=== PATIENT | male | born 1945 | race Caucasian/White ===

== ENCOUNTER → 2017-07-18 09:08 | Outpatient (CLI) | payer MEDICARE, SELFPAY ==
[2017-07-18 10:08] LABS: Absolute Lymphocyte Count 1.51 X10^3/ul (0.83-4.51); Absolute Neutrophil Count 3.7 X10^3/uL (2.0-7.7); Basophil# 0.02 X10^3/uL; Basophil% 0.3 % (0-1); Eosinophil# 0.26 X10^3/uL; Eosinophils% 4.1 % (0-5); Hematocrit 41.8 % (40-54); Hemoglobin 14.2 g/dl (13.0-16.5); Lymphocyte # 1.51 X10^3/ul (4.0); Lymphocyte % 23.9 % (19-41); Mean Corpuscular Hgb 30.9 pg (27.0-32.0); Mean Corpuscular Volume 91.1 fL (80-94); Mean Platelet Vol. 10.7 fl (6.2-12.0); Monocyte# 0.78 X10^3/uL; Monocyte% 12.4 % (0-10); Neutrophil # 3.73 X10^3/uL (2.7-7.7); Neutrophil % 59.1 % (47-70); Platelet Count 247 K/mm3 (150-450); RBC Distribution Width CV 13.7 % (11.6-14.6); RBC Distribution Width SD 45.2 fl (35.1-43.9); Red Blood Count 4.59 M/mm3 (4.6-6.2); White Blood Count 6.3 K/mm3 (4.4-11.0)
[2017-07-18 10:14] LABS: POSITIVE COUNT NO; POSITIVE DIFFERENTIAL NO; POSITIVE MORPHOLOGY NO
[2017-07-18 10:34] LABS: ALB/GLOB Ratio 1.1 RATIO (0.9-2.4); AST(SGOT) 32 U/L (15-37); Alanine Aminotransfer ALT/SGPT 37 U/L (16-61); Albumin, Serum 3.4 g/dL (3.2-5.0); Alkaline Phosphatase 95 U/L (45-117); Anion Gap 7 (5-15); BUN 13 mg/dL (7-18); BUN/Creat Ratio 14.3 RATIO (10-20); Calcium,Total 8.6 mg/dL (8.5-10.1); Chloride 105 mmol/L (98-107); Creatinine, Serum 0.91 mg/dL (0.70-1.30); EST Glomerular Filtration Rate 87 mL/min (>60); Est Glom Filt Rate - Afr Amer 105 mL/min (>60); Glucose 81 mg/dL (74-106); Potassium 3.7 mmol/L (3.5-5.1); Protein, Total 6.4 g/dL (6.4-8.2); Sodium Level 142 mmol/L (136-145); Uric Acid 4.3 mg/dL (3.5-7.2)
== END ==
PROVIDERS: Family Provider Family Medicine; PCP Family Medicine; Visit Provider Internal Medicine Rheumatology
DX: M06.4 Inflammatory polyarthropathy (principal); M16.0 Bilateral primary osteoarthritis of hip; M17.0 Bilateral primary osteoarthritis of knee; I25.10 Atherosclerotic heart disease of native coronary artery without angina pectoris; I10 Essential (primary) hypertension; E78.5 Hyperlipidemia, unspecified; Z95.1 Presence of aortocoronary bypass graft; Z96.641 Presence of right artificial hip joint
CPT/HCPCS: 36415; 80053; 84550; 85025

== ENCOUNTER → 2017-07-26 08:38 | Outpatient (CLI) | payer MEDICARE, SELFPAY ==
[2017-07-26 09:51] LABS: AST(SGOT) 25 U/L (15-37); Alanine Aminotransfer ALT/SGPT 37 U/L (16-61); Albumin, Serum 3.4 g/dL (3.2-5.0); Alkaline Phosphatase 91 U/L (45-117); Bilirubin, Direct 0.16 mg/dL (0.00-0.30); Cholesterol 136 mg/dL (200); Globulin 3.1 g/dL (2.2-4.2); High Density Lipoprotein 41 mg/dL; Protein, Total 6.5 g/dL (6.4-8.2); Triglycerides 138 mg/dL
[2017-07-26 09:52] LABS: Very Low Density Lipoprotein 28 mg/dL (5-40)
== END ==
PROVIDERS: Family Provider Family Medicine; PCP Family Medicine; Visit Provider Internal Medicine Cardiovascular Disease
DX: E78.5 Hyperlipidemia, unspecified (principal); Z79.899 Other long term (current) drug therapy
CPT/HCPCS: 36415; 80061; 80076

== ENCOUNTER → 2017-08-31 12:45 | Outpatient (CLI) | payer MEDICARE, SELFPAY ==
--- NOTE | 2017-08-31 12:47 | STE_ITS ---
Reason For Study: S/P CABG Stress Results Protocol: Nicola Protocol Maximum Predicted HR: 147 bpm Target HR: 125 bpm% Max imum Predicted HR: 86 % DurationHeart Rate Stage (mm:ss) (bpm) BPCom ment BASELINE 63 138/72 2 CC DEFINITY STAGE 1 3:00 90 146/80 STAGE 2 3:00 10 9 158/82 STAGE 3 2:00 12 6 / 1 C C DEFINITY RECOVERY 74 128/76 Stress Duration: 8:00 mm:ss Maximum Stress HR: 126 bpm Baseline Echocardiogram Findings The estimated ejection fraction is 65 %. Stress Echo Wall motion Data Resting WMIntermediate WMStress WM Resting Wall Motion Wall Motion Stress No regional wall motion No regional wall motion abnormalities noted. abnormalities noted. EKG Data The baseline ECG demonstrates normal sinus rhythm with at rate of _ beats per minute. The patient exercised according to the regular Nicola protocol for a total duration of 8:01. The maximum heart rate attained was 133 beats per minute. This was 90% of maximum predicted heart rate. The patient exercised into stage 3 of the Nicola protocol. During stress, there were no ST or T wave changes noted to suggest ischemia. No clinical angina was noted. Interpretation Summary The study was technically difficult. Contrast injection was performed. The estimated ejection fraction is 65 %. Normal, adequate, treadmill echocardiogram. Negative for ischemia by EKG and echocardiographic criteria. No anginal symptoms noted. Rare PVC noted. Appropriate blood pressure response to exercise. Average exercise capacity for age. Final LVEF of 75%. Decreased sensitivity due to poor echo windows requiring Definity contrast agent. No complications. Ordering Physician: Kumar Molina Referring Physician: Kumar Molina Performed By: Mya Cifuentes RDCS
== END ==
PROVIDERS: Family Provider Family Medicine; PCP Family Medicine; Visit Provider Internal Medicine Cardiovascular Disease
DX: I25.10 Atherosclerotic heart disease of native coronary artery without angina pectoris (principal); E78.5 Hyperlipidemia, unspecified
CPT/HCPCS: 93017; 93350; Q9957; A4216

== ENCOUNTER → 2017-10-21 07:56 | Outpatient (CLI) | payer MEDICARE, SELFPAY ==
[2017-10-21 10:43] LABS: Absolute Lymphocyte Count 1.69 X10^3/ul (0.83-4.51); Absolute Neutrophil Count 3.7 X10^3/uL (2.0-7.7); Basophil# 0.04 X10^3/uL; Basophil% 0.6 % (0-1); Eosinophil# 0.22 X10^3/uL; Eosinophils% 3.5 % (0-5); Hematocrit 41.6 % (40-54); Hemoglobin 13.7 g/dl (13.0-16.5); Lymphocyte # 1.69 X10^3/ul (4.0); Lymphocyte % 26.7 % (19-41); Mean Corp Hgb Conc 32.9 g/gl (32-36); Mean Corpuscular Hgb 30.2 pg (27.0-32.0); Mean Corpuscular Volume 91.8 fL (80-94); Mean Platelet Vol. 11.5 fl (6.2-12.0); Neutrophil # 3.69 X10^3/uL (2.7-7.7); Neutrophil % 58.2 % (47-70); Platelet Count 205 K/mm3 (150-450); RBC Distribution Width CV 13.6 % (11.6-14.6); Red Blood Count 4.53 M/mm3 (4.6-6.2); White Blood Count 6.3 K/mm3 (4.4-11.0)
[2017-10-21 10:47] LABS: POSITIVE COUNT NO; POSITIVE DIFFERENTIAL NO; POSITIVE MORPHOLOGY NO
[2017-10-21 11:00] LABS: ALB/GLOB Ratio 1.1 RATIO (0.9-2.4); AST(SGOT) 30 U/L (15-37); Alanine Aminotransfer ALT/SGPT 36 U/L (16-61); Albumin, Serum 3.4 g/dL (3.2-5.0); Alkaline Phosphatase 83 U/L (45-117); Anion Gap 8 (5-15); BUN 17 mg/dL (7-18); BUN/Creat Ratio 15.5 RATIO (10-20); Calcium,Total 8.5 mg/dL (8.5-10.1); Chloride 105 mmol/L (98-107); EST Glomerular Filtration Rate 70 mL/min (>60); Est Glom Filt Rate - Afr Amer 84 mL/min (>60); Globulin 3.2 g/dL (2.2-4.2); Glucose 86 mg/dL (74-106); Potassium 3.9 mmol/L (3.5-5.1); Protein, Total 6.6 g/dL (6.4-8.2); Sodium Level 141 mmol/L (136-145); Uric Acid 4.4 mg/dL (3.5-7.2)
== END ==
PROVIDERS: Family Provider Family Medicine; PCP Family Medicine; Visit Provider Internal Medicine Rheumatology
DX: M06.4 Inflammatory polyarthropathy (principal); M16.0 Bilateral primary osteoarthritis of hip; M17.0 Bilateral primary osteoarthritis of knee; I25.10 Atherosclerotic heart disease of native coronary artery without angina pectoris; Z95.1 Presence of aortocoronary bypass graft; I10 Essential (primary) hypertension; E78.5 Hyperlipidemia, unspecified
CPT/HCPCS: 36415; 80053; 84550; 85025

== ENCOUNTER 2018-04-06 13:36 | Emergency (ER) | payer MEDICARE, SELFPAY ==
[2018-03-27 14:09] VITALS: BMI 22.4
[2018-04-06 13:37] VITALS: BP 146/80; PULSE 83; RESP 16; TEMP 36.7; O2SAT 99; BMI 22.5
--- NOTE | 2018-04-06 14:34 | US_ITS ---
STUDY: ABDOMINAL ULTRASOUND - RIGHT UPPER QUADRANT REASON FOR VISIT: Male, 72 years old. Abdominal pain, jaundice. TECHNIQUE: Ultrasound evaluation of the right upper quadrant was performed with real-time and static barahona-scale imaging. TECHNICAL QUALITY: Adequate. COMPARISON: None. FINDINGS: Liver: The liver measures 14.0 cm. There is normal echogenicity of the liver. Mild intrahepatic biliary ductal ectasia. There is hepatic color flow. The direction of portal flow is hepatopetal. There is no demonstrated mass lesion. Gallbladder: Normal distended gallbladder. The gallbladder wall measures 2.6 mm. There is a negative sonographic Rodriguez's sign. There is no pericholecystic fluid. There are no gallstones minimal gallbladder sludge. A 8mm polyp.. Common Bile Duct (C.B.D.): The common bile duct measures 14.1 mm. Dilated. No visible choledocholithiasis. Pancreas: Pancreatic ductal ectasia up to 5.4 m. Hypoechoic irregularly marginated lesion within the pancreatic head measuring 2.5 x 2.6 x 2.3 cm requires further characterization for the possibility of pancreatic malignancy. Right Kidney: Normal size of the right kidney. The right kidney measures 10.1 cm. Normal renal cortex. The right cortex measures 1.5 cm. There is no demonstrated renal mass or cyst. There is no right hydronephrosis. US/Gallbladder IMPRESSION: 1. Pancreatic head lesion with a greatest dimension of 2.6 cm. Follow-up MRI pancreas without and with contrast is recommended for more complete characterization. 2. Minimal gallbladder sludge, small gallbladder polyp. There are no secondary sonographic features of acute cholecystitis. 3. Mild intrahepatic biliary ductal ectasia, dilated common bile duct 14 mm, without specific evidence of choledocholithiasis. Mild pancreatic ductal ectasia. The biliary and pancreatic ductal dilatation could be associated with the pancreatic head lesion. Electronically Signed: Larry Wood MD at 16:50 EST Tel , Service support ,
--- NOTE | 2018-04-06 14:38 | ED.VISSUMM ---
- ER Visit Summary Date of Service: 04/06/18 Chief Complaint: Abdominal pain History of Present Illness: The patient is a 72 M who states he has been told he looked jaundiced over the past 4 days. He reports minimal right upper quadrant pain after eating for just a few minutes and then it resolves. No nausea or vomiting. No fever. Patient called nurse practitioner for his PCP today and was sent to the emergency room. He denies prior abdominal surgery. Physical Examination: Vital signs unremarkable. Patient sitting in the philip bed. He is in no acute distress. Head neck examination is unremarkable. Heart is regular rate and rhythm. Lung sounds are clear. Abdomen is soft with no tenderness on exam. Hypoactive bowel sounds are present. Skin examination reveals very minimal jaundice appearance to his skin. There is no obvious scleral icterus. Test Results: CBC was normal white count with 92% neutrophils. Hemoglobin is 12.8. Chemistry studies significant for glucose of 155. LFTs reveal total bili of 9.10, direct bili 7.68, alk phos 967, ALT 727, AST 373. His lipase is 2578. Right upper quadrant ultrasound shows a pancreatic head lesion with the greatest diameter being 2.6 cm. There is minimal gallbladder sludge. There is mild hepatic ductal ectasia, dilated common bile duct at 14 mm. Emergency Department Course and Treatment: Patient had Hep-Lock placed here. Test results were discussed with him. I spoke with Dr. White, our surgeon senior instrumentation engineer. He requests transfer to a facility with a biliary surgeon stating that if the mass is contained they will often do surgery to remove this before placing any stents in the ducts. This was discussed with patient and family. Patient has been accepted at [facility] after discussion with both medicine and surgery. Treatment Plan: [] Disposition: Transfer Impression: 1. Pancreatic head mass 2. Elevated LFTs This note was generated with [employer] dictation software. It may contain incorrect words, spelling, and punctuation that were not noted in review of the chart prior to signing ED Disposition - Plan for ED Patient: Chief Complaint: Abd Pain Referrals: Jet Mccollum MD [Primary Care Provider] -
[2018-04-06 15:32] LABS: Absolute Lymphocyte Count 0.46 X10^3/ul (0.83-4.51); Absolute Neutrophil Count 8.6 X10^3/uL (2.0-7.7); Differential Indicated SCAN CRITERIA MET; Hematocrit 38.3 % (40-54); Hemoglobin 12.8 g/dl (13.0-16.5); Lymphocyte # 0.46 X10^3/ul (4.0); Mean Corp Hgb Conc 33.4 g/gl (32-36); Mean Corpuscular Hgb 29.8 pg (27.0-32.0); Mean Corpuscular Volume 89.3 fL (80-94); Mean Platelet Vol. 11.6 fl (6.2-12.0); Monocyte# 0.27 X10^3/uL; Monocyte% 2.9 % (0-10); Neutrophil # 8.55 X10^3/uL (2.7-7.7); Neutrophil % 92.1 % (47-70); POSITIVE COUNT NO; POSITIVE DIFFERENTIAL YES; POSITIVE MORPHOLOGY NO; Platelet Count 218 K/mm3 (150-450); RBC Distribution Width CV 14.6 % (11.6-14.6); RBC Distribution Width SD 47.2 fl (35.1-43.9); Red Blood Count 4.29 M/mm3 (4.6-6.2); White Blood Count 9.3 K/mm3 (4.4-11.0)
[2018-04-06 15:37] VITALS: BP 117/71; PULSE 70; RESP 16
--- NOTE | 2018-04-06 16:16 | ED.RN ---
KESHIA FROM LAB CALLED WITH LIPASE OF 2578. NOTE LEFT FOR DR. CITLALI REIS IN REFERENCE TO SAME.
[2018-04-06 16:17] LABS: AST(SGOT) 373 U/L (15-37); Alanine Aminotransfer ALT/SGPT 727 U/L (16-61); Albumin, Serum 3.4 g/dL (3.2-5.0); Alkaline Phosphatase 967 U/L (45-117); Anion Gap 9 (5-15); BUN 15 mg/dL (7-18); BUN/Creat Ratio 16.1 RATIO (10-20); Bilirubin, Direct 7.68 mg/dL (0.00-0.30); Chloride 108 mmol/L (98-107); Creatinine, Serum 0.93 mg/dL (0.70-1.30); EST Glomerular Filtration Rate 84 mL/min (>60); Est Glom Filt Rate - Afr Amer 102 mL/min (>60); Estimated Creatinine Clearance 65.36 ml/min; Globulin 3.2 g/dL (2.2-4.2); Glucose 155 mg/dL (74-106); Lipase 2578 U/L (73-393); Potassium 3.6 mmol/L (3.5-5.1); Protein, Total 6.6 g/dL (6.4-8.2); Sodium Level 141 mmol/L (136-145)
[2018-04-06 17:00] VITALS: BP 157/83; PULSE 80; RESP 16
--- NOTE | 2018-04-06 17:46 | NURSING ---
CALLED [facility], TALKED TO JEFERSON. BEDS ARE TIGHT
--- NOTE | 2018-04-06 18:01 | NURSING ---
DR MARK FOR DR REIS
[2018-04-06 19:00] VITALS: BP 157/101; PULSE 56; RESP 18; O2SAT 99
[2018-04-06 21:37] VITALS: BP 125/75; PULSE 64; RESP 17
== END 2018-04-06 21:58 | disposition short-term general hospital (02) ==
LOC: ED 14:59
PROVIDERS: Emergency Provider Emergency Medicine; Family Provider Family Medicine; PCP Family Medicine
DX: K86.9 Disease of pancreas, unspecified (principal); R79.89 Other specified abnormal findings of blood chemistry; K83.8 Other specified diseases of biliary tract; R10.11 Right upper quadrant pain; I25.10 Atherosclerotic heart disease of native coronary artery without angina pectoris; I10 Essential (primary) hypertension; E78.00 Pure hypercholesterolemia, unspecified; Z95.1 Presence of aortocoronary bypass graft; Z79.82 Long term (current) use of aspirin; Z79.899 Other long term (current) drug therapy; Z87.891 Personal history of nicotine dependence
CPT/HCPCS: 76705; 80048; 80076; 83690; 85025; 99284; A4216

== ENCOUNTER 2018-05-04 21:27 | Emergency (ER) | payer MEDICARE, SELFPAY ==
[2018-05-04 21:32] VITALS: BP 145/73; PULSE 84; RESP 18; TEMP 39.1; O2SAT 96; BMI 21.2
--- NOTE | 2018-05-04 21:59 | EKG12_ITS ---
Test Reason : GENERAL ILLNESS Blood Pressure : / mmHG Vent. Rate : 088 BPM Atrial Rate : 088 BPM P-R Int : 144 ms QRS Dur : 094 ms QT Int : 380 ms P-R-T Axes : 037 -40 070 degrees QTc Int : 459 ms Sinus rhythm with frequent Premature ventricular complexes Possible Left atrial enlargement Left axis deviation Incomplete right bundle branch block Left ventricular hypertrophy Nonspecific ST and T wave abnormality Abnormal ECG Confirmed by LEI MATHUR, ZULEIKA ([id number]), editor continuity and script PARKER ARSHAD ([id number]) on 05/09/2018 3:04:38 PM Referred By: TESHA Confirmed By:ZULEIKA ODOM MD
[2018-05-04 22:03] VITALS: BP 132/65; PULSE 78; RESP 18; O2SAT 95
--- NOTE | 2018-05-04 22:05 | ED.VISSUMM ---
- ER Visit Summary Date of Service: 05/04/18 Chief Complaint: Uncontrolled shaking History of Present Illness: The patient is a 72 M who presents for uncontrolled shaking. Patient began having chills and uncontrolled shaking approximately 10 minutes prior to calling EMS. Onset was sudden. Patient currently is having no complaint. He has nausea and decreased appetite, but no cough, congestion, chest pain, shortness of breath, abdominal pain, vomiting or diarrhea, urinary symptoms, body aches or back pain. Patient was recently diagnosed with pancreatic cancer, and had a Whipple procedure 2 weeks ago, requiring a revision surgery to replace a hepatic stent and complicated by 1 infection at the site of his cholecystectomy, now with two drains in place. Patient has been home for 1 week. Physical Examination: Vital signs: Febrile at 102.4, hemodynamically stable, no hypoxia on room air General: well nourished, well developed, in no distress, bundled up in blankets Skin: warm, dry, no rash, no pallor HEENT: normocephalic and atraumatic; PERRL, EOMI, moist mucous membranes Cardiovascular: regular rate and rhythm without murmurs, 2+ pitting edema in the left lower extremity, chronic, 2+ pulses all distal extremities Respiratory: No increased work of breathing, lungs are clear to auscultation bilaterally, no rales, rhonchi or wheezing Abdominal: Abdomen is soft, nontender with normoactive bowel sounds, no guarding or rebound, no masses, well-healing surgical incisions, JASWINDER drain in the right upper quadrant draining clear serous fluid. MSK: Moves all extremities, no deformities, normal strength Neuro: Awake and alert, oriented ?4. No facial droop, sensation and motor function intact and symmetric Test Results: Abnormal Lab Results 05/04/18 05/04/18 05/04/18 21:45 21:45 21:45 WBC 13.7 H RBC 3.76 L Hgb 11.2 L Hct 34.1 L MCV 90.7 MCH 29.8 MCHC 32.8 RDW 14.4 RDW Differential 47.1 H Plt Count 569 H MPV 9.5 Immature Gran % (Auto) 0.400 Neut % (Auto) 83.7 H Lymph % (Auto) 9.3 L Peach % (Auto) 2.3 Eos % (Auto) 4.1 Baso % (Auto) 0.2 Absolute Neuts (auto) 11.5 H Absolute Lymphs (auto) 1.28 Total Counted Not Reportable Platelet Estimate MOD INC Anisocytosis RARE Macrocytosis RARE PT 13.8 INR 1.1 APTT 29.3 Sodium 142 Potassium 3.8 Chloride 107 Carbon Dioxide 23.0 Anion Gap 12 BUN 13 Creatinine 0.83 Estim Creat Clear Calc 68.97 Est GFR (MDRD) Af Amer 117 Est GFR (MDRD) Non-Af 97 BUN/Creatinine Ratio 15.7 Glucose 99 Lactic Acid Calcium 8.1 L Total Bilirubin 0.80 AST 29 ALT 33 Alkaline Phosphatase 181 H Total Protein 6.2 L Albumin 2.8 L Globulin 3.4 Albumin/Globulin Ratio 0.8 L 05/04/18 21:45 WBC RBC Hgb Hct MCV MCH MCHC RDW RDW Differential Plt Count MPV Immature Gran % (Auto) Neut % (Auto) Lymph % (Auto) Peach % (Auto) Eos % (Auto) Baso % (Auto) Absolute Neuts (auto) Absolute Lymphs (auto) Total Counted Platelet Estimate Anisocytosis Macrocytosis PT INR APTT Sodium Potassium Chloride Carbon Dioxide Anion Gap BUN Creatinine Estim Creat Clear Calc Est GFR (MDRD) Af Amer Est GFR (MDRD) Non-Af BUN/Creatinine Ratio Glucose Lactic Acid 2.1 H Calcium Total Bilirubin AST ALT Alkaline Phosphatase Total Protein Albumin Globulin Albumin/Globulin Ratio Clinical Impression(s) from Imaging Studies Chest X-Ray 05/04/18 22:10 IMPRESSION: No acute pulmonary findings. Electronically Signed: Vignesh Justice MD at 22:24 EST Tel , Service support , Medications Given Sodium Chloride () 1,000 mls @ 250 mls/hr IV .Q4H KRYSTLE Last Admin: 05/04/18 22:31 Dose: 250 mls/hr Vancomycin HCl 1,500 mg/ (Sodium Chloride) 530 mls @ 250 mls/hr IV X1 ONE Stop: 05/05/18 01:07 Discontinued Medications Acetaminophen (Tylenol) 650 mg PO X1 ONE Stop: 05/04/18 22:00 Last Admin: 05/04/18 22:34 Dose: 650 mg Piperacillin Sod/Tazobactam Sod (Zosyn) 4.5 gm in 100 mls @ 200 mls/hr IV X1 ONE Stop: 05/04/18 23:10 Last Admin: 05/04/18 23:01 Dose: 200 mls/hr Vancomycin HCl / Dextrose 250 mls @ 250 mls/hr IV RX TO DOSE ONE; Protocol Stop: 05/04/18 23:40 Ondansetron HCl (Zofran) 4 mg IV X1 ONE Stop: 05/04/18 22:11 Last Admin: 05/04/18 22:31 Dose: 4 mg Emergency Department Course and Treatment: Patient presents after an episode of uncontrolled shaking and chills, which sounds consistent with rigors. Patient is febrile at presentation. Sepsis workup was performed. Flu was negative. Chest x-ray showed no signs of pneumonia. Patient had leukocytosis of 13.7. No electrolyte derangements. No transaminitis. Lactate elevated at 2.1. Patient received Tylenol for fever and Zofran for nausea. He was started empirically on Zosyn and vancomycin. He remained pain-free. Source of infection is suspected to be related to patient's surgery/abdomen. Patient will require transfer back to [facility] for continuity of care, complex current medical problems, and in case any further surgical procedures are necessary. CT scan of the abdomen and pelvis was not performed, as at this point it will not change patient's management at this hospital. Patient was discussed with the surgeon Dr. Harman and accepted for transfer to [facility]. Treatment Plan: [] Disposition: [] Impression: sepsis, recent Whipple procedure, active pancreatic cancer This note was generated with [employer] dictation software. It may contain incorrect words, spelling, and punctuation that were not noted in review of the chart prior to signing ED Disposition - Plan for ED Patient: Chief Complaint: General Illness Referrals: Jet Mccollum MD [Primary Care Provider] -
--- NOTE | 2018-05-04 22:08 | ED.DCSUM_ITS ---
- ER Visit Summary Date of Service: 05/04/18 Chief Complaint: Uncontrolled shaking History of Present Illness: The patient is a 72 M who presents for uncontrolled shaking. Patient began having chills and uncontrolled shaking approximately 10 minutes prior to calling EMS. Onset was sudden. Patient currently is having no complaint. He has nausea and decreased appetite, but no cough, congestion, chest pain, shortness of breath, abdominal pain, vomiting or diarrhea, urinary symptoms, body aches or back pain. Patient was recently diagnosed with pancreatic cancer, and had a Whipple procedure 2 weeks ago, requiring a revision surgery to replace a hepatic stent and complicated by 1 infection at the site of his cholecystectomy, now with two drains in place. Patient has been home for 1 week. Physical Examination: Vital signs: Febrile at 102.4, hemodynamically stable, no hypoxia on room air General: well nourished, well developed, in no distress, bundled up in blankets Skin: warm, dry, no rash, no pallor HEENT: normocephalic and atraumatic; PERRL, EOMI, moist mucous membranes Cardiovascular: regular rate and rhythm without murmurs, 2+ pitting edema in the left lower extremity, chronic, 2+ pulses all distal extremities Respiratory: No increased work of breathing, lungs are clear to auscultation bilaterally, no rales, rhonchi or wheezing Abdominal: Abdomen is soft, nontender with normoactive bowel sounds, no guarding or rebound, no masses, well-healing surgical incisions, JASWINDER drain in the right upper quadrant draining clear serous fluid. MSK: Moves all extremities, no deformities, normal strength Neuro: Awake and alert, oriented ?4. No facial droop, sensation and motor function intact and symmetric Test Results: Abnormal Lab Results 05/04/18 05/04/18 05/04/18 21:45 21:45 21:45 WBC 13.7 H RBC 3.76 L Hgb 11.2 L Hct 34.1 L MCV 90.7 MCH 29.8 MCHC 32.8 RDW 14.4 RDW Differential 47.1 H Plt Count 569 H MPV 9.5 Immature Gran % (Auto) 0.400 Neut % (Auto) 83.7 H Lymph % (Auto) 9.3 L [place] % (Auto) 2.3 Eos % (Auto) 4.1 Baso % (Auto) 0.2 Absolute Neuts (auto) 11.5 H Absolute Lymphs (auto) 1.28 Total Counted Not Reportable Platelet Estimate MOD INC Anisocytosis RARE Macrocytosis RARE PT 13.8 INR 1.1 APTT 29.3 Sodium 142 Potassium 3.8 Chloride 107 Carbon Dioxide 23.0 Anion Gap 12 BUN 13 Creatinine 0.83 Estim Creat Clear Calc 68.97 Est GFR (MDRD) Af Amer 117 Est GFR (MDRD) Non-Af 97 BUN/Creatinine Ratio 15.7 Glucose 99 Lactic Acid Calcium 8.1 L Total Bilirubin 0.80 AST 29 ALT 33 Alkaline Phosphatase 181 H Total Protein 6.2 L Albumin 2.8 L Globulin 3.4 Albumin/Globulin Ratio 0.8 L 05/04/18 21:45 WBC RBC Hgb Hct MCV MCH MCHC RDW RDW Differential Plt Count MPV Immature Gran % (Auto) Neut % (Auto) Lymph % (Auto) [place] % (Auto) Eos % (Auto) Baso % (Auto) Absolute Neuts (auto) Absolute Lymphs (auto) Total Counted Platelet Estimate Anisocytosis Macrocytosis PT INR APTT Sodium Potassium Chloride Carbon Dioxide Anion Gap BUN Creatinine Estim Creat Clear Calc Est GFR (MDRD) Af Amer Est GFR (MDRD) Non-Af BUN/Creatinine Ratio Glucose Lactic Acid 2.1 H Calcium Total Bilirubin AST ALT Alkaline Phosphatase Total Protein Albumin Globulin Albumin/Globulin Ratio Clinical Impression(s) from Imaging Studies Chest X-Ray 05/04/18 22:10 IMPRESSION: No acute pulmonary findings. Electronically Signed: Vignesh Justice MD at 22:24 EST Tel , Service support , Medications Given Sodium Chloride () 1,000 mls @ 250 mls/hr IV .Q4H KRYSTLE Last Admin: 05/04/18 22:31 Dose: 250 mls/hr Vancomycin HCl 1,500 mg/ (Sodium Chloride) 530 mls @ 250 mls/hr IV X1 ONE Stop: 05/05/18 01:07 Discontinued Medications Acetaminophen (Tylenol) 650 mg PO X1 ONE Stop: 05/04/18 22:00 Last Admin: 05/04/18 22:34 Dose: 650 mg Piperacillin Sod/Tazobactam Sod (Zosyn) 4.5 gm in 100 mls @ 200 mls/hr IV X1 ONE Stop: 05/04/18 23:10 Last Admin: 05/04/18 23:01 Dose: 200 mls/hr Vancomycin HCl / Dextrose 250 mls @ 250 mls/hr IV RX TO DOSE ONE; Protocol Stop: 05/04/18 23:40 Ondansetron HCl (Zofran) 4 mg IV X1 ONE Stop: 05/04/18 22:11 Last Admin: 05/04/18 22:31 Dose: 4 mg Emergency Department Course and Treatment: Patient presents after an episode of uncontrolled shaking and chills, which sounds consistent with rigors. Patient is febrile at presentation. Sepsis workup was performed. Flu was negative. Chest x-ray showed no signs of pneumonia. Patient had leukocytosis of 13.7. No electrolyte derangements. No transaminitis. Lactate elevated at 2.1. Patient received Tylenol for fever and Zofran for nausea. He was started empirically on Zosyn and vancomycin. He remained pain-free. Source of infection is suspected to be related to patient's surgery/abdomen. Patient will require transfer back to [facility] for continuity of care, complex current medical problems, and in case any further surgical procedures are necessary. CT scan of the abdomen and pelvis was not performed, as at this point it will not change patient's management at this hospital. Patient was discussed with the surgeon Dr. Harman and accepted for transfer to [facility]. Treatment Plan: [] Disposition: [] Impression: sepsis, recent Whipple procedure, active pancreatic cancer This note was generated with [email or web address] dictation software. It may contain incorrect words, spelling, and punctuation that were not noted in review of the chart prior to signing ED Disposition - Plan for ED Patient: Chief Complaint: General Illness Referrals: Jet Mccollum MD [Primary Care Provider] -
--- NOTE | 2018-05-04 22:10 | RAD_ITS ---
STUDY: X-RAY CHEST REASON FOR EXAM: Male, 72 years old. [place]ills TECHNIQUE: Single frontal view of the chest. COMPARISON: None. FINDINGS: Median sternotomy wires. The lungs are clear and expanded. There is no demonstrated pleural abnormality. Normal size heart. Normal mediastinum and roz. Normal visualized pulmonary arteries. Normal visualized aortic arch and descending thoracic aorta. Normal visualized thoracic spine. Normal visualized ribs, clavicles, and shoulders. Right upper quadrant drain. RAD/Chest 1 View (Portable) IMPRESSION: No acute pulmonary findings. Electronically Signed: Vignesh Justice MD at 22:24 EST Tel , Service support ,
[2018-05-04 22:26] LABS: International Normalized Ratio 1.1; Prothrombin Time (Protime)PT. 13.8 SECONDS (11.7-14.9)
[2018-05-04 22:27] LABS: Absolute Lymphocyte Count 1.28 X10^3/ul (0.83-4.51); Absolute Neutrophil Count 11.5 X10^3/uL (2.0-7.7); Basophil# 0.03 X10^3/uL; Basophil% 0.2 % (0-1); Eosinophil# 0.56 X10^3/uL; Eosinophils% 4.1 % (0-5); Hematocrit 34.1 % (40-54); Hemoglobin 11.2 g/dl (13.0-16.5); Lymphocyte # 1.28 X10^3/ul (4.0); Lymphocyte % 9.3 % (19-41); Mean Corp Hgb Conc 32.8 g/gl (32-36); Mean Corpuscular Hgb 29.8 pg (27.0-32.0); Mean Corpuscular Volume 90.7 fL (80-94); Mean Platelet Vol. 9.5 fl (6.2-12.0); Monocyte# 0.32 X10^3/uL; Monocyte% 2.3 % (0-10); Neutrophil # 11.47 X10^3/uL (2.7-7.7); Neutrophil % 83.7 % (47-70); Partial Thromboplast Time 29.3 Seconds (24.1-36.2); Platelet Count 569 K/mm3 (150-450); RBC Distribution Width CV 14.4 % (11.6-14.6); RBC Distribution Width SD 47.1 fl (35.1-43.9); Red Blood Count 3.76 M/mm3 (4.6-6.2); White Blood Count 13.7 K/mm3 (4.4-11.0)
[2018-05-04 22:30] LABS: Differential Indicated SCAN CRITERIA MET; POSITIVE COUNT NO; POSITIVE DIFFERENTIAL NO; POSITIVE MORPHOLOGY YES
[2018-05-04] MEDS: 0.9% Normal Saline 1,000 ML 250 ML IV (22:31)
[2018-05-04] MEDS: Ondansetron 4 MG/2 ML Vial IV (22:31)
[2018-05-04] MEDS: Acetaminophen 325 MG Tablet 650 MG PO (22:34)
[2018-05-04 22:35] LABS: ALB/GLOB Ratio 0.8 RATIO (0.9-2.4); AST(SGOT) 29 U/L (15-37); Alanine Aminotransfer ALT/SGPT 33 U/L (16-61); Albumin, Serum 2.8 g/dL (3.2-5.0); Alkaline Phosphatase 181 U/L (45-117); Anion Gap 12 (5-15); BUN 13 mg/dL (7-18); BUN/Creat Ratio 15.7 RATIO (10-20); Calcium,Total 8.1 mg/dL (8.5-10.1); Chloride 107 mmol/L (98-107); Creatinine, Serum 0.83 mg/dL (0.70-1.30); EST Glomerular Filtration Rate 97 mL/min (>60); Est Glom Filt Rate - Afr Amer 117 mL/min (>60); Estimated Creatinine Clearance 68.97 ml/min; Globulin 3.4 g/dL (2.2-4.2); Glucose 99 mg/dL (74-106); Potassium 3.8 mmol/L (3.5-5.1); Protein, Total 6.2 g/dL (6.4-8.2); Sodium Level 142 mmol/L (136-145)
[2018-05-04 22:37] LABS: Lactic Acid 2.1 mmol/L (0.4-2.0)
[2018-05-04 22:38] VITALS: BP 130/58; PULSE 83; RESP 16; TEMP 38.8; O2SAT 96
[2018-05-04 22:42] LABS: Platelet Estimate MOD INC (ADEQ)
[2018-05-04 22:43] LABS: Anisocytosis RARE; Macrocytosis RARE
[2018-05-04 23:44] VITALS: BP 104/52; PULSE 78; RESP 16; TEMP 37.4; O2SAT 96
[2018-05-05 01:06] VITALS: BP 119/61; PULSE 72; RESP 16; TEMP 37.3; O2SAT 96
--- NOTE | 2018-05-05 01:11 | NURSING ---
ACCEPTED TO [facility] BED H71 [id number]
[2018-05-05 01:24] VITALS: BP 106/59; PULSE 71; RESP 16; TEMP 37.3; O2SAT 97
--- NOTE | 2018-05-05 01:37 | ED.RN ---
ATTEMPTED TO CALL REPORT TO [facility]. RN UNABLE TO TAKE REPORT AT THIS TIME. ASKED TO CALL BACK IN 15 MINUTES.
[2018-05-05 01:45] VITALS: BP 98/59
[2018-05-05 01:55] VITALS: BP 96/54
[2018-05-05 02:10] LABS: Lactic Acid 1.4 mmol/L (0.4-2.0)
[2018-05-05 02:16] LABS: Reflex Lactate? Y
== END 2018-05-05 02:15 | disposition short-term general hospital (02) ==
PROVIDERS: Emergency Provider Emergency Medicine; Family Provider Family Medicine; PCP Family Medicine
DX: A41.9 Sepsis, unspecified organism (principal); Z90.49 Acquired absence of other specified parts of digestive tract; C25.9 Malignant neoplasm of pancreas, unspecified; R60.0 Localized edema; I49.3 Ventricular premature depolarization; Z97.8 Presence of other specified devices; Z79.82 Long term (current) use of aspirin; Z79.899 Other long term (current) drug therapy
CPT/HCPCS: 71045; 80053; 83605; 85025; 85610; 85730; 87040; 87804; 93005; 96365; 96366; 96367; 96374; 99285; J7030; J7040; A4216; J2405

== ENCOUNTER → 2018-06-05 13:18 | Outpatient (CLI) | payer MEDICARE, SELFPAY ==
[2018-06-05 14:02] LABS: Absolute Lymphocyte Count 1.44 X10^3/ul (0.83-4.51); Absolute Neutrophil Count 7.1 X10^3/uL (2.0-7.7); Basophil# 0.01 X10^3/uL; Basophil% 0.1 % (0-1); Eosinophil# 0.17 X10^3/uL; Eosinophils% 1.8 % (0-5); Hematocrit 40.5 % (40-54); Hemoglobin 13.4 g/dl (13.0-16.5); Lymphocyte # 1.44 X10^3/ul (4.0); Lymphocyte % 15.3 % (19-41); Mean Corp Hgb Conc 33.1 g/gl (32-36); Mean Corpuscular Hgb 29.9 pg (27.0-32.0); Mean Corpuscular Volume 90.4 fL (80-94); Mean Platelet Vol. 10.1 fl (6.2-12.0); Monocyte# 0.68 X10^3/uL; Monocyte% 7.2 % (0-10); Neutrophil # 7.11 X10^3/uL (2.7-7.7); Neutrophil % 75.3 % (47-70); POSITIVE COUNT NO; POSITIVE DIFFERENTIAL NO; POSITIVE MORPHOLOGY NO; Platelet Count 367 K/mm3 (150-450); RBC Distribution Width CV 13.9 % (11.6-14.6); RBC Distribution Width SD 45.2 fl (35.1-43.9); Red Blood Count 4.48 M/mm3 (4.6-6.2); White Blood Count 9.4 K/mm3 (4.4-11.0)
[2018-06-05 14:20] LABS: AST(SGOT) 20 U/L (15-37); Alanine Aminotransfer ALT/SGPT 29 U/L (16-61); Albumin, Serum 3.1 g/dL (3.2-5.0); Alkaline Phosphatase 103 U/L (45-117); Anion Gap 7 (5-15); BUN 14 mg/dL (7-18); BUN/Creat Ratio 18.3 RATIO (10-20); Calcium,Total 8.2 mg/dL (8.5-10.1); Chloride 104 mmol/L (98-107); Creatinine, Serum 0.76 mg/dL (0.70-1.30); EST Glomerular Filtration Rate 106 mL/min (>60); Est Glom Filt Rate - Afr Amer 128 mL/min (>60); Globulin 3.2 g/dL (2.2-4.2); Glucose 112 mg/dL (74-106); Potassium 3.8 mmol/L (3.5-5.1); Protein, Total 6.3 g/dL (6.4-8.2); Sodium Level 141 mmol/L (136-145); Uric Acid 4.7 mg/dL (3.5-7.2)
== END ==
PROVIDERS: Family Provider Family Medicine; PCP Family Medicine; Referring Provider Internal Medicine Rheumatology; Visit Provider Internal Medicine Rheumatology
DX: M06.4 Inflammatory polyarthropathy (principal); M16.0 Bilateral primary osteoarthritis of hip; M17.0 Bilateral primary osteoarthritis of knee; I25.10 Atherosclerotic heart disease of native coronary artery without angina pectoris; I10 Essential (primary) hypertension; E78.5 Hyperlipidemia, unspecified
CPT/HCPCS: 36415; 80053; 84550; 85025

== ENCOUNTER → 2018-06-07 11:20 | Outpatient (CLI) | payer MEDICARE, SELFPAY ==
[2018-06-07 13:22] LABS: Pathologist Comment May follow
[2018-06-07 13:39] LABS: Synovial Fld Mononuclear WBC % 63.6 %; Synovial Fld Polynuclear WBC # 0.146 10^3/ul; Synovial Fld Polynuclear WBC % 36.4 %
[2018-06-07 13:48] LABS: AUTO B FLUID DILUENT BKGD CT WBC <0.1 RBC <0.01 (W<.1,R<.01); Appearance /Synovial Fluid Sl Cl (CLEAR); Color / Synovial Fluid Yellow (Pale Yellow); Source / Synovial Fluid LEFT KNEE; Source- Body Fluid SYNOVIAL
[2018-06-07 14:59] LABS: Body Fluid QC Type(s) BF1Q,BF2Q; Lymph 40 %; Monocyte /Synovial Fluid 26 %; Neutrophil 34 % (0-25); RBC /Synovial Fluid 7 /mm3 (0)
[2018-06-09 13:02] LABS: Pathologist Review Reviewed
== END ==
PROVIDERS: Family Provider Family Medicine; PCP Family Medicine; Referring Provider Internal Medicine Rheumatology; Visit Provider Internal Medicine Rheumatology
DX: M06.4 Inflammatory polyarthropathy (principal); M16.0 Bilateral primary osteoarthritis of hip; M17.0 Bilateral primary osteoarthritis of knee; I25.10 Atherosclerotic heart disease of native coronary artery without angina pectoris; I10 Essential (primary) hypertension; E78.5 Hyperlipidemia, unspecified; C25.9 Malignant neoplasm of pancreas, unspecified
CPT/HCPCS: 87070; 87075; 87205; 89050; 89051; 89060

== ENCOUNTER 2018-06-09 07:59 | Outpatient (RCR) | payer MEDICARE, SELFPAY ==
--- NOTE | 2018-06-09 08:59 | HP.PTEVAL_ITS ---
Patient's Visit Information JIGAR ARRIOLA is a 73 year old M referred to Physical Therapy by MEL Trevizo with a diagnosis of GOUT BILATERAL LE. Date of Evaluation: 06/09/18 Physical Therapist: Yan Pino, PT, Cert MDT, OCS - Visit Plan Frequency: 2x /Week Duration: 4 Weeks Plan: PATIENT PLANS TO SEE CANCER DR TODAY FOR PORT PLACEMENT FOR CHEMO AND WILL GET RECOMMENDATIONS FOR PT. INTERVENTIONS PROGRESSIVE ENDURANCE PROGRAM ,STRENGTHENING BLE - Subjective Findings: This 73 y/o male presents to physical therapy with generalized weakness. Pateint was hospitalized found to have malignant tumor on pancrease . Patient was admitted to [facility] under s/p whipple surgery to remove tunmor.Patient was hospitilized for about 1 month due to medical complication to include developing gout knees and ankle. Patient d/c to home with Home PT .Patient plans to get port to start chemotherapy. Patient has no pain. Denies parathesia/tingling. Patient is abld to to basic ADL'S and self hygine. Home Situation: Lives in 2 story home with 11 steps ,entrance with 6 step and hand rails. Denies nausea/dizziness . Patient sleeping good. Intially ,used walker for a few days. SOCAIL: daughter stays with patient. VOCATION: retired - Objective POSTURE: mild foward posture. NEURO: intact. PALPTION: unremrkable. GAIT: normal miladys. BALANCE: good. STAIRS: ascend/desend 12 steps 1 rail. MMT: quads/hams 4-/5,hip flexion/abd 3+/5 ankle 5/5. FLEXABLITY: hams WFL - Balance Scores Functional Gait Assessment Score: 24 % Disability: 20.0000 CATSIB Score (Max score 120 seconds): 100 - Goals Goal 1:: Independant with HEP Goal Time Frame: 4-6 Weeks Goal 2:: Improve BLE strength to 4/5 knee/hip to improve function with ADL'S Goal Time Frame: 4-6 Weeks Goal 3:: Patient to improve functional endurance to good Goal Time Frame: 4-6 Weeks Goal 4:: Patient to improve LFES score by 5-10 points to improve QOL Goal Time Frame: 4-6 Weeks - Rehabilitation Potential Physical Therapy Diagnosis: Patient developed maligant tumor on pancrease whick had whipple procedure causing deficits with endurance and strength ,patient also lans to get chemo therapy .Will get port today Rehabilitation Potential: Fair - Anticipated Interventions Patient/Client Instruction: Educate patient on: Condition, Plan of Care For the Purpose of:: To improve muscle performance and motor function, To improve ability to perform ADL's, To increase tolerance to activity/condition/position, To improve ability of physical actions for home/community/work/leisure, To improve gait and locomotor functions, To improve endurance, To improve balance, To improve ability to perform tasks related to life management Therapeutic Exercise to Include: Strength training, Endurance training, Balance training Comment: LE For the Purpose of:: To improve muscle performance and motor function, To improve ability to perform ADL's, To increase tolerance to activity/condition/position, To improve performance and independence with ADL's, To improve ability of physical actions for home/community/work/leisure, To improve endurance, To improve balance, To assume or resume ADL's, To improve ability to perform tasks related to life management Thank you for the opportunity to evaluate your patient. For Medicare and Medicare HMO plans, please review the plan of care and approve it. It will need to be FAXED BACK to us at [phone] for Medicare purposes. For Medicare only, by signing this I certify the plan of care. Please let me know if there are questions or concerns regarding this plan of care. Physician Signature: D ate:
--- NOTE | 2018-12-05 12:50 | HP.PTDCNRP_ITS ---
HP - Discharge Summary (1) - Patient Information JIGAR ARRIOLA was seen in my office for initial evaluation on 06/09/18. The following Plan of Care was established for this patient: Initial Frequency: 2x /Week Initial Duration: 4 Weeks - Anticipated Interventions Patient/Client Instruction: Educate patient on: Condition, Plan of Care For the Purpose of:: To improve muscle performance and motor function, To imp rove ability to perform ADL's, To increase tolerance to activity/condition/position, To improve ability of physical actions for home/community/work/leisure, To improve gait and locomotor functions, To improve endurance, To improve balance, To improve ability to perform tasks related to life management Therapeutic Exercise to Include: Strength training, Endurance training, Balance training For the Purpose of:: To improve muscle performance and motor function, To improve ability to perform ADL's, To increase tolerance to activity/condition/position, To improve performance and independence with ADL's, To improve ability of physical actions for home/community/work/leisure, To improve endurance, To improve balance, To assume or resume ADL's, To improve ability to perform tasks related to life management This patient was last seen in our office . Pertinent comments regarding their Physical therapy will appear below: Patient was seen for PT for PT initial Eval then d/c. At this point I will be discontinuing this patient from physical therapy. I would be happy to see this patient again in the future if found appropriate by the physician. Thank you! Yan Pino, PT, Cert MDT, OCS
== END 2018-06-09 19:00 | disposition home or self-care (01) ==
LOC: PT 07:59
PROVIDERS: Family Provider Family Medicine; PCP Family Medicine; Referring Provider Registered Nurse; Visit Provider Registered Nurse
DX: M10.9 Gout, unspecified (principal)
CPT/HCPCS: 97162

== ENCOUNTER 2018-06-09 10:00 | Day surgery (SDC) | payer MEDICARE, SELFPAY ==
[2018-06-09 10:24] VITALS: BP 141/86; PULSE 76; RESP 14; TEMP 36.4; O2SAT 97; BMI 21.0
[2018-06-09] MEDS: Cefazolin 2 GM in 0.9% Normal Saline 100 ML IV (12:27)
--- NOTE | 2018-06-09 12:35 | OP.PCM_ITS ---
Report of Operation Date of Procedure: 06/09/18 Pre-Operative Diagnosis: pancreatic cancer, need for IV access Post-Operative Diagnosis: same Surgery/Procedure Performed:: placement of permanent indwelling tunnelled catheter in right subclavian vein with subcutaneous port Description of Surgical Findings:: normal right subclavian anatomy to SVC Type of Anesthesia:: Local MAC Anesthesiologist: Judy Salmeron Specimen's removed: none Estimated Blood Loss (mL): < 5 Fluids Replaced: 500 ml RL Description of Procedure: After informed consent was given, the patient was brought to the operating room. Appropriate time out protocol was followed. He was then placed in the supine position. He was then given IV conscious sedation for anesthesia. The patient?s upper chest and neck were then prepped with a surgical skin preparation and sterile surgical drapes were placed. After proper landmarks were ascertained, the skin at the upper right neck and chest area was then infiltrated with 1% xylocaine with epinephrine. A needle trocar was then attempted to be inserted into the right internal jugular, however, this could not be localized. The patient seemed to be too dehydrated to access. Therefore the needle trocar was then attempted to be inserted in the right subclavian vein and there was good aspiration of venous blood. A wire was then threaded into the needle trocar and this was visualized under fluoroscopy to ensure that the wire was in the left subclavian vein. Once this was done, then the needle trocar was removed. A small skin lynn was made with an 11 blade knife at the wire entrance site. The dilator with the introducer sheath attached was then placed over the wire into the right subclavian vein via the Seldinger technique and this was visualized under fluoroscopy. The dilator and sheath were in proper position as visualized by fluoroscopy. The wire and dilat or were then removed. The catheter was then threaded into the introducer sheath and was positioned with its tip at the junction of the superior vena cava and the right atrium as visualized under fluoroscopy. The catheter was flushed with a heparin saline mixture prior to placement. A subcutaneous pocket was then created caudad to the catheter insertion site. A transverse skin incision was made after the skin and subcutaneous tissues were infiltrated with local anesthetic. Blunt dissection was then used to create a space large enough for placement of the subcutaneous port. Hemostasis was carefully controlled with electrocautery. The port was sutured to the subcutaneous fascia using vicryl suture at three sites. The catheter was then tunneled into the subcutaneous pocket. The excess catheter was transected. The catheter was then attached to the subcutaneous port using marketing strategy manager?s guidelines. The port was then placed in the subcutaneous pocket and the sutures were ligated. The subdermal incisional sites were reapproximated with interrupted vicryl suture. The skin was reapproximated with monocryl suture in a subcuticular fashion. Cavilon and steristrips were used for reinforcement of the skin closure and a sterile opsite dressing was applied. The patient tolerated the procedure well and was brought to the Recovery Room in stable condition. Grafts/Implants Used: PowerPort Bard 8Fr lot [id number] exp 2019-12-10 - Complications none noted - Admit VTE Documentation VTE Present on Admission: Yes VTE Mechan Device Prophylaxis: SCD's
--- NOTE | 2018-06-09 13:22 | RAD_ITS ---
STUDY: X-RAY CHEST REASON FOR EXAM: Male, 73 years old. Right port placement. TECHNIQUE: Single AP portable view of the chest. COMPARISON: Comparison is made with prior study dated May 04, 2018. FINDINGS: A right-sided catarina catheter has been placed. The tip is at the junction of the superior vena cava and right atrium. EKG electrodes are seen. Scattered calcified granulomas. There is no demonstrated pleural abnormality. Sternal cerclage wires and vascular clips are present from a prior sternotomy and coronary artery bypass graft procedure (CABG). Normal mediastinum and roz. Normal visualized pulmonary arteries. There is atherosclerotic calcification of the aortic arch with tortuosity. There are diffuse degenerative changes of the visualized thoracic spine. Normal visualized ribs, clavicles, and shoulders. There is no demonstrated abnormality of the visualized soft tissue structures of the upper abdomen. RAD/CXR for Line Placement IMPRESSION: The tip of the right catarina catheter is at the junction of the superior vena cava and right atrium. Electronically Signed: Radames Tanner, at 14:40 EST , Service support ,
[2018-06-09 13:26] VITALS: BP 120/62; BP 141/86; PULSE 74; RESP 16; TEMP 36.4; O2SAT 94
[2018-06-09 13:30] VITALS: BP 123/61; BP 141/86; PULSE 64; RESP 16; O2SAT 100
[2018-06-09 13:35] VITALS: BP 118/62; BP 141/86; PULSE 64; RESP 16; O2SAT 99
[2018-06-09 13:42] VITALS: BP 118/64; BP 141/86; PULSE 67; RESP 16; TEMP 36.7; O2SAT 99
[2018-06-09 14:47] VITALS: BP 141/86
== END 2018-06-09 15:11 | disposition home or self-care (01) ==
LOC: SDC 10:03 → AC 10:04
PROVIDERS: Family Provider Family Medicine; PCP Family Medicine; Referring Provider Surgery; Visit Provider Surgery
PROC: (CPT 36571; principal; 2018-06-09 11:30)
DX: Z45.2 Encounter for adjustment and management of vascular access device (principal); C25.4 Malignant neoplasm of endocrine pancreas; Z85.828 Personal history of other malignant neoplasm of skin; N18.3 Chronic kidney disease, stage 3 (moderate); M51.36 Other intervertebral disc degeneration, lumbar region; I25.10 Atherosclerotic heart disease of native coronary artery without angina pectoris; I12.9 Hypertensive chronic kidney disease with stage 1 through stage 4 chronic kidney disease, or unspecified chronic kidney disease; Z87.891 Personal history of nicotine dependence; I25.2 Old myocardial infarction; E78.2 Mixed hyperlipidemia; M19.90 Unspecified osteoarthritis, unspecified site; M06.9 Rheumatoid arthritis, unspecified; G25.81 Restless legs syndrome; Z79.899 Other long term (current) drug therapy; Z79.82 Long term (current) use of aspirin; I87.2 Venous insufficiency (chronic) (peripheral)
CPT/HCPCS: 36571; 71045; 77001; J7120; C1788

== ENCOUNTER 2018-06-18 17:24 | Emergency (ER) | payer MEDICARE, SELFPAY ==
[2018-06-18 17:25] VITALS: BP 135/73; PULSE 68; RESP 18; TEMP 36.4; O2SAT 99; BMI 21.4
--- NOTE | 2018-06-18 18:05 | ED.DCSUM_ITS ---
History of Present Illness Chief Complaint: Weakness Detail of Chief Complaint: Poor p.o. intake, appetite Informant: Patient, Family Onset: Days - Past 2-3 days Context: Sudden Onset Timing: Continuous Quality: Lack of energy Location: Generalized Current Severity: Mild Maximum Severity: Moderate Worsened by: Activity or upright position Relieved by: Nothing Associated Symptoms: Feeling cold, nausea, decreased urine output Narrative: Patient is status post chemotherapy past TuesdayJune 13 for the first time. He was diagnosed with pancreatic cancer. He had a Whipple procedure this past April. Cancer was located in the head and daughter states she was stage Ic. He denies headache, he denies visual, ocular auditory symptoms. He does complain of dry mouth, thirst and decreased urine output. He does report orthostatic symptoms. He denies cardiac respiratory symptoms. He does complain of nausea without vomiting diarrhea. He denies diarrhea, black or maroon stool. He states his left lower extremity is swollen secondary to coronary bypass surgery graft site. Daughter states she spoke with Dr. Naren Miguel who is on-call for Dr. Fish Busby who recommended that he come to the emergency department. He denies fever, chills or night sweats. He states he is always cold. Prior similar symptoms: No Recent Illness/Hospitalization: Yes - Past Medical History (1) Pancreatic cancer Status: Acute (2) Atherosclerotic heart disease of [place] coronary artery without angina pectoris Status: Chronic Comment: 07/22/2008: CABG X4: WONG to LAD, SVG to anterior diagonal branch of LAD, SVG to Ramus Marginalis, and SVG to posterolateral br anch of the CX per Dr. Perez @ [facility] (3) History of total right hip replacement Status: Chronic (4) Hyperlipidemia Status: Chronic (5) Hypertension Status: Chronic (6) Old myocardial infarction Status: Chronic (7) S/P CABG x 4 Status: Chronic Comment: 07/22/2008: CABG X4: WONG to LAD, SVG to anterior diagonal branch of LAD, SVG to Ramus Marginalis, and SVG to posterolateral branch of the CX per Dr. Perez @ [facility]. Mediastinal exploration for hemorrhage 08/01/2008. Past Medical History - Allergies and Home Meds Allergies/Adverse Reactions: Allergies No Known Allergies Allergy (Verified 06/18/18 17:25) Primary Care Physician: Jet Mccollum MD [Primary Care Provider] - Prior records reviewed: Yes Surgical History: - - Whipple procedure Lives: With Family Smoking Status: Former smoker Alcohol: None Drugs: None Review of Systems General: Reports: Chills, Malaise, Weight loss. Denies: Fever, Sweats Eyes: Denies: Visual changes - left, Blurred Vision - bilaterally, Diplopia ENT: Denies: Bilateral ear pain, Rhinorrhea, Sore throat Cardiovascular: Denies: Chest pain, Palpitations, Heart racing Respiratory: Denies: Dyspnea, Cough, Dyspnea on exertion, Orthopnea, Paroxysmal nocturnal dyspnea Gastrointestinal: Reports: Nausea. Denies: Abdominal pain, Vomiting, Diarrhea, Melena, Hematochezia Genitourinary: Denies: Dysuria, Hematuria, Frequency Musculoskeletal: Reports: Myalgias. Denies: Neck pain, Back pain, Extremity Pain Skin: Denies: Rash Neurological: Reports: Weakness. Denies: Headache Endocrine: Denies: Polyuria, Polydipsia Hematologic: Denies: Easy bruising, Easy bleeding Physical Exam Vital Signs/Narrative: Vital Signs Temp Pulse Resp BP Pulse Ox 06/18/18 17:25 97.6 F L 68 18 135/73 H 99 Inital Vital Signs reviewed: Yes General: Well developed Head: Normocephalic, Atraumatic Eyes: Perrl, EOMI. Negative for: Pale conjunctiva, Scleral icterus ENT: No rhinorrhea, TM's clear, Dry mucous membranes Neck: Supple, Nontender, No lymphadenopathy, No JVD Cardiovascular: Regular rate, Regular rhythm, No murmurs, Normal S1, Normal S2 Respiratory: No distress, CTA bilaterally, Chest nontender. Negative for: Decreased Air Movement Abdomen: Soft, Nontender, Nondistended, Normal bowel sounds, No masses Rectal: Deferred Back: Nontender, Normal Inspection - Midline lumbar incision which is well- healed. Negative for: CVA tenderness Extremities: Nontender, Edema - Chronic left lower extremity. Negative for: Tenderness, Calf Tenderness Skin: No rash. Negative for: Cyanosis, Jaundice Neurological: Alert, Oriented x3, Cranial nerves II-XII grossly intact, Normal Strength, Normal Sensation, Normal DTR Psychological: Normal affect Diagnostic/Tx/Re-eval Laboratory Results 06/18/18 06/18/18 18:50 18:50 WBC 23.2 H RBC 4.33 L Hgb 12.5 L Hct 38.1 L MCV 88.0 MCH 28.9 MCHC 32.8 RDW 13.8 RDW Differential 43.9 Plt Count 202 MPV 9.8 Immature Gran % (Auto) 1.300 H Neut % (Auto) 87.2 H Lymph % (Auto) 6.7 L [place] % (Auto) 4.0 Eos % (Auto) 0.6 Baso % (Auto) 0.2 Absolute Neuts (auto) 20.2 H Absolute Lymphs (auto) 1.55 Sodium 135 L Potassium 3.9 Chloride 103 Carbon Dioxide 25.0 Anion Gap 7 BUN 21 H Creatinine 0.66 L Estim Creat Clear Calc 53.63 Est GFR (MDRD) Af Amer 153 Est GFR (MDRD) Non-Af 126 BUN/Creatinine Ratio 32.0 H Glucose 112 H Calcium 7.8 L Laboratory Results 06/18/18 06/18/18 06/18/18 18:50 18:50 20:56 WBC 23.2 H RBC 4.33 L Hgb 12.5 L Hct 38.1 L MCV 88.0 MCH 28.9 MCHC 32.8 RDW 13.8 RDW Differential 43.9 Plt Count 202 MPV 9.8 Immature Gran % (Auto) 1.300 H Neut % (Auto) 87.2 H Lymph % (Auto) 6.7 L [place] % (Auto) 4.0 Eos % (Auto) 0.6 Baso % (Auto) 0.2 Absolute Neuts (auto) 20.2 H Absolute Lymphs (auto) 1.55 Total Counted Not Reportable Differential Comment SCANNED Platelet Estimate ADEQUATE Poikilocytosis RARE Ovalocytes RARE Sodium 135 L Potassium 3.9 Chloride 103 Carbon Dioxide 25.0 Anion Gap 7 BUN 21 H Creatinine 0.66 L Estim Creat Clear Calc 53.63 Est GFR (MDRD) Af Amer 153 Est GFR (MDRD) Non-Af 126 BUN/Creatinine Ratio 32.0 H Glucose 112 H Calcium 7.8 L Urine Color Yellow Urine Clarity Sl. Cloudy Urine pH 6.5 Ur Specific [place] 1.015 Urine Protein Negative Urine Glucose (UA) Normal Urine Ketones Negative Urine Occult Blood Negative Urine Nitrite Negative Urine Bilirubin Negative Urine Urobilinogen 4 H Ur Leukocyte Esterase 25 H Urine RBC 0 SEEN Urine WBC 0-5 SEEN Ur Squamous Epith Cells 0-5 SEEN Urine Bacteria 0 SEEN Urine Mucus 0 SEEN - Medical Decision Making Patient presents with generalized symptoms. With poor p.o. intake decreased urine output and symptoms of dehydration IV was established and he received 1 L of normal saline. Basic metabolic panel was obtained to assess for electrolyte abnormality, and renal function. CBC was obtained to assess white count since he recently received chemotherapy and his H&H which may explain some of his symptoms. UA was obtained to assess specific gravity and evaluate for urinary tract infection. Once evaluation has been completed will contact Dr. Naren Miguel since he recommended patient come to the emergency department Patient has been reassessed several times during his 3-1/2-hour stay. He has normal color now. He is more responsive. He has eaten crackers and been able to drink. He has urinated after fluid boluses. His BUN to creatinine ratio was elevated at 32-1. Since patient is improved he will be discharged to home to follow-up with Dr. Busby his oncologist. ED Disposition - Plan for ED Patient: Disposition: Home or Assisted Living Diagnosis: Acute prerenal azotemia, Generalized weakness secondary to chemot, History of pancreatic cancer, Acute dehydration, Atherosclerotic heart disease of [place] coronary artery without angina pectoris, Hypertension, Hyperlipidemia Instructions: ED Dehydration Referrals: Jet Mccollum MD [Primary Care Provider] - Fish Busby MD [STAFF PHYSICIAN] - 1-2 Days if not improving
[2018-06-18] MEDS: 0.9% Normal Saline 1,000 ML 250 ML IV (18:55)
[2018-06-18 19:08] LABS: Absolute Lymphocyte Count 1.55 X10^3/ul (0.83-4.51); Absolute Neutrophil Count 20.2 X10^3/uL (2.0-7.7); Basophil# 0.04 X10^3/uL; Basophil% 0.2 % (0-1); Eosinophil# 0.14 X10^3/uL; Eosinophils% 0.6 % (0-5); Hematocrit 38.1 % (40-54); Hemoglobin 12.5 g/dl (13.0-16.5); Lymphocyte # 1.55 X10^3/ul (4.0); Lymphocyte % 6.7 % (19-41); Mean Corp Hgb Conc 32.8 g/gl (32-36); Mean Corpuscular Hgb 28.9 pg (27.0-32.0); Mean Platelet Vol. 9.8 fl (6.2-12.0); Monocyte# 0.94 X10^3/uL; Neutrophil # 20.23 X10^3/uL (2.7-7.7); Neutrophil % 87.2 % (47-70); Platelet Count 202 K/mm3 (150-450); RBC Distribution Width CV 13.8 % (11.6-14.6); RBC Distribution Width SD 43.9 fl (35.1-43.9); Red Blood Count 4.33 M/mm3 (4.6-6.2); White Blood Count 23.2 K/mm3 (4.4-11.0)
[2018-06-18 19:12] LABS: Differential Indicated SCAN CRITERIA MET; POSITIVE COUNT NO; POSITIVE DIFFERENTIAL YES; POSITIVE MORPHOLOGY YES
[2018-06-18 19:13] LABS: Anion Gap 7 (5-15); BUN 21 mg/dL (7-18); Calcium,Total 7.8 mg/dL (8.5-10.1); Chloride 103 mmol/L (98-107); Creatinine, Serum 0.66 mg/dL (0.70-1.30); EST Glomerular Filtration Rate 126 mL/min (>60); Est Glom Filt Rate - Afr Amer 153 mL/min (>60); Estimated Creatinine Clearance 53.63 ml/min; Glucose 112 mg/dL (74-106); Potassium 3.9 mmol/L (3.5-5.1); Sodium Level 135 mmol/L (136-145)
[2018-06-18 19:38] LABS: Differential Comment SCANNED; Ovalocyte RARE; Platelet Estimate ADEQUATE (ADEQ); Poikilocytosis RARE
[2018-06-18 20:54] VITALS: RESP 17
[2018-06-18] MEDS: 0.9% Normal Saline 1,000 ML 1000 ML IV (21:01)
[2018-06-18 21:05] LABS: Bacteria 0 SEEN /hpf (None Seen); Mucous, Urine 0 SEEN /hpf (<or=2+); Red Blood Cells-Urine 0 SEEN /hpf (0-5)
[2018-06-18 21:18] LABS: Color, Urine Yellow (Yellow); Glucose, Dipstick Normal (Normal); Ketone-Dipstick Negative (Negative); Leukocyte Esterase-Dipstick 25 /ul (Negative); Nitrite-Dipstick Negative (Negative); Occult Blood-Urine Negative /ul (Negative); Protein-Dipstick Negative (Negative); Specific Gravity, Urine 1.015 (1.002-1.030); Urine Bilirubin Dipstick Negative (Negative); Urine Clarity Sl. Cloudy (Clear); Urine Urobilinogen 4 mg/dl (Normal); Urine pH 6.5 (5.0 - 8.0)
[2018-06-18 21:23] LABS: Squamous Epithelial Cells - UA 0-5 SEEN /hpf (0-5); White Blood Cells 0-5 SEEN /hpf (0-5)
[2018-06-18 21:36] VITALS: BP 160/69; PULSE 64; RESP 18; O2SAT 99
[2018-06-18 22:11] VITALS: PULSE 75; RESP 18; O2SAT 96
== END 2018-06-18 22:12 | disposition home or self-care (01) ==
PROVIDERS: Emergency Provider Emergency Medicine; Family Provider Family Medicine; PCP Family Medicine
DX: R79.89 Other specified abnormal findings of blood chemistry (principal); R53.1 Weakness; T45.1X5A Adverse effect of antineoplastic and immunosuppressive drugs, initial encounter; Y92.9 Unspecified place or not applicable; E86.0 Dehydration; R11.0 Nausea; I25.10 Atherosclerotic heart disease of native coronary artery without angina pectoris; I10 Essential (primary) hypertension; E78.5 Hyperlipidemia, unspecified; Z79.82 Long term (current) use of aspirin; Z79.899 Other long term (current) drug therapy; I25.2 Old myocardial infarction; Z85.07 Personal history of malignant neoplasm of pancreas; Z87.891 Personal history of nicotine dependence; Z95.1 Presence of aortocoronary bypass graft; Z96.641 Presence of right artificial hip joint
CPT/HCPCS: 36591; 80048; 81001; 85025; 96360; 96361; 99282; J7030

== ENCOUNTER 2018-10-17 10:19 | Observation (INO) | payer MEDICARE, SELFPAY ==
[2018-10-17 10:45] VITALS: BMI 20.7
[2018-10-17 11:26] VITALS: BP 103/64; PULSE 62; RESP 16; TEMP 36.4; O2SAT 96
--- NOTE | 2018-10-17 13:24 | NURSING ---
Sent request for records to Dr. Busby's office. Notified via nurse in office that results would be sent via fax. Have not arrived at this time- awaiting information.
[2018-10-17] MEDS: Ondansetron 8 MG Tablet PO ×2 (14:10→21:55)
[2018-10-17] MEDS: oxyCODONE 5 MG Tablet PO ×2 (14:10→21:55)
--- NOTE | 2018-10-17 15:22 | CASEMGMT ---
Social Work: Referral received from Carson Avila RN CM for SNF placement per MD. Met with patient in room to discuss D/C planning. Patient lives with a daughter who works during the day. Patient lives in a 2 story home with a full flight of stairs to bedroom and a half bath on the first floor. Patient uses a cane to ambulate and per patient is independent with ADL's. Patient's daughter assists with IADL's. 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 Patient has 2 daughters that are supportive, Suzanne Fitzgerald and Jeanette Tong (patient lives with this daughter). Patient has a friend named Linette Renteria who is also supportive to patient. Patient has a living will and DPOA and family will bring in documents. Patient was diagnoses with pancreatic cancer in April of 2018 and had whipple surgery per patient in May. Patient treatment (chemo) was recently discontinued. Patient now with weakness and low energy. Patient rates energy level at a 1 on a scale of 1-10. Patient verbalizes need for continued therapy at a SNF at D/C. This SW gave patient a list of SNF's in network with [facility]. Patient identifies [facility] as first choice. Patient admits to feeling down due to decrease in activity and independence and appears to have a flat affect. This SW provided patient with active listening and supportive counseling related to CA diagnosis and current debility. Patient aware that SW is available to assist with coping skills and provide support. TC to Elsie Burgos. Referral made. Elsie to review and start pre cert once therapy evals are available. PLAN: Patient to be discharged to TCU when medically ready and pre cert obtained. OCTAVIA to continue to follow to assist with SNF placement and provide support. JEF Raphael
[2018-10-17] MEDS: ChlorproMAZINE 25 MG Tablet PO ×2 (16:39→19:25)
[2018-10-17] MEDS: predniSONE 10 MG Tablet PO (16:42)
[2018-10-17] MEDS: Hydroxychloroquine 200 MG Tablet PO (16:42)
[2018-10-17] MEDS: Magnesium Oxide 400 MG Tablet PO (16:45)
[2018-10-17 16:51] VITALS: BP 157/70; PULSE 61; RESP 18; TEMP 36.6; O2SAT 97
[2018-10-17 17:39] LABS: Hematocrit 26.1 % (40-54); Hemoglobin 8.7 g/dl (13.0-16.5); Mean Corp Hgb Conc 33.3 g/gl (32-36); Mean Corpuscular Hgb 29.5 pg (27.0-32.0); Mean Corpuscular Volume 88.5 fL (80-94); Mean Platelet Vol. 9.6 fl (6.2-12.0); Platelet Count 70 K/mm3 (150-450); RBC Distribution Width CV 16.7 % (11.6-14.6); RBC Distribution Width SD 53.8 fl (35.1-43.9); Red Blood Count 2.95 M/mm3 (4.6-6.2)
[2018-10-17 17:41] LABS: Scan Indicated on CBC? Y/N NO
[2018-10-17 17:54] LABS: ALB/GLOB Ratio 0.5 RATIO (0.9-2.4); AST(SGOT) 29 U/L (15-37); Alanine Aminotransfer ALT/SGPT 23 U/L (16-61); Albumin, Serum 1.7 g/dL (3.2-5.0); Alkaline Phosphatase 220 U/L (45-117); Anion Gap 9 (5-15); BUN 14 mg/dL (7-18); BUN/Creat Ratio 22.3 RATIO (10-20); Calcium,Total 7.6 mg/dL (8.5-10.1); Chloride 104 mmol/L (98-107); Creatinine, Serum 0.63 mg/dL (0.70-1.30); EST Glomerular Filtration Rate 132 mL/min (>60); Est Glom Filt Rate - Afr Amer 160 mL/min (>60); Estimated Creatinine Clearance 53.44 ml/min; Globulin 3.2 g/dL (2.2-4.2); Glucose 105 mg/dL (74-106); Potassium 3.6 mmol/L (3.5-5.1); Protein, Total 4.9 g/dL (6.4-8.2); Sodium Level 138 mmol/L (136-145)
[2018-10-17 17:58] LABS: International Normalized Ratio 1.5
--- NOTE | 2018-10-17 19:38 | PCM.HP.STD ---
Problem List (1) Generalized weakness Status: Acute (2) Community acquired pneumonia of left lower lobe of lung Status: Acute History of Present Illness Date of Admission: 10/17/18 Chief Complaint: Generalized weakness, left lower lobe pneumonia The patient is a 73 year old M with a history of pancreatic cancer which was diagnosed in March 2018, he is undergone a Whipple's procedure and ongoing chemotherapy which ended recently. Patient lives with his daughter, I was contacted by his oncologist who requested the patient be directly admitted to [facility] for generalized weakness and placement in a jail facility for short-term rehab. Patient was also diagnosed with a left lower lobe pneumonia and started on antibiotics yesterday, patient will undergo no more chemotherapy according to oncology. Time of my examination today, patient complains of some pickups, he does not complain of any shortness of breath chest pain chills or fevers. Past Medical History Past Medical History (Chronic Problems): Chronic Problems (Last Reviewed 03/27/18 @ 14:06 by Blanca Hernandez) 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 Perez @ [facility]. Mediastinal exploration for hemorrhage 08/01/2008. History of left heart catheterization (Chronic) 07/19/2008 @ [facility] [address] Santiago: 07/19/[address] Molina @ [facility] Atherosclerotic heart disease of [place] coronary artery without angina pectoris (Chronic) 07/22/2008: CABG X4: WONG to LAD, SVG to anterior diagonal branch of LAD, SVG to Ramus Marginalis, and SVG to posterolateral branch of the CX per Dr. Perez @ [facility] Old myocardial infarction (Chronic) Hyperlipidemia (Chronic) Hypertension (Chronic) Medical History: Medical History (Last Reviewed 03/27/18 @ 14:06 by Blanca Hernandez) Atherosclerotic heart disease of [place] coronary artery without angina pectoris (Chronic) I25.10 07/22/2008: CABG X4: WONG to LAD, SVG to anterior diagonal branch of LAD, SVG to Ramus Marginalis, and SVG to posterolateral branch of the CX per Dr. Perez @ [facility] Old myocardial infarction (Chronic) I25.2 Hyperlipidemia (Chronic) E78.5 Hypertension (Chronic) I10 Allergies No Known Allergies Allergy (Verified 06/18/18 17:25) Home Medications: Ambulatory Orders Medication Instructions Recorded aspirin 81 mg tablet,delayed 81 mg PO QDAY 07/30/17 release atenolol 50 mg tablet 50 mg PO QDAY 07/30/17 hydroxychloroquine 200 mg tablet 200 mg PO BID tab 07/30/17 ramipril 2.5 mg capsule 2.5 mg PO DAILY 07/30/17 allopurinol 300 mg tablet 300 mg PO QDAY 08/01/17 Ropinirole HCl [Ropinirole ER] 2.5 mg PO QHS PRN 05/04/18 Atorvastatin Calcium [Lipitor] 10 mg PO QHS 06/07/18 Acetaminophen [Acetaminophen Extra 500 mg PO Q6H PRN PRN 10/17/18 Strength] Levofloxacin 1 tablet PO DAILY 10/17/18 Lidocaine/Prilocaine 5 gm TP DAILY PRN PRN 10/17/18 [Lidocaine-Prilocaine Cream] Lipase/Protease/Amylase [Megan Evans 2 cap PO TIDCM 10/17/18 36,000 Units Capsule] Magnesium Oxide [Magnesium] 1 tab PO BID 10/17/18 Ondansetron [Ondansetron Odt] 8 mg PO 0600,1400,2200 10/17/18 Oxycodone [Oxyir] 1 tab PO 0600,1400,2200 10/17/18 Potassium Chloride [K-Dur] 10 meq PO 0800 10/17/18 Prednisone 10 mg PO BID 10/17/18 Surgical History: Surgical History (Last Reviewed 03/27/18 @ 14:06 by Blanca Hernandez) History of total right hip replacement (Chronic) Z96.641 S/P CABG x 4 (Chronic) Z95.1 07/22/2008: CABG X4: WONG to LAD, SVG to anterior diagonal branch of LAD, SVG to Ramus Marginalis, and SVG to posterolateral branch of the CX per Dr. Perez @ [facility]. Mediastinal exploration for hemorrhage 08/01/2008. History of left heart catheterization (Chronic) Z98.890 07/19/2008 @ [facility] [address] Santiago: 07/19/[address] Molina @ [facility] Surgical History: coronary bypass surgery, total hip arthroplasty, - - Whipple procedure, Mediport insertion, lumbar spinal fusion Psychiatric History: No pertinent psych hx Lives: With Family Smoking Status: Former smoker Tobacco Use: Non-smoker Alcohol: None Drugs: None - *Family History Maternal Family History: Family History (Last Reviewed 03/27/18 @ 14:06 by Blanca Hernandez) Father CAD (coronary artery disease) CVA (cerebral vascular accident) Myocardial infarction Brother CAD (coronary artery disease) Myocardial infarction, Onset Age: 66 History Items: Dementia Paternal Family History: Family History (Last Reviewed 03/27/18 @ 14:06 by Blanca Hernandez) Father CAD (coronary artery disease) CVA (cerebral vascular accident) Myocardial infarction Brother CAD (coronary artery disease) Myocardial infarction, Onset Age: 66 History Items: Heart Disease, Stroke Review of Systems Constitutional: Reports: Weakness, Fatigue. Denies: Anorexia, Chills, Fever, Night Sweats, Malaise, Weight Change Eyes: Denies: Cataracts, Conjunctivae Inflammation, Double vision, Drainage HEENT: Denies: Difficulty Swallowing, Dysphasia, Ear Pain, Eye Pain, Hearing Changes, Nasal bleeding, Nasal Congestion, Post Nasal Drip Cardiovascular: Denies: Chest Pain, Claudication, Chest Pressure, Chest Tightness, Edema, Heaviness, Light Headedness, Orthopnea, Palpitations Respiratory: Denies: Cough, Hemoptysis, Pleuritic Pain, Shortness of Breath, Shortness of breath at rest, Shortness of breath upon exertion, Sputum production Gastrointestinal: Reports: - - Patient complains of intermittent hiccups. Denies: Abdominal Pain, Constipation, Diarrhea, Hematemesis, Hematochezia, Nausea, Melena, Vomiting Genitourinary: Denies: Dysuria, Frequency, Hematuria, Hesitancy, Nocturia, Retention, Urgency Musculoskeletal: Denies: Back Pain, Foot Pain, Hand Pain, Joint Pain, Joint stiffness, Joint swelling, Joint Tenderness, Leg Pain Skin: Denies: Dryness, Jaundice, Pruritis, Rash Neurological: Denies: Blurred vision, Double vision, Change in Speech, Slurred speech, Difficulty swallowing, Focal weakness, Headaches, Incoordination, Numbness, Tingling Psychiatric: Denies: Anxiety, Depression, Homicidal Ideations, Suicidal Ideations Endocrine: Denies: Change in Body Habitus, Heat/ Cold Intolerance, Polydipsia, Polyuria Hematologic/ Lymphatic: Denies: Adenopathy, Anemia, Easy Bruising, Easy Bleeding, Petechiae, Purpura VTE Information - Inpt Only VTE Present on Admission: No VTE Mechan Device Prophylaxis: None VTE Pharm Prophylaxis ordered?: Yes Patient Problems: Active and Suspected Problems (Last Reviewed 03/27/18 @ 14:06 by Blanca Hernandez) Generalized weakness (Acute) Community acquired pneumonia of left lower lobe of lung (Acute) - Physical Exam General: Alert, Oriented x3, Cooperative, No apparent distress, - - Patient appears fatigued and cachectic HEENT: Atraumatic, PERRLA, EOMI, Normocephalic Oral: Moist Mucosa Neck: Supple, No JVD, Negative Carotid Bruits, Trachea Midline, Thyroid Normal Size and Texture Lungs: Normal air movement, Rales - Inspiratory rales are noted at the bases Cardiovascular: Regular rate, Regular Rhythm, Normal S1, Normal S2, No murmurs, No Ectopic Activity, PMI Normal Abdomen: Bowel Sounds Present, Soft, Non Tender, Non-Distended Extremities: No clubbing, No cyanosis, No edema, Capillary Refill Less than 3 Seconds Skin: No rashes, No breakdown Musculoskeletal: No Tenderness to Palpation of Joints or Extremities, Cachexia, Muscle Wasting Neurological: Cranial nerves II-XII grossly intact, Neuro grossly intact, Sensory exam intact to light touch and pain, Coordination normal Psych/Mental Status: Normal Affect, Appropriate, Alert and oriented to time, place, person, mood and affect Vital Signs Temp Pulse Resp BP Pulse Ox 97.9 F 61 18 157/70 H 97 10/17/18 16:51 10/17/18 16:51 10/17/18 16:51 10/17/18 16:51 10/17/18 16:51 Oxygen Delivery Method Room Air Weight: 58.3 kg Body Mass Index (BMI) 20.7 Intake and Output for Last 24 Hours 10/15/18 10/16/18 10/17/18 23:59 23:59 23:59 Intake Total 100 / 100 Output Total 150 / 150 Balance -50 / -50 Laboratory Tests Past 24 Hrs 10/17/18 10/17/18 10/17/18 17:30 17:30 17:30 WBC 2.0 L RBC 2.95 L Hgb 8.7 L Hct 26.1 L MCV 88.5 MCH 29.5 MCHC 33.3 RDW 16.7 H RDW Differential 53.8 H Plt Count 70 L MPV 9.6 PT 18.0 H INR 1.5 Sodium 138 Potassium 3.6 Chloride 104 Carbon Dioxide 25.0 Anion Gap 9 BUN 14 Creatinine 0.63 L Estim Creat Clear Calc 53.44 Est GFR (MDRD) Af Amer 160 Est GFR (MDRD) Non-Af 132 BUN/Creatinine Ratio 22.3 H Glucose 105 Calcium 7.6 L Total Bilirubin 0.30 AST 29 ALT 23 Alkaline Phosphatase 220 H Total Protein 4.9 L Albumin 1.7 L Globulin 3.2 Albumin/Globulin Ratio 0.5 L Assessment/Plan All Active Problems (Last Reviewed 03/27/18 @ 14:06 by Blanca Hernandez) Pancreatic cancer (Acute) Generalized weakness (Acute) Community acquired pneumonia of left lower lobe of lung (Acute) #1 debility-secondary to pancreatic cancer, patient was placed in observation status on MedSurg, to be seen by PT and OT, arrangements will be made for placement in a jail facility for short-term rehab #2 pancreatic cancer-currently in remission #3 left lower lobe community-acquired pneumonia-patient will be maintained on Levaquin #4 coronary artery disease-stable #4 degenerative disc disease lumbar spine Code Visit OBSV E&M: [id number] Initial observation care L3
--- NOTE | 2018-10-17 19:52 | PCM.HOSP.N ---
Hospitalist Note Further note: I received a phone call from Dr. Busby today, he states a recent CAT scan the patient had done of the chest showed evidence of pulmonary emboli, he recommended placing the patient on Eliquis, I obtained lab on the patient and started the patient on Eliquis 10 mg twice a day.
[2018-10-17] MEDS: Atorvastatin Calcium 10 MG Tablet PO (21:55)
[2018-10-17] MEDS: APIXABAN 5 MG TABLET 10 MG PO (21:55)
[2018-10-17 22:50] VITALS: BP 127/53; PULSE 67; RESP 16; TEMP 37.1; O2SAT 97
[2018-10-18] VITALS (7 sets, daily range): BP systolic 90–123; BP diastolic 51–75; PULSE 61–77; RESP 14–18; TEMP 35.6–37; O2SAT 94–97
[2018-10-18] MEDS: levoFLOXacin 500 MG Tablet PO (05:46)
[2018-10-18] MEDS: Ondansetron 8 MG Tablet PO ×3 (05:46→22:45)
[2018-10-18] MEDS: oxyCODONE 5 MG Tablet PO ×3 (05:46→22:45)
[2018-10-18] MEDS: APIXABAN 5 MG TABLET 10 MG PO ×2 (08:51→22:45)
[2018-10-18] MEDS: Hydroxychloroquine 200 MG Tablet PO ×2 (08:51→17:07)
[2018-10-18] MEDS: Aspirin E.C. 81 MG Tablet PO (08:51)
[2018-10-18] MEDS: Magnesium Oxide 400 MG Tablet PO ×2 (08:52→17:07)
[2018-10-18] MEDS: predniSONE 10 MG Tablet PO ×2 (08:52→17:06)
[2018-10-18] MEDS: Allopurinol 300 MG Tablet PO (08:52)
[2018-10-18] MEDS: Atenolol 50 MG Tablet PO (10:48)
[2018-10-18] MEDS: Ramipril 2.5 MG Capsule PO (10:48)
--- NOTE | 2018-10-18 15:28 | CASEMGMT ---
Social Work Note SW spoke with Elsie in TCU who states she is able to accept pt and will submit for pre-cert. Plan: TCU pending pre-cert Shelby Marin VENDOR MANAGEMENT ASSOCIATE, FASHION DIRECTOR
--- NOTE | 2018-10-18 15:34 | PCM.PROGNOTE ---
Patient Problems: Active and Suspected Problems (Last Reviewed 03/27/18 @ 14:06 by Blanca Hernandez) Generalized weakness (Acute) Community acquired pneumonia of left lower lobe of lung (Acute) Subjective: Patient was seen and examined today, his blood pressure medications were held briefly today because of hypotension. Patient does not complain of any nausea, vomiting, or hiccups today. - Physical Exam General: Alert, Oriented x3, Cooperative, No apparent distress, Well developed HEENT: Atraumatic, PERRLA, EOMI, Normocephalic Oral: Moist Mucosa Neck: Supple, No JVD, Trachea Midline, Thyroid Normal Size and Texture Lungs: Clear to auscultation, Normal air movement, No rhonchi, No wheeze, No rales Cardiovascular: Regular rate, Regular Rhythm, Normal S1, Normal S2, No murmurs, No Ectopic Activity Abdomen: Bowel Sounds Present, Soft, Non Tender, Non-Distended, No hernias noted Extremities: No clubbing, No cyanosis, No edema, Capillary Refill Less than 3 Seconds Skin: No rashes, No breakdown Musculoskeletal: Cachexia, Muscle Wasting Neurological: Cranial nerves II-XII grossly intact, Neuro grossly intact, Sensory exam intact to light touch and pain, Coordination normal Psych/Mental Status: Normal Affect, Appropriate, Alert and oriented to time, place, person, mood and affect Vital Signs Temp Pulse Resp BP Pulse Ox 97.7 F L 67 16 101/57 L 97 10/18/18 12:22 10/18/18 12:22 10/18/18 12:22 10/18/18 12:22 10/18/18 12:22 Oxygen Delivery Method Nasal Cannula Weight: 58.3 kg Body Mass Index (BMI) 20.7 Intake and Output for Last 24 Hours 10/16/18 10/17/18 10/18/18 23:59 23:59 23:59 Intake Total 100 / 320 520 / 520 Output Total 150 / 150 0 / 0 Balance -50 / 170 520 / 520 Laboratory Tests Past 24 Hrs 10/17/18 10/17/18 10/17/18 17:30 17:30 17:30 WBC 2.0 L RBC 2.95 L Hgb 8.7 L Hct 26.1 L MCV 88.5 MCH 29.5 MCHC 33.3 RDW 16.7 H RDW Differential 53.8 H Plt Count 70 L MPV 9.6 PT 18.0 H INR 1.5 Sodium 138 Potassium 3.6 Chloride 104 Carbon Dioxide 25.0 Anion Gap 9 BUN 14 Creatinine 0.63 L Estim Creat Clear Calc 53.44 Est GFR (MDRD) Af Amer 160 Est GFR (MDRD) Non-Af 132 BUN/Creatinine Ratio 22.3 H Glucose 105 Calcium 7.6 L Total Bilirubin 0.30 AST 29 ALT 23 Alkaline Phosphatase 220 H Total Protein 4.9 L Albumin 1.7 L Globulin 3.2 Albumin/Globulin Ratio 0.5 L Medical Necessity - Tobacco Use Smoking Status: Former smoker Tobacco Use: Non-smoker Assessment/Plan All Active Problems (Last Reviewed 03/27/18 @ 14:06 by Blanca Hernandez) Pancreatic cancer (Acute) Generalized weakness (Acute) Community acquired pneumonia of left lower lobe of lung (Acute) #1 debility-secondary to pancreatic cancer, continue PT and OT, we are awaiting placement in a snf facility #2 pancreatic cancer-currently in remission #3 left lower lobe community-acquired pneumonia-patient will be maintained on Levaquin #4 coronary artery disease-stable #4 degenerative disc disease lumbar spine #5 pulmonary emboli-patient is on Eliquis Code Visit OBSV E&M: 90840 Subsequent observation care L3
--- NOTE | 2018-10-18 16:07 | CASEMGMT ---
Intro role of CM to patient and MAURICIO form explained re: Observation status for treatment of debility and pneumonia. Explained hospitalization will be paid per? insurance policy for Outpatient billing?and condition will continue to be evaluated for Inpt necessity. Also let pt know that [facility] sends paper in the billing packet with their phone number if questions arise. Discussed Pharmacy section of MAURICIO form and self administered medication guideline.? Pt verbalizes understanding and does not have further questions. Form signed and placed in chart, copy to pt. TOMER MELENDREZ BSN CM
[2018-10-18] MEDS: Atorvastatin Calcium 10 MG Tablet PO (22:45)
[2018-10-18] MEDS: ChlorproMAZINE 25 MG Tablet PO (22:50)
[2018-10-19 02:11] VITALS: BP 120/68; PULSE 84; RESP 18; TEMP 36.7; O2SAT 96
[2018-10-19 05:52] LABS: Absolute Lymphocyte Count 0.49 X10^3/ul (0.83-4.51); Absolute Neutrophil Count 0.4 X10^3/uL (2.0-7.7); Basophil# 0.01 X10^3/uL; Hematocrit 24.7 % (40-54); Lymphocyte # 0.49 X10^3/ul (4.0); Lymphocyte % 47.6 % (19-41); Mean Corp Hgb Conc 32.4 g/gl (32-36); Mean Corpuscular Hgb 29.1 pg (27.0-32.0); Mean Corpuscular Volume 89.8 fL (80-94); Mean Platelet Vol. 9.9 fl (6.2-12.0); Monocyte# 0.14 X10^3/uL; Monocyte% 13.6 % (0-10); Neutrophil # 0.39 X10^3/uL (2.7-7.7); Neutrophil % 37.8 % (47-70); Platelet Count 90 K/mm3 (150-450); RBC Distribution Width CV 16.1 % (11.6-14.6); RBC Distribution Width SD 51.6 fl (35.1-43.9); Red Blood Count 2.75 M/mm3 (4.6-6.2)
[2018-10-19 06:15] LABS: Differential Indicated SCAN CRITERIA MET; POSITIVE COUNT YES; POSITIVE DIFFERENTIAL YES; POSITIVE MORPHOLOGY NO
[2018-10-19] MEDS: Ondansetron 8 MG Tablet PO ×3 (06:22→21:06)
[2018-10-19] MEDS: levoFLOXacin 500 MG Tablet PO (06:22)
[2018-10-19] MEDS: oxyCODONE 5 MG Tablet PO ×3 (06:22→21:06)
[2018-10-19 06:26] LABS: Acanthocytes RARE; Hypochromasia 2+; Ovalocyte 1+; Schistocytes RARE
[2018-10-19 06:27] LABS: Differential Comment SCANNED
[2018-10-19] MEDS: Magnesium Oxide 400 MG Tablet PO ×2 (08:19→17:31)
[2018-10-19] MEDS: Allopurinol 300 MG Tablet PO (08:20)
[2018-10-19] MEDS: predniSONE 10 MG Tablet PO ×2 (08:21→17:32)
[2018-10-19] MEDS: Hydroxychloroquine 200 MG Tablet PO ×2 (08:21→17:31)
--- NOTE | 2018-10-19 09:03 | CASEMGMT ---
SW called Elsie in TCU and left message letting her know to call this SW should she attain precert today. JEF Woodson
[2018-10-19 09:15] VITALS: BP 106/58; PULSE 67; RESP 18; TEMP 36.9; O2SAT 96
[2018-10-19] MEDS: APIXABAN 5 MG TABLET 10 MG PO ×2 (10:13→21:06)
[2018-10-19] MEDS: Atenolol 50 MG Tablet PO (10:14)
[2018-10-19] MEDS: Ramipril 2.5 MG Capsule PO (10:15)
[2018-10-19 11:55] LABS: Pathologist Review Reviewed
[2018-10-19 16:06] VITALS: BP 97/60; PULSE 65; RESP 18; TEMP 36.9; O2SAT 95
[2018-10-19 16:07] VITALS: RESP 18
--- NOTE | 2018-10-19 16:59 | PN_ITS ---
Patient Problems: Active and Suspected Problems (Last Reviewed 03/27/18 @ 14:06 by Blanca Hernandez) Generalized weakness (Acute) Community acquired pneumonia of left lower lobe of lung (Acute) Subjective: Patient was seen and examined today, his absolute neutrophil count today was 400, patient has no complaints of any shortness of breath, fevers, or chills. - Physical Exam General: Alert, Oriented x3, Cooperative, No apparent distress, Well developed HEENT: Atraumatic, PERRLA, EOMI, Normocephalic Oral: Moist Mucosa Neck: Supple, Trachea Midline Lungs: Clear to auscultation, Normal air movement, No rhonchi, No wheeze, No rales Cardiovascular: Regular rate, Regular Rhythm, Normal S1, Normal S2, No murmurs Abdomen: Bowel Sounds Present, Soft, Non Tender, Non-Distended Extremities: No clubbing, No cyanosis, No edema, Capillary Refill Less than 3 Seconds Skin: No rashes Musculoskeletal: Cachexia, Muscle Wasting Neurological: Cranial nerves II-XII grossly intact, Neuro grossly intact, Sensory exam intact to light touch and pain, Coordination normal Psych/Mental Status: Normal Affect, Appropriate, Alert and oriented to time, place, person, mood and affect Vital Signs Temp Pulse Resp BP Pulse Ox 98.5 F 65 18 97/60 95 10/19/18 16:06 10/19/18 16:06 10/19/18 16:07 10/19/18 16:06 10/19/18 16:06 Oxygen Delivery Method Room Air Weight: 58.3 kg Body Mass Index (BMI) 20.7 Intake and Output for Last 24 Hours 10/17/18 10/18/18 10/19/18 23:59 23:59 23:59 Intake Total 100 / 320 520 / 640 870 / 870 Output Total 150 / 150 0 / 0 Balance -50 / 170 520 / 640 870 / 870 Laboratory Tests Past 24 Hrs 10/19/18 05:25 WBC 1.0 L* RBC 2.75 L Hgb 8.0 L Hct 24.7 L MCV 89.8 MCH 29.1 MCHC 32.4 RDW 16.1 H RDW Differential 51.6 H Plt Count 90 L MPV 9.9 Immature Gran % (Auto) 0.000 Neut % (Auto) 37.8 L Lymph % (Auto) 47.6 H Floyd % (Auto) 13.6 H Eos % (Auto) 0.0 Baso % (Auto) 1.0 Absolute Neuts (auto) 0.4 L Absolute Lymphs (auto) 0.49 L Total Counted Not Reportable Differential Comment SCANNED Diff Path Review Reviewed Hypochromasia 2+ Ovalocytes 1+ Acanthocytes (Spur) RARE Schistocytes RARE Medical Necessity - Tobacco Use Smoking Status: Former smoker Tobacco Use: Non-smoker Assessment/Plan All Active Problems (Last Reviewed 03/27/18 @ 14:06 by Blanca Hernandez) Pancreatic cancer (Acute) Generalized weakness (Acute) Community acquired pneumonia of left lower lobe of lung (Acute) #1 debility-secondary to pancreatic cancer, continue PT and OT, we are awaiting placement in a care home facility #2 pancreatic cancer-currently in remission #3 left lower lobe community-acquired pneumonia-patient will be maintained on Levaquin #4 coronary artery disease-stable #4 degenerative disc disease lumbar spine #5 pulmonary emboli-patient is on Eliquis #6 severe protein and caloric malnutrition-nutritional services is seeing patient #7 pancytopenia secondary to recent chemotherapy-continue to monitor Code Visit Inpatient E&M: 74667 Subs Hosp L2
[2018-10-19 20:47] VITALS: BP 109/54; PULSE 61; RESP 16; TEMP 36.7; O2SAT 96
[2018-10-19] MEDS: Atorvastatin Calcium 10 MG Tablet PO (21:06)
[2018-10-20 02:16] VITALS: BP 106/66; PULSE 73; RESP 18; TEMP 36.9; O2SAT 96
[2018-10-20 05:19] LABS: Hematocrit 25.4 % (40-54); Hemoglobin 8.1 g/dl (13.0-16.5); Mean Corp Hgb Conc 31.9 g/gl (32-36); Mean Corpuscular Hgb 28.8 pg (27.0-32.0); Mean Corpuscular Volume 90.4 fL (80-94); Mean Platelet Vol. 9.4 fl (6.2-12.0); Platelet Count 101 K/mm3 (150-450); RBC Distribution Width CV 16.5 % (11.6-14.6); Red Blood Count 2.81 M/mm3 (4.6-6.2)
[2018-10-20 05:23] LABS: Differential Indicated MANUAL DIFF; POSITIVE COUNT YES; POSITIVE DIFFERENTIAL YES; POSITIVE MORPHOLOGY YES; White Blood Count 1.3 K/mm3 (4.4-11.0)
[2018-10-20 05:48] LABS: Lymphocyte 56 % (19-41); Monocyte 8 % (0-10); Neutrophil-Band 4 % (0-5); Neutrophil-Segmented 32 % (47-70); Total Cells Counted 25 (MANUAL DIFF)
[2018-10-20 05:49] LABS: Absolute Lymphocyte Count 0.72 X10^3/ul (0.83-4.51); Absolute Neutrophil Count 0.5 X10^3/uL (2.0-7.7)
[2018-10-20 05:50] LABS: Ovalocyte 2+
[2018-10-20] MEDS: levoFLOXacin 500 MG Tablet PO (06:08)
[2018-10-20] MEDS: oxyCODONE 5 MG Tablet PO ×2 (06:08→13:45)
[2018-10-20] MEDS: Ondansetron 8 MG Tablet PO ×2 (06:08→13:46)
[2018-10-20 08:16] VITALS: BP 117/64; PULSE 67; RESP 18; TEMP 36.9; O2SAT 98
[2018-10-20] MEDS: predniSONE 10 MG Tablet PO ×2 (08:20→17:17)
[2018-10-20] MEDS: Allopurinol 300 MG Tablet PO (08:20)
[2018-10-20] MEDS: Hydroxychloroquine 200 MG Tablet PO ×2 (08:23→17:17)
[2018-10-20] MEDS: Magnesium Oxide 400 MG Tablet PO ×2 (08:24→17:16)
[2018-10-20 09:40] VITALS: BP 137/59; BP 81/47; BP 90/58; PULSE 60; PULSE 66; PULSE 71
[2018-10-20] MEDS: Lactated Ringers 2,000 ML 500 ML IV ×2 (10:20→12:26)
[2018-10-20] MEDS: APIXABAN 5 MG TABLET 10 MG PO (10:21)
[2018-10-20] MEDS: Atenolol 50 MG Tablet PO (10:22)
[2018-10-20] MEDS: Ramipril 2.5 MG Capsule PO (10:22)
--- NOTE | 2018-10-20 11:13 | CASEMGMT ---
Social Work Note SW placed a call to Elsie in TCU, left message, informing her this worker is leaving for the day at noon and to call Augie Christianson if pre-cert is obtained. Green sheet on chart in the event pre-cert is obtained. Plan: TCU pending pre-cert Shelby MORALES, GEOTECHNICAL OPERATING ENGINEER
[2018-10-20 12:27] VITALS: BP 131/64; PULSE 61; RESP 18; TEMP 36.8; O2SAT 98
[2018-10-20 13:28] LABS: Pathologist Review Reviewed
[2018-10-20 14:26] VITALS: BP 137/61; PULSE 62; RESP 18; TEMP 37.1; O2SAT 98
--- NOTE | 2018-10-20 16:17 | CASEMGMT ---
Social Work: TC from [facility] in TCU. [facility] pre cert has been obtained and that patient can be transferred to TCU today. PLAN: Patient to D/C to TCU today. JEF Raphael
[2018-10-20 17:19] VITALS: BP 131/67; PULSE 63; RESP 18; TEMP 37.1; O2SAT 98
--- NOTE | 2018-10-20 17:29 | PCM.TXEXTCAR ---
- Diet 10/17/18 12:32 Diet: Regular Diet Food consistency:: Regular Liquid Consistency:: Regular/Thin Is pt able to select menu?: Yes - Wound(s) bilat le Wound Type: scratches - Therapies Physical Therapy: Eval and Treat Occupational Therapy: Eval and Treat - Problem/Diagnosis (1) Generalized weakness Status: Acute Current Visit: Yes (2) Community acquired pneumonia of left lower lobe of lung Status: Acute Current Visit: Yes (3) Pulmonary embolism Status: Acute Current Visit: Yes (4) Pancreatic cancer Status: Chronic Current Visit: No (5) Hypertension Status: Chronic Current Visit: No - Allergies/Procedures Done in Hospital Allergies/Adverse Reactions: Allergies No Known Allergies Allergy (Verified 06/18/18 17:25) Procedures: None - Type of Care/Length of Stay Estimated LOS: Convalescent Care Less Than 30 days Type of Care Needed: Skilled Rehab Potential: Good Prognosis: Good - Additional Orders/Day of Discharge H&P will serve as current which was dated: 10/17/18 Day of Discharge: 10/20/18 - Dietary and Speech Recommendations Dietitian Recommendations/Changes: Continue regular diet d/t signs/symptoms of malnutrition. Continue Ensure Enlive 120 mL 4x/day w/ medpass. Will provide fortified foods at meals. May benefit from appetite stimulant if appropriate. - Follow Up Care Primary Care Physician: Jet Mccollum MD [Primary Care Provider] -
--- NOTE | 2018-10-22 08:10 | PCM.DC.SUM ---
Discharge Date and Diagnosis - Problem List Patient Problems: Active and Suspected Problems (Last Reviewed 03/27/18 @ 14:06 by Blanca Hernandez) Debility (Acute) Pancytopenia (Acute) Date of Admission: 10/17/18 Date of Discharge: 10/20/18 - Primary Discharge Diagnosis Active and Suspected Problems (Last Reviewed 03/27/18 @ 14:06 by Blanca Hernandez) #1 debility-secondary to pancreatic cancer #2 pancreatic cancer-currently in remission #3 left lower lobe community-acquired pneumonia #4 coronary artery disease #4 degenerative disc disease lumbar spine #5 pulmonary emboli-patient is on Eliquis #6 severe protein and caloric malnutritiont #7 pancytopenia secondary to recent chemotherapy- - Secondary Discharge Diagnosis Chronic Problems (Last Reviewed 03/27/18 @ 14:06 by Blanca Hernandez) Pancreatic cancer (Chronic) Coronary artery disease (Chronic) Gout (Chronic) Restless leg syndrome (Chronic) Pancreatic insufficiency (Chronic) Hypomagnesemia (Chronic) Nausea (Chronic) Hypokalemia (Chronic) 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 Perez @ [facility]. Mediastinal exploration for hemorrhage 08/01/2008. History of left heart catheterization (Chronic) 07/19/2008 @ [facility] per Dr. Santiago: 07/19/[address] Molina @ [facility] Atherosclerotic heart disease of [place] coronary artery without angina pectoris (Chronic) 07/22/2008: CABG X4: WONG to LAD, SVG to anterior diagonal branch of LAD, SVG to Ramus Marginalis, and SVG to posterolateral branch of the CX per Dr. Perez @ [facility] Old myocardial infarction (Chronic) Hyperlipidemia (Chronic) Hypertension (Chronic) Hospital Course and Treatment Operations: None Procedures: None Summary of Care Provided: The patient is a 73 year old M who was placed directly into observation status at [facility] medical surgical floor 2 for generalized debility. Hospitalist service was contacted by the patient's oncologist, patient's oncologist stated that the patient's family was unable to provide care for the patient and he was debilitated secondary to recent treatment for pancreatic cancer. Patient was currently in remission and there were no more treatments plan for the pancreatic cancer. The patient's oncologist stated that the patient had a chest x-ray recently which indicated a left lower lobe pneumonia and the patient had been placed on oral Levaquin. Patient was admitted to [place] [id number], he was seen by PT and OT, I was contacted by the patient's oncologist the next day stating that the patient's recent CT scan of his chest showed pulmonary emboli, oncologist requested patient be placed on Eliquis and this was started. Patient's blood pressure was trending lower in the hospital, he was given fluid and it corrected with fluid administration. On 10/20/2018, patient was seen and examined: On examination he appeared cachectic and frail. Vital signs as documented. Skin warm and dry and without overt rashes. Neck without JVD. Lungs clear. Heart exam notable for regular rhythm, normal sounds and absence of murmurs, rubs or gallops. Abdomen unremarkable and without evidence of organomegaly, masses, or abdominal aortic enlargement. Extremities nonedematous. Neuro: Cranial nerves II through XII are grossly intact, no focal motor deficits were noted, sensation to light touch and pinprick intact. Psych: Patient is alert and oriented x3, he does not appear anxious or depressed On 10/20/2018, patient was seen and examined and felt to be in stable condition for transfer to an extended care facility for inpatient rehab services. Patient Problems: Active and Suspected Problems (Last Reviewed 03/27/18 @ 14:06 by Blanca Hernandez) Debility (Acute) Pancytopenia (Acute) - Physical Exam Vital Signs Temp Pulse Resp BP Pulse Ox 98.8 F 63 18 131/67 H 98 10/20/18 17:19 10/20/18 17:19 10/20/18 17:19 10/20/18 17:19 10/20/18 17:19 Oxygen Delivery Method Room Air Weight: 58.3 kg Body Mass Index (BMI) 20.7 Intake and Output for Last 24 Hours 10/20/18 10/21/18 10/22/18 23:59 23:59 23:59 Intake Total 1550 / 1550 Output Total 450 / 450 Balance 1100 / 1100 Home Medications: Medications to take at Discharge atenolol 50 mg tablet 50 mg PO QDAY 07/30/17 hydroxychloroquine 200 mg tablet 200 mg PO BID tab 07/30/17 ramipril 2.5 mg capsule 2.5 mg PO DAILY 07/30/17 allopurinol 300 mg tablet 300 mg PO QDAY 08/01/17 Ropinirole HCl [Ropinirole ER] 2.5 mg PO QHS PRN 05/04/18 Atorvastatin Calcium [Lipitor] 10 mg PO QHS 06/07/18 Acetaminophen [Acetaminophen Extra Strength] 500 mg PO Q6H PRN PRN 10/17/18 Lipase/Protease/Amylase [Creon Dr 36,000 Units Capsule] 2 cap PO TIDCM 10/17/18 Magnesium Oxide [Magnesium] 1 tab PO BID 10/17/18 Ondansetron [Ondansetron Odt] 8 mg PO 0600,1400,2200 10/17/18 Prednisone 10 mg PO BID 10/17/18 Apixaban [Eliquis] 10 mg PO BID 10/20/18 Chlorpromazine HCl 25 - 50 mg PO 4X/DAY PRN PRN #1 tab 10/20/18 Ensure Enlive 120 ml PO 4X/DAY 10/20/18 Levofloxacin 1 tab PO DAILY 10/20/18 Oxycodone [Oxyir] 5 mg PO 0600,1400,2200 10/20/18 Following Prescrptions Were Given to Patient: Chlorpromazine HCl 25 - 50 mg PO 4X/DAY PRN PRN #1 tab PRN Reason: Hiccups Primary Care Physician: Jet Mccollum MD [Primary Care Provider] - Disposition: [facility] facility Minutes spent on discharge:: 31 Patient Condition:: Stable Medical Necessity - Tobacco Use Smoking Status: Former smoker Tobacco Use: Non-smoker Meaningful Use Info Meaningful Use Diagnoses (Choose all that apply): VTE - VTE Anticoag overlap given w/in hospital stay or rx'd at dc?: No Pt receive overlap for 5 days?: No Reason overlap not ordered, prescribed, or given for 5 days: Treatment Not Indicated Code Visit OBSV E&M: 97855 Observation care discharge
== END 2018-10-20 18:07 | disposition skilled nursing facility (03) ==
PROVIDERS: Internal Medicine Hematology & Oncology; Admitting Provider Internal Medicine; Family Provider Family Medicine; PCP Family Medicine; Visit Provider Internal Medicine
DX: D61.810 Antineoplastic chemotherapy induced pancytopenia (principal); T45.1X5A Adverse effect of antineoplastic and immunosuppressive drugs, initial encounter; J18.9 Pneumonia, unspecified organism; I25.10 Atherosclerotic heart disease of native coronary artery without angina pectoris; M51.36 Other intervertebral disc degeneration, lumbar region; I26.99 Other pulmonary embolism without acute cor pulmonale; E43 Unspecified severe protein-calorie malnutrition; Z68.20 Body mass index [BMI] 20.0-20.9, adult; I25.2 Old myocardial infarction; E78.5 Hyperlipidemia, unspecified; I10 Essential (primary) hypertension; Z85.07 Personal history of malignant neoplasm of pancreas; Z79.899 Other long term (current) drug therapy; Z79.52 Long term (current) use of systemic steroids; Z79.82 Long term (current) use of aspirin; Z87.891 Personal history of nicotine dependence
CPT/HCPCS: 80053; 85025; 85027; 85610; 96360; 96361; 97110; 97162; 97166; 97530; 97802; 99218; J7120; A4216; G0378; G0379

== ENCOUNTER 2018-10-20 18:13 | Inpatient (IN) | payer MEDICARE, SELFPAY ==
[2018-10-17 10:45] VITALS: BMI 20.7
[2018-10-20 18:51] VITALS: BP 143/72; PULSE 69; RESP 16; TEMP 36.4; O2SAT 95
--- NOTE | 2018-10-20 18:51 | NURSING ---
pt arrived via WC from [facility] at 1812
[2018-10-20] MEDS: oxyCODONE 5 MG Tablet PO (22:08)
[2018-10-20] MEDS: APIXABAN 5 MG TABLET 10 MG PO (22:09)
[2018-10-20] MEDS: Atorvastatin Calcium 10 MG Tablet PO (22:11)
[2018-10-20] MEDS: Ondansetron 8 MG Tablet PO (22:11)
[2018-10-20] MEDS: Nystatin Powder 15gm Bottle 1 APPLIC TOPICAL (22:18)
--- NOTE | 2018-10-21 00:45 | PCM.HP.STD ---
Problem List (1) Debility Status: Acute (2) Coronary artery disease Status: Chronic (3) Gout Status: Chronic (4) Restless leg syndrome Status: Chronic (5) Pancreatic insufficiency Status: Chronic (6) Hypomagnesemia Status: Chronic (7) Nausea Status: Chronic (8) Hypokalemia Status: Chronic (9) Pancytopenia Status: Acute (10) Pancreatic cancer Status: Chronic (11) Generalized weakness Status: Acute (12) Community acquired pneumonia of left lower lobe of lung Status: Acute (13) Old myocardial infarction Status: Chronic (14) Hyperlipidemia Status: Chronic (15) Hypertension Status: Chronic History of Present Illness Date of Admission: 10/20/18 Chief Complaint: Here for rehabilitation, strengthening, prior to discharge home with family. The patient is a 73 year old Male with below past medical history with following. 10/17/2018 Direct admission to [facility] for generalized weakness, community acquired pneumonia of left lower lobe. Diagnosed with pancreatic cancer March 2018. Underwent Whipple procedure with ongoing chemotherapy. Direct admission to hospital requested by Dr. Busby for generalized weakness, left lower lobe community acquired pneumonia treated with Levaquin. For placement into group home facility for short term rehab. Dr. Busby recommends no more chemotherapy. Consult PT/OT. Continue Levaquin for community acquired pneumonia. 10/18/2018 Eliquis for pulmonary embolism. 10/19/2018 Pancytopenia secondary to chemotherapy, monitor. 10/20/2018 Admit to TCU with debility, here for rehabilitation, strengthening, prior to discharge home with family. Past Medical History Past Medical History (Chronic Problems): Chronic Problems (Last Reviewed 03/27/18 @ 14:06 by Blanca Hernandez) Pancreatic cancer (Chronic) Coronary artery disease (Chronic) Gout (Chronic) Restless leg syndrome (Chronic) Pancreatic insufficiency (Chronic) Hypomagnesemia (Chronic) Nausea (Chronic) Hypokalemia (Chronic) 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 Perez @ [facility]. Mediastinal exploration for hemorrhage 08/01/2008. History of left heart catheterization (Chronic) 07/19/2008 @ [facility] [address] Santiago: 07/19/[address] Molina @ [facility] Atherosclerotic heart disease of [place] coronary artery without angina pectoris (Chronic) 07/22/2008: CABG X4: WONG to LAD, SVG to anterior diagonal branch of LAD, SVG to Ramus Marginalis, and SVG to posterolateral branch of the CX per Dr. Perez @ [facility] Old myocardial infarction (Chronic) Hyperlipidemia (Chronic) Hypertension (Chronic) Medical History: Medical History (Last Reviewed 03/27/18 @ 14:06 by Blanca Hernandez) Atherosclerotic heart disease of [place] coronary artery without angina pectoris (Chronic) I25.10 07/22/2008: CABG X4: WONG to LAD, SVG to anterior diagonal branch of LAD, SVG to Ramus Marginalis, and SVG to posterolateral branch of the CX per Dr. Perez @ [facility] Old myocardial infarction (Chronic) I25.2 Hyperlipidemia (Chronic) E78.5 Hypertension (Chronic) I10 Allergies No Known Allergies Allergy (Verified 06/18/18 17:25) Home Medications: Ambulatory Orders Medication Instructions Recorded atenolol 50 mg tablet 50 mg PO QDAY 07/30/17 hydroxychloroquine 200 mg tablet 200 mg PO BID tab 07/30/17 ramipril 2.5 mg capsule 2.5 mg PO DAILY 07/30/17 allopurinol 300 mg tablet 300 mg PO QDAY 08/01/17 Ropinirole HCl [Ropinirole ER] 2.5 mg PO QHS PRN 05/04/18 Atorvastatin Calcium [Lipitor] 10 mg PO QHS 06/07/18 Acetaminophen [Acetaminophen Extra 500 mg PO Q6H PRN PRN 10/17/18 Strength] Lipase/Protease/Amylase [Megan Evans 2 cap PO TIDCM 10/17/18 36,000 Units Capsule] Magnesium Oxide [Magnesium] 1 tab PO BID 10/17/18 Ondansetron [Ondansetron Odt] 8 mg PO 0600,1400,2200 10/17/18 Prednisone 10 mg PO BID 10/17/18 Apixaban [Eliquis] 10 mg PO BID 10/20/18 Chlorpromazine HCl 25 - 50 mg PO 4X/DAY PRN PRN #1 tab 10/20/18 Ensure Enlive 120 ml PO 4X/DAY 10/20/18 Levofloxacin 1 tab PO DAILY 10/20/18 Oxycodone [Oxyir] 5 mg PO 0600,1400,2200 10/20/18 Surgical History: Surgical History (Last Reviewed 03/27/18 @ 14:06 by Blanca Hernandez) History of total right hip replacement (Chronic) Z96.641 S/P CABG x 4 (Chronic) Z95.1 07/22/2008: CABG X4: WONG to LAD, SVG to anterior diagonal branch of LAD, SVG to Ramus Marginalis, and SVG to posterolateral branch of the CX per Dr. Perez @ [facility]. Mediastinal exploration for hemorrhage 08/01/2008. History of left heart catheterization (Chronic) Z98.890 07/19/2008 @ [facility] [address] Santiago: 07/19/[address] Molina @ [facility] Surgical History: coronary bypass surgery - x 4., total hip arthroplasty - Right., - - Whipple procedure, Mediport insertion, lumbar spinal fusion Psychiatric History: No pertinent psych hx Lives: With Family Smoking Status: Former smoker Tobacco Use: Non-smoker Alcohol: None Drugs: None - *Family History Maternal Family History: Family History (Last Reviewed 03/27/18 @ 14:06 by Blanca Hernandez) Father CAD (coronary artery disease) CVA (cerebral vascular accident) Myocardial infarction Brother CAD (coronary artery disease) Myocardial infarction, Onset Age: 66 History Items: Dementia Paternal Family History: Family History (Last Reviewed 03/27/18 @ 14:06 by Blanca Hernandez) Father CAD (coronary artery disease) CVA (cerebral vascular accident) Myocardial infarction Brother CAD (coronary artery disease) Myocardial infarction, Onset Age: 66 History Items: Heart Disease, Stroke Review of Systems Constitutional: Denies: Chills, Fever, Weakness, Weight Change HEENT: Denies: Head Aches, Sinus Congestion, Sinus Drainage Cardiovascular: Denies: Chest Pain, Palpitations Respiratory: Denies: Cough, Shortness of breath at rest, Sputum production Gastrointestinal: Denies: Abdominal Pain, Nausea, Vomiting Genitourinary: Denies: Dysuria Musculoskeletal: Denies: Joint Pain, Joint Tenderness Skin: Denies: Rash, Wounds Neurological: Denies: Numbness, Tingling, Focal weakness Psychiatric: Denies: Anxiety, Depression, Homicidal Ideations, Suicidal Ideations Hematologic/ Lymphatic: Denies: Easy Bruising, Easy Bleeding VTE Information - Inpt Only VTE Present on Admission: Yes - Pulmonary embolism. VTE Mechan Device Prophylaxis: Knee High TASNEEM Hose VTE Pharm Prophylaxis ordered?: No Reason prophylaxis not ordered:: Treatment Not Indicated Patient Problems: Active and Suspected Problems (Last Reviewed 03/27/18 @ 14:06 by Blanca Hernandez) Debility (Acute) Pancytopenia (Acute) - Physical Exam General: Alert, Oriented x3, Cooperative HEENT: Atraumatic, PERRLA, EOMI, Normocephalic Neck: Supple, No JVD, Negative Carotid Bruits Lungs: Clear to auscultation, Normal air movement Cardiovascular: Regular rate, No murmurs, - - Port right upper chest. Abdomen: Bowel Sounds Present, Soft, Non Tender Extremities: No edema, Capillary Refill Less than 3 Seconds Skin: No rashes, No breakdown Musculoskeletal: No Tenderness to Palpation of Joints or Extremities Neurological: Cranial nerves II-XII grossly intact Psych/Mental Status: Normal Affect, Appropriate Vital Signs Temp Pulse Resp BP Pulse Ox 97.6 F L 69 16 143/72 H 95 10/20/18 18:51 10/20/18 18:51 10/20/18 18:51 10/20/18 18:51 10/20/18 18:51 Oxygen Delivery Method Room Air Body Mass Index (BMI) 20.7 Intake and Output for Last 24 Hours 10/19/18 10/20/18 10/21/18 23:59 23:59 23:59 Intake Total 120 / 120 Balance 120 / 120 Assessment/Plan All Active Problems (Last Reviewed 03/27/18 @ 14:06 by Blanca Hernandez) Generalized weakness (Acute) Community acquired pneumonia of left lower lobe of lung (Acute) Pulmonary embolism (Acute) Debility (Acute) Pancytopenia (Acute) 73 year old male with below past medical history significant for pancreatic cancer status post Whipple procedure, hospitalized for weakness secondary to left lower lobe community acquired pneumonia, and chemotherapy, admitted to TCU with debility, here for rehabilitation, strengthening, prior to discharge home with family. Debility - PT/OT. Pain - Tylenol 1000MG Q6H PRN mild pain, Oxycodone 5MG TID. Bowel - Miralax 17GM daily, Senna/colace 2 tablets BID, Dulcolax 10MG daily PRN. Pneumonia vaccination - Administer Prevnar 13 and/or Pneumovax 23 as necessary. DVT prophylaxis - Not necessary, already on Eliquis. Gout - Allopurinol 300MG daily. Pulmonary embolism - Eliquis 10MG BID thru 10/27/2018, then 5MG BID. Coronary Artery Disease - Atenolol 50MG daily, Ramipril 2.5MG daily. Hyperlipidemia - Atorvastatin 10MG QHS. Nausea - Zofran 8MG TID, Thorazine 25-50MG 4x/day PRN, (Beer's list drug chronic [facility] use due to pancreatic cancer). Nutrition - Ensure Enlive 120ML 4x/day. Rheumatoid Arthritis - Plaquenil 200MG BID, Prednisone 10MG BID. Left lower lobe community acquired pneumonia - Levaquin 500MG daily thru 10/24/2018. Pancreatic insufficiency - Creon 6 capsules TIDCM. Hypomagnesemia - Magnesium Oxide 400MG BID. Tinea Corporis - Nystatin powder BID. Restless leg syndrome - Mirapex 1MG QHS PRN.
[2018-10-21 03:37] VITALS: BMI 19.8
[2018-10-21 03:39] VITALS: BMI 19.9
[2018-10-21] MEDS: oxyCODONE 5 MG Tablet PO ×3 (06:25→20:58)
[2018-10-21] MEDS: Nystatin Powder 15gm Bottle 1 APPLIC TOPICAL ×2 (06:25→20:56)
[2018-10-21] MEDS: APIXABAN 5 MG TABLET 10 MG PO ×2 (06:28→17:11)
[2018-10-21] MEDS: levoFLOXacin 500 MG Tablet PO (06:29)
[2018-10-21] MEDS: Ondansetron 8 MG Tablet PO ×3 (06:29→20:58)
[2018-10-21] MEDS: Atenolol 50 MG Tablet PO (06:29)
[2018-10-21] MEDS: Ramipril 2.5 MG Capsule PO (06:29)
[2018-10-21] MEDS: Senna/Docusate Sodium 1 Tablet 2 TABLET PO ×2 (06:30→17:17)
[2018-10-21] MEDS: predniSONE 10 MG Tablet PO ×2 (07:48→17:11)
[2018-10-21] MEDS: Allopurinol 300 MG Tablet PO (07:48)
[2018-10-21] MEDS: Hydroxychloroquine 200 MG Tablet PO ×2 (07:48→17:11)
[2018-10-21] MEDS: Magnesium Oxide 400 MG Tablet PO ×2 (07:48→17:11)
[2018-10-21 09:33] LABS: Absolute Lymphocyte Count 0.81 X10^3/ul (0.83-4.51); Absolute Neutrophil Count 0.5 X10^3/uL (2.0-7.7); Basophil# 0.01 X10^3/uL; Basophil% 0.6 % (0-1); Eosinophil# 0.01 X10^3/uL; Eosinophils% 0.6 % (0-5); Hematocrit 26.6 % (40-54); Hemoglobin 8.5 g/dl (13.0-16.5); Lymphocyte # 0.81 X10^3/ul (4.0); Lymphocyte % 45.5 % (19-41); Mean Corpuscular Hgb 29.1 pg (27.0-32.0); Mean Corpuscular Volume 91.1 fL (80-94); Mean Platelet Vol. 10.2 fl (6.2-12.0); Monocyte# 0.44 X10^3/uL; Monocyte% 24.7 % (0-10); Platelet Count 132 K/mm3 (150-450); RBC Distribution Width CV 16.6 % (11.6-14.6); RBC Distribution Width SD 52.9 fl (35.1-43.9); Red Blood Count 2.92 M/mm3 (4.6-6.2); White Blood Count 1.8 K/mm3 (4.4-11.0)
[2018-10-21 09:36] LABS: Differential Indicated SCAN CRITERIA MET; POSITIVE COUNT NO; POSITIVE DIFFERENTIAL YES; POSITIVE MORPHOLOGY NO
[2018-10-21 09:38] LABS: Anion Gap 6 (5-15); BUN 16 mg/dL (7-18); BUN/Creat Ratio 24.8 RATIO (10-20); Chloride 104 mmol/L (98-107); Creatinine, Serum 0.64 mg/dL (0.70-1.30); EST Glomerular Filtration Rate 129 mL/min (>60); Est Glom Filt Rate - Afr Amer 156 mL/min (>60); Estimated Creatinine Clearance 51.38 ml/min; Glucose 110 mg/dL (74-106); Sodium Level 140 mmol/L (136-145)
[2018-10-21 10:01] LABS: Anisocytosis 1+; Hypochromasia 1+; Ovalocyte RARE; Platelet Estimate ADEQUATE (ADEQ); Schistocytes 1+
[2018-10-21] MEDS: Tuberculin,Purif.prot.deriv. 50 TU/ML Vial 5 ML ID (10:41)
[2018-10-21 15:25] VITALS: BP 98/55; PULSE 65; RESP 18; TEMP 36.6; O2SAT 92
[2018-10-21] MEDS: Atorvastatin Calcium 10 MG Tablet PO (20:58)
[2018-10-22] MEDS: oxyCODONE 5 MG Tablet PO ×3 (05:37→21:18)
[2018-10-22] MEDS: Atenolol 50 MG Tablet PO (05:38)
[2018-10-22] MEDS: APIXABAN 5 MG TABLET 10 MG PO ×2 (05:38→17:56)
[2018-10-22] MEDS: Ondansetron 8 MG Tablet PO ×3 (05:38→21:19)
[2018-10-22] MEDS: Senna/Docusate Sodium 1 Tablet 2 TABLET PO ×2 (05:39→17:56)
[2018-10-22] MEDS: levoFLOXacin 500 MG Tablet PO (05:40)
[2018-10-22] MEDS: Polyethylene Glycol 3350 17 GM PACKET PO (05:41)
[2018-10-22] MEDS: Ramipril 2.5 MG Capsule PO (05:41)
[2018-10-22] MEDS: Nystatin Powder 15gm Bottle 1 APPLIC TOPICAL ×2 (05:43→21:19)
[2018-10-22] MEDS: predniSONE 10 MG Tablet PO ×2 (07:32→17:56)
[2018-10-22] MEDS: Allopurinol 300 MG Tablet PO (07:33)
[2018-10-22] MEDS: Magnesium Oxide 400 MG Tablet PO ×2 (07:33→17:56)
[2018-10-22] MEDS: Hydroxychloroquine 200 MG Tablet PO ×2 (07:33→17:56)
[2018-10-22] MEDS: Iron Polysaccharide Complex 150 MG CAPSULE PO (08:38)
[2018-10-22 15:45] VITALS: BP 97/59; PULSE 66; RESP 20; TEMP 36.6; O2SAT 94
[2018-10-22] MEDS: Atorvastatin Calcium 10 MG Tablet PO (21:19)
[2018-10-23] MEDS: oxyCODONE 5 MG Tablet PO ×3 (06:12→21:44)
[2018-10-23] MEDS: APIXABAN 5 MG TABLET 10 MG PO ×2 (06:12→17:54)
[2018-10-23] MEDS: Ondansetron 8 MG Tablet PO ×3 (06:13→21:44)
[2018-10-23] MEDS: Ramipril 2.5 MG Capsule PO (06:13)
[2018-10-23] MEDS: Senna/Docusate Sodium 1 Tablet 2 TABLET PO ×2 (06:13→17:55)
[2018-10-23] MEDS: levoFLOXacin 500 MG Tablet PO (06:13)
[2018-10-23] MEDS: Atenolol 50 MG Tablet PO (06:13)
[2018-10-23] MEDS: Nystatin Powder 15gm Bottle 1 APPLIC TOPICAL ×2 (06:15→21:45)
[2018-10-23] MEDS: 0.9% NaCl VAD Flush IV ×2 (06:16→21:45)
[2018-10-23] MEDS: predniSONE 10 MG Tablet PO ×2 (10:48→17:55)
[2018-10-23] MEDS: Iron Polysaccharide Complex 150 MG CAPSULE PO (10:48)
[2018-10-23] MEDS: Allopurinol 300 MG Tablet PO (10:49)
[2018-10-23] MEDS: Hydroxychloroquine 200 MG Tablet PO ×2 (10:49→17:54)
[2018-10-23] MEDS: Magnesium Oxide 400 MG Tablet PO ×2 (10:49→17:55)
[2018-10-23 15:31] VITALS: BP 87/49; PULSE 64; RESP 18; TEMP 36.8; O2SAT 96
[2018-10-23] MEDS: Atorvastatin Calcium 10 MG Tablet PO (21:44)
[2018-10-24] MEDS: APIXABAN 5 MG TABLET 10 MG PO ×2 (05:51→18:12)
[2018-10-24] MEDS: Ondansetron 8 MG Tablet PO ×3 (05:52→21:47)
[2018-10-24] MEDS: Atenolol 50 MG Tablet PO (05:52)
[2018-10-24] MEDS: Nystatin Powder 15gm Bottle 1 APPLIC TOPICAL ×2 (05:52→21:47)
[2018-10-24] MEDS: Ramipril 2.5 MG Capsule PO (05:52)
[2018-10-24] MEDS: Senna/Docusate Sodium 1 Tablet 2 TABLET PO ×2 (05:52→18:12)
[2018-10-24] MEDS: levoFLOXacin 500 MG Tablet PO (05:52)
[2018-10-24] MEDS: Polyethylene Glycol 3350 17 GM PACKET PO (05:53)
[2018-10-24] MEDS: oxyCODONE 5 MG Tablet PO ×3 (05:56→21:47)
[2018-10-24] MEDS: Magnesium Oxide 400 MG Tablet PO ×2 (08:40→18:12)
[2018-10-24] MEDS: predniSONE 10 MG Tablet PO ×2 (08:40→18:12)
[2018-10-24] MEDS: Allopurinol 300 MG Tablet PO (08:40)
[2018-10-24] MEDS: Hydroxychloroquine 200 MG Tablet PO ×2 (08:40→18:12)
[2018-10-24] MEDS: Iron Polysaccharide Complex 150 MG CAPSULE PO (08:40)
[2018-10-24] MEDS: 0.9% NaCl VAD Flush IV ×2 (09:43→21:54)
--- NOTE | 2018-10-24 09:54 | NURSING ---
Dr Coy updated on dopplers of BUE's, pt has DVT RT axillary Vein & superficial one in LT cephalic Vein. new order to start Xarelto 15mg BID x21 days and then 20mg daily on day 22.
[2018-10-24 14:54] VITALS: PULSE 71
[2018-10-24 16:00] VITALS: BP 110/60; PULSE 60; RESP 18; TEMP 36.8; O2SAT 95
--- NOTE | 2018-10-24 16:48 | CHAPLAIN ---
Type of Pastoral Visit _x__ Initial Visit ___ Follow-up Visit ___ On-call Visit ___ General Patient Visit ___ Spiritual Assessment ___ Family Conference ___ Bereavement ___ Rapid Response ___ Code Blue ___ Other (describe below) Pastoral Care Referral From _x__ Patient ___ Family ___ Nurse ___ Physician ___ Fur Mixer Operator ___ Environmental Projects Advisor ___ Other (describe below) Sacrament/Intervention _x__ Active listening ___ Anointing ___ Jainism ___ Bereavement ___ Communion _x__ Tonja exploration ___ _x__ Life review _x__ Prayer ___ Reconciliation ___ Sacrament of Sick _x__ Supportive presence ___ Wedding ___ Other (describe below) Pastoral Comments long and good conversation; patient is open about his cancer, life story, appreciation for God's help, and concerns; pt is tearful at times in telling his story and remembering how good God has been to me; patient invites this core dropper to return for more conversation and support; pt is connected to a local bahai
[2018-10-24] MEDS: Atorvastatin Calcium 10 MG Tablet PO (21:47)
[2018-10-24] MEDS: Menthol/Lanolin/Calamine/Znox 113 GM Tube 1 APPLIC TOPICAL (21:47)
[2018-10-25] MEDS: Ondansetron 8 MG Tablet PO ×3 (06:10→21:45)
[2018-10-25] MEDS: Polyethylene Glycol 3350 17 GM PACKET PO (06:11)
[2018-10-25] MEDS: Senna/Docusate Sodium 1 Tablet 2 TABLET PO ×2 (06:11→17:24)
[2018-10-25] MEDS: Atenolol 50 MG Tablet PO (06:11)
[2018-10-25] MEDS: APIXABAN 5 MG TABLET 10 MG PO ×2 (06:11→17:24)
[2018-10-25] MEDS: Ramipril 2.5 MG Capsule PO (06:11)
[2018-10-25] MEDS: Menthol/Lanolin/Calamine/Znox 113 GM Tube 1 APPLIC TOPICAL ×2 (06:11→21:46)
[2018-10-25] MEDS: Nystatin Powder 15gm Bottle 1 APPLIC TOPICAL ×2 (06:11→21:45)
[2018-10-25] MEDS: oxyCODONE 5 MG Tablet PO ×3 (06:11→21:44)
[2018-10-25] MEDS: predniSONE 10 MG Tablet PO ×2 (08:12→17:23)
[2018-10-25] MEDS: Hydroxychloroquine 200 MG Tablet PO ×2 (08:12→17:23)
[2018-10-25] MEDS: Magnesium Oxide 400 MG Tablet PO ×2 (08:12→17:23)
[2018-10-25] MEDS: Iron Polysaccharide Complex 150 MG CAPSULE PO (08:12)
[2018-10-25] MEDS: Allopurinol 300 MG Tablet PO (08:12)
[2018-10-25] MEDS: 0.9% NaCl VAD Flush IV (08:16)
[2018-10-25] MEDS: Bisacodyl 5 MG Tablet 10 MG PO (12:31)
[2018-10-25 15:28] VITALS: BP 88/47; PULSE 62; RESP 18; TEMP 36.5; O2SAT 94
[2018-10-25 15:30] VITALS: BP 89/52; PULSE 62
[2018-10-25 16:20] VITALS: BP 104/75; PULSE 64
[2018-10-25] MEDS: Atorvastatin Calcium 10 MG Tablet PO (21:45)
[2018-10-26] MEDS: Senna/Docusate Sodium 1 Tablet 2 TABLET PO ×2 (05:05→16:58)
[2018-10-26] MEDS: Ramipril 2.5 MG Capsule PO (05:05)
[2018-10-26] MEDS: APIXABAN 5 MG TABLET 10 MG PO ×2 (05:05→16:58)
[2018-10-26] MEDS: Polyethylene Glycol 3350 17 GM PACKET PO (05:05)
[2018-10-26] MEDS: Atenolol 50 MG Tablet PO (05:06)
[2018-10-26] MEDS: oxyCODONE 5 MG Tablet PO ×3 (05:06→21:48)
[2018-10-26] MEDS: Ondansetron 8 MG Tablet PO ×3 (05:07→21:48)
[2018-10-26] MEDS: Menthol/Lanolin/Calamine/Znox 113 GM Tube 1 APPLIC TOPICAL ×2 (05:08→21:48)
[2018-10-26] MEDS: Nystatin Powder 15gm Bottle 1 APPLIC TOPICAL ×2 (05:08→21:49)
[2018-10-26 05:10] VITALS: BP 102/59; PULSE 59
[2018-10-26] MEDS: predniSONE 10 MG Tablet PO ×2 (07:50→16:58)
[2018-10-26] MEDS: Hydroxychloroquine 200 MG Tablet PO ×2 (07:50→16:58)
[2018-10-26] MEDS: Iron Polysaccharide Complex 150 MG CAPSULE PO (07:50)
[2018-10-26] MEDS: Allopurinol 300 MG Tablet PO (07:50)
[2018-10-26] MEDS: Magnesium Oxide 400 MG Tablet PO ×2 (07:51→16:59)
[2018-10-26 15:51] VITALS: BP 102/55; PULSE 61; RESP 20; TEMP 36.8; O2SAT 94
[2018-10-26] MEDS: Atorvastatin Calcium 10 MG Tablet PO (21:48)
[2018-10-26] MEDS: 0.9% NaCl VAD Flush IV (21:50)
--- NOTE | 2018-10-27 04:24 | NURSING ---
Pt tongue is coated in white, will update Dr Coy.
[2018-10-27] MEDS: oxyCODONE 5 MG Tablet PO ×3 (05:41→21:03)
[2018-10-27] MEDS: APIXABAN 5 MG TABLET 10 MG PO ×2 (05:42→16:27)
[2018-10-27] MEDS: Ramipril 2.5 MG Capsule PO (05:42)
[2018-10-27] MEDS: Polyethylene Glycol 3350 17 GM PACKET PO (05:42)
[2018-10-27] MEDS: Atenolol 50 MG Tablet PO (05:42)
[2018-10-27] MEDS: Ondansetron 8 MG Tablet PO ×3 (05:42→21:04)
[2018-10-27] MEDS: Senna/Docusate Sodium 1 Tablet 2 TABLET PO ×2 (05:42→16:26)
[2018-10-27] MEDS: Menthol/Lanolin/Calamine/Znox 113 GM Tube 1 APPLIC TOPICAL ×2 (05:43→21:07)
[2018-10-27] MEDS: Nystatin Powder 15gm Bottle 1 APPLIC TOPICAL ×2 (05:43→21:07)
--- NOTE | 2018-10-27 08:53 | CASEMGMT ---
Social Work BIMS and PHQ-9 completed for MDS assessment. Kelli Loen, IMPORTER EXPORTER ENGINEER BYPRODUCT
[2018-10-27] MEDS: Allopurinol 300 MG Tablet PO (09:51)
[2018-10-27] MEDS: Magnesium Oxide 400 MG Tablet PO ×2 (09:51→16:25)
[2018-10-27] MEDS: Iron Polysaccharide Complex 150 MG CAPSULE PO (09:51)
[2018-10-27] MEDS: predniSONE 10 MG Tablet PO ×2 (09:51→16:26)
[2018-10-27] MEDS: Hydroxychloroquine 200 MG Tablet PO ×2 (09:52→16:27)
--- NOTE | 2018-10-27 10:57 | CASEMGMT ---
Insurance Clinical updates faxed. Auth # [id number] FERNANDA Dugan
[2018-10-27] MEDS: NYSTATIN 500,000 UNIT/5 ML UDC 500000 UNIT PO ×3 (11:21→21:07)
--- NOTE | 2018-10-27 11:25 | CASEMGMT ---
Social Work IDT met with patient and daughter for care plan meeting. Discussed making good progress in therapy. Still working on balance with ambulation and stairs using the cane. Pt was independent prior with cane home alone. Insurance update today - continued stay is not guaranteed - pt and dtr understood. If cut, pt has walker and cane at home, and agreeable to [facility] for continued therapy. No other issues noted. Will continue to follow for outcome and discharge planning. Kelli Leon MSW MECHANICAL ARTIST
[2018-10-27 12:24] VITALS: PULSE 60
[2018-10-27 15:14] VITALS: BP 117/58; PULSE 67; RESP 18; TEMP 36.7; O2SAT 96
--- NOTE | 2018-10-27 17:43 | NURSING ---
Family & pt requesting repeat Chest xray to f/u pneumonia and CT for PE to check whether it improved. DR Coy updated, ok to have chest xray but recommends pt not have CTA d/t risk of kidney damage. No change in treatment would be done for PE. pt remains on eliquis. Pt updated and ok with DR Hurley orders.
--- NOTE | 2018-10-27 18:00 | RAD_ITS ---
STUDY: X-RAY CHEST REASON FOR EXAM: Male, 73 years old. Chest pain TECHNIQUE: Frontal view of the chest COMPARISON: 05/04/2018. FINDINGS: There is a right-sided port with its tip in the superior vena cava. There is left basilar opacity noted. The lungs are otherwise clear. There are no pleural effusions. There is no pneumothorax. The heart is normal in size. The patient is status post sternotomy. The visualized osseous structures are within normal limits. RAD/Chest PA and Lateral IMPRESSION: Left basilar opacity which may be due to atelectasis and/or infiltrate. This is new when compared with the prior exam. Electronically Signed: Girma Louis, at 18:29 EDT Tel , Service support ,
[2018-10-27] MEDS: Atorvastatin Calcium 10 MG Tablet PO (21:06)
[2018-10-28] MEDS: Atenolol 50 MG Tablet PO (05:46)
[2018-10-28] MEDS: Polyethylene Glycol 3350 17 GM PACKET PO (05:46)
[2018-10-28] MEDS: Ondansetron 8 MG Tablet PO ×3 (05:46→21:47)
[2018-10-28] MEDS: oxyCODONE 5 MG Tablet PO ×3 (05:46→21:46)
[2018-10-28] MEDS: Ramipril 2.5 MG Capsule PO (05:46)
[2018-10-28] MEDS: Senna/Docusate Sodium 1 Tablet 2 TABLET PO ×2 (05:47→17:52)
[2018-10-28] MEDS: APIXABAN 5 MG TABLET PO ×2 (05:47→17:52)
[2018-10-28] MEDS: Menthol/Lanolin/Calamine/Znox 113 GM Tube 1 APPLIC TOPICAL ×2 (05:50→21:37)
[2018-10-28] MEDS: NYSTATIN 500,000 UNIT/5 ML UDC 500000 UNIT PO ×4 (05:50→21:48)
[2018-10-28] MEDS: Nystatin Powder 15gm Bottle 1 APPLIC TOPICAL ×2 (05:50→21:49)
[2018-10-28] MEDS: Magnesium Oxide 400 MG Tablet PO ×2 (08:26→17:51)
[2018-10-28] MEDS: Allopurinol 300 MG Tablet PO (08:26)
[2018-10-28] MEDS: Iron Polysaccharide Complex 150 MG CAPSULE PO (08:26)
[2018-10-28] MEDS: predniSONE 10 MG Tablet PO ×2 (08:26→17:51)
[2018-10-28] MEDS: Hydroxychloroquine 200 MG Tablet PO ×2 (08:26→17:51)
[2018-10-28 08:55] LABS: Hematocrit 29.8 % (40-54); Hemoglobin 9.4 g/dL (13.0-16.5); Mean Corp Hgb Conc 31.5 g/dL (32-36); Mean Corpuscular Hgb 30.5 pg (27.0-32.0); Mean Corpuscular Volume 96.8 fL (80-94); Mean Platelet Vol. 9.7 fl (6.2-12.0); POSITIVE COUNT YES; POSITIVE MORPHOLOGY YES; Platelet Count 284 K/mm3 (150-450); RBC Distribution Width CV 18.1 % (11.6-14.6); RBC Distribution Width SD 61.2 fl (35.1-43.9); Red Blood Count 3.08 M/mm3 (4.6-6.2); White Blood Count 13.1 K/mm3 (4.4-11.0)
[2018-10-28 09:02] LABS: Differential Indicated MANUAL DIFF
[2018-10-28 09:06] LABS: Anion Gap 2 (5-15); BUN 17 mg/dL (7-18); BUN/Creat Ratio 23.4 RATIO (10-20); Calcium,Total 8.3 mg/dL (8.5-10.1); Chloride 103 mmol/L (98-107); Creatinine, Serum 0.73 mg/dL (0.70-1.30); EST Glomerular Filtration Rate 112 mL/min (>60); Est Glom Filt Rate - Afr Amer 136 mL/min (>60); Estimated Creatinine Clearance 48.47 ml/min; Glucose 135 mg/dL (74-106); Potassium 3.9 mmol/L (3.5-5.1); Sodium Level 137 mmol/L (136-145)
[2018-10-28 09:23] LABS: Lymphocyte 11 % (19-41); Metamyelocyte 1 % (0-1); Monocyte 11 % (0-10); Neutrophil-Band 3 % (0-5); Neutrophil-Segmented 74 % (47-70); Total Cells Counted 100 (MANUAL DIFF)
[2018-10-28 09:25] LABS: Platelet Estimate ADEQUATE (ADEQ); Red Cell Morphology NORM C+C NORMAL (NORM C&C)
[2018-10-28 09:27] LABS: Absolute Neutrophil Count 10.1 X10^3/uL (2.0-7.7); Neutrophil # 10.06 X10^3/uL (2.7-7.7)
[2018-10-28 09:28] LABS: Absolute Lymphocyte Count 1.44 X10^3/uL (0.83-4.51); Lymphocyte # 1.44 X10^3/ul (4.0)
[2018-10-28] MEDS: Tuberculin,Purif.prot.deriv. 50 TU/ML Vial 5 ML ID (14:09)
--- NOTE | 2018-10-28 15:58 | NURSING ---
Dr. Coy made aware of elevated WBC, NNO, continue to monitor.
[2018-10-28 16:00] VITALS: BP 104/60; PULSE 57; RESP 17; TEMP 37.2; O2SAT 98
[2018-10-28] MEDS: Atorvastatin Calcium 10 MG Tablet PO (21:47)
[2018-10-29 05:55] VITALS: BP 111/59; PULSE 61
[2018-10-29] MEDS: oxyCODONE 5 MG Tablet PO ×3 (05:57→21:02)
[2018-10-29] MEDS: Atenolol 50 MG Tablet PO (05:57)
[2018-10-29] MEDS: Senna/Docusate Sodium 1 Tablet 2 TABLET PO ×2 (05:57→17:54)
[2018-10-29] MEDS: APIXABAN 5 MG TABLET PO ×2 (05:57→17:54)
[2018-10-29] MEDS: Ramipril 2.5 MG Capsule PO (05:57)
[2018-10-29] MEDS: Ondansetron 8 MG Tablet PO ×3 (05:57→21:02)
[2018-10-29] MEDS: Menthol/Lanolin/Calamine/Znox 113 GM Tube 1 APPLIC TOPICAL ×2 (06:00→21:02)
[2018-10-29] MEDS: NYSTATIN 500,000 UNIT/5 ML UDC 500000 UNIT PO ×4 (06:01→21:05)
[2018-10-29] MEDS: Polyethylene Glycol 3350 17 GM PACKET PO ×2 (06:03→18:00)
[2018-10-29] MEDS: Nystatin Powder 15gm Bottle 1 APPLIC TOPICAL ×2 (06:03→21:02)
[2018-10-29] MEDS: Hydroxychloroquine 200 MG Tablet PO ×2 (08:45→17:54)
[2018-10-29] MEDS: Magnesium Oxide 400 MG Tablet PO ×2 (08:45→17:53)
[2018-10-29] MEDS: Iron Polysaccharide Complex 150 MG CAPSULE PO (08:45)
[2018-10-29] MEDS: Allopurinol 300 MG Tablet PO (08:46)
[2018-10-29] MEDS: predniSONE 10 MG Tablet PO ×2 (08:46→17:53)
[2018-10-29 16:00] VITALS: BP 99/52; PULSE 66; RESP 20; TEMP 37.4; O2SAT 94
[2018-10-29] MEDS: Atorvastatin Calcium 10 MG Tablet PO (21:02)
[2018-10-30] MEDS: Nystatin Powder 15gm Bottle 1 APPLIC TOPICAL ×2 (05:56→19:48)
[2018-10-30] MEDS: Menthol/Lanolin/Calamine/Znox 113 GM Tube 1 APPLIC TOPICAL ×2 (05:56→19:48)
[2018-10-30] MEDS: APIXABAN 5 MG TABLET PO ×2 (05:56→16:38)
[2018-10-30] MEDS: Senna/Docusate Sodium 1 Tablet 2 TABLET PO ×2 (05:56→16:37)
[2018-10-30] MEDS: oxyCODONE 5 MG Tablet PO (05:56)
[2018-10-30] MEDS: Ramipril 2.5 MG Capsule PO (05:56)
[2018-10-30] MEDS: Atenolol 50 MG Tablet PO (05:56)
[2018-10-30] MEDS: NYSTATIN 500,000 UNIT/5 ML UDC 500000 UNIT PO ×4 (05:56→19:47)
[2018-10-30] MEDS: Ondansetron 8 MG Tablet PO (05:56)
[2018-10-30] MEDS: Hydroxychloroquine 200 MG Tablet PO ×2 (08:05→16:38)
[2018-10-30] MEDS: Magnesium Oxide 400 MG Tablet PO ×2 (08:05→16:37)
[2018-10-30] MEDS: Allopurinol 300 MG Tablet PO (08:05)
[2018-10-30] MEDS: predniSONE 10 MG Tablet PO ×2 (08:05→16:37)
[2018-10-30] MEDS: Iron Polysaccharide Complex 150 MG CAPSULE PO (08:06)
--- NOTE | 2018-10-30 10:53 | CASEMGMT ---
Addendum entered by Shahrzad Martinez 10/30/18 11:10: [facility] faxed. Auth# [id number] FERNANDA Dugan Original Note: Insurance Continued stay denied with last covered day 11/01 and d/c 11/02. Auth # [id number] FERNANDA Dugan
--- NOTE | 2018-10-30 11:47 | CASEMGMT ---
Addendum entered by Kelli Leon 10/31/18 11:49: Provided pt with life alert resources, per his request. Scheduled outpatient PT appt 11/08 at 3 pm - notified pt. Pt requesting to discharge home 11/01. Plan: DC home 11/01. Original Note: Social Work Spoke with pt about insurance issuing LCD 11/01, discharge home 11/02. Pt agreeable. Referred to [facility] for outpatient PT. No DME needs. Plan: DC home 11/02 Kelli Leon, ANDREW CHAVEZW
[2018-10-30 12:04] LABS: Pathologist Review Reviewed
[2018-10-30 16:00] VITALS: BP 83/51; PULSE 66; RESP 16; O2SAT 96
[2018-10-30 17:49] VITALS: BP 114/61; PULSE 62
[2018-10-30] MEDS: Atorvastatin Calcium 10 MG Tablet PO (19:47)
--- NOTE | 2018-10-30 20:55 | DCINST_ITS ---
- Discharge Diagnoses Current Active Problems: Current Active and Chronic Problems (Last Reviewed 03/27/18 @ 14:06 by Blanca Hernandez) Debility (Acute) Coronary artery disease (Chronic) Gout (Chronic) Restless leg syndrome (Chronic) Pancreatic insufficiency (Chronic) Hypomagnesemia (Chronic) Nausea (Chronic) Hypokalemia (Chronic) Pancytopenia (Acute) You will use the following diet at home:: No restrictions, Regular Your food should be the consistency of: Regular Your liquids should be the consistency of: Regular/Thin Discharge Activity: Return to Normal Activity, May Shower, Use Walker Weight Bearing Status: Weight bearing as tolerated Call your doctor if you observe: Fever of 101 or Higher, Inability to urinate, Inability to have a bowel movement, Shortness of breath, Chest pain, Uncont rolled pain Allergies/Adverse Reactions: Allergies No Known Allergies Allergy (Verified 06/18/18 17:25) Medications to take at Discharge atenolol 50 mg tablet 50 mg PO QDAY 07/30/17 hydroxychloroquine 200 mg tablet 200 mg PO BID tab 07/30/17 ramipril 2.5 mg capsule 2.5 mg PO DAILY 07/30/17 allopurinol 300 mg tablet 300 mg PO QDAY 08/01/17 Ropinirole HCl [Ropinirole ER] 2.5 mg PO QHS PRN 05/04/18 Acetaminophen [Acetaminophen Extra Strength] 500 mg PO Q6H PRN PRN 10/17/18 Lipase/Protease/Amylase [Estephaniaon Dr 36,000 Units Capsule] 2 cap PO TIDCM 10/17/18 Magnesium Oxide [Magnesium] 1 tab PO BID 10/17/18 Ondansetron [Ondansetron Odt] 8 mg PO 0600,1400,2200 10/17/18 Prednisone 10 mg PO BID 10/17/18 Apixaban [Eliquis] 10 mg PO BID 10/20/18 Chlorpromazine HCl 25 - 50 mg PO 4X/DAY PRN PRN #1 tab 10/20/18 Ensure Enlive 120 ml PO 4X/DAY 10/20/18 Apixaban [Eliquis] 5 mg PO BID #60 tab 10/30/18 Atorvastatin Calcium [Lipitor] 10 mg PO QHS #30 tab 10/30/18 Iron Polysaccharide Complex [Ferrex 150] 150 mg PO DAILYCM #30 cap 10/30/18 Menthol/Lanolin/Calamine/Znox [Calmoseptine Ointment] 1 applic TOPICAL 0600,2200 tube 10/30/18 Nystatin Powder [Mycostatin Powder] 1 applic TOPICAL 0600,2200 bottle 10/30/18 Oxycodone [Oxyir] 5 mg PO 0600,1400,2200 7 Days #21 tab 10/30/18 Polyethylene Glycol 3350 [Miralax] 17 gm PO DAILY packet 10/30/18 The following prescriptions were given: Apixaban [Eliquis] 5 mg PO BID #60 tab Prescription Printed Iron Polysaccharide Complex [Ferrex 150] 150 mg PO DAILYCM #30 cap Prescription Printed Atorvastatin Calcium [Lipitor] 10 mg PO QHS #30 tab Prescription Printed Oxycodone [Oxyir] 5 mg PO 0600,1400,2200 7 Days #21 tab Prescription Printed Primary Care Physician: Jet Mccollum MD [Primary Care Provider] - Please follow up with your Primary Care Physician in: 1 week. Test Results: Test results from this visit will be discussed in further detail at your follow- up appointment, if applicable. Proposed Discharge Date: 11/02/18
--- NOTE | 2018-10-30 20:57 | PCM.DC.SUM ---
Discharge Date and Diagnosis - Problem List Patient Problems: Active and Suspected Problems (Last Reviewed 03/27/18 @ 14:06 by Blanca Hernandez) Debility (Acute) Pancytopenia (Acute) Date of Admission: 10/17/18 Date of Discharge: 11/02/18 - Primary Discharge Diagnosis Active and Suspected Problems (Last Reviewed 03/27/18 @ 14:06 by lBanca Hernandez) Debility (Acute) Pancytopenia (Acute) - Secondary Discharge Diagnosis Chronic Problems (Last Reviewed 03/27/18 @ 14:06 by Blanca Hernandez) Pancreatic cancer (Chronic) Coronary artery disease (Chronic) Gout (Chronic) Restless leg syndrome (Chronic) Pancreatic insufficiency (Chronic) Hypomagnesemia (Chronic) Nausea (Chronic) Hypokalemia (Chronic) 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 Perez @ [facility]. Mediastinal exploration for hemorrhage 08/01/2008. History of left heart catheterization (Chronic) 07/19/2008 @ [facility] per Dr. Santiago: 07/19/[address] Molina @ [facility] Atherosclerotic heart disease of [place] coronary artery without angina pectoris (Chronic) 07/22/2008: CABG X4: WONG to LAD, SVG to anterior diagonal branch of LAD, SVG to Ramus Marginalis, and SVG to posterolateral branch of the CX per Dr. Perez @ [facility] Old myocardial infarction (Chronic) Hyperlipidemia (Chronic) Hypertension (Chronic) Hospital Course and Treatment Imaging Results: 10/20/18 19:01 Diet: Regular Diet Clinical Impression(s) from Imaging Studies Chest X-Ray 10/27/18 18:00 IMPRESSION: Left basilar opacity which may be due to atelectasis and/or infiltrate. This is new when compared with the prior exam. Electronically Signed: Girma Louis, at 18:29 EDT Tel , Service support , Labs (Last 48 Hours) 10/28/18 08:45 Diff Path Review Reviewed Operations: None Procedures: None Summary of Care Provided: The patient is a 73 year old Male with below past medical history significant for pancreatic cancer status post Whipple procedure, hospitalized for weakness secondary to left lower lobe community acquired pneumonia, and chemotherapy, admitted to TCU with debility, here for rehabilitation, strengthening, prior to discharge home with family. On TCU, resident was treated for thrush with Nystatin swish and swallow. Discharge home alone, outpatient PT at [facility]. Patient Problems: Active and Suspected Problems (Last Reviewed 03/27/18 @ 14:06 by Blanca Hernandez) Debility (Acute) Pancytopenia (Acute) - Physical Exam Vital Signs Temp Pulse Resp BP Pulse Ox 99.4 F H 62 16 114/61 96 10/29/18 16:00 10/30/18 17:49 10/30/18 16:00 10/30/18 17:49 10/30/18 16:00 Oxygen Delivery Method Room Air Weight: 52.872 kg Body Mass Index (BMI) 19.8 Intake and Output for Last 24 Hours 10/28/18 10/29/18 10/30/18 23:59 23:59 23:59 Intake Total 960 / 960 1100 / 1100 840 / 840 Output Total 1000 / 1000 350 / 350 Balance -40 / -40 750 / 750 840 / 840 Laboratory Tests Past 24 Hrs 10/28/18 08:45 Diff Path Review Reviewed Discharge Diet: No Restrictions Discharge Activity: Return to Normal Activity, May Shower, Use Walker Weight Bearing Status: Weight bearing as tolerated Call your doctor if you observe: Fever of 101 or Higher, Inability to urinate, Inability to have a bowel movement, Shortness of breath, Chest pain, Uncontrolled pain Home Medications: Medications to take at Discharge atenolol 50 mg tablet 50 mg PO QDAY 07/30/17 hydroxychloroquine 200 mg tablet 200 mg PO BID tab 07/30/17 ramipril 2.5 mg capsule 2.5 mg PO DAILY 07/30/17 allopurinol 300 mg tablet 300 mg PO QDAY 08/01/17 Ropinirole HCl [Ropinirole ER] 2.5 mg PO QHS PRN 05/04/18 Acetaminophen [Acetaminophen Extra Strength] 500 mg PO Q6H PRN PRN 10/17/18 Lipase/Protease/Amylase [Creon Dr 36,000 Units Capsule] 2 cap PO TIDCM 10/17/18 Magnesium Oxide [Magnesium] 1 tab PO BID 10/17/18 Ondansetron [Ondansetron Odt] 8 mg PO 0600,1400,2200 10/17/18 Prednisone 10 mg PO BID 10/17/18 Apixaban [Eliquis] 10 mg PO BID 10/20/18 Chlorpromazine HCl 25 - 50 mg PO 4X/DAY PRN PRN #1 tab 10/20/18 Ensure Enlive 120 ml PO 4X/DAY 10/20/18 Apixaban [Eliquis] 5 mg PO BID #60 tab 10/30/18 Atorvastatin Calcium [Lipitor] 10 mg PO QHS #30 tab 10/30/18 Iron Polysaccharide Complex [Ferrex 150] 150 mg PO DAILYCM #30 cap 10/30/18 Menthol/Lanolin/Calamine/Znox [Calmoseptine Ointment] 1 applic TOPICAL 0600,2200 tube 10/30/18 Nystatin Powder [Mycostatin Powder] 1 applic TOPICAL 0600,2200 bottle 10/30/18 Oxycodone [Oxyir] 5 mg PO 0600,1400,2200 7 Days #21 tab 10/30/18 Polyethylene Glycol 3350 [Miralax] 17 gm PO DAILY packet 10/30/18 Following Prescrptions Were Given to Patient: Apixaban [Eliquis] 5 mg PO BID #60 tab Prescription Printed Iron Polysaccharide Complex [Ferrex 150] 150 mg PO DAILYCM #30 cap Prescription Printed Atorvastatin Calcium [Lipitor] 10 mg PO QHS #30 tab Prescription Printed Oxycodone [Oxyir] 5 mg PO 0600,1400,2200 7 Days #21 tab Prescription Printed Primary Care Physician: Jet Mccollum MD [Primary Care Provider] - Please follow up with your Primary Care Physician in: 1 week. Disposition: Home Minutes spent on discharge:: 30 Patient Condition:: Stable Medical Necessity - Tobacco Use Smoking Status: Former smoker Tobacco Use: Non-smoker Meaningful Use Info Meaningful Use Diagnoses (Choose all that apply): None applicable
--- NOTE | 2018-10-30 23:49 | NURSING ---
Pt requesting information regarding medical alert upon discharge, VM left with SW.
[2018-10-31] MEDS: Senna/Docusate Sodium 1 Tablet 2 TABLET PO ×2 (05:29→17:24)
[2018-10-31] MEDS: Atenolol 50 MG Tablet PO (05:29)
[2018-10-31] MEDS: Ramipril 2.5 MG Capsule PO (05:29)
[2018-10-31] MEDS: Menthol/Lanolin/Calamine/Znox 113 GM Tube 1 APPLIC TOPICAL ×2 (05:29→20:10)
[2018-10-31] MEDS: NYSTATIN 500,000 UNIT/5 ML UDC 500000 UNIT PO ×4 (05:29→20:10)
[2018-10-31] MEDS: Nystatin Powder 15gm Bottle 1 APPLIC TOPICAL ×2 (05:29→20:11)
[2018-10-31] MEDS: APIXABAN 5 MG TABLET PO ×2 (05:30→17:24)
[2018-10-31] MEDS: Polyethylene Glycol 3350 17 GM PACKET PO (05:31)
[2018-10-31] MEDS: Iron Polysaccharide Complex 150 MG CAPSULE PO (09:18)
[2018-10-31] MEDS: Magnesium Oxide 400 MG Tablet PO ×2 (09:19→17:23)
[2018-10-31] MEDS: Allopurinol 300 MG Tablet PO (09:19)
[2018-10-31] MEDS: predniSONE 10 MG Tablet PO ×2 (09:19→17:24)
[2018-10-31] MEDS: Hydroxychloroquine 200 MG Tablet PO ×2 (09:19→17:23)
--- NOTE | 2018-10-31 10:57 | PCM.PN.RX ---
<Andrei Lua C - Last Filed: 10/31/18 10:57> Progress Note - Pharmacy Subjective: [] TCU Admission Objective: Allergies No Known Allergies Allergy (Verified 06/18/18 17:25) Current Medications Generic Name Dose Route Start Last Admin Trade Name Freq PRN Reason Stop Dose Admin Acetaminophen 1,000 mg 10/21/18 01:05 Tylenol PO Q6H PRN PRN MILD PAIN (1-3/10) Allopurinol 300 mg 10/21/18 08:00 10/31/18 09:19 Zyloprim PO 300 mg DAILYCM KRYSTLE Administration Apixaban 5 mg 10/28/18 06:00 10/31/18 05:30 Eliquis PO 5 mg BID KRYSTLE Administration Atenolol 50 mg 10/21/18 06:00 10/31/18 05:29 Tenormin (Beta Claritza) PO 50 mg DAILY KRYSTLE Administration Atorvastatin Calcium 10 mg 10/20/18 22:00 10/30/18 19:47 Lipitor PO 10 mg QHS KRYSTLE Administration Bisacodyl 10 mg 10/21/18 01:05 10/25/18 12:31 Dulcolax PO 10 mg DAILY PRN Administration Constipation Calamine/Phenol 1 applic 10/24/18 22:00 10/31/18 05:29 Calmoseptine Ointment TOPICAL 1 applicatio 0600,2200 KRYSTLE Administration Protocol Chlorpromazine HCl 25 - 50 mg 10/20/18 19:15 Thorazine PO 4X/DAY PRN PRN hiccups Heparin Sodium (Beef Lung) 50 units 10/20/18 20:55 10/26/18 21:50 IV 50 units UD PRN Administration HEPARIN FLUSH Hydroxychloroquine Sulfate 200 mg 10/21/18 08:00 10/31/18 09:19 Plaquenil PO 200 mg BIDCM KRYSTLE Administration Sodium Chloride 250 mls @ 15 mls/hr 10/20/18 20:55 IV .[id number] PRN SALINE FLUSH Magnesium Oxide 400 mg 10/21/18 08:00 10/31/18 09:19 Mag-Ox 400 PO 400 mg BIDCM KRYSTLE Administration Nutritional Formula (Lactose Free) 120 ml 10/20/18 22:00 10/31/18 05:30 Ensure Enlive PO 120 ml 4X/DAY KRYSTLE Administration Nystatin 1 applic 10/20/18 22:00 10/31/18 05:29 Mycostatin Powder TOPICAL 1 applicatio 0600,2200 KRYSTLE Administration Protocol Nystatin 500,000 unit 10/27/18 12:00 10/31/18 05:29 Nystatin PO 11/06/18 12:01 500,000 unit 4X/DAY KRYSTLE Administration Ondansetron HCl 8 mg 10/30/18 08:08 Zofran PO 0600,1400,2200 PRN NAUSEA Oxycodone HCl 5 mg 10/30/18 08:08 Oxyir PO 0600,1400,2200 PRN MODERATE PAIN (4-5/10) Pancrelipase 6 capsule 10/21/18 07:45 10/31/18 09:17 Megan Evans 12,000 Unit Capsule PO 6 capsule TIDCM KRYSTLE Administration Polyethylene Glycol 17 gm 10/21/18 06:00 10/31/18 05:31 Miralax PO 17 gm DAILY KRYSTLE Administration Polysaccharide Iron Complex 150 mg 10/22/18 08:00 10/31/18 09:18 Ferrex 150 PO 150 mg DAILYCM KRYSTLE Administration Pramipexole Dihydrochloride 1 mg 10/20/18 22:00 Mirapex PO QHS PRN PRN RESTLESS LEGS Prednisone 10 mg 10/21/18 08:00 10/31/18 09:19 PO 10 mg BIDCM KRYSTLE Administration Ramipril 2.5 mg 10/21/18 06:00 10/31/18 05:29 Altace PO 2.5 mg DAILY KRYSTLE Administration Senna/Docusate Sodium 2 tablet 10/21/18 06:00 10/31/18 05:29 Senokot-S, Morenita-Colace PO 2 tablet BID KRYSTLE Administration Sodium Chloride 10 - 40 ml 10/20/18 20:55 10/26/18 21:50 IV 10 ml UD PRN Administration VAD FLUSH Problem List (Last Reviewed 03/27/18 @ 14:06 by Blanca Hernandez) Debility (Acute) Coronary artery disease (Chronic) Gout (Chronic) Restless leg syndrome (Chronic) Pancreatic insufficiency (Chronic) Hypomagnesemia (Chronic) Nausea (Chronic) Hypokalemia (Chronic) Pancytopenia (Acute) Vital Signs Temp Pulse Resp BP Pulse Ox 99.4 F H 62 16 114/61 96 10/29/18 16:00 10/30/18 17:49 10/30/18 16:00 10/30/18 17:49 10/30/18 16:00 Oxygen Delivery Method Room Air Weight: 52.872 kg Body Mass Index (BMI) 19.8 Sodium 137 mmol/L (136-145) 10/28/18 08:45 Potassium 3.9 mmol/L (3.5-5.1) 10/28/18 08:45 Chloride 103 mmol/L (98-107) 10/28/18 08:45 Carbon Dioxide 32.0 mmol/L (21.0-32.0) 10/28/18 08:45 2 (5-15) L 10/28/18 08:45 BUN 17 mg/dL (7-18) 10/28/18 08:45 0.73 mg/dL (0.70-1.30) 10/28/18 08:45 Est GFR (MDRD) Af Amer 136 mL/min (>60) 10/28/18 08:45 Est GFR (MDRD) Non-Af 112 mL/min (>60) 10/28/18 08:45 23.4 RATIO (10-20) H 10/28/18 08:45 Glucose 135 mg/dL (74-106) H 10/28/18 08:45 Assessment/Plan: 1) Pain: Acetaminophen 1000mg po q6h prn for mild pain, Oxycodone 5mg po tid prn for moderate pain. Please continue to monitor prn usage and for signs/symptoms of increased/decreased pain. 2) Gout: Allopurinol 300mg po daily with food. Pt's LFTs are within normal limits. Please continue to monitor. Pts Uric Acid level is 4.7, and BUN is 17. Please continue to monitor. 3) Hyperlipidemia: Atorvastatin 10mg po daily. Please consider a yearly Lipid panel while pt is taking a statin. Thanks 4) Nausea: Ondansetron 8mg po tid prn for nausea, Chlorpromazine 25 to 50mg po 4 times a day prn for nausea/hiccups. BEERS addressed. Please continue to monitor prn usage. 5) Hypomagnesemia: Mag-Ox 400mg po bid. Please consider a yearly Magnesium level. Thanks 6) Pulmonary Embolism: Eliquis 5mg po bid. Please continue to monitor for signs/symptoms of clot/bleeding. 7) Rheumatoid Arthritis: Prednisone 10mg po bid, Plaquenil 200mg po bid. Please continue to monitor blood sugars, and for signs/symptoms of arthritis. Please make sure pt continues to get routine eye exams while on Plaquenil. 8) Pancreatic Insufficiency: Creon 12,000-take 6 capsules po tid with food. Please continue to monitor 9) Restless leg: Mirapex 1mg po qhs prn for restless leg. Please continue to monitor for signs/symptoms of restless leg. 10) CAD: Atenolol 50mg po daily, Ramipril 2.5mg po daily. Pt's k+ is 3.9, BUN is 17, SrCr is 0.73. Please continue to monitor. Pt's pulse rate and rhythm is normal. Please continue to monitor. Psychotropic Medications: none Unnecessary Medications: none. Bowel Regimen: Bisacodyl 10mg po daily prn for constipation, Miralax 17gm po daily, Senna/Docusate 2 tablets po bid. Please continue to monitor prn usage and for signs/symptoms of diarrhea/constipation. Date of Note:: 10/31/18 - Provider Comments Provider responsibility: Provider responsible to enter orders to implement recommendations <Bladimir Coy Chi - Last Filed: 10/31/18 13:17> Progress Note - Pharmacy Subjective: [] Objective: Allergies No Known Allergies Allergy (Verified 06/18/18 17:25) Current Medications Generic Name Dose Route Start Last Admin Trade Name Freq PRN Reason Stop Dose Admin Acetaminophen 1,000 mg 10/21/18 01:05 Tylenol PO Q6H PRN PRN MILD PAIN (1-3/10) Allopurinol 300 mg 10/21/18 08:00 10/31/18 09:19 Zyloprim PO 300 mg DAILYCM KRYSTLE Administration Apixaban 5 mg 10/28/18 06:00 10/31/18 05:30 Eliquis PO 5 mg BID KRYSTLE Administration Atenolol 50 mg 10/21/18 06:00 10/31/18 05:29 Tenormin (Beta Claritza) PO 50 mg DAILY KRYSTLE Administration Atorvastatin Calcium 10 mg 10/20/18 22:00 10/30/18 19:47 Lipitor PO 10 mg QHS KRYSTLE Administration Bisacodyl 10 mg 10/21/18 01:05 10/25/18 12:31 Dulcolax PO 10 mg DAILY PRN Administration Constipation Calamine/Phenol 1 applic 10/24/18 22:00 10/31/18 05:29 Calmoseptine Ointment TOPICAL 1 applicatio 0600,2200 KRYSTLE Administration Protocol Chlorpromazine HCl 25 - 50 mg 10/20/18 19:15 Thorazine PO 4X/DAY PRN PRN hiccups Heparin Sodium (Beef Lung) 50 units 10/20/18 20:55 10/26/18 21:50 IV 50 units UD PRN Administration HEPARIN FLUSH Hydroxychloroquine Sulfate 200 mg 10/21/18 08:00 10/31/18 09:19 Plaquenil PO 200 mg BIDCM KRYSTLE Administration Sodium Chloride 250 mls @ 15 mls/hr 10/20/18 20:55 IV .[id number] PRN SALINE FLUSH Magnesium Oxide 400 mg 10/21/18 08:00 10/31/18 09:19 Mag-Ox 400 PO 400 mg BIDCM KRYSTLE Administration Nutritional Formula (Lactose Free) 120 ml 10/20/18 22:00 10/31/18 12:22 Ensure Enlive PO 120 ml 4X/DAY KRYSTLE Administration Nystatin 1 applic 10/20/18 22:00 10/31/18 05:29 Mycostatin Powder TOPICAL 1 applicatio 0600,2200 KRYSTLE Administration Protocol Nystatin 500,000 unit 10/27/18 12:00 10/31/18 12:22 Nystatin PO 11/06/18 12:01 500,000 unit 4X/DAY KRYSTLE Administration Ondansetron HCl 8 mg 10/30/18 08:08 Zofran PO 0600,1400,2200 PRN NAUSEA Oxycodone HCl 5 mg 10/30/18 08:08 Oxyir PO 0600,1400,2200 PRN MODERATE PAIN (4-5/10) Pancrelipase 6 capsule 10/21/18 07:45 10/31/18 12:22 Megan Evans 12,000 Unit Capsule PO 6 capsule TIDCM KRYSTLE Administration Polyethylene Glycol 17 gm 10/21/18 06:00 10/31/18 05:31 Miralax PO 17 gm DAILY KRYSTLE Administration Polysaccharide Iron Complex 150 mg 10/22/18 08:00 10/31/18 09:18 Ferrex 150 PO 150 mg DAILYCM KRYSTLE Administration Pramipexole Dihydrochloride 1 mg 10/20/18 22:00 Mirapex PO QHS PRN PRN RESTLESS LEGS Prednisone 10 mg 10/21/18 08:00 10/31/18 09:19 PO 10 mg BIDCM KRYSTLE Administration Ramipril 2.5 mg 10/21/18 06:00 10/31/18 05:29 Altace PO 2.5 mg DAILY KRYSTLE Administration Senna/Docusate Sodium 2 tablet 10/21/18 06:00 10/31/18 05:29 Senokot-S, Morenita-Colace PO 2 tablet BID KRYSTLE Administration Sodium Chloride 10 - 40 ml 10/20/18 20:55 10/26/18 21:50 IV 10 ml UD PRN Administration VAD FLUSH Problem List (Last Reviewed 03/27/18 @ 14:06 by Blanca Hernandez) Debility (Acute) Coronary artery disease (Chronic) Gout (Chronic) Restless leg syndrome (Chronic) Pancreatic insufficiency (Chronic) Hypomagnesemia (Chronic) Nausea (Chronic) Hypokalemia (Chronic) Pancytopenia (Acute) Vital Signs Temp Pulse Resp BP Pulse Ox 99.4 F H 62 16 114/61 96 10/29/18 16:00 10/30/18 17:49 10/30/18 16:00 10/30/18 17:49 10/30/18 16:00 Oxygen Delivery Method Room Air Weight: 54.573 kg Body Mass Index (BMI) 19.8 Sodium 137 mmol/L (136-145) 10/28/18 08:45 Potassium 3.9 mmol/L (3.5-5.1) 10/28/18 08:45 Chloride 103 mmol/L (98-107) 10/28/18 08:45 Carbon Dioxide 32.0 mmol/L (21.0-32.0) 10/28/18 08:45 2 (5-15) L 10/28/18 08:45 BUN 17 mg/dL (7-18) 10/28/18 08:45 0.73 mg/dL (0.70-1.30) 10/28/18 08:45 Est GFR (MDRD) Af Amer 136 mL/min (>60) 10/28/18 08:45 Est GFR (MDRD) Non-Af 112 mL/min (>60) 10/28/18 08:45 23.4 RATIO (10-20) H 10/28/18 08:45 Glucose 135 mg/dL (74-106) H 10/28/18 08:45 Assessment/Plan: Psychotropic Medications: Unnecessary Medications: Bowel Regimen: - Provider Comments Provider responsibility: Provider responsible to enter orders to implement recommendations Provider Comments to Recommendations by Pharmacy: Agree
--- NOTE | 2018-10-31 14:27 | CHAPLAIN ---
Type of Pastoral Visit ___ Initial Visit _x__ Follow-up Visit ___ On-call Visit ___ General Patient Visit ___ Spiritual Assessment ___ Family Conference ___ Bereavement ___ Rapid Response ___ Code Blue ___ Other (describe below) Pastoral Care Referral From _x__ Patient ___ Family ___ Nurse ___ Physician ___ Clinical Nurse ___ Machine Molder ___ Other (describe below) Sacrament/Intervention _x__ Active listening ___ Anointing ___ Restorationism ___ Bereavement ___ Communion _x__ Tonja exploration ___ ___ Life review _x__ Prayer ___ Reconciliation ___ Sacrament of Sick _x__ Supportive presence ___ Wedding ___ Other (describe below) Pastoral Comments
[2018-10-31 15:03] VITALS: BP 95/49; PULSE 66; RESP 16; TEMP 36.7; O2SAT 97
[2018-10-31] MEDS: Atorvastatin Calcium 10 MG Tablet PO (20:09)
[2018-10-31] MEDS: oxyCODONE 5 MG Tablet PO (22:41)
[2018-11-01] MEDS: Atenolol 50 MG Tablet PO (06:32)
[2018-11-01] MEDS: Ramipril 2.5 MG Capsule PO (06:32)
[2018-11-01] MEDS: Senna/Docusate Sodium 1 Tablet 2 TABLET PO (06:32)
[2018-11-01] MEDS: Polyethylene Glycol 3350 17 GM PACKET PO (06:32)
[2018-11-01] MEDS: NYSTATIN 500,000 UNIT/5 ML UDC 500000 UNIT PO (06:32)
[2018-11-01] MEDS: APIXABAN 5 MG TABLET PO (06:32)
[2018-11-01] MEDS: Nystatin Powder 15gm Bottle 1 APPLIC TOPICAL (06:35)
[2018-11-01] MEDS: Menthol/Lanolin/Calamine/Znox 113 GM Tube 1 APPLIC TOPICAL (06:35)
[2018-11-01] MEDS: Iron Polysaccharide Complex 150 MG CAPSULE PO (09:32)
[2018-11-01] MEDS: Hydroxychloroquine 200 MG Tablet PO (09:32)
[2018-11-01] MEDS: Allopurinol 300 MG Tablet PO (09:32)
[2018-11-01] MEDS: predniSONE 10 MG Tablet PO (09:32)
[2018-11-01] MEDS: Magnesium Oxide 400 MG Tablet PO (09:32)
--- NOTE | 2018-11-01 10:03 | RAD_ITS ---
STUDY: X-RAY CHEST REASON FOR EXAM: Male, 73 years old. Pneumonia. TECHNIQUE: PA and lateral views of the chest. COMPARISON: October 27, 2018. FINDINGS: Right Mediport catheter in position. Median sternotomy. CABG. Cardiac silhouette unremarkable. Pulmonary vascularity unremarkable. Aorta calcified. No pleural effusions. Left basilar atelectasis/scar. Improved aeration of the left lung base. Upper abdomen unremarkable. Osseous structures demineralized. No pneumothorax. Degenerative changes at the shoulders and spine. RAD/Chest PA and Lateral IMPRESSION: Improvement left lung base aeration Left lung base atelectasis/scarring Right Mediport catheter in position Cardiac surgery Electronically Signed: Kp Headley DO at 11:08 EDT Tel , Service support ,
[2018-11-01 10:04] VITALS: BP 109/57; PULSE 64; RESP 16; TEMP 36.5; O2SAT 96
--- NOTE | 2018-11-01 10:05 | NURSING ---
Addendum entered by Nancy Murrell 11/01/18 11:17: chest xray results back and pt/GF aware. Original Note: Girlfriend requesting Chest xray before being DC'd d/t inconclusive results on Tuesday. Will go over DC instructions with pt and GF
--- NOTE | 2018-11-02 14:16 | MDS.RN ---
Information for the mds was obtained from review of the clinical record, interview of resident, staff, and direct observation of resident's care.
== END 2018-11-01 11:15 | disposition home or self-care (01) | DRG 947 ==
PROVIDERS: Admitting Provider Family Medicine Geriatric Medicine; Family Provider Family Medicine; PCP Family Medicine; Visit Provider Family Medicine Geriatric Medicine
DX: R53.81 Other malaise (principal); J18.1 Lobar pneumonia, unspecified organism; I26.99 Other pulmonary embolism without acute cor pulmonale; C25.9 Malignant neoplasm of pancreas, unspecified; B37.0 Candidal stomatitis; G25.81 Restless legs syndrome; B35.4 Tinea corporis; M06.9 Rheumatoid arthritis, unspecified; I25.10 Atherosclerotic heart disease of native coronary artery without angina pectoris; E78.5 Hyperlipidemia, unspecified; M10.9 Gout, unspecified; I25.2 Old myocardial infarction; I10 Essential (primary) hypertension; Z95.1 Presence of aortocoronary bypass graft; Z87.891 Personal history of nicotine dependence
CPT/HCPCS: 71046; 80048; 85025; 97110; 97116; 97162; 97166; 97530; 97535; 97802; A4216

== ENCOUNTER 2018-11-02 20:35 | Observation (INO) | payer MEDICARE, SELFPAY ==
[2018-11-02 20:37] VITALS: BP 91/54; PULSE 74; RESP 17; TEMP 36.8; O2SAT 98; BMI 19.3
--- NOTE | 2018-11-02 21:53 | EKG12_ITS ---
Test Reason : CP Blood Pressure : / mmHG Vent. Rate : 062 BPM Atrial Rate : 062 BPM P-R Int : 132 ms QRS Dur : 086 ms QT Int : 422 ms P-R-T Axes : 044 -42 087 degrees QTc Int : 428 ms Normal sinus rhythm Left axis deviation Abnormal ECG Confirmed by JET MATHUR, TERRIE ([id number]), editor managing director JUAN TIERNEY ([id number]) on 11/06/2018 2:07:28 PM Referred By: Confirmed By:IVAN CHAUDHARY MD
[2018-11-02] MEDS: 0.9% Normal Saline 1,000 ML 1000 ML IV (22:20)
[2018-11-02 22:26] VITALS: PULSE 63; RESP 13; TEMP 37; O2SAT 98
[2018-11-02 22:32] VITALS: BP 128/70
[2018-11-02 22:33] LABS: Absolute Lymphocyte Count 1.84 X10^3/uL (0.83-4.51); Absolute Neutrophil Count 6.1 X10^3/uL (2.0-7.7); Basophil# 0.01 X10^3/uL; Basophil% 0.1 % (0-1); Eosinophil# 0.02 X10^3/uL; Eosinophils% 0.2 % (0-5); Hematocrit 31.7 % (40-54); Hemoglobin 10.1 g/dL (13.0-16.5); Lymphocyte # 1.84 X10^3/ul (4.0); Lymphocyte % 19.8 % (19-41); Mean Corp Hgb Conc 31.9 g/dL (32-36); Mean Corpuscular Volume 97.2 fL (80-94); Mean Platelet Vol. 9.2 fl (6.2-12.0); Monocyte# 1.18 X10^3/uL; Monocyte% 12.7 % (0-10); NRBC Flagged by Analyzer 0 % (0-5); Neutrophil % 65.9 % (47-70); POSITIVE MORPHOLOGY YES; Platelet Count 203 K/mm3 (150-450); RBC Distribution Width CV 18.4 % (11.6-14.6); RBC Distribution Width SD 65.9 fl (35.1-43.9); Red Blood Count 3.26 M/mm3 (4.6-6.2); White Blood Count 9.3 K/mm3 (4.4-11.0)
[2018-11-02 22:39] LABS: Differential Indicated SCAN CRITERIA MET
[2018-11-02 22:46] LABS: ALB/GLOB Ratio 0.8 RATIO (0.9-2.4); AST(SGOT) 35 U/L (15-37); Alanine Aminotransfer ALT/SGPT 43 U/L (16-61); Albumin, Serum 2.2 g/dL (3.2-5.0); Alkaline Phosphatase 175 U/L (45-117); Anion Gap 4 (5-15); BUN 14 mg/dL (7-18); BUN/Creat Ratio 22.7 RATIO (10-20); Calcium,Total 7.8 mg/dL (8.5-10.1); Chloride 106 mmol/L (98-107); Creatinine, Serum 0.62 mg/dL (0.70-1.30); EST Glomerular Filtration Rate 136 mL/min (>60); Est Glom Filt Rate - Afr Amer 164 mL/min (>60); Globulin 2.8 g/dL (2.2-4.2); Glucose 86 mg/dL (74-106); Potassium 4.1 mmol/L (3.5-5.1); Sodium Level 138 mmol/L (136-145)
[2018-11-02 22:53] LABS: Anisocytosis 1+; Macrocytosis 1+; Platelet Estimate ADEQUATE (ADEQ)
[2018-11-02 23:00] VITALS: BP 127/69; PULSE 67; RESP 21; TEMP 37; O2SAT 98
--- NOTE | 2018-11-02 23:15 | CT_ITS ---
STUDY: CT BRAIN WITHOUT CONTRAST REASON FOR EXAM: Male, 73 years old. Dizzy. RADIATION DOSAGE (If Supplied By Facility): CTDIvol = ( 44.99 ) mGy, DLP = ( 849.54 ) mGycm TECHNIQUE: Transaxial CT imaging of the brain was performed without administration of intravenous contrast material. Individualized dose optimization techniques were used for this CT. COMPARISON: No relevant priors. FINDINGS: Normal soft tissue structures. Normal calvarium. There is mild cerebral atrophy with widening of the extra-axial spaces and ventricular dilatation. Normal white matter tracts of the cerebral hemispheres. Normal basal ganglia and thalami. Normal brainstem. Normal cerebellum. There are peripheral calcifications of the visualized internal carotid arteries. There is no intracranial hemorrhage. There are no findings of an acute ischemic infarction. Normal visualized paranasal sinuses. CT/Brain/Head without Contrast IMPRESSION: Chronic involutional changes of the brain. Atherosclerosis. Electronically Signed: Michelle Monge MD at 23:40 EDT Tel , Service support ,
--- NOTE | 2018-11-02 23:19 | ED.RN ---
bedside report given to danna
--- NOTE | 2018-11-02 23:50 | ED.DCSUM_ITS ---
- ER Visit Summary Date of Service: 11/02/18 Chief Complaint: Weakness History of Present Illness: The patient is a [address] Mccollum and Dr. Busby. He has a history of pancreatic cancer that he had a Whipple procedure for in April of this year. Family reports that he had 32 lymph nodes that were n egative. He was placed on chemotherapy. His last dose was October 09. He has had 9 out of 12 treatments. They report that he no longer can tolerate this due to his weakness. The patient was admitted to the hospital from October 17 of October 22 with a pneumonia and was transferred to the TCU. He was discharged from the TCU yesterday. Family reports that since getting home he has been unable to ambulate and has been very weak. They report that he is not even showered for the past 2 days. Patient reports that he has a very poor appetite and he is nauseated. He denies any abdominal pain or vomiting. His last bowel movement yesterday. He has had no melena or hematochezia. He denies any other complaints. Physical Examination: Vitals: Stable. Afebrile. General: Well-developed, but cachectic. Head: Normocephalic atraumatic. Neck: Supple, no lymphadenopathy. No JVD. Nontender. Cardiovascular: Regular rate and rhythm. 2 out of 6 systolic murmur. Respiratory: No respiratory distress. Clear to auscultation bilaterally. Abdominal: Soft, nontender, nondistended, normal bowel sounds. No guarding, rebound, or peritoneal signs. Back: Nontender. Extremities: Nontender, no edema. Skin: Normal color, no rash. Neurologic: Alert and oriented ?2. Cranial nerves II through XII are intact. Normal sensation. 4 out of 5 strength throughout. Psych: Normal affect. Test Results: Chest x-ray obtained yesterday was not repeated. It showed improvement of his left lung base aeration. CT brain shows chronic changes. EKG is sinus at 62 with a T wave inversion in lead aVL. This is the only change since April. Troponin is 0.03. UA is negative. LFTs are remarkable for an alk phos of 175, total protein of 5.0, albumin 2.2. Chem-7 shows a calcium of 7.8 and creatinine 0.62. Ammonia is normal. CBC shows an H&H of 10.1 and 31.7. Emergency Department Course and Treatment: The patient was very ataxic. Even attempting to stand to give a urinalysis the patient was very off balance and ended up falling back into bed. He cannot ambulate. I do not feel that it is safe for him to go home. Treatment Plan: The patient was discussed with . He will be admitted to the hospital for further evaluation and treatment. Disposition: Admitted in stable condition. Impression: 1. Generalized weakness. 2. Confusion, uncertain cause. 3. History of pancreatic cancer. 4. Inability to ambulate. 5. Severe protein malnutrition. 6. Coagulopathy on Eliquis. This note was generated with [employer] dictation software. It may contain incorrect words, spelling, and punctuation that were not noted in review of the chart prior to signing ED Disposition - Plan for ED Patient: Referrals: Jet Mccollum MD [Primary Care Provider] -
[2018-11-03] VITALS (8 sets, daily range): BP systolic 97–128; BP diastolic 53–74; PULSE 61–89; RESP 16–18; TEMP 36.3–37.7; O2SAT 96–100; BMI 19.5
[2018-11-03 00:07] LABS: Bacteria 0 SEEN /hpf (None Seen); Mucous, Urine 0 SEEN /hpf (<or=2+); Red Blood Cells-Urine 0 SEEN /hpf (0-5); Squamous Epithelial Cells - UA 0 SEEN /hpf (0-5); White Blood Cells 0 SEEN /hpf (0-5)
[2018-11-03 00:08] LABS: Color, Urine Yellow (Yellow); Glucose, Dipstick Normal (Normal); Ketone-Dipstick Negative (Negative); Leukocyte Esterase-Dipstick 25 /ul (Negative); Nitrite-Dipstick Negative (Negative); Occult Blood-Urine Negative /ul (Negative); Protein-Dipstick 15 mg/dl (Negative); Urine Bilirubin Dipstick Negative (Negative); Urine Clarity Clear (Clear); Urine Urobilinogen Normal (Normal)
--- NOTE | 2018-11-03 02:33 | HP.PCM_ITS ---
Problem List (1) Pancreatic cancer Status: Chronic (2) Generalized weakness Status: Acute (3) Pulmonary embolism Status: Acute (4) Debility Status: Acute (5) Coronary artery disease Status: Chronic (6) S/P CABG x 4 Status: Chronic Comment: 07/22/2008: CABG X4: WONG to LAD, SVG to anterior diagonal branch of LAD, SVG to Ramus Marginalis, and SVG to posterolateral branch of the CX per Dr. Perez @ [facility]. Mediastinal exploration for hemorrhage 08/01/2008. (7) Old myocardial infarction Status: Chronic (8) Hyperlipidemia Status: Chronic (9) Hypertension Status: Chronic History of Present Illness Date of Admission: 11/03/18 Chief Complaint: Weakness The patient is a 73 year old M with PMH as below who presents 2 days after being discharged from the transitional care unit with continued weakness and debility and an inability to complete ADLs. He states that he was recently admitted for pneumonia and weakness earlier in October and was then transferred to transitional care unit for therapy. He states that insurance denied continue therapy at the transitional care unit and therefore he was discharged home. He felt he was making progress at the transitional care unit but now that he was home he continued to worsen and was unable to get out of bed today. In the ER any attempts to ambulate the patient were not successful, lab work was unremarkable except for an albumin of 2.2 indicating severe protein malnutrition Past Medical History Past Medical History (Chronic Problems): Chronic Problems (Last Reviewed 03/27/18 @ 14:06 by Blanca Hernandez) Pancreatic cancer (Chronic) Coronary artery disease (Chronic) Gout (Chronic) Restless leg syndrome (Chronic) Pancreatic insufficiency (Chronic) Hypomagnesemia (Chronic) Nausea (Chronic) Hypokalemia (Chronic) 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 Perez @ [facility]. Mediastinal exploration for hemorrhage 08/01/2008. History of left heart catheterization (Chronic) 07/19/2008 @ [facility] per Dr. Santiago: 07/19/[address] Molina @ [facility] Atherosclerotic heart disease of [place] coronary artery without angina pectoris (Chronic) 07/22/2008: CABG X4: WONG to LAD, SVG to anterior diagonal branch of LAD, SVG to Ramus Marginalis, and SVG to posterolateral branch of the CX per Dr. Perez @ [facility] Old myocardial infarction (Chronic) Hyperlipidemia (Chronic) Hypertension (Chronic) Medical History: Medical History (Last Reviewed 03/27/18 @ 14:06 by Blanca Hernandez) Atherosclerotic heart disease of [place] coronary artery without angina pectoris (Chronic) I25.10 07/22/2008: CABG X4: WONG to LAD, SVG to anterior diagonal branch of LAD, SVG to Ramus Marginalis, and SVG to posterolateral branch of the CX per Dr. Perez @ [facility] Old myocardial infarction (Chronic) I25.2 Hyperlipidemia (Chronic) E78.5 Hypertension (Chronic) I10 Allergies No Known Allergies Allergy (Verified 11/02/18 20:36) Home Medications: Ambulatory Orders Medication Instructions Recorded atenolol 50 mg tablet 50 mg PO QDAY 07/30/17 hydroxychloroquine 200 mg tablet 200 mg PO BID tab 07/30/17 ramipril 2.5 mg capsule 2.5 mg PO DAILY 07/30/17 allopurinol 300 mg tablet 300 mg PO QDAY 08/01/17 Ropinirole HCl [Ropinirole ER] 2.5 mg PO QHS PRN 05/04/18 Acetaminophen [Acetaminophen Extra 500 mg PO Q6H PRN PRN 10/17/18 Strength] Lipase/Protease/Amylase [Megan Evans 2 cap PO TIDCM 10/17/18 36,000 Units Capsule] Magnesium Oxide [Magnesium] 1 tab PO BID 10/17/18 Ondansetron [Ondansetron Odt] 8 mg PO 0600,1400,2200 10/17/18 Prednisone 10 mg PO BID 10/17/18 Apixaban [Eliquis] 10 mg PO BID 10/20/18 Chlorpromazine HCl 25 - 50 mg PO 4X/DAY PRN PRN #1 tab 10/20/18 Ensure Enlive 120 ml PO 4X/DAY 10/20/18 Apixaban [Eliquis] 5 mg PO BID #60 tab 10/30/18 Atorvastatin Calcium [Lipitor] 10 mg PO QHS #30 tab 10/30/18 Iron Polysaccharide Complex 150 mg PO DAILYCM #30 cap 10/30/18 [Ferrex 150] Menthol/Lanolin/Calamine/Znox 1 applic TOPICAL 0600,2200 tube 10/30/18 [Calmoseptine Ointment] Nystatin Powder [Mycostatin Powder] 1 applic TOPICAL 0600,2200 bottle 10/30/18 Oxycodone [Oxyir] 5 mg PO 0600,1400,2200 7 Days #21 10/30/18 tab Polyethylene Glycol 3350 [Miralax] 17 gm PO DAILY packet 10/30/18 Surgical History: Surgical History (Last Reviewed 03/27/18 @ 14:06 by Blanca Hernandez) History of total right hip replacement (Chronic) Z96.641 S/P CABG x 4 (Chronic) Z95.1 07/22/2008: CABG X4: WONG to LAD, SVG to anterior diagonal branch of LAD, SVG to Ramus Marginalis, and SVG to posterolateral branch of the CX per Dr. Perez @ [facility]. Mediastinal exploration for hemorrhage 08/01/2008. History of left heart catheterization (Chronic) Z98.890 07/19/2008 @ [facility] per Dr. Santiago: 07/19/[address] Molina @ [facility] Surgical History: coronary bypass surgery - x 4., total hip arthroplasty - Right., - - Whipple procedure, Mediport insertion, lumbar spinal fusion Psychiatric History: No pertinent psych hx Smoking Status: Former smoker Tobacco Use: Cigarettes Alcohol: None Drugs: None - *Family History Maternal Family History: Family History (Last Reviewed 03/27/18 @ 14:06 by Blanca Hernandez) Father CAD (coronary artery disease) CVA (cerebral vascular accident) Myocardial infarction Brother CAD (coronary artery disease) Myocardial infarction, Onset Age: 66 History Items: Dementia Paternal Family History: Family History (Last Reviewed 03/27/18 @ 14:06 by Blanca Hernandez) Father CAD (coronary artery disease) CVA (cerebral vascular accident) Myocardial infarction Brother CAD (coronary artery disease) Myocardial infarction, Onset Age: 66 History Items: Heart Disease, Stroke Review of Systems Constitutional: Reports: Weakness. Denies: Chills, Fever, Weight Change HEENT: Denies: Head Aches, Sinus Congestion, Sinus Drainage Cardiovascular: Denies: Chest Pain, Palpitations Respiratory: Denies: Cough, Shortness of breath at rest, Sputum production Gastrointestinal: Denies: Abdominal Pain, Nausea, Vomiting Genitourinary: Denies: Dysuria Musculoskeletal: Denies: Joint Pain, Joint Tenderness Skin: Denies: Rash, Wounds Neurological: Denies: Numbness, Tingling, Focal weakness Psychiatric: Denies: Anxiety, Depression Hematologic/ Lymphatic: Denies: Easy Bruising, Easy Bleeding VTE Information - Inpt Only VTE Present on Admission: No - Physical Exam General: Alert, Oriented x3, Cooperative, No apparent distress HEENT: Atraumatic, PERRLA, EOMI, Normocephalic Oral: Moist Mucosa Neck: Supple, No JVD Lungs: Clear to auscultation, Normal air movement, No rhonchi, No wheeze, No rales, Diminished Cardiovascular: Regular rate, Regular Rhythm, Normal S1, Normal S2, No murmurs Abdomen: Soft, Non Tender, Non-Distended, No Hepato-splenomegaly Extremities: No edema, Capillary Refill Less than 3 Seconds Skin: No rashes, No breakdown Musculoskeletal: Cachexia Neurological: Sensory exam intact to light touch and pain, - - Bilateral lower extremity strength is 3 out of 5 Psych/Mental Status: Normal Affect, Appropriate Vital Signs Temp Pulse Resp BP Pulse Ox 98.3 F 70 17 103/68 99 11/03/18 01:29 11/03/18 01:29 11/03/18 01:29 11/03/18 01:29 11/03/18 01:29 Oxygen Delivery Method Room Air Weight: 121 lb 2 oz Body Mass Index (BMI) 19.5 Laboratory Tests Past 24 Hrs 11/02/18 11/02/18 11/02/18 22:16 22:16 22:16 WBC 9.3 RBC 3.26 L Hgb 10.1 L Hct 31.7 L MCV 97.2 H MCH 31.0 MCHC 31.9 L RDW Std Deviation 65.9 H RDW Coeff of Loi 18.4 H Plt Count 203 MPV 9.2 Immature Gran % (Auto) 1.300 H Neut % (Auto) 65.9 Lymph % (Auto) 19.8 [place] % (Auto) 12.7 H Eos % (Auto) 0.2 Baso % (Auto) 0.1 Absolute Neuts (auto) 6.1 Absolute Lymphs (auto) 1.84 Absolute Nucleated RBC 0.00 Nucleated RBC % 0 Platelet Estimate ADEQUATE Anisocytosis 1+ Macrocytosis 1+ Sodium 138 Potassium 4.1 Chloride 106 Carbon Dioxide 28.0 Anion Gap 4 L BUN 14 Creatinine 0.62 L Estim Creat Clear Calc 49.90 Est GFR (MDRD) Af Amer 164 Est GFR (MDRD) Non-Af 136 BUN/Creatinine Ratio 22.7 H Glucose 86 Calcium 7.8 L Total Bilirubin 0.20 AST 35 ALT 43 Alkaline Phosphatase 175 H Ammonia 21.0 Troponin I Total Protein 5.0 L Albumin 2.2 L Globulin 2.8 Albumin/Globulin Ratio 0.8 L Urine Color Urine Clarity Urine pH Ur Specific [place] Urine Protein Urine Glucose (UA) Urine Ketones Urine Occult Blood Urine Nitrite Urine Bilirubin Urine Urobilinogen Ur Leukocyte Esterase Urine RBC Urine WBC Ur Squamous Epith Cells Urine Bacteria Urine Mucus 11/02/18 11/03/18 22:16 00:05 WBC RBC Hgb Hct MCV MCH MCHC RDW Std Deviation RDW Coeff of Loi Plt Count MPV Immature Gran % (Auto) Neut % (Auto) Lymph % (Auto) [place] % (Auto) Eos % (Auto) Baso % (Auto) Absolute Neuts (auto) Absolute Lymphs (auto) Absolute Nucleated RBC Nucleated RBC % Platelet Estimate Anisocytosis Macrocytosis Sodium Potassium Chloride Carbon Dioxide Anion Gap BUN Creatinine Estim Creat Clear Calc Est GFR (MDRD) Af Amer Est GFR (MDRD) Non-Af BUN/Creatinine Ratio Glucose Calcium Total Bilirubin AST ALT Alkaline Phosphatase Ammonia Troponin I 0.030 Total Protein Albumin Globulin Albumin/Globulin Ratio Urine Color Yellow Urine Clarity Clear Urine pH 7.0 Ur Specific [place] 1.010 Urine Protein 15 H Urine Glucose (UA) Normal Urine Ketones Negative Urine Occult Blood Negative Urine Nitrite Negative Urine Bilirubin Negative Urine Urobilinogen Normal Ur Leukocyte Esterase 25 H Urine RBC 0 SEEN Urine WBC 0 SEEN Ur Squamous Epith Cells 0 SEEN Urine Bacteria 0 SEEN Urine Mucus 0 SEEN Assessment/Plan All Active Problems (Last Reviewed 03/27/18 @ 14:06 by Blanca Hernandez) Generalized weakness (Acute) Community acquired pneumonia of left lower lobe of lung (Acute) Pulmonary embolism (Acute) Debility (Acute) Pancytopenia (Acute) 1. Debility and weakness with an inability to complete ADLs/severe protein malnutrition -Albumin is 2.2, will consult dietary for recommendations -Regular diet with high-protein and high-calorie content, though he says that food does not taste great and that he is better off with ice cream and shakes -PT/OT for evaluation -Case management for discharge planning -If he cannot maintain adequate nutrition with dietary involvement, then he may need either a Dobbhoff or even a PEG tube for improved nutrition 2. Pancreatic cancer status post Whipple/history of PE -On his previous admission the hospitalist at that time was told that he had PEs and was started on Eliquis 10 mg twice daily, he is now on 5 mg twice daily -We will continue -States that he is in remission and cancer free at the moment, there is no lymph nodes that were positive for cancer after his Whipple and he received 7 of 10 chemotherapy treatments and does not feel like he would be able to tolerate any more -Continue with Creon as well as iron supplementation 3. CAD status post CABG/HTN/HLD -Blood pressure is stable -Continue with atenolol, atorvastatin, ramipril 4. Gout -Not currently in acute flare -Continue with allopurinol DVT: Eliquis Code Visit Inpatient E&M: 88840 Init Hosp L2
--- NOTE | 2018-11-03 07:43 | PN_ITS ---
Subjective: Patient was seen and examined. He states that is the first time he has been able to eat. He has not had an appetite for weeks. He is very happy that he he woke up feeling staffed. He denied any other complaints. No acute events overnight. Objective: Physical Exam General: Alert, Oriented x3, Cooperative, No apparent distress HEENT: Atraumatic, PERRLA, EOMI, Normocephalic Oral: Moist Mucosa Neck: Supple, No JVD Lungs: Clear to auscultation, Normal air movement, No rhonchi, No wheeze, No rales, Diminished Cardiovascular: Regular rate, Regular Rhythm, Normal S1, Normal S2, No murmurs Abdomen: Soft, Non Tender, Non-Distended, No Hepato-splenomegaly Extremities: No edema, Capillary Refill Less than 3 Seconds Skin: No rashes, No breakdown Musculoskeletal: Cachexia Neurological: Sensory exam intact to light touch and pain, - - Bilateral lower extremity strength is 3 out of 5 Psych/Mental Status: Normal Affect, Appropriate Vitals/I&O's: Vital Signs Temp Pulse Resp BP Pulse Ox 97.9 F 61 18 128/67 H 99 11/03/18 02:30 11/03/18 02:30 11/03/18 02:30 11/03/18 02:30 11/03/18 02:30 Oxygen Delivery Method Room Air Weight: 54.941 kg Body Mass Index (BMI) 19.5 Intake and Output for Last 24 Hours 11/01/18 11/02/18 11/03/18 23:59 23:59 23:59 Intake Total 0 / 0 Balance 0 / 0 Laboratory Results 11/02/18 22:16: WBC 9.3, RBC 3.26 L, Hgb 10.1 L, Hct 31.7 L, MCV 97.2 H, MCH 31.0, MCHC 31.9 L, RDW Std Deviation 65.9 H, RDW Coeff of Loi 18.4 H, Plt Count 203, MPV 9.2, Immature Gran % (Auto) 1.300 H, Neut % (Auto) 65.9, Lymph % (Auto) 19.8, [place] % (Auto) 12.7 H, Eos % (Auto) 0.2, Baso % (Auto) 0.1, Absolute Neuts (auto) 6.1, Absolute Lymphs (auto) 1.84, Absolute Nucleated RBC 0.00, Nucleated RBC % 0, Platelet Estimate ADEQUATE, Anisocytosis 1+, Macrocytosis 1+ 11/02/18 22:16: Sodium 138, Potassium 4.1, Chloride 106, Carbon Dioxide 28.0, Anion Gap 4 L, BUN 14, Creatinine 0.62 L, Estim Creat Clear Calc 49.90, Est GFR (MDRD) Af Amer 164, Est GFR (MDRD) Non-Af 136, BUN/Creatinine Ratio 22.7 H, Glucose 86, Calcium 7.8 L, Total Bilirubin 0.20, AST 35, ALT 43, Alkaline Phosphatase 175 H, Total Protein 5.0 L, Albumin 2.2 L, Globulin 2.8, Albumin/Globulin Ratio 0.8 L 11/02/18 22:16: Ammonia 21.0 11/02/18 22:16: Troponin I 0.030 11/03/18 00:05: Urine Color Yellow, Urine Clarity Clear, Urine pH 7.0, Ur Specific [place] 1.010, Urine Protein 15 H, Urine Glucose (UA) Normal, Urine Ketones Negative, Urine Occult Blood Negative, Urine Nitrite Negative, Urine Bilirubin Negative, Urine Urobilinogen Normal, Ur Leukocyte Esterase 25 H, Urine RBC 0 SEEN, Urine WBC 0 SEEN, Ur Squamous Epith Cells 0 SEEN, Urine Bacteria 0 SEEN, Urine Mucus 0 SEEN Current Medications Nutritional Formula (Lactose Free) (Ensure Enlive) 120 ml PO 4X/DAY KRYSTLE Sodium Chloride () 10 - 40 ml IV UD PRN PRN Reason: SALINE FLUSH Medical Necessity - Tobacco Use Smoking Status: Former smoker Tobacco Use: Cigarettes Assessment/Plan All Active Problems (Last Reviewed 03/27/18 @ 14:06 by Blanca Hernandez) Generalized weakness (Acute) Community acquired pneumonia of left lower lobe of lung (Acute) Pulmonary embolism (Acute) Debility (Acute) Pancytopenia (Acute) 1. Debility secondary to his concurrent co-morbidities, family is unable to take care of him. He was just discharged from TCU 2 days ago. 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 Will wait to see PT and OT evaluations. 2. Pancreatic cancer s/p Whipple procedure, pain is fairly controlled, continue on Creon, oxycodone, prednisone 3. H/o PE, on Eliquis 4. CAD s/p CABG/Hypertension/Hyperlipidemia, on atenolol, ramipril, statin 5. Severe protein calorie malnutrition, nutritional supplements, dietitian consulted 6. DVT PPx- Eliquis 7. Disposition: Possible discharge to half-way facility Code Visit Inpatient E&M: 64504 Subs Hosp L2
[2018-11-03] MEDS: 0.9% Normal Saline 1,000 ML 100 ML IV ×2 (08:10→16:31)
[2018-11-03] MEDS: Hydroxychloroquine 200 MG Tablet PO ×2 (10:18→16:30)
[2018-11-03] MEDS: predniSONE 10 MG Tablet PO ×2 (10:18→16:30)
[2018-11-03] MEDS: Allopurinol 300 MG Tablet PO (10:18)
[2018-11-03] MEDS: APIXABAN 5 MG TABLET PO ×2 (10:19→21:30)
[2018-11-03] MEDS: Iron Polysaccharide Complex 150 MG CAPSULE PO (10:19)
--- NOTE | 2018-11-03 13:28 | CASEMGMT ---
Addendum entered by Shelby Marin 11/03/18 13:38: Pt updated on acceptance to TCU pending pre-cert. Original Note: Social Work Note Per physician pt will likely need SNF and also would be a good candidate for Palliative Care. OCTAVIA met with pt to confirm discharge plans. Pt was just discharged from TCU a few days ago and is at [facility] for debility and weakness. SW updated pt that physician is recommending SNF for pt. Pt agreeable to SNF and agreeable to TCU. SW informed pt that this worker will have to check with TCU to determine if they have bed availability. SW provide pt with list of additional SNF in the area in the event TCU doesn't have have any beds. Pt was receptive to list. SW also educated pt on Palliative Care and provided pt with brochure. Pt states he will review referral. SW informed pt that he will be at [facility] over the weekend due to needed insurance approval for SNF. SW informed pt that this worker will follow up with him Tuesday in regards to Palliative Care. OCTAVIA placed a call to Elsie in TCU and provided referral. Elsie states she will have a bed for pt on Tuesday. Elsie confirms she won't get pre-cert today for pt. Plan: TCU pending pre-cert Shelby Marin REFLEXOLOGIST, IT SENIOR ANALYST
[2018-11-03] MEDS: oxyCODONE 5 MG Tablet PO ×2 (14:39→21:30)
--- NOTE | 2018-11-03 14:49 | CHAPLAIN ---
Type of Pastoral Visit x__ Initial Visit ___ Follow-up Visit ___ On-call Visit ___ General Patient Visit ___ Spiritual Assessment ___ Family Conference ___ Bereavement ___ Rapid Response ___ Code Blue ___ Other (describe below) Pastoral Care Referral From x___ Patient ___ Family ___ Nurse ___ Physician ___ Hydrostatic Tubing Tester ___ Glove Operator ___ Other (describe below) Sacrament/Intervention x___ Active listening ___ Anointing ___ Oriental Orthodox ___ Bereavement ___ Communion x___ Tonja exploration ___ ___ Life review x___ Prayer ___ Reconciliation ___ Sacrament of Sick x___ Supportive presence ___ Wedding ___ Other (describe below) Pastoral Comments patient seeks emotional and spiritual support; pt requests prayer;
[2018-11-03] MEDS: Atorvastatin Calcium 10 MG Tablet PO (21:30)
[2018-11-04] MEDS: 0.9% Normal Saline 1,000 ML 100 ML IV (02:43)
[2018-11-04 02:52] VITALS: BP 110/63; PULSE 67; RESP 16; TEMP 36.9; O2SAT 97
[2018-11-04 08:52] VITALS: BP 126/76; PULSE 72; RESP 20; TEMP 36.5; O2SAT 97
[2018-11-04] MEDS: Hydroxychloroquine 200 MG Tablet PO ×2 (08:57→16:54)
[2018-11-04] MEDS: predniSONE 10 MG Tablet PO ×2 (08:57→16:57)
[2018-11-04] MEDS: Iron Polysaccharide Complex 150 MG CAPSULE PO (08:57)
--- NOTE | 2018-11-04 09:01 | PN_ITS ---
Subjective: Patient seen and examined. He feels improved. He has an improved appetite this morning. No diarrhea. He has had only one bowel movement since admission. Objective: Physical Exam General: Alert, Oriented x3, Cooperative, No apparent distress HEENT: Atraumatic, PERRLA, EOMI, Normocephalic Oral: Moist Mucosa Neck: Supple, No JVD Lungs: Clear to auscultation, Normal air movement, No rhonchi, No wheeze, No rales, Diminished Cardiovascular: Regular rate, Regular Rhythm, Normal S1, Normal S2, No murmurs Abdomen: Soft, Non Tender, Non-Distended, No Hepato-splenomegaly Extremities: No edema, Capillary Refill Less than 3 Seconds Skin: No rashes, No breakdown Musculoskeletal: Cachexia Neurological: Sensory exam intact to light touch and pain, - - Bilateral lower extremity strength is 3 out of 5 Psych/Mental Status: Normal Affect, Appropriate Vitals/I&O's: Vital Signs Temp Pulse Resp BP Pulse Ox 98.5 F 67 16 110/63 97 11/04/18 02:52 11/04/18 02:52 11/04/18 02:52 11/04/18 02:52 11/04/18 02:52 Oxygen Delivery Method Room Air Weight: 54.9 kg Body Mass Index (BMI) 19.5 Intake and Output for Last 24 Hours 11/02/18 11/03/18 11/04/18 23:59 23:59 23:59 Intake Total 834 / 834 1612 / 1612 Balance 834 / 834 1612 / 1612 Current Medications Acetaminophen (Tylenol) 500 mg PO Q6H PRN PRN PRN Reason: PAIN Allopurinol (Zyloprim) 300 mg PO DAILY [facility] Last Admin: 11/03/18 10:18 Dose: 300 mg Documented by: Apixaban (Eliquis) 5 mg PO BID [facility] Last Admin: 11/03/18 21:30 Dose: 5 mg Documented by: Atenolol (Tenormin (Beta Claritza)) 50 mg PO DAILY [facility] Last Admin: 11/03/18 10:50 Dose: Not Given Documented by: Atorvastatin Calcium (Lipitor) 10 mg PO QHS [facility] Last Admin: 11/03/18 21:30 Dose: 10 mg Documented by: Hydroxychloroquine [facility] ([facility]aqu[facility]il) [facility] Admin: 11/04/18 08:57 Dose: 200 mg Documented by: Sodium Chloride () 1,000 mls @ 100 mls/hr IV .Q10H [facility] Last Admin: 11/04/18 02:43 Dose: 100 mls/hr Documented by: Nutritional Formula (Lactose Free) (Ensure Enlive) 120 ml PO 4X/DAY [facility] Last Admin: 11/03/18 21:30 Dose: 120 ml Documented by: Oxycodone HCl (Oxyir) 5 mg PO 0600,1400,2200 [facility] Last Admin: 11/04/18 05:58 Dose: Not Given Documented by: Pancrelipase (Creon Dr 12,000 Unit Capsule) 6 capsule PO TIDCM [facility] Last Admin: 11/04/18 08:57 Dose: 6 capsule Documented by: Polysaccharide Iron Complex (Ferrex 150) [facility] Last Admin: 11/04/18 08:57 Dose: 150 mg Documented by: Pramipexole Dihydrochloride (Mirapex) 1 mg PO HS PRN Prednisone () [facility] Last Admin: 11/04/18 08:57 Dose: 10 mg Documented by: Ramipril (Altace) 2.5 mg PO DAILY [facility] Last Admin: 11/03/18 10:50 Dose: Not Given Documented by: Sodium Chloride () 10 - 40 ml IV UD PRN PRN Reason: SALINE FLUSH Medical Necessity - Tobacco Use Smoking Status: Former smoker Tobacco Use: Cigarettes Assessment/Plan All Active Problems (Last Reviewed 03/27/18 @ 14:06 by Blanca Hernandez) Generalized weakness (Acute) Community acquired pneumonia of left lower lobe of lung (Acute) Pulmonary embolism (Acute) Debility (Acute) Pancytopenia (Acute) 1. Debility secondary to his concurrent co-morbidities, family is unable to take care of him. He was just discharged from TCU 2 days ago. 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 Waiting on insurance precertification for discharge to SNF. 2. Pancreatic cancer s/p Whipple procedure, pain is fairly controlled, continue on Creon, oxycodone, prednisone 3. H/o PE, on Eliquis 4. CAD s/p CABG/Hypertension/Hyperlipidemia, on atenolol, ramipril, statin 5. Severe protein calorie malnutrition, nutritional supplements, dietitian consulted 6. DVT PPx- Eliquis 7. Disposition:Discharge to intermediate facility when bed is available. Code Visit Inpatient E&M: 63583 Subs Hosp L2
[2018-11-04 09:25] VITALS: PULSE 72
[2018-11-04] MEDS: Ramipril 2.5 MG Capsule PO (10:45)
[2018-11-04] MEDS: Atenolol 50 MG Tablet PO (10:46)
[2018-11-04] MEDS: Allopurinol 300 MG Tablet PO (10:46)
[2018-11-04] MEDS: APIXABAN 5 MG TABLET PO ×2 (10:46→22:09)
[2018-11-04] MEDS: Multivitamins,Therapeutic Tablet 1 TABLET PO (10:52)
[2018-11-04] MEDS: 0.9% Normal Saline 1,000 ML 75 ML IV ×2 (12:11→23:37)
[2018-11-04 14:59] VITALS: BP 125/67; PULSE 66; RESP 20; TEMP 36.5; O2SAT 99
[2018-11-04 16:00] VITALS: PULSE 66
[2018-11-04 20:09] VITALS: BP 112/57; PULSE 75; RESP 18; TEMP 36.8; O2SAT 96
[2018-11-04] MEDS: Atorvastatin Calcium 10 MG Tablet PO (22:09)
[2018-11-05 02:00] VITALS: BP 119/57; PULSE 79; RESP 18; TEMP 36.8; O2SAT 98
[2018-11-05 05:45] LABS: Absolute Lymphocyte Count 0.97 X10^3/uL (0.83-4.51); Absolute Neutrophil Count 7.3 X10^3/uL (2.0-7.7); Hematocrit 28.9 % (40-54); Hemoglobin 8.9 g/dL (13.0-16.5); Lymphocyte # 0.97 X10^3/ul (4.0); Lymphocyte % 10.5 % (19-41); Mean Corp Hgb Conc 30.8 g/dL (32-36); Mean Corpuscular Hgb 30.6 pg (27.0-32.0); Mean Corpuscular Volume 99.3 fL (80-94); Mean Platelet Vol. 9.2 fl (6.2-12.0); Monocyte# 0.94 X10^3/uL; Monocyte% 10.2 % (0-10); NRBC Flagged by Analyzer 0 % (0-5); Neutrophil # 7.25 X10^3/uL (2.7-7.7); Neutrophil % 78.4 % (47-70); POSITIVE MORPHOLOGY YES; Platelet Count 142 K/mm3 (150-450); RBC Distribution Width CV 17.9 % (11.6-14.6); RBC Distribution Width SD 65.1 fl (35.1-43.9); Red Blood Count 2.91 M/mm3 (4.6-6.2); White Blood Count 9.2 K/mm3 (4.4-11.0)
[2018-11-05 05:55] LABS: Differential Indicated SCAN CRITERIA MET
[2018-11-05 06:02] LABS: Albumin, Serum 1.9 g/dL (3.2-5.0); BUN 9 mg/dL (7-18); BUN/Creat Ratio 19.8 RATIO (10-20); Calcium,Total 7.6 mg/dL (8.5-10.1); Chloride 114 mmol/L (98-107); Creatinine, Serum 0.45 mg/dL (0.70-1.30); EST Glomerular Filtration Rate 193 mL/min (>60); Est Glom Filt Rate - Afr Amer 233 mL/min (>60); Estimated Creatinine Clearance 50.33 ml/min; Glucose 100 mg/dL (74-106); Phosphorus 2.5 mg/dL (2.5-4.9); Sodium Level 146 mmol/L (136-145)
[2018-11-05 06:08] LABS: Differential Comment SCANNED; Macrocytosis 2+; Target Cells RARE
[2018-11-05] MEDS: Iron Polysaccharide Complex 150 MG CAPSULE PO (07:46)
[2018-11-05] MEDS: predniSONE 10 MG Tablet PO ×2 (07:48→17:22)
[2018-11-05] MEDS: APIXABAN 5 MG TABLET PO ×2 (07:48→22:23)
[2018-11-05] MEDS: Multivitamins,Therapeutic Tablet 1 TABLET PO (07:48)
[2018-11-05] MEDS: Hydroxychloroquine 200 MG Tablet PO ×2 (07:48→17:22)
[2018-11-05] MEDS: Ramipril 2.5 MG Capsule PO (07:49)
[2018-11-05] MEDS: Atenolol 50 MG Tablet PO (07:49)
[2018-11-05] MEDS: Allopurinol 300 MG Tablet PO (07:49)
[2018-11-05 08:00] VITALS: BP 131/83; PULSE 76; RESP 18; TEMP 36.8; O2SAT 99
--- NOTE | 2018-11-05 10:16 | PN_ITS ---
Subjective: Patient was seen and examined. No complains. No diarrhea. He has not had a bowel movement since his admission. ROS is negative. Objective: Physical Exam General: Alert, Oriented x3, Cooperative, No apparent distress HEENT: Atraumatic, PERRLA, EOMI, Normocephalic Oral: Moist Mucosa Neck: Supple, No JVD Lungs: Clear to auscultation, Normal air movement, No rhonchi, No wheeze, No r ales, Diminished Cardiovascular: Regular rate, Regular Rhythm, Normal S1, Normal S2, No murmurs Abdomen: Soft, Non Tender, Non-Distended, No Hepato-splenomegaly Extremities: No edema, Capillary Refill Less than 3 Seconds Skin: No rashes, No breakdown Musculoskeletal: Cachexia Neurological: Sensory exam intact to light touch and pain, - - Bilateral lower extremity strength is 4 out of 5 Psych/Mental Status: Normal Affect, Appropriate Vitals/I&O's: Vital Signs Temp Pulse Resp BP Pulse Ox 98.2 F 76 18 131/83 H 99 11/05/18 08:00 11/05/18 08:00 11/05/18 08:00 11/05/18 08:00 11/05/18 08:00 Oxygen Delivery Method Room Air Weight: 54.9 kg Body Mass Index (BMI) 19.5 Intake and Output for Last 24 Hours 11/03/18 11/04/18 11/05/18 23:59 23:59 23:59 Intake Total 834 / 834 3654 / 4404 1300 / 1300 Output Total 800 / 1400 850 / 850 Balance 834 / 834 2854 / 3004 450 / 450 Laboratory Results 11/05/18 05:34: WBC 9.2, RBC 2.91 L, Hgb 8.9 L, Hct 28.9 L, MCV 99.3 H, MCH 30.6, MCHC 30.8 L, RDW Std Deviation 65.1 H, RDW Coeff of Loi 17.9 H, Plt Count 142 L, MPV 9.2, Immature Gran % (Auto) 0.900, Neut % (Auto) 78.4 H, Lymph % (Auto) 10.5 L, [facility] % (Auto) 10.2 H, Eos % (Auto) 0.0, Baso % (Auto) 0.0, Absolute Neuts (auto) 7.3, Absolute Lymphs (auto) 0.97, Absolute Nucleated RBC 0.00, Nucleated RBC % 0, Differential Comment SCANNED, Macrocytosis 2+, Target Cells RARE 11/05/18 05:34: Sodium 146 H, Potassium 4.0, Chloride 114 H, Carbon Dioxide 24.0, BUN 9, Creatinine 0.45 L, Estim Creat Clear Calc 50.33, Est GFR (MDRD) Af Amer 233, Est GFR (MDRD) Non-Af 193, BUN/Creatinine Ratio 19.8, Glucose 100, Calcium 7.6 L, Phosphorus 2.5, Albumin 1.9 L Current Medications Acetaminophen (Tylenol) 500 mg PO Q6H PRN PRN PRN Reason: PAIN Allopurinol (Zyloprim) 300 mg PO DAILY [facility] Last Admin: 11/05/18 07:49 Dose: 300 mg Documented by: Apixaban (Eliquis) 5 mg PO BID [facility] Last Admin: 11/05/18 07:48 Dose: 5 mg Documented by: Atenolol (Tenormin (Beta Claritza)) 50 mg PO DAILY [facility] Last Admin: 11/05/18 07:49 Dose: 50 mg Documented by: Atorvastatin Calcium (Lipitor) 10 mg PO QHS [facility] Last Admin: 11/04/18 22:09 Dose: 10 mg Documented by: [facility] Admin: 11/05/18 07:48 Dose: 200 mg Documented by: Dextrose () 1,000 mls @ 75 mls/hr IV .[id number] [facility] Stop: 11/06/18 03:29 Multivitamins (Multivitamin) [facility] Last Admin: 11/05/18 07:48 Dose: 1 tablet Documented by: Nutritional Formula (Lactose Free) (Ensure Enlive) 120 ml PO 4X/DAY [facility] Last Admin: 11/04/18 22:09 Dose: 120 ml Documented by: Oxycodone HCl (Oxyir) 5 mg PO 0600,1400,2200 [facility] Last Admin: 11/05/18 05:28 Dose: Not Given Documented by: Pancrelipase (Creon Dr 12,000 Unit Capsule) 6 capsule PO TIDCM [facility] Last Admin: 11/05/18 07:45 Dose: 6 capsule Documented by: Polyethylene Glycol (Miralax) 17 gm PO DAILY PRN PRN Reason: CONSTIPATION Polysaccharide Iron Complex (Ferrex 150) [facility] Last Admin: 11/05/18 07:46 Dose: 150 mg Documented by: Pramipexole Dihydrochloride (Mirapex) 1 mg PO HS PRN Prednisone () [facility] Last Admin: 11/05/18 07:48 Dose: 10 mg Documented by: Ramipril (Altace) 2.5 mg PO DAILY [facility] Last Admin: 11/05/18 07:49 Dose: 2.5 mg Documented by: Sodium Chloride () 10 - 40 ml IV UD PRN PRN Reason: SALINE FLUSH Medical Necessity - Tobacco Use Smoking Status: Former smoker Tobacco Use: Cigarettes Assessment/Plan All Active Problems (Last Reviewed 03/27/18 @ 14:06 by Blanca Hernandez) Generalized weakness (Acute) Community acquired pneumonia of left lower lobe of lung (Acute) Pulmonary embolism (Acute) Debility (Acute) Pancytopenia (Acute) 73y/o with PMHx of pancreatic cancer s/p Whipple procedure, not requiring chemotherapy, PE, hypertension, hyperlipidemia who was admitted to TCU with debility and discharged home. Patient comes back with progressive debility and inability to take care of himself at home. 1. Debility secondary to his concurrent co-morbidities, family is unable to take care of him. He was just discharged from TCU 2 days ago prior to admission. belt worker/case management involved. Waiting on insurance precertification for discharge to SNF. 2. Pancreatic cancer s/p Whipple procedure, pain is fairly controlled, continue on Creon, oxycodone, prednisone 3. Iron deficiency anemia, drop in Hb from 10.1 to 8.9, likely hemodilution, no bowel movements, will continue on po iron 4. H/o PE, on Eliquis 5. CAD s/p CABG/Hypertension/Hyperlipidemia, on atenolol, ramipril, atorvastatin 6. Severe protein calorie malnutrition, nutritional supplements, dietitian consulted 7. DVT PPx- Eliquis 8. Disposition:Discharge to alf facility when bed is available. Code Visit Inpatient E&M: 13267 Subs Hosp L2
[2018-11-05 14:00] VITALS: BP 117/64; PULSE 78; RESP 18; TEMP 36.7; O2SAT 98
[2018-11-05 16:00] VITALS: PULSE 80
[2018-11-05 20:25] VITALS: BP 105/67; PULSE 75; RESP 18; TEMP 36.9; O2SAT 97
[2018-11-05] MEDS: Atorvastatin Calcium 10 MG Tablet PO (22:23)
[2018-11-05 22:26] VITALS: BP 111/68; PULSE 77; RESP 18; TEMP 36.9; O2SAT 100
[2018-11-06 03:19] VITALS: BP 149/89; PULSE 87; RESP 18; TEMP 36.9; O2SAT 99
[2018-11-06 05:56] LABS: Absolute Lymphocyte Count 1.02 X10^3/uL (0.83-4.51); Absolute Neutrophil Count 7.1 X10^3/uL (2.0-7.7); Basophil# 0.01 X10^3/uL; Basophil% 0.1 % (0-1); Hematocrit 29.7 % (40-54); Lymphocyte # 1.02 X10^3/ul (4.0); Lymphocyte % 11.3 % (19-41); Mean Corp Hgb Conc 30.3 g/dL (32-36); Mean Corpuscular Hgb 29.9 pg (27.0-32.0); Mean Corpuscular Volume 98.7 fL (80-94); Mean Platelet Vol. 9.9 fl (6.2-12.0); Monocyte# 0.82 X10^3/uL; Monocyte% 9.1 % (0-10); NRBC Flagged by Analyzer 0 % (0-5); Neutrophil # 7.07 X10^3/uL (2.7-7.7); Neutrophil % 78.5 % (47-70); Platelet Count 161 K/mm3 (150-450); RBC Distribution Width CV 17.8 % (11.6-14.6); RBC Distribution Width SD 64.8 fl (35.1-43.9); Red Blood Count 3.01 M/mm3 (4.6-6.2)
[2018-11-06 06:11] LABS: Anion Gap 8 (5-15); BUN 10 mg/dL (7-18); BUN/Creat Ratio 19.3 RATIO (10-20); Calcium,Total 7.9 mg/dL (8.5-10.1); Chloride 110 mmol/L (98-107); Creatinine, Serum 0.52 mg/dL (0.70-1.30); EST Glomerular Filtration Rate 165 mL/min (>60); Est Glom Filt Rate - Afr Amer 200 mL/min (>60); Estimated Creatinine Clearance 50.33 ml/min; Glucose 114 mg/dL (74-106); Potassium 3.9 mmol/L (3.5-5.1); Sodium Level 144 mmol/L (136-145)
[2018-11-06] MEDS: Iron Polysaccharide Complex 150 MG CAPSULE PO (08:40)
[2018-11-06] MEDS: APIXABAN 5 MG TABLET PO ×2 (08:40→21:49)
[2018-11-06] MEDS: Ramipril 2.5 MG Capsule PO (08:41)
[2018-11-06] MEDS: Allopurinol 300 MG Tablet PO (08:41)
[2018-11-06] MEDS: predniSONE 10 MG Tablet PO ×2 (08:41→17:15)
[2018-11-06] MEDS: Multivitamins,Therapeutic Tablet 1 TABLET PO (08:41)
[2018-11-06] MEDS: Hydroxychloroquine 200 MG Tablet PO ×2 (08:41→17:15)
[2018-11-06] MEDS: Atenolol 50 MG Tablet PO (08:41)
[2018-11-06 08:47] VITALS: BP 134/62; PULSE 70; RESP 18; TEMP 36.8; O2SAT 96
[2018-11-06 08:50] VITALS: PULSE 70
--- NOTE | 2018-11-06 10:04 | CASEMGMT ---
Intro role of CM to patient and MAURICIO form explained re: Observation status for treatment of weakness and debility. Explained hospitalization will be paid per? insurance policy for Outpatient billing?and condition will continue to be evaluated for Inpt necessity. Also let pt know that [facility] sends paper in the billing packet with their phone number if questions arise. Discussed Pharmacy section of MAURICIO form and self administered medication guideline.? Pt verbalizes understanding and does not have further questions. Form signed and placed in chart, copy to pt. TOMER MELENDREZ BSN CM
--- NOTE | 2018-11-06 10:12 | CASEMGMT ---
Social Work Note SW received call from Elsie in TCU stating she will submit for pre-cert. Plan: TCU pending pre-cert Shelby Marin BUSINESS DEVELOPMENT ENGINEER, PRODUCT MANAGEMENT MANAGER
[2018-11-06] MEDS: 0.9% NaCl Peripheral Flush Adult/Peds IV (13:31)
[2018-11-06 13:44] VITALS: BP 110/62; PULSE 69; RESP 18; TEMP 36.9; O2SAT 97
--- NOTE | 2018-11-06 14:11 | PCA ---
this legal administrative secretary sent out request for medical records to arthritis doctor office
[2018-11-06 14:30] VITALS: BP 133/56; PULSE 71; RESP 18; TEMP 36.9; O2SAT 98
--- NOTE | 2018-11-06 16:00 | CASEMGMT ---
Social Work Note OCTAVIA updated by physician that pt is agreeable to speaking with Palliative Care. OCTAVIA placed a call to [facility] and provided Palliative Care referral to PARVIN Hess. Jimena asked this worker to take phone into pt's room and ask about a meeting time with pt. Jimena asked about 11:00am on TuesdayDecember 08. OCTAVIA asked pt about this time, pt agreeable to time and PARVIN Hess updated. OCTAVIA attempted to fax Palliative Care Referral but [facility] currently down. OCTAVIA asked OCTAVIA Bedoya to fax referral if she has time to this evening. Plan: Palliative Care to meet with pt tomorrow at 11:00am Shelby Marin MSW, PRODUCT CONTROLLER
--- NOTE | 2018-11-06 17:22 | PN_ITS ---
Subjective: The patient is a 73-year-old male who presented to the emergency room at [facility] on 11/03/2018 complaining of weakness, debility and inability to take care of himself. He was discharged from transitional care just 2 days prior to coming to the emergency department. Past medical history significant for pancreatic cancer with Whipple's procedure in April 2018. He has been receiving outpatient chemotherapy and had a total of 7 out of a scheduled 10 chemotherapy treatments and states he is done and will not take anymore. He relates the chemotherapy to extreme weakness and nausea feels like he will if he takes any more chemo. He tells me that he feels much better today and his appetite has returned. He still complains that his food does not taste the way it should. All events of the past 24 hours been reviewed. Afebrile since admission Vital signs are stable. Pulse ox on room air is 97%. Oral intake on 11/05/2018 was 2140 cc. He is awaiting transfer to TCU when the pre-Cert is obtained from the insurance [employer]. - Physical Exam General: Alert, Oriented x3, Cooperative, No apparent distress HEENT: Atraumatic, PERRLA, EOMI, Normocephalic Oral: Dry Mucosa Neck: Supple, No Nuchal Rigidity, Trachea Midline Lungs: Clear to auscultation, No rhonchi, No wheeze, No rales Cardiovascular: Regular rate, Regular Rhythm, Normal S1, Normal S2, No Gallop Abdomen: Bowel Sounds Present, Soft, Non Tender, Non-Distended Extremities: No clubbing, No cyanosis, Edema - pitting edema of both LE's L>R Skin: No rashes, No breakdown Neurological: Cranial nerves II-XII grossly intact, Neuro grossly intact Psych/Mental Status: Normal Affect, Appropriate Vital Signs Temp Pulse Resp BP Pulse Ox 98.5 F 69 18 110/62 97 11/06/18 13:44 11/06/18 13:44 11/06/18 13:44 11/06/18 13:44 11/06/18 13:44 Oxygen Delivery Method Room Air Weight: 121 lb 0.54 oz Body Mass Index (BMI) 19.5 Intake and Output for Last 24 Hours 11/04/18 11/05/18 11/06/18 23:59 23:59 23:59 Intake Total 3654 / 4404 4615 / 4615 932 / 932 Output Total 800 / 1400 3025 / 3025 1485 / 1485 Balance 2854 / 3004 1590 / 1590 -553 / -553 Laboratory Tests Past 24 Hrs 11/06/18 11/06/18 11/06/18 05:38 05:38 13:36 WBC 9.0 RBC 3.01 L Hgb 9.0 L Hct 29.7 L MCV 98.7 H MCH 29.9 MCHC 30.3 L RDW Std Deviation 64.8 H RDW Coeff of Loi 17.8 H Plt Count 161 MPV 9.9 Immature Gran % (Auto) 1.000 H Neut % (Auto) 78.5 H Lymph % (Auto) 11.3 L Barren % (Auto) 9.1 Eos % (Auto) 0.0 Baso % (Auto) 0.1 Absolute Neuts (auto) 7.1 Absolute Lymphs (auto) 1.02 Absolute Nucleated RBC 0.00 Nucleated RBC % 0 Sodium 144 Potassium 3.9 Chloride 110 H Carbon Dioxide 26.0 Anion Gap 8 BUN 10 Creatinine 0.52 L Estim Creat Clear Calc 50.33 Est GFR (MDRD) Af Amer 200 Est GFR (MDRD) Non-Af 165 BUN/Creatinine Ratio 19.3 Glucose 114 H Calcium 7.9 L Vitamin B12 Folate 38.00 11/06/18 13:36 WBC RBC Hgb Hct MCV MCH MCHC RDW Std Deviation RDW Coeff of Loi Plt Count MPV Immature Gran % (Auto) Neut % (Auto) Lymph % (Auto) Barren % (Auto) Eos % (Auto) Baso % (Auto) Absolute Neuts (auto) Absolute Lymphs (auto) Absolute Nucleated RBC Nucleated RBC % Sodium Potassium Chloride Carbon Dioxide Anion Gap BUN Creatinine Estim Creat Clear Calc Est GFR (MDRD) Af Amer Est GFR (MDRD) Non-Af BUN/Creatinine Ratio Glucose Calcium Vitamin B12 Pending Folate Medical Necessity - Tobacco Use Smoking Status: Former smoker Tobacco Use: Cigarettes Assessment/Plan All Active Problems (Last Reviewed 03/27/18 @ 14:06 by Blanca Hernandez) Generalized weakness (Acute) Community acquired pneumonia of left lower lobe of lung (Acute) Pulmonary embolism (Acute) Debility (Acute) Pancytopenia (Acute) Impressions 1. generalized weakness and debility likely related to pancreatic CA and chemotherapy 2. Pancreatitic CA - S/P Whipples and 10/18 chemo treatments 3. Rheumatoid arthritis-on Plaquenil. Patient is also on prednisone 10 mg p.o. twice daily and does not know that he is on this medication or what it is for. 4. Venous insufficiency with peripheral edema 5. History of pulmonary embolus-on Eliquis 6. Coronary artery disease-status post CABG 7. Hypertension 8. Hyperlipidemia 9. Severe protein calorie malnutrition plan on nutritional supplements and being followed by the dietitian 10. Macrocytic anemia-new since May 2018. On an iron supplement but is not microcytic. Has had no iron studies at this institution. Hemoccult stool. TASNEEM hose and leg elevation. Obtain Dr. Dhillon's records to see if she has him on prednisone await the pre-cert for transfer to TCU Check a folic acid level since he is on Plaquenil and does not take folate. Check a B12 level since he is macrocytic. Continue apixaban 5 mg p.o. twice daily
--- NOTE | 2018-11-06 19:24 | CASEMGMT ---
Social Work Palliative Care referral faxed per SW. Janell Babcock BRIQUETTE MOLDER, SENIOR CLINICAL PROJECT MANAGER
[2018-11-06 20:29] VITALS: BP 118/66; PULSE 70; RESP 18; TEMP 36.6; O2SAT 95
[2018-11-06] MEDS: Atorvastatin Calcium 10 MG Tablet PO (21:49)
[2018-11-07 02:19] VITALS: BP 105/63; PULSE 74; RESP 18; TEMP 36.8; O2SAT 96
[2018-11-07 07:35] VITALS: BP 114/64; PULSE 69; RESP 18; TEMP 37.1; O2SAT 97
[2018-11-07 07:42] VITALS: PULSE 70
[2018-11-07] MEDS: Multivitamins,Therapeutic Tablet 1 TABLET PO (08:08)
[2018-11-07] MEDS: Iron Polysaccharide Complex 150 MG CAPSULE PO (08:08)
[2018-11-07] MEDS: Ramipril 2.5 MG Capsule PO (08:08)
[2018-11-07] MEDS: Allopurinol 300 MG Tablet PO (08:08)
[2018-11-07] MEDS: APIXABAN 5 MG TABLET PO ×2 (08:09→21:12)
[2018-11-07] MEDS: Hydroxychloroquine 200 MG Tablet PO ×2 (08:09→16:59)
[2018-11-07] MEDS: predniSONE 10 MG Tablet PO ×2 (08:09→16:59)
[2018-11-07] MEDS: Atenolol 50 MG Tablet PO (08:10)
--- NOTE | 2018-11-07 09:04 | CASEMGMT ---
Addendum entered by Shelby Marin 11/07/18 11:57: SW received message from Elsie in TCU stating pre-cert is still pending. Addendum entered by Shelby Marin 11/07/18 11:56: SW spoke with Morris at [facility] stating pt signed paperwork for Palliative Care. Original Note: Social Work Note SW received message from Morris at [facility] stating she never received fax. SW refaxed Palliative Care Referral. Shelby Marin PARIMUTUEL TICKET CASHIER, HOISTING ENGINEER
[2018-11-07 09:47] LABS: Vitamin B12 548 pg/mL (211-911)
[2018-11-07 13:40] VITALS: BP 106/56; PULSE 73; RESP 18; TEMP 36.9; O2SAT 98
[2018-11-07 13:42] VITALS: PULSE 70
--- NOTE | 2018-11-07 18:00 | PN_ITS ---
Subjective: All events of the past 24 hours of been reviewed He remains afebrile with stable vital signs. Pulse ox is 96 to 98% on room air. He has no complaints today and specifically denies chest pain, shortness of breath, nausea, vomiting, abdominal pain. He states his strength has improved significantly since coming to the hospital. He was able to walk 400 feet today with contact-guard assist using a standard cane. He is still having some difficulty with loss of balance and requires cueing. PT feels additional therapy is recommended. Objective: - Physical Exam General: Alert, Oriented x3, Cooperative, No apparent distress HEENT: Atraumatic, PERRLA, EOMI, Normocephalic Oral: Dry Mucosa Neck: Supple, No Nuchal Rigidity, Trachea Midline Lungs: Clear to auscultation, No rhonchi, No wheeze, No rales Cardiovascular: Regular rate, Regular Rhythm, Normal S1, Normal S2, No Gallop Abdomen: Bowel Sounds Present, Soft, Non Tender, Non-Distended Extremities: No clubbing, No cyanosis, Edema - pitting edema of both LE's L>R Skin: No rashes, No breakdown Neurological: Cranial nerves II-XII grossly intact, Neuro grossly intact Psych/Mental Status: Normal Affect, Appropriate - Physical Exam Vital Signs Temp Pulse Resp BP Pulse Ox 98.5 F 70 18 106/56 L 98 11/07/18 13:40 11/07/18 13:42 11/07/18 13:40 11/07/18 13:40 11/07/18 13:40 Oxygen Delivery Method Room Air Weight: 121 lb 0.54 oz Body Mass Index (BMI) 19.5 Intake and Output for Last 24 Hours 11/05/18 11/06/18 11/07/18 23:59 23:59 23:59 Intake Total 4615 / 4615 1382 / 1782 640 / 640 Output Total 3025 / 3025 1805 / 2105 950 / 950 Balance 1590 / 1590 -423 / -323 -310 / -310 Laboratory Tests Past 24 Hrs 11/06/18 13:36 Vitamin B12 548 Medical Necessity - Tobacco Use Smoking Status: Former smoker Tobacco Use: Cigarettes Assessment/Plan All Active Problems (Last Reviewed 03/27/18 @ 14:06 by Blanca Hernandez) Generalized weakness (Acute) Community acquired pneumonia of left lower lobe of lung (Acute) Pulmonary embolism (Acute) Debility (Acute) Pancytopenia (Acute) Impressions 1. generalized weakness and debility likely related to pancreatic CA and chemotherapy? The last chemo was 6 weeks prior to admission 2. Pancreatitic CA - S/P Whipples and 10/18 chemo treatments 3. Rheumatoid arthritis-on Plaquenil. Patient is also on prednisone 10 mg p.o. twice daily and does not know that he is on this medication or what it is for. 4. Venous insufficiency with peripheral edema 5. History of pulmonary embolus-on Eliquis 6. Coronary artery disease-status post CABG 7. Hypertension 8. Hyperlipidemia 9. Severe protein calorie malnutrition plan on nutritional supplements and being followed by the dietitian 10. Macrocytic anemia-new since May 2018. On an iron supplement but is not microcytic. Has had no iron studies at this institution. Review of records from admission to [facility] in early October and DC from TCU on 10/23 show that he was on prednisone 10 mg twice daily at admission to the hospital in early October and he was discharged from TCU on prednisone 10 mg twice daily. The patient cannot tell me why he is taking prednisone or if indeed he is taking prednisone. His daughter Jeanette manages his medications. His symptoms at [facility] sound like he could have had adrenal insufficiency, especially since he improved so rapidly after being admitted to the hospital and given prednisone 10 mg twice daily. We requested Dr. Dhillon's records but have not received them yet. I have left a VM with Jeanette to call me back to see if he took Prednisone when he went home from TCU. His insurance company has denied snf at discharge. He is ambulating 400 feet with a standard cane and has help at home. Will have PT/OT reevaluate in the a.m. and if he is considered safe to be discharged we will likely order home PT/OT. Code Visit Inpatient E&M: [address] [facility] Hosp L1
[2018-11-07 21:02] VITALS: BP 109/59; PULSE 70; RESP 20; TEMP 37.1; O2SAT 95
[2018-11-07] MEDS: Atorvastatin Calcium 10 MG Tablet PO (21:12)
[2018-11-08 01:52] VITALS: BP 129/70; PULSE 68; RESP 18; TEMP 36.7; O2SAT 96
[2018-11-08] MEDS: APIXABAN 5 MG TABLET PO (08:12)
[2018-11-08] MEDS: Iron Polysaccharide Complex 150 MG CAPSULE PO (08:12)
[2018-11-08] MEDS: Hydroxychloroquine 200 MG Tablet PO ×2 (08:12→16:12)
[2018-11-08] MEDS: Multivitamins,Therapeutic Tablet 1 TABLET PO (08:12)
[2018-11-08] MEDS: predniSONE 10 MG Tablet PO ×2 (08:12→16:12)
[2018-11-08] MEDS: Ramipril 2.5 MG Capsule PO (08:12)
[2018-11-08] MEDS: Atenolol 50 MG Tablet PO (08:13)
[2018-11-08] MEDS: Allopurinol 300 MG Tablet PO (08:13)
[2018-11-08 08:18] VITALS: BP 135/75; PULSE 66; RESP 16; TEMP 36.6; O2SAT 98
--- NOTE | 2018-11-08 10:14 | CASEMGMT ---
Social Work Note SW updated by RN CM that pt was denied TCU yesterday by pt's insurance. Physician has until 12:00pm today to complete Peer to Peer. Per PT/OT pt was contact guard assist of 1 and walked 420ft and PT feels pt is able to go home and complete stairs safely. SW to continue to follow. Shelby Marin NURSING PROGRAM DIRECTOR, CUPOLA CHARGER
--- NOTE | 2018-11-08 10:57 | CASEMGMT ---
Social Work Note Pt is going to discharge home today with his daughter transporting. SW met with pt to confirm discharge plans. Pt confirms that he will be going home today. SW attempted to educate pt on additional resources at home including [facility], PASSPORT Services, Meals on Wheels and Private Duty Aides. Pt stopped this worker stating he already has services through [facility] and through his half-way, denied additional needs but is receptive to taking information. SW provided resources to pt. Plan: Pt to discharge home today Shelby Marin FOOD AND DRINK FACTORY WORKERS, DIGITAL PERFORMANCE ANALYST
[2018-11-08 11:17] VITALS: BP 106/66; PULSE 68; RESP 16; TEMP 36.3; O2SAT 100
--- NOTE | 2018-11-08 13:16 | CASEMGMT ---
Addendum entered by Shelby Marquez 11/08/18 13:47: RN CM received call back from [facility] and they are able to accept the patient. RN CM updated patient regarding HHC setup. Patient voiced understanding. No further questions at this time. CM will continue to follow this patient and plan for a safe discharge. Original Note: PARVIN LEWIS in to discuss need for HHC at discharge. Patient is agreeable to [facility] and would like [facility]. PARVIN LEWIS made referral to [facility] for penitentiary, PT/OT, and SW. RN DEBBIE updated OCTAVIA Marin regarding referral for HHC. PARVIN LEWIS awaiting call back from [facility] to confirm acceptance.
[2018-11-08 14:33] VITALS: BP 100/66; PULSE 74; RESP 16; TEMP 36.8; O2SAT 99
--- NOTE | 2018-11-08 16:54 | PCM.DC ---
You will use the following diet at home:: No restrictions Your food should be the consistency of: Regular Your liquids should be the consistency of: Regular/Thin Discharge Activity: - - always use your cane or a walker to ambulate. Call your doctor if you observe: Fever of 101 or Higher, Inability to urinate, Inability to have a bowel movement, Shortness of breath, Dizziness, Fainting spells, Swelling in the ankles, Chest pain, Uncontrolled pain Additional Instructions: You have taken prednisone 10 mg twice a day in the past only with flare ups of gout. When you were admitted to the hospital in early October the prednisone was ordered twice a day every day and this continued when you were transferred to TCU. The daily administration of the Prednisone suppressed your adrenal gland and when this happens the steroids (prednisone) needs to be tapered off over a few months with gradually decreasing doses. when you went home from TCU you probably did not take it because, in the past you only took it for gout flare ups and you did not have gout. This lead to acute adrenal insufficiency which causes weakness, nausea, decreased BP, loss of appetite, abdominal pain, etc. when you were started back on the prednisone twice a day in the hospital you rapidly improved. Dr. Mccollum can start tapering the steroids when you see him at your next visit. The physical therapist feels you are safe to go home and the psychotherapist social worker has arranged for home health care with PT/OT and a nurse to check that the medications are correct. Allergies/Adverse Reactions: Allergies No Known Allergies Allergy (Verified 11/02/18 20:36) Medications to take at Discharge atenolol 50 mg tablet 50 mg PO QDAY 07/30/17 hydroxychloroquine 200 mg tablet 200 mg PO BID tab 07/30/17 ramipril 2.5 mg capsule 2.5 mg PO DAILY 07/30/17 allopurinol 300 mg tablet 300 mg PO QDAY 08/01/17 Ropinirole HCl [Ropinirole ER] 2.5 mg PO QHS PRN 05/04/18 Acetaminophen [Acetaminophen Extra Strength] 500 mg PO Q6H PRN PRN 10/17/18 Lipase/Protease/Amylase [Megan Evans 36,000 Units Capsule] 2 cap PO TIDCM 10/17/18 Magnesium Oxide [Magnesium] 1 tab PO BID 10/17/18 Ondansetron [Ondansetron Odt] 8 mg PO 0600,1400,2200 10/17/18 Chlorpromazine HCl 25 - 50 mg PO 4X/DAY PRN PRN #1 tab 10/20/18 Ensure Enlive 120 ml PO 4X/DAY 10/20/18 Apixaban [Eliquis] 5 mg PO BID #60 tab 10/30/18 Atorvastatin Calcium [Lipitor] 10 mg PO QHS #30 tab 10/30/18 Iron Polysaccharide Complex [Ferrex 150] 150 mg PO DAILYCM #30 cap 10/30/18 Menthol/Lanolin/Calamine/Znox [Calmoseptine Ointment] 1 applic TOPICAL 0600,2200 tube 10/30/18 Nystatin Powder [Mycostatin Powder] 1 applic TOPICAL 0600,2200 bottle 10/30/18 Oxycodone [Oxyir] 5 mg PO 0600,1400,2200 7 Days #21 tab 10/30/18 Polyethylene Glycol 3350 [Miralax] 17 gm PO DAILY packet 10/30/18 Multivitamins,Therapeutic [Multivitamin] 1 tablet PO DAILYCM tablet 11/08/18 Prednisone 10 mg PO BID #60 tab 11/08/18 The following prescriptions were given: Prednisone 10 mg PO BID #60 tab Prescription Printed Primary Care Physician: Jet Mccollum MD [Primary Care Provider] - Please follow up with your Primary Care Physician in: 5-7 days Test Results: Test results from this visit will be discussed in further detail at your follow-up appointment, if applicable. Proposed Discharge Date: 11/08/18
--- NOTE | 2018-11-08 17:27 | PCM.DC.SUM ---
Discharge Date and Diagnosis Date of Admission: 11/03/18 Date of Discharge: 11/08/18 - Primary Discharge Diagnosis Active and Suspected Problems (Last Reviewed 03/27/18 @ 14:06 by Blanca Hernandez) Weakness generalized (Acute) Acute adrenal insufficiency (Suspected) - Secondary Discharge Diagnosis Chronic Problems (Last Reviewed 03/27/18 @ 14:06 by Blanca Hernandez) Severe protein-calorie malnutrition (Chronic) Rheumatoid arthritis (Chronic) Pancreatic cancer (Chronic) Pulmonary embolism (Chronic) Gout (Chronic) Restless leg syndrome (Chronic) Pancreatic insufficiency (Chronic) Hypomagnesemia (Chronic) Nausea (Chronic) 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 Perez @ [facility]. Mediastinal exploration for hemorrhage 08/01/2008. History of left heart catheterization (Chronic) 07/19/2008 @ [facility] per Dr. Santiago: 07/19/[address] Molina @ [facility] Atherosclerotic heart disease of [place] coronary artery without angina pectoris (Chronic) 07/22/2008: CABG X4: WONG to LAD, SVG to anterior diagonal branch of LAD, SVG to Ramus Marginalis, and SVG to posterolateral branch of the CX per Dr. Perez @ [facility] Old myocardial infarction (Chronic) Hyperlipidemia (Chronic) Hypertension (Chronic) Macrocytic anemia Hospital Course and Treatment Imaging Results: Clinical Impression(s) from Imaging Studies Brain CT 11/02/18 23:15 IMPRESSION: Chronic involutional changes of the brain. Atherosclerosis. Electronically Signed: Michelle Monge MD at 23:40 EDT Tel , Service support , none Operations: None Procedures: None Summary of Care Provided: The patient is a 73 year old M's medical history of pancreatic cancer (status post Whipple's procedure in April 2018), coronary artery disease, pulmonary emboli, CABG x4 vessels in 2008, hyperlipidemia, gout, rheumatoid arthritis and hypertension who presented to the emergency department at [facility] on 11/03/2018 complaining of weakness, debility and inability to care for himself. He lives by himself but his daughter checks on him frequently. He had just been discharged from the transitional care unit 2 days prior to being readmitted. He had been receiving outpatient chemotherapy and had a total of 7 out of 10 planned chemotherapy treatments but stated that it took too much out of him and he was going to discontinue chemotherapy. He complained of nausea and decreased appetite at admission. Vital signs at presentation to the emergency room were temp 98.2, pulse rate 74, blood pressure 191/54, respiratory rate 17 and he was 98% saturated on room air. Hemoglobin was 10.1 which for him is a tad higher than his recent past. White blood cell count and differential were unremarkable. BUN was 14 and the creatinine was 0.62. UA showed 0 RBCs and [address] brain showed no acute findings. Over the course of the next few days his appetite improved and he started to feel much better. weakness improved with PT and OT and prior to DC he was able to ambulate 420 ft with minimal contact-guard assist of 1 with a standard cane. Hemoglobin was stable at 9.0 and the white blood cell count was normal with an unremarkable differential for the duration of his hospital stay. Much time was spent trying to determine why he was on Prednisone 10 mg BID. The patient did not know and neither did his daughter. We requested records from Dr. Dhillon but, never received them. Records from his PCP did not list a diagnosis for why he would be taking Prednisone. He is also on Plaquenil and he said he had RA so we presumed it may be due to the RA. It turns out that he is on Prednisone 10 mg BID PRN gouty arthritis flares. When he was admitted to the hospital in early October he was started on 10 mg BID everyday and he developed dependence on steroids due to chronic suppression of the adrenal gland. When he went home I suspect he did not take the Prednisone and the dramatic decline in his level of functioning at admission was likely due to acute adrenal insufficiency. He was restarted on prednisone 10 mg twice daily at admission and a few days later was much better. PT/OT felt he was safe to discharge home and he was discharged on 11/08/2018. Home health for PT/OT and nurse visits monitor medications was arranged prior to discharge. He will need to be slowly tapered off the Prednisone over the next few months. He will follow-up with his primary care physician, Dr. Jet Mccollum, in 5 to 7 days to initiate a steroid taper. - Physical Exam General: Alert, Oriented x3, Cooperative, No apparent distress HEENT: Atraumatic, PERRLA, EOMI, Normocephalic Oral: Dry Mucosa Neck: Supple, No Nuchal Rigidity, Trachea Midline Lungs: Clear to auscultation, No rhonchi, No wheeze, No rales Cardiovascular: Regular rate, Regular Rhythm, Normal S1, Normal S2, No Gallop Abdomen: Bowel Sounds Present, Soft, Non Tender, Non-Distended Extremities: No clubbing, No cyanosis, Edema - pitting edema of both LE's L>R Skin: No rashes, No breakdown Neurological: Cranial nerves II-XII grossly intact, Neuro grossly intact Psych/Mental Status: Normal Affect, Appropriate This note was generated with [employer] dictation software. It may contain incorrect words, spelling, and punctuation that were not noted in checking the note before signing. - Physical Exam Vital Signs Temp Pulse Resp BP Pulse Ox 98.3 F 74 16 100/66 99 11/08/18 14:33 11/08/18 14:33 11/08/18 14:33 11/08/18 14:33 11/08/18 14:33 Oxygen Delivery Method Room Air Weight: 121 lb 0.54 oz Body Mass Index (BMI) 19.5 Intake and Output for Last 24 Hours 11/06/18 11/07/18 11/08/18 23:59 23:59 23:59 Intake Total 1382 / 1782 640 / 640 1770 / 1770 Output Total 1805 / 2105 950 / 950 2125 / 2125 Balance -423 / -323 -310 / -310 -355 / -355 Discharge Activity: - - always use your cane or a walker to ambulate. Call your doctor if you observe: Fever of 101 or Higher, Inability to urinate, Inability to have a bowel movement, Shortness of breath, Dizziness, Fainting spells, Swelling in the ankles, Chest pain, Uncontrolled pain Home Medications: Medications to take at Discharge atenolol 50 mg tablet 50 mg PO QDAY 07/30/17 hydroxychloroquine 200 mg tablet 200 mg PO BID tab 07/30/17 ramipril 2.5 mg capsule 2.5 mg PO DAILY 07/30/17 allopurinol 300 mg tablet 300 mg PO QDAY 08/01/17 Ropinirole HCl [Ropinirole ER] 2.5 mg PO QHS PRN 05/04/18 Acetaminophen [Acetaminophen Extra Strength] 500 mg PO Q6H PRN PRN 10/17/18 Lipase/Protease/Amylase [Creon Dr 36,000 Units Capsule] 2 cap PO TIDCM 10/17/18 Magnesium Oxide [Magnesium] 1 tab PO BID 10/17/18 Ondansetron [Ondansetron Odt] 8 mg PO 0600,1400,2200 10/17/18 Chlorpromazine HCl 25 - 50 mg PO 4X/DAY PRN PRN #1 tab 10/20/18 Ensure Enlive 120 ml PO 4X/DAY 10/20/18 Apixaban [Eliquis] 5 mg PO BID #60 tab 10/30/18 Atorvastatin Calcium [Lipitor] 10 mg PO QHS #30 tab 10/30/18 Iron Polysaccharide Complex [Ferrex 150] 150 mg PO DAILYCM #30 cap 10/30/18 Menthol/Lanolin/Calamine/Znox [Calmoseptine Ointment] 1 applic TOPICAL 0600,2200 tube 10/30/18 Nystatin Powder [Mycostatin Powder] 1 applic TOPICAL 0600,2200 bottle 10/30/18 Oxycodone [Oxyir] 5 mg PO 0600,1400,2200 7 Days #21 tab 10/30/18 Polyethylene Glycol 3350 [Miralax] 17 gm PO DAILY packet 10/30/18 Multivitamins,Therapeutic [Multivitamin] 1 tab PO DAILYCM tab 11/08/18 Prednisone 10 mg PO BID #60 tab 11/08/18 Following Prescrptions Were Given to Patient: Prednisone 10 mg PO BID #60 tab Prescription Printed Primary Care Physician: Jet Mccollum MD [Primary Care Provider] - Please follow up with your Primary Care Physician in: 5-7 days Disposition: Home Minutes spent on discharge:: 35 Patient Condition:: Good Medical Necessity - Tobacco Use Smoking Status: Former smoker Tobacco Use: Non-smoker Meaningful Use Info Meaningful Use Diagnoses (Choose all that apply): None applicable Code Visit Inpatient E&M: 30482 Disch Hosp
[2018-11-08] MEDS: 0.9% NaCl Peripheral Flush Adult/Peds IV (18:25)
== END 2018-11-08 18:34 | disposition home health service (06) ==
LOC: ED 21:24 → MS3 11-03 01:19
PROVIDERS: Internal Medicine; Admitting Provider Family Medicine; Emergency Provider Emergency Medicine; Family Provider Family Medicine; PCP Family Medicine; Visit Provider Internal Medicine
DX: R53.1 Weakness (principal); E43 Unspecified severe protein-calorie malnutrition; Z68.1 Body mass index [BMI] 19.9 or less, adult; C25.9 Malignant neoplasm of pancreas, unspecified; M06.9 Rheumatoid arthritis, unspecified; I25.2 Old myocardial infarction; E78.5 Hyperlipidemia, unspecified; I10 Essential (primary) hypertension; I25.10 Atherosclerotic heart disease of native coronary artery without angina pectoris; M10.9 Gout, unspecified; G25.81 Restless legs syndrome; D61.818 Other pancytopenia; D68.32 Hemorrhagic disorder due to extrinsic circulating anticoagulants; T45.515A Adverse effect of anticoagulants, initial encounter; Z79.899 Other long term (current) drug therapy; Z79.52 Long term (current) use of systemic steroids; Z86.711 Personal history of pulmonary embolism; Z79.01 Long term (current) use of anticoagulants; Z95.1 Presence of aortocoronary bypass graft; Z92.21 Personal history of antineoplastic chemotherapy; Z87.01 Personal history of pneumonia (recurrent); Z87.891 Personal history of nicotine dependence; I87.2 Venous insufficiency (chronic) (peripheral)
CPT/HCPCS: 36591; 70450; 80048; 80053; 80069; 81001; 82140; 82607; 82746; 84484; 85025; 93005; 96361; 96374; 97110; 97162; 97166; 97530; 97802; 99218; 99285; J7030; A4216; G0378

== ENCOUNTER → 2018-11-13 | Outpatient (CLI) | payer MEDICARE, SELFPAY ==
[2018-11-03 02:09] VITALS: BMI 19.5
[2018-11-13 10:33] LABS: Absolute Lymphocyte Count 2.32 X10^3/uL (0.83-4.51); Absolute Neutrophil Count 11.5 X10^3/uL (2.0-7.7); Basophil# 0.03 X10^3/uL; Basophil% 0.2 % (0-1); Eosinophil# 0.06 X10^3/uL; Eosinophils% 0.4 % (0-5); Hematocrit 37.4 % (40-54); Hemoglobin 11.8 g/dL (13.0-16.5); Lymphocyte # 2.32 X10^3/ul (4.0); Lymphocyte % 14.9 % (19-41); Mean Corp Hgb Conc 31.6 g/dL (32-36); Mean Corpuscular Volume 98.2 fL (80-94); Monocyte# 1.48 X10^3/uL; Monocyte% 9.5 % (0-10); NRBC Flagged by Analyzer 0 % (0-5); Neutrophil # 11.49 X10^3/uL (2.7-7.7); Neutrophil % 73.6 % (47-70); Platelet Count 314 K/mm3 (150-450); RBC Distribution Width CV 17.4 % (11.6-14.6); RBC Distribution Width SD 63.2 fl (35.1-43.9); Red Blood Count 3.81 M/mm3 (4.6-6.2); White Blood Count 15.6 K/mm3 (4.4-11.0)
[2018-11-13 11:20] LABS: ALB/GLOB Ratio 0.9 RATIO (0.9-2.4); AST(SGOT) 30 U/L (15-37); Alanine Aminotransfer ALT/SGPT 69 U/L (16-61); Albumin, Serum 2.9 g/dL (3.2-5.0); Alkaline Phosphatase 157 U/L (45-117); Anion Gap 10 (5-15); BUN 12 mg/dL (7-18); BUN/Creat Ratio 16.3 RATIO (10-20); Calcium,Total 8.5 mg/dL (8.5-10.1); Chloride 105 mmol/L (98-107); Creatinine, Serum 0.74 mg/dL (0.70-1.30); EST Glomerular Filtration Rate 110 mL/min (>60); Est Glom Filt Rate - Afr Amer 134 mL/min (>60); Globulin 3.2 g/dL (2.2-4.2); Glucose 77 mg/dL (74-106); Potassium 3.6 mmol/L (3.5-5.1); Protein, Total 6.1 g/dL (6.4-8.2); Sodium Level 141 mmol/L (136-145); Uric Acid 3.8 mg/dL (3.5-7.2)
== END | disposition home or self-care (01) ==
LOC: MTLAB 09:18
PROVIDERS: Family Provider Family Medicine; PCP Family Medicine; Referring Provider Internal Medicine Rheumatology; Visit Provider Internal Medicine Rheumatology
DX: M06.4 Inflammatory polyarthropathy (principal); M16.0 Bilateral primary osteoarthritis of hip; M17.0 Bilateral primary osteoarthritis of knee; I25.10 Atherosclerotic heart disease of native coronary artery without angina pectoris; I10 Essential (primary) hypertension; E78.5 Hyperlipidemia, unspecified; Z95.1 Presence of aortocoronary bypass graft
CPT/HCPCS: 36415; 80053; 84550; 85025

== ENCOUNTER 2018-12-13 15:04 | Outpatient (RCR) | payer MEDICARE, SELFPAY ==
[2018-11-03 02:09] VITALS: BMI 19.5
== END 2018-12-13 15:04 | disposition home or self-care (01) ==
LOC: PT 15:04
PROVIDERS: Family Provider Family Medicine; PCP Family Medicine; Referring Provider Family Medicine Geriatric Medicine; Visit Provider Family Medicine Geriatric Medicine
DX: R69 Illness, unspecified (principal)

== ENCOUNTER 2019-01-11 23:45 | Emergency (ER) | payer MEDICARE, SELFPAY ==
[2018-11-03 02:09] VITALS: BMI 19.5
[2019-01-11 23:46] VITALS: BP 175/94; PULSE 70; RESP 16; TEMP 35.6; O2SAT 96; BMI 22.5
--- NOTE | 2019-01-12 00:01 | ED.RN ---
PT EXHIBITING A LOT OF PAIN. RN INFORMED DR ZAMORA. RN WILL CONTINUE TO MONITOR.
--- NOTE | 2019-01-12 00:06 | CT_ITS ---
STUDY: CT ABDOMEN AND PELVIS WITH CONTRAST REASON FOR EXAM: Male, 73 years old. RADIATION DOSAGE (If Supplied By Facility): CTDIvol = ( 13.25 ) mGy, DLP = ( 532.25 ) mGycm TECHNIQUE: Transaxial images were obtained from the dome of the diaphragm to the symphysis pubis without oral contrast. IV 100mL Isovue-300 100ML was administered. Sagittal and coronal images were reconstructed. Individualized dose optimization techniques were used for this CT. COMPARISON: None. FINDINGS: The visualized lung bases are unremarkable. The visualized portions of the heart are within normal limits. Normal liver. There are surgical clips in the gallbladder fossa consistent with a prior cholecystectomy. Air is seen in the common bile duct and intrahepatic biliary tree and pancreatic duct. There is a stent in the pancreatic duct. Normal spleen. Normal pancreas. Normal bilateral adrenal glands. Normal right kidney. Normal left kidney. There is thickening of the mendoza of the stomach and gastrojejunal anastomosis suggesting inflammatory changes may be due to ulcer. Normal small intestine. Normal colon. There is non-visualization of the appendix. There is diffuse atherosclerotic calcification of the abdominal aorta, without a demonstrated aneurysm. Normal inferior vena cava. Normal retroperitoneum. Normal urinary bladder. Normal abdominal wall. Normal osseous structures. CT/Abdomen/Pelvis W IV Cont ONLY IMPRESSION: There is thickening of the mendoza of the stomach and gastrojejunal anastomosis suggesting inflammatory changes may be due to gastric or jejunal ulcer. Electronically Signed: Caroline Costello, at 1:25 EDT Tel , Service support ,
--- NOTE | 2019-01-12 00:06 | EKG12_ITS ---
Test Reason : Blood Pressure : / mmHG Vent. Rate : 081 BPM Atrial Rate : 081 BPM P-R Int : 150 ms QRS Dur : 086 ms QT Int : 408 ms P-R-T Axes : 050 -32 074 degrees QTc Int : 473 ms Sinus rhythm with occasional Premature ventricular complexes Possible Left atrial enlargement Left axis deviation Left ventricular hypertrophy Nonspecific ST and T wave abnormality Abnormal ECG Confirmed by KALPANA WILSON ([id number]), technical editor HILLARY JAUREGUI ([id number]) on 01/15/2019 12:18:29 PM Referred By: GINA Confirmed By:KALPANA WILSON
--- NOTE | 2019-01-12 00:07 | ED.VIS.GEN ---
History of Present Illness Chief Complaint: Abd Pain Narrative: Patient is a 73-year-old male who presents with abdominal pain. He has a history of coronary disease, prior CABG, pancreatic cancer, Whipple procedure. He has had a cholecystectomy. He had had some twinges of abdominal pain earlier in the day and family reports that he has had some mild abdominal pain intermittently over the last couple of days. However 1 hour ago he developed sudden onset severe sharp mid and lower abdominal pain. He denies any nausea vomiting or diarrhea. He did have a bowel movement earlier today. He has never had symptoms like this before. He is on Eliquis due to history of pulmonary embolism. No history of any bowel obstructions. Past Medical History - Allergies and Home Meds Allergies/Adverse Reactions: Allergies No Known Allergies Allergy (Verified 11/02/18 20:36) Primary Care Physician: Jet Mccollum MD [Primary Care Provider] - Past Medical History: - - Pancreatic cancer, hypertension, hyperlipidemia, coronary artery disease Surgical History: coronary bypass surgery - x 4., total hip arthroplasty - Right., - - Whipple procedure, Mediport insertion, lumbar spinal fusion Smoking Status: Former smoker - Family History Maternal Family History: Family History (Last Reviewed 03/27/18 @ 14:06 by Blanca Hernandez) Father CAD (coronary artery disease) CVA (cerebral vascular accident) Myocardial infarction Brother CAD (coronary artery disease) Myocardial infarction, Onset Age: 66 Family History: Reports: Dementia Paternal Family History: Family History (Last Reviewed 03/27/18 @ 14:06 by Blanca Hernandez) Father CAD (coronary artery disease) CVA (cerebral vascular accident) Myocardial infarction Brother CAD (coronary artery disease) Myocardial infarction, Onset Age: 66 Family History: Reports: Heart Disease, Stroke Review of Systems All systems negative except as indicated General: Denies: Fever Cardiovascular: Denies: Chest pain Respiratory: Denies: Dyspnea Gastrointestinal: Reports: Abdominal pain. Denies: Nausea, Vomiting, Diarrhea Physical Exam Vital Signs/Narrative: Vital Signs Temp Pulse Resp BP Pulse Ox 01/11/19 23:46 96.1 F L 70 16 175/94 H 96 Inital Vital Signs reviewed: Yes General: Acute Distress Head: Normocephalic, Atraumatic Eyes: EOMI ENT: Moist mucous membranes Neck: Supple Cardiovascular: - - Heart is regular rate and rhythm Respiratory: No distress, CTA bilaterally Abdomen: - - Abdomen rigid, guarding, diffuse tenderness on palpation, nondistended Skin: Normal color Neurological: Alert Psychological: Normal affect Diagnostic/Tx/Re-eval Impressions Abdomen/Pelvis CT 01/12/19 00:06 IMPRESSION: There is thickening of the mendoza of the stomach and gastrojejunal anastomosis suggesting inflammatory changes may be due to gastric or jejunal ulcer. Electronically Signed: Caroline Costello, at 1:25 EDT Tel , Service support , 01/12/19 00:06 Abdomen/Pelvis W IV Cont ONLY [CT] Stat Laboratory Results 01/11/19 01/11/19 01/12/19 23:55 23:55 00:55 WBC 9.4 RBC 3.94 L Hgb 11.9 L Hct 36.7 L MCV 93.1 MCH 30.2 MCHC 32.4 RDW Std Deviation 53.3 H RDW Coeff of Loi 15.6 H Plt Count 256 MPV 9.9 Immature Gran % (Auto) 0.700 Neut % (Auto) 66.8 Lymph % (Auto) 24.2 Frontier % (Auto) 7.8 Eos % (Auto) 0.3 Baso % (Auto) 0.2 Absolute Neuts (auto) 6.3 Absolute Lymphs (auto) 2.28 Nucleated RBC % 0 Sodium 142 Potassium 3.9 Chloride 109 H Carbon Dioxide 28.0 Anion Gap 5 BUN 14 Creatinine 0.91 Estim Creat Clear Calc 67.79 Est GFR (MDRD) Af Amer 104 Est GFR (MDRD) Non-Af 86 BUN/Creatinine Ratio 15.4 Glucose 92 Lactic Acid 1.2 Calcium 8.7 Total Bilirubin 0.30 AST 31 ALT 38 Alkaline Phosphatase 111 Total Protein 6.3 L Albumin 3.2 Globulin 3.1 Albumin/Globulin Ratio 1.0 Lipase 40 L - Medical Decision Making Patient was treated with IV Dilaudid and Zofran. On reevaluation he appears much more comfortable and rates his pain as 3-4 out of 10. However on examination he still has significant guarding. His laboratory studies as above are unremarkable. CT imaging did show some inflammatory changes but no obvious acute surgical pathology. Given the patient's history I do feel he should be transferred to [facility]. I initially spoke to the medicine quarterback however I did vocalize that given his physical exam findings I would like to speak to general surgery as well. I spoke to surgery who can see the patient in consultation and then spoke to oncology who accepted the patient. ED Disposition - Plan for ED Patient: Disposition: [facility] - Main Diagnosis: Abdominal pain Referrals: Jet Mccollum MD [Primary Care Provider] -
[2019-01-12] MEDS: Ondansetron 4 MG/2 ML Vial IV ×2 (00:11→04:03)
[2019-01-12] MEDS: HYDROmorphone 1 MG/ML Syringe IV ×2 (00:11→03:57)
[2019-01-12 00:28] LABS: Absolute Lymphocyte Count 2.28 X10^3/uL (0.83-4.51); Absolute Neutrophil Count 6.3 X10^3/uL (2.0-7.7); Basophil# 0.02 X10^3/uL; Basophil% 0.2 % (0-1); Eosinophil# 0.03 X10^3/uL; Eosinophils% 0.3 % (0-5); Hematocrit 36.7 % (40-54); Hemoglobin 11.9 g/dL (13.0-16.5); Lymphocyte # 2.28 X10^3/ul (4.0); Lymphocyte % 24.2 % (19-41); Mean Corp Hgb Conc 32.4 g/dL (32-36); Mean Corpuscular Hgb 30.2 pg (27.0-32.0); Mean Corpuscular Volume 93.1 fL (80-94); Mean Platelet Vol. 9.9 fl (6.2-12.0); Monocyte# 0.74 X10^3/uL; Monocyte% 7.8 % (0-10); NRBC Flagged by Analyzer 0 % (0-5); Neutrophil % 66.8 % (47-70); Platelet Count 256 K/mm3 (150-450); RBC Distribution Width CV 15.6 % (11.6-14.6); RBC Distribution Width SD 53.3 fl (35.1-43.9); Red Blood Count 3.94 M/mm3 (4.6-6.2); White Blood Count 9.4 K/mm3 (4.4-11.0)
[2019-01-12 00:41] LABS: AST(SGOT) 31 U/L (15-37); Alanine Aminotransfer ALT/SGPT 38 U/L (16-61); Albumin, Serum 3.2 g/dL (3.2-5.0); Alkaline Phosphatase 111 U/L (45-117); Anion Gap 5 (5-15); BUN 14 mg/dL (7-18); BUN/Creat Ratio 15.4 RATIO (10-20); Calcium,Total 8.7 mg/dL (8.5-10.1); Chloride 109 mmol/L (98-107); Creatinine, Serum 0.91 mg/dL (0.70-1.30); EST Glomerular Filtration Rate 86 mL/min (>60); Est Glom Filt Rate - Afr Amer 104 mL/min (>60); Estimated Creatinine Clearance 67.79 ml/min; Globulin 3.1 g/dL (2.2-4.2); Glucose 92 mg/dL (74-106); Lipase 40 U/L (73-393); Potassium 3.9 mmol/L (3.5-5.1); Protein, Total 6.3 g/dL (6.4-8.2); Sodium Level 142 mmol/L (136-145)
[2019-01-12 01:32] LABS: Lactic Acid 1.2 mmol/L (0.4-2.0)
--- NOTE | 2019-01-12 01:49 | ED.RN ---
[facility] TRANSFER LINE REQUESTING FAX WITH [employer]. THEN WILL CALL BACK WITH PHYSICIAN
[2019-01-12 01:51] VITALS: BP 150/88; PULSE 79; RESP 15; O2SAT 93
[2019-01-12 03:00] VITALS: BP 152/94; PULSE 87; RESP 22; O2SAT 91
[2019-01-12 04:07] VITALS: BP 168/94; PULSE 86; RESP 22; O2SAT 93
== END 2019-01-12 04:08 | disposition short-term general hospital (02) ==
PROVIDERS: Emergency Provider Emergency Medicine; Family Provider Family Medicine; PCP Family Medicine
DX: R10.30 Lower abdominal pain, unspecified (principal); I25.10 Atherosclerotic heart disease of native coronary artery without angina pectoris; E78.5 Hyperlipidemia, unspecified; I10 Essential (primary) hypertension; Z85.07 Personal history of malignant neoplasm of pancreas; Z86.711 Personal history of pulmonary embolism; Z95.1 Presence of aortocoronary bypass graft; Z90.49 Acquired absence of other specified parts of digestive tract; Z79.01 Long term (current) use of anticoagulants; Z79.899 Other long term (current) drug therapy; Z87.891 Personal history of nicotine dependence
CPT/HCPCS: 36591; 74177; 80053; 83605; 83690; 85025; 93005; 96374; 96375; 96376; 99285; Q9967; A4216; J2405

== ENCOUNTER 2019-04-29 09:50 | Emergency (ER) | payer MEDICARE, SELFPAY ==
[2019-04-29 09:51] VITALS: BP 149/76; PULSE 59; RESP 16; TEMP 36.4; O2SAT 94; BMI 23.5
--- NOTE | 2019-04-29 10:00 | EKG12_ITS ---
Test Reason : 73 Blood Pressure : / mmHG Vent. Rate : 061 BPM Atrial Rate : 061 BPM P-R Int : 154 ms QRS Dur : 096 ms QT Int : 444 ms P-R-T Axes : 027 -32 070 degrees QTc Int : 446 ms Poor data quality, interpretation may be adversely affected Normal sinus rhythm Left axis deviation Incomplete right bundle branch block Abnormal ECG Confirmed by JAVI MATHUR, CAESAR ([id number]), medical editor HILLARY JAUREGUI ([id number]) on 05/01/2019 11:26:26 AM Referred By: AMAN Confirmed By:CAESAR CALDWELL MD
[2019-04-29 10:18] LABS: Absolute Lymphocyte Count 1.94 X10^3/uL (0.83-4.51); Absolute Neutrophil Count 7.1 X10^3/uL (2.0-7.7); Basophil# 0.04 X10^3/uL; Basophil% 0.4 % (0-1); Eosinophil# 0.15 X10^3/uL; Eosinophils% 1.5 % (0-5); Hematocrit 38.4 % (40-54); Lymphocyte # 1.94 X10^3/ul (4.0); Lymphocyte % 19.1 % (19-41); Mean Corp Hgb Conc 31.3 g/dL (32-36); Mean Corpuscular Hgb 27.6 pg (27.0-32.0); Mean Corpuscular Volume 88.5 fL (80-94); Mean Platelet Vol. 10.4 fl (6.2-12.0); Monocyte# 0.91 X10^3/uL; NRBC Flagged by Analyzer 0 % (0-5); Neutrophil # 7.05 X10^3/uL (2.7-7.7); Neutrophil % 69.3 % (47-70); Platelet Count 253 K/mm3 (150-450); RBC Distribution Width CV 15.1 % (11.6-14.6); RBC Distribution Width SD 48.1 fl (35.1-43.9); Red Blood Count 4.34 M/mm3 (4.6-6.2); White Blood Count 10.2 K/mm3 (4.4-11.0)
--- NOTE | 2019-04-29 10:20 | RAD_ITS ---
STUDY: X-RAY CHEST REASON FOR EXAM: Male, 73 years old. SYNCOPE TECHNIQUE: PA and lateral views of the chest. COMPARISON: November 01, 2018 FINDINGS: There is a right side Port-A-Cath tip is in the vena cava. There is improved aeration of the left lower lobe compared to prior study. There is a suggestion of persistent scarring in the lingula. There is no demonstrated pleural abnormality. Sternal cerclage wires are present from a prior sternotomy. Normal mediastinum and roz. Normal visualized pulmonary arteries. There is atherosclerotic calcification of the aortic arch with tortuosity. Normal visualized thoracic spine. Normal visualized ribs, clavicles, and shoulders. There is no demonstrated abnormality of the visualized soft tissue structures of the upper abdomen. RAD/Chest PA and Lateral IMPRESSION: Status post sternotomy. Port-A-Cath. No visualized acute focal infiltrate. Electronically Signed: Eleanor Guerra MD at 10:46 EST Tel , Service support ,
[2019-04-29 10:35] LABS: Anion Gap 7 (5-15); BUN 20 mg/dL (7-18); BUN/Creat Ratio 17.5 RATIO (10-20); Calcium,Total 8.8 mg/dL (8.5-10.1); Chloride 107 mmol/L (98-107); Creatinine, Serum 1.14 mg/dL (0.70-1.30); EST Glomerular Filtration Rate 67 mL/min (>60); Est Glom Filt Rate - Afr Amer 81 mL/min (>60); Estimated Creatinine Clearance 53.15 ml/min; Glucose 122 mg/dL (74-106); Sodium Level 141 mmol/L (136-145)
--- NOTE | 2019-04-29 11:10 | ED.VIS.GEN ---
History of Present Illness <Gibson Weller - Last Filed: 04/29/19 11:10> Informant: Patient, Family Onset: Today Context: Sudden Onset Timing: Continuous Quality: near syncope Location: lightheaded, head Current Severity: Mild Maximum Severity: Severe Worsened by: standing Relieved by: rest Associated Symptoms: lightheadedness Narrative: 73-year-old male who presents to the emergency department today after having a near syncopal episode at [facility]. Patient has a history of pancreatic cancer with a Whipple procedure remotely and he states that he was standing up from a seated position and got lightheaded felt hot and sweaty diaphoretic and had to sit back down he did not actually lose consciousness fall to the ground or suffer injury. He now presents for evaluation. He feels improved at this time. No chest pain or shortness of breath. He is not currently lightheaded or dizzy. No headache visual changes numbness tingling weakness vomiting diarrhea denies any recent symptoms of bleeding fevers or upper respiratory symptoms. Prior similar symptoms: Yes Recent Illness/Hospitalization: No <Bobby Gray - Last Filed: 04/29/19 11:16> Chief Complaint: Syncope Past Medical History Surgical History: coronary bypass surgery - x 4., total hip arthroplasty - Right., - - Whipple procedure, Mediport insertion, lumbar spinal fusion Smoking Status: Former smoker - Family History Maternal Family History: Family History (Last Reviewed 03/27/18 @ 14:06 by Blanca Hernandez) Father CAD (coronary artery disease) CVA (cerebral vascular accident) Myocardial infarction Brother CAD (coronary artery disease) Myocardial infarction, Onset Age: 66 Family History: Reports: Dementia Paternal Family History: Family History (Last Reviewed 03/27/18 @ 14:06 by Blanca Hernandez) Father CAD (coronary artery disease) CVA (cerebral vascular accident) Myocardial infarction Brother CAD (coronary artery disease) Myocardial infarction, Onset Age: 66 Family History: Reports: Heart Disease, Stroke <Gibson Weller - Last Filed: 04/29/19 11:10> Prior records reviewed: Yes Past Medical History: - - CAD And pancreatic cancer Lives: With Family - Family History Maternal Family History: Family History (Last Reviewed 03/27/18 @ 14:06 by Blanca Hernandez) Father CAD (coronary artery disease) CVA (cerebral vascular accident) Myocardial infarction Brother CAD (coronary artery disease) Myocardial infarction, Onset Age: 66 Paternal Family History: Family History (Last Reviewed 03/27/18 @ 14:06 by Blanca Hernandez) Father CAD (coronary artery disease) CVA (cerebral vascular accident) Myocardial infarction Brother CAD (coronary artery disease) Myocardial infarction, Onset Age: 66 <Bobby Gray - Last Filed: 04/29/19 11:16> - Allergies and Home Meds Allergies/Adverse Reactions: Allergies No Known Allergies Allergy (Verified 04/29/19 09:53) Primary Care Physician: Jet Mccollum MD [Primary Care Provider] - Review of Systems All systems negative except as indicated General: Denies: Chills, Fever Eyes: Denies: Visual changes - bilaterally, Blurred Vision - bilaterally ENT: Denies: Rhinorrhea, Sore throat Cardiovascular: Denies: Chest pain, Palpitations, Heart racing Respiratory: Denies: Dyspnea, Cough, Sputum, Dyspnea on exertion, Orthopnea Gastrointestinal: Denies: Abdominal pain, Nausea, Vomiting, Diarrhea, Melena, Hematochezia Genitourinary: Denies: Dysuria, Hematuria, Frequency Musculoskeletal: Denies: Neck pain, Back pain, Swelling, Extremity Pain Skin: Denies: Rash, Abscess, Abrasions, Wounds Neurological: Denies: Headache, Weakness <Bobby Gray - Last Filed: 04/29/19 11:16> Physical Exam Vital Signs/Narrative: Vital Signs Temp Pulse Resp BP Pulse Ox 04/29/19 09:51 97.5 F L 59 L 16 149/76 H 94 <Gibson Weller - Last Filed: 04/29/19 11:10> Vital Signs/Narrative: Vital Signs Temp Pulse Resp BP Pulse Ox 04/29/19 09:51 97.5 F L 59 L 16 149/76 H 94 Inital Vital Signs reviewed: Yes General: Well nourished, Well developed, No Acute Distress Head: Normocephalic, Atraumatic Eyes: Perrl, EOMI ENT: Moist mucous membranes Neck: Supple, Nontender Cardiovascular: Regular rate, Regular rhythm Respiratory: No distress, CTA bilaterally, Chest nontender Abdomen: Soft, Nontender, Nondistended, Normal bowel sounds, No masses Back: Nontender, Normal Inspection Skin: Normal color, No rash, No Trauma Neurological: Alert, Oriented x3, Cranial nerves II-XII grossly intact, Normal Strength, Normal Sensation, Normal Gait Psychological: Normal affect <Bobby Gray - Last Filed: 04/29/19 11:16> Diagnostic/Tx/Re-eval - Medical Decision Making Patient was seen with [facility] and agree with history physical exam as above Ported feeling weak or presyncopal at [facility] having no symptoms now patient is awake and alert active head neck chest abdomen remarkable moving all 4 Evaluation screening is generally unremarkable see those results we discussed with the patient and family inpatient his outpatient management he states he feels fine he wants to go home he does have his follow-up appointments with his clinically providers he will keep them and return for change in symptoms and assures us he is back to baseline with no complaints <Gibson Weller - Last Filed: 04/29/19 11:10> Chest X-Ray - ED: 2 View, Read by ED Physician, Read by Radiologist, No Acute Disease - Rhythm Strip Rhythm Strip: Sinus Rhythm Rate: 60 Ectopy: None - EKG Initial EKG Interpretation: Sinus Rhythm, No Acute Injury Pattern Prior: Unchanged <Bobby Gray - Last Filed: 04/29/19 11:16> ED Disposition <Gibson Weller - Last Filed: 04/29/19 11:10> <Bobby Gray - Last Filed: 04/29/19 11:16> - Plan for ED Patient: Disposition: Home or Assisted Living Diagnosis: Vasovagal near syncope Instructions: NEAR SYNCOPE, Vasovagal Referrals: Jet Mccollum MD [Primary Care Provider] -
== END 2019-04-29 12:17 | disposition home or self-care (01) ==
PROVIDERS: Emergency Provider Physician Assistant Medical; PCP Family Medicine
DX: R55 Syncope and collapse (principal); I25.10 Atherosclerotic heart disease of native coronary artery without angina pectoris; Z85.07 Personal history of malignant neoplasm of pancreas; Z95.1 Presence of aortocoronary bypass graft; Z79.01 Long term (current) use of anticoagulants; Z79.899 Other long term (current) drug therapy; Z87.891 Personal history of nicotine dependence
CPT/HCPCS: 71046; 80048; 84484; 85025; 93005; 96360; 99285; J7030

== ENCOUNTER → 2019-05-18 11:16 | Outpatient (CLI) | payer MEDICARE, SELFPAY ==
[2019-04-29 09:51] VITALS: BMI 23.5
[2019-05-18 12:28] LABS: Absolute Lymphocyte Count 1.61 X10^3/uL (0.83-4.51); Absolute Neutrophil Count 8.8 X10^3/uL (2.0-7.7); Basophil# 0.05 X10^3/uL; Basophil% 0.4 % (0-1); Eosinophil# 0.05 X10^3/uL; Eosinophils% 0.4 % (0-5); Hematocrit 36.2 % (40-54); Hemoglobin 11.2 g/dL (13.0-16.5); Lymphocyte # 1.61 X10^3/ul (4.0); Lymphocyte % 13.7 % (19-41); Mean Corp Hgb Conc 30.9 g/dL (32-36); Mean Corpuscular Hgb 27.5 pg (27.0-32.0); Mean Corpuscular Volume 88.7 fL (80-94); Mean Platelet Vol. 10.9 fl (6.2-12.0); Monocyte# 1.28 X10^3/uL; Monocyte% 10.9 % (0-10); NRBC Flagged by Analyzer 0 % (0-5); Neutrophil # 8.76 X10^3/uL (2.7-7.7); Neutrophil % 74.3 % (47-70); Platelet Count 276 K/mm3 (150-450); RBC Distribution Width CV 15.9 % (11.6-14.6); RBC Distribution Width SD 51.8 fl (35.1-43.9); Red Blood Count 4.08 M/mm3 (4.6-6.2); White Blood Count 11.8 K/mm3 (4.4-11.0)
[2019-05-18 13:04] LABS: ALB/GLOB Ratio 1.1 RATIO (0.9-2.4); AST(SGOT) 92 U/L (15-37); Alanine Aminotransfer ALT/SGPT 104 U/L (16-61); Albumin, Serum 3.4 g/dL (3.2-5.0); Alkaline Phosphatase 212 U/L (45-117); Anion Gap 4 (5-15); BUN 15 mg/dL (7-18); BUN/Creat Ratio 15.6 RATIO (10-20); Calcium,Total 8.9 mg/dL (8.5-10.1); Chloride 110 mmol/L (98-107); Creatinine, Serum 0.96 mg/dL (0.70-1.30); EST Glomerular Filtration Rate 81 mL/min (>60); Est Glom Filt Rate - Afr Amer 98 mL/min (>60); Globulin 3.1 g/dL (2.2-4.2); Glucose 76 mg/dL (74-106); Potassium 3.9 mmol/L (3.5-5.1); Protein, Total 6.5 g/dL (6.4-8.2); Sodium Level 143 mmol/L (136-145)
== END ==
PROVIDERS: PCP Family Medicine; Referring Provider Internal Medicine Rheumatology; Visit Provider Internal Medicine Rheumatology
DX: M06.4 Inflammatory polyarthropathy (principal); M16.0 Bilateral primary osteoarthritis of hip; M17.0 Bilateral primary osteoarthritis of knee; I25.10 Atherosclerotic heart disease of native coronary artery without angina pectoris; I10 Essential (primary) hypertension; E78.5 Hyperlipidemia, unspecified; C25.9 Malignant neoplasm of pancreas, unspecified; Z95.1 Presence of aortocoronary bypass graft
CPT/HCPCS: 36415; 80053; 85025

== ENCOUNTER → 2019-08-04 08:08 | Outpatient (CLI) | payer MEDICARE, SELFPAY ==
[2019-08-04 08:51] LABS: Hemoglobin A1c 8.6 % (4.2-6.3)
[2019-08-07 05:59] LABS: C-Peptide 5.3 ng/mL (1.1-4.4)
== END ==
PROVIDERS: PCP Family Medicine; Referring Provider Family Medicine; Visit Provider Family Medicine
DX: R73.9 Hyperglycemia, unspecified (principal); C25.0 Malignant neoplasm of head of pancreas
CPT/HCPCS: 36415; 83036; 84681

== ENCOUNTER 2019-08-07 10:26 | Observation (INO) | payer MEDICARE, SELFPAY ==
[2019-08-07] VITALS (13 sets, daily range): BP systolic 136–180; BP diastolic 71–97; PULSE 59–74; RESP 14–18; TEMP 36.5–36.9; O2SAT 94–99; BMI 23.5; BMI 24.3; BMI 70.3
--- NOTE | 2019-08-07 10:50 | CT_ITS ---
STUDY: CT BRAIN WITHOUT CONTRAST REASON FOR EXAM: Male, 74 years old. INCREASED WEAKNESS, SLURRED SPEECH, EYE BLURRINESS RADIATION DOSAGE (If Supplied By Facility): CTDIvol = ( 44.99 ) mGy, DLP = ( 779.24 ) mGycm TECHNIQUE: Transaxial CT imaging of the brain was performed without administration of intravenous contrast material. Individualized dose optimization techniques were used for this CT. COMPARISON: Comparison is made with prior study dated November 02, 2018. FINDINGS: Normal soft tissue structures. Normal calvarium. There is mild cerebral atrophy with widening of the extra-axial spaces and ventricular dilatation. There are areas of decreased attenuation within the white matter tracts of the supratentorial brain, consistent with microvascular disease changes. There are small punctate calcifications of the basal ganglia which are seen in the aging brain as a normal variant. Normal brainstem. Normal cerebellum. There is no intracranial hemorrhage. There are no findings of an acute ischemic infarction. Atherosclerotic calcification of the cavernous portions of the internal carotid arteries bilaterally. Normal visualized paranasal sinuses. CT/Brain/Head without Contrast IMPRESSION: Chronic involutional changes of the brain. Electronically Signed: Radames Tanner, at 13:16 EDT , Service support ,
--- NOTE | 2019-08-07 10:50 | EKG12_ITS ---
Test Reason : Blood Pressure : / mmHG Vent. Rate : 060 BPM Atrial Rate : 060 BPM P-R Int : 132 ms QRS Dur : 094 ms QT Int : 424 ms P-R-T Axes : 014 -35 153 degrees QTc Int : 424 ms Normal sinus rhythm Left axis deviation Left ventricular hypertrophy with repolarization abnormality Abnormal ECG Confirmed by KALPANA WILSON ([id number]), editor sound PARKER ARSHAD ([id number] on 08/13/2019 2:48:40 PM Referred By: ANEUDY Confirmed By:KALPANA WILSON
--- NOTE | 2019-08-07 11:02 | ED.DCSUM_ITS ---
History of Present Illness Chief Complaint: Weakness Narrative: Presents with 3 weeks of ataxia and 1 week of intermittent slurred speech. He has no confusion he has no focal weakness, he does however endorse generalized arms and leg weakness. No recent fever or chills, no cough or congestion no rash. He is on anticoagulation, he does not have a headache he did not hit his head. Past Medical History - Allergies and Home Meds Allergies/Adverse Reactions: Allergies No Known Allergies Allergy (Verified 08/07/19 10:30) Primary Care Physician: Jet Mccollum MD [Primary Care Provider] - Past Medical History: - - Hypertension hypercholesterolemia, diabetes, coronary artery disease status post bypass surgery Surgical History: coronary bypass surgery - x 4., total hip arthroplasty - Right., - - Whipple procedure, Mediport insertion, lumbar spinal fusion Smoking Status: Former smoker - Family History Maternal Family History: Family History (Last Reviewed 03/27/18 @ 14:06 by Blanca Hernandez) Father CAD (coronary artery disease) CVA (cerebral vascular accident) Myocardial infarction Brother CAD (coronary artery disease) Myocardial infarction, Onset Age: 66 Family History: Reports: Dementia Paternal Family History: Family History (Last Reviewed 03/27/18 @ 14:06 by Blanca Hernandez) Father CAD (coronary artery disease) CVA (cerebral vascular accident) Myocardial infarction Brother CAD (coronary artery disease) Myocardial infarction, Onset Age: 66 Family History: Reports: Heart Disease, Stroke Review of Systems All systems negative except as indicated General: Reports: - - Generalized weakness. Denies: Fever, Weight loss Eyes: Denies: Visual changes - bilaterally Cardiovascular: Denies: Chest pain Respiratory: Denies: Dyspnea, Cough Gastrointestinal: Denies: Abdominal pain, Nausea Musculoskeletal: Denies: Myalgias, Neck pain Skin: Denies: Rash Neurological: Reports: Weakness, - - Ataxia and slurred speech. Denies: Headache Endocrine: Denies: Polyuria, Polydipsia Hematologic: Reports: Easy bruising, Easy bleeding Physical Exam Vital Signs/Narrative: Vital Signs Temp Pulse Resp BP Pulse Ox 08/07/19 10:27 97.8 F 66 18 145/89 H 98 General: Well nourished Eyes: Perrl, EOMI ENT: Dry mucous membranes Cardiovascular: Regular rate, Regular rhythm Abdomen: Soft, Nontender Back: Nontender, Normal Inspection Extremities: Nontender, No edema Skin: Normal color, No rash Neurological: Oriented x3, Cranial nerves II-XII grossly intact, - - He has slight cerebellar abnormality bilaterally, he has a positive Romberg. He has normal strength and sensation no facial droop. Currently he has no dysarthria. Psychological: Normal affect Diagnostic/Tx/Re-eval - Rhythm Strip Rhythm Strip: Sinus Rhythm Rate: 60 Ectopy: None - EKG Initial EKG Interpretation: - - Sinus rhythm with a rate of 60. Normal [place] and QTc intervals. LVH pattern noted. Lateral ST depression and T wave inversion, slightly changed from prior EKG on April 29, 2019. Interpreted by emergency doctor - Medical Decision Making Patient has a normal work-up, however he has slurred speech and ataxia I will admit for stroke work-up. ED Disposition - Plan for ED Patient: Disposition: Acute Care Hospital [facility] Diagnosis: Ataxia, Slurred speech Referrals: Jet Mccollum MD [Primary Care Provider] -
[2019-08-07 11:52] LABS: Absolute Lymphocyte Count 0.32 X10^3/uL (0.83-4.51); Absolute Neutrophil Count 6.5 X10^3/uL (2.0-7.7); Differential Indicated SCAN CRITERIA MET; Hematocrit 36.6 % (40-54); Hemoglobin 11.6 g/dL (13.0-16.5); Lymphocyte # 0.32 X10^3/ul (4.0); Lymphocyte % 4.3 % (19-41); Mean Corp Hgb Conc 31.7 g/dL (32-36); Mean Corpuscular Hgb 27.3 pg (27.0-32.0); Mean Corpuscular Volume 86.1 fL (80-94); Mean Platelet Vol. 11.9 fl (6.2-12.0); Monocyte# 0.35 X10^3/uL; Monocyte% 4.7 % (0-10); NRBC Flagged by Analyzer 0 % (0-5); Neutrophil # 6.52 X10^3/uL (2.7-7.7); Neutrophil % 88.6 % (47-70); POSITIVE DIFFERENTIAL YES; Platelet Count 111 K/mm3 (150-450); RBC Distribution Width CV 16.7 % (11.6-14.6); RBC Distribution Width SD 53.2 fl (35.1-43.9); Red Blood Count 4.25 M/mm3 (4.6-6.2); White Blood Count 7.4 K/mm3 (4.4-11.0)
[2019-08-07 12:01] LABS: Bedside Glucose 336 mg/dL (70-110)
[2019-08-07 12:03] LABS: International Normalized Ratio 1.2; Partial Thromboplast Time 24.2 Seconds (24.1-36.2)
[2019-08-07 12:08] LABS: Anion Gap 5 (5-15); BUN 26 mg/dL (7-18); BUN/Creat Ratio 23.6 RATIO (10-20); Calcium,Total 8.6 mg/dL (8.5-10.1); Chloride 103 mmol/L (98-107); EST Glomerular Filtration Rate 69 mL/min (>60); Est Glom Filt Rate - Afr Amer 84 mL/min (>60); Estimated Creatinine Clearance 54.25 ml/min; Glucose 406 mg/dL (74-106); Potassium 4.8 mmol/L (3.5-5.1); Sodium Level 138 mmol/L (136-145)
--- NOTE | 2019-08-07 12:11 | RAD_ITS ---
STUDY: X-RAY CHEST REASON FOR EXAM: Male, 74 years old. Weakness,hyperglycemia, TECHNIQUE: Single AP portable view of the chest. COMPARISON: Comparison is made with prior study dated April 29, 2019. FINDINGS: A right-sided catarina catheter is in situ. The tip is in the proximal portion of the superior vena cava. EKG electrodes are seen. The lungs are clear and expanded. There is no demonstrated pleural abnormality. Sternal cerclage wires and vascular clips are present from a prior sternotomy and coronary artery bypass graft procedure (CABG). Normal mediastinum and roz. Normal visualized pulmonary arteries. There is atherosclerotic calcification of the aortic arch with tortuosity. Normal visualized thoracic spine. Normal visualized ribs, clavicles, and shoulders. There is no demonstrated abnormality of the visualized soft tissue structures of the upper abdomen. RAD/Chest 1 View IMPRESSION: Stable examination. No acute abnormality is seen. Electronically Signed: Radames Tanner, at 13:15 EDT , Service support ,
--- NOTE | 2019-08-07 13:36 | NURSING ---
PCU TIA OBS PAINTSIL
--- NOTE | 2019-08-07 13:46 | PCM.HP.STD ---
Problem List (1) Ataxia Status: Acute (2) Slurred speech Status: Acute (3) Rheumatoid arthritis Status: Chronic Qualifiers: Rheumatoid arthritis location: unspecified site Rheumatoid factor presence: unspecified presence Qualified Code(s): M06.9 - Rheumatoid arthritis, unspecified (4) Pancreatic cancer Status: Chronic Qualifiers: Pancreatic malignancy location: unspecified Qualified Code(s): C25.9 - Malignant neoplasm of pancreas, unspecified (5) Pancreatic insufficiency Status: Chronic History of Present Illness Date of Admission: 08/07/19 Chief Complaint: Ataxia, slurred speech - ongoing for 1 week The patient is a 74 year old M with PMHx of Pancreatic cancer s/p Whipple cancer, h/o pulmonary embolism, 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 Patient denies any focal weakness. He admits to generalized weakness mostly in both legs. Denied any sick contacts or fever or chills. He recently was on started on prednisone 60 mg daily for 6 weeks with no change in his vision. He was instructed to go down to 40 mg daily for 1 month and then 20 mg daily for another month. Patient however was confused and had been taking reportedly 30 mg prednisone daily. He had a telephone visit with his oncologist and primary care physician and was asked to come to the emergency department. Labs in the ED showed temperature of 90 7.8F, heart rate 66, blood pressure 145/89, respiratory rate was 18, SPO2 was 98% on room air. BC count of 7.4, hemoglobin 11.6, platelet count 111, INR 1.2, BMP was unremarkable except for glucose of 406. Chest CT scan of the brain showed chronic involutional changes. Chest ray was unremarkable Past Medical History Past Medical History (Chronic Problems): Chronic Problems (Last Reviewed 03/27/18 @ 14:06 by Blanca Hernandez) Severe protein-calorie malnutrition (Chronic) Rheumatoid arthritis (Chronic) Pancreatic cancer (Chronic) Pulmonary embolism (Chronic) Gout (Chronic) Restless leg syndrome (Chronic) Pancreatic insufficiency (Chronic) Hypomagnesemia (Chronic) Nausea (Chronic) 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 Perez @ [facility]. Mediastinal exploration for hemorrhage 08/01/2008. History of left heart catheterization (Chronic) 07/19/2008 @ [facility] per Dr. Santiago: 07/19/[address] Molina @ [facility] Atherosclerotic heart disease of [place] coronary artery without angina pectoris (Chronic) 07/22/2008: CABG X4: WONG to LAD, SVG to anterior diagonal branch of LAD, SVG to Ramus Marginalis, and SVG to posterolateral branch of the CX per Dr. Perez @ [facility] Old myocardial infarction (Chronic) Hyperlipidemia (Chronic) Hypertension (Chronic) Medical History: Medical History (Last Reviewed 03/27/18 @ 14:06 by Blanca Hernandez) Atherosclerotic heart disease of [place] coronary artery without angina pectoris (Chronic) I25.10 07/22/2008: CABG X4: WONG to LAD, SVG to anterior diagonal branch of LAD, SVG to Ramus Marginalis, and SVG to posterolateral branch of the CX per Dr. Perez @ [facility] Old myocardial infarction (Chronic) I25.2 Hyperlipidemia (Chronic) E78.5 Hypertension (Chronic) I10 Allergies No Known Allergies Allergy (Verified 08/07/19 10:30) Home Medications: Ambulatory Orders Medication Instructions Recorded atenolol 50 mg tablet 50 mg PO DAILY 07/30/17 hydroxychloroquine 200 mg tablet 200 mg PO BID tab 07/30/17 Ropinirole HCl [Ropinirole ER] 2 mg PO DAILY PRN PRN 05/04/18 Acetaminophen [Acetaminophen Extra 500 mg PO Q6H PRN PRN 10/17/18 Strength] Lipase/Protease/Amylase [Megan Evans 1 cap PO TIDCM 10/17/18 36,000 Units Capsule] Ondansetron [Ondansetron Odt] 8 mg PO 0600,1400,2200 PRN 10/17/18 atorvastatin 10 mg tablet 10 mg PO QHS #30 tab 01/15/19 Allopurinol 300 mg PO DAILY 08/07/19 Apixaban [Eliquis] 5 mg PO BID 08/07/19 Gabapentin [Neurontin] 100 mg PO TIDCM 08/07/19 Gluc Herring/Chondro Herring A/Vit C/Mn 1 tab PO BID 08/07/19 [Glucosamine Chondroitin Tab] Magnesium 250 mg PO DAILY 08/07/19 Multivitamins,Therapeutic 1 tab PO DAILYCM 08/07/19 [Multivitamin] Pantoprazole Sodium [Protonix] 40 mg PO BID 08/07/19 Prednisone 20 mg PO DAILY 08/07/19 Ramipril [Altace] 2.5 mg PO DAILY 08/07/19 Smz/Tmp Ds [Bactrim Ds] 1 tab PO MOWEFR 08/07/19 Surgical History: Surgical History (Last Reviewed 03/27/18 @ 14:06 by Blanca Hernandez) History of total right hip replacement (Chronic) Z96.641 S/P CABG x 4 (Chronic) Z95.1 07/22/2008: CABG X4: WONG to LAD, SVG to anterior diagonal branch of LAD, SVG to Ramus Marginalis, and SVG to posterolateral branch of the CX per Dr. Perez @ [facility]. Mediastinal exploration for hemorrhage 08/01/2008. History of left heart catheterization (Chronic) Z98.890 07/19/2008 @ [facility] per Dr. Santiago: 07/19/[address] Molina @ [facility] Surgical History: coronary bypass surgery - x 4., total hip arthroplasty - Right., - - Whipple procedure, Mediport insertion, lumbar spinal fusion Psychiatric History: No pertinent psych hx Lives: Spouse/ Significant Other Smoking Status: Former smoker Tobacco Use: Non-smoker Alcohol: None Drugs: None - *Family History Maternal Family History: Family History (Last Reviewed 03/27/18 @ 14:06 by Blanca Hernandez) Father CAD (coronary artery disease) CVA (cerebral vascular accident) Myocardial infarction Brother CAD (coronary artery disease) Myocardial infarction, Onset Age: 66 History Items: Dementia Paternal Family History: Family History (Last Reviewed 03/27/18 @ 14:06 by Blanca Hernandez) Father CAD (coronary artery disease) CVA (cerebral vascular accident) Myocardial infarction Brother CAD (coronary artery disease) Myocardial infarction, Onset Age: 66 History Items: Heart Disease, Stroke Sibling Family History: Family History (Last Reviewed 03/27/18 @ 14:06 by Blanca Hernandez) Father CAD (coronary artery disease) CVA (cerebral vascular accident) Myocardial infarction Brother CAD (coronary artery disease) Myocardial infarction, Onset Age: 66 History Items: Heart Disease - [place] Review of Systems Constitutional: Reports: Weakness, Fatigue. Denies: Anorexia, Chills, Fever, Malaise, Weight Change Eyes: Reports: Blurred vision. Denies: Cataracts, Conjunctivae Inflammation, Drainage, Eyelid Inflammation, Pain, Redness, Vision Change HEENT: Denies: Difficulty Hearing, Difficulty Swallowing, Head Aches, Hearing Changes, Sinus Congestion, Sinus Drainage, Sore Throat Cardiovascular: Denies: Chest Pain, Claudication, Orthopnea, Palpitations, Paroxysmal Noc. Dyspnea Respiratory: Denies: Cough, Hemoptysis, Shortness of breath at rest, Shortness of breath upon exertion, Sputum production Gastrointestinal: Denies: Abdominal Pain, Constipation, Hematemesis, Nausea, Vomiting Genitourinary: Denies: Dysuria, Frequency, Incontinence Musculoskeletal: Denies: Joint Pain, Joint stiffness, Joint swelling, Joint Tenderness Skin: Denies: Rash, Wounds Neurological: Denies: Difficulty swallowing, Focal weakness, Numbness, Tingling Psychiatric: Denies: Anxiety, Depression, Homicidal Ideations, Suicidal Ideations Hematologic/ Lymphatic: Denies: Easy Bruising, Easy Bleeding VTE Information - Inpt Only VTE Present on Admission: No VTE Pharm Prophylaxis ordered?: Yes Patient Problems: Active and Suspected Problems (Last Reviewed 03/27/18 @ 14:06 by Blanca Hernandez) Ataxia (Acute) Slurred speech (Acute) TIA (transient ischemic attack) (Acute) - Physical Exam Vitals/I&O's: Vital Signs Temp Pulse Resp BP Pulse Ox 98 F 62 16 152/86 H 98 08/07/19 13:35 08/07/19 13:35 08/07/19 13:35 08/07/19 13:35 08/07/19 13:35 Oxygen Delivery Method Room Air Weight: 68.039 kg Body Mass Index (BMI) 23.5 Finger Stick Blood Glucose 336 General: Alert, Oriented x3, Cooperative, No apparent distress HEENT: Atraumatic, PERRLA, EOMI, Normocephalic Oral: Moist Mucosa Neck: Supple Lungs: Clear to auscultation, Normal air movement Cardiovascular: Regular rate, Regular Rhythm, Normal S1, Normal S2, No murmurs Abdomen: Bowel Sounds Present, Soft, Non Tender, Non-Distended, No Hepato-splenomegaly Extremities: No edema, Capillary Refill Less than 3 Seconds Skin: No rashes, No breakdown Musculoskeletal: No Tenderness to Palpation of Joints or Extremities Lymphatic: No Cervical, Supraclavicular, or Inguinal Adenopathy Neurological: Cranial nerves II-XII grossly intact, - - ataxia on attempt at ambulation Psych/Mental Status: Normal Affect, Appropriate Laboratory Results 08/07/19 11:40: WBC 7.4, RBC 4.25 L, Hgb 11.6 L, Hct 36.6 L, MCV 86.1, MCH 27.3, MCHC 31.7 L, RDW Std Deviation 53.2 H, RDW Coeff of Loi 16.7 H, Plt Count 111 L, MPV 11.9, Immature Gran % (Auto) 2.400 H, Neut % (Auto) 88.6 H, Lymph % (Auto) 4.3 L, Brooke % (Auto) 4.7, Eos % (Auto) 0.0, Baso % (Auto) 0.0, Absolute Neuts (auto) 6.5, Absolute Lymphs (auto) 0.32 L, Nucleated RBC % 0, Differential Comment COMMENT 08/07/19 11:40: PT 15.0 H, INR 1.2, APTT 24.2 08/07/19 11:40: Sodium 138, Potassium 4.8, Chloride 103, Carbon Dioxide 30.0, Anion Gap 5, BUN 26 H, Creatinine 1.10, Estim Creat Clear Calc 54.25, Est GFR (MDRD) Af Amer 84, Est GFR (MDRD) Non-Af 69, BUN/Creatinine Ratio 23.6 H, Glucose 406 H, Calcium 8.6, Troponin I 0.039 08/07/19 11:53: POC Glucose 336 H Current Medications Labetalol HCl (Trandate) 20 mg IV X1 PRN PRN Reason: BLOOD PRESSURE Assessment/Plan All Active Problems (Last Reviewed 03/27/18 @ 14:06 by Blanca Hernandez) Ataxia (Acute) Slurred speech (Acute) TIA (transient ischemic attack) (Acute) Macrocytic anemia (Acute) Weakness generalized (Acute) Community acquired pneumonia of left lower lobe of lung (Resolved) Hypokalemia (Resolved) Pancytopenia (Resolved) 1. Ataxia/slurred speech concerning for TIA/CVA, ongoing for 1 week Other differentials could be due to hyperglycemia/newly diagnosed type II DM Initial CT of the brain was unremarkable for acute abnormality Would admit for stroke work-up MRI Of the head, MRA of the head and neck, lipid profile, HbA1c 2. 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 History of PE, on Eliquis 4. Paraneoplastic retinopathy, completed 6 weeks of high-dose prednisone 60 mg daily, was supposed to be on prednisone 40 mg daily but patient has been on prednisone 30 daily for the past 2 days Will continue on prednisone 40 mg daily, trimethoprim/sulfamethoxazole 5. History of anastomotic ulcer, on PPI BID in the light of current steroid use 6. CAD status post CABG/hypertension/hyperlipidemia, continue on atorvastatin, atenolol, ramipril 7. Rheumatoid arthritis, continue on Plaquenil 8. DVT PPx- on Eliquis Inpatient E&M: 60957 Init Hosp L2
--- NOTE | 2019-08-07 14:16 | MRI_ITS ---
STUDY: MRA OF THE HEAD WITHOUT CONTRAST REASON FOR EXAM: Male, 74 years old. Speech changes, blurred vision, increased weakness TECHNIQUE: 3-D [id number] (TOF) imaging was performed with MIPs. The study was performed unenhanced. COMPARISON: MRI of the brain dated August 07, 2019 FINDINGS: Normal bilateral petrous carotid arteries. Normal right cavernous carotid artery with a normal supraclinoid bifurcation. Normal left cavernous carotid artery with a normal supraclinoid bifurcation. There is hypoplastic development of the right A1 segment of the anterior cerebral arteries with an atretic but intact artery. Normal left A1 segments of the anterior cerebral artery. Normal intact anterior communicating artery (ACOM). Normal bilateral A2 segments of the anterior cerebral arteries. Normal right M1 and M2 segments of the middle cerebral arteries, with a normal M1 bifurcation. Normal left M1 and M2 segments of the middle cerebral arteries, with a normal M1 bifurcation. Normal right posterior communicating artery (PCOM). Normal left posterior communicating artery (PCOM). Normal bilateral vertebral arteries. Normal basilar artery with a normal basilar bifurcation. The visualized bilateral superior cerebellar (SCA) arteries are normal. Normal bilateral P1, P2 and visualized P3 segments of the posterior cerebral arteries. There is no demonstrated aneurysm of the [place]. There is no major vessel occlusion or hemodynamically significant stenosis. MRI/MRA Head ONLY without Contrast IMPRESSION: 1. There is no demonstrated aneurysm of the [place]. 2. There is no major vessel occlusion or hemodynamically significant stenosis. Electronically Signed: Donald Hartley MD at 20:29 EDT , Service support ,
--- NOTE | 2019-08-07 14:16 | MRI_ITS ---
STUDY: MRI BRAIN WITHOUT CONTRAST REASON FOR EXAM: Male, 74 years old. Speech changes, increased weakness, blurred vision TECHNIQUE: Standardized multiplanar fat and water weighted pulse sequences were obtained. COMPARISON: Head CT dated August 07, 2019 FINDINGS: There is mild cerebral atrophy with widening of the extra-axial spaces and ventricular dilatation. Normal white matter tracts of the supratentorial brain. There is no evidence for recent intracranial ischemia or other cause of cytotoxic edema on diffusion weighted imaging (DWI). Normal T2* images of the brain without demonstrated susceptibility artifact. There is no demonstrated hemosiderin stain. Normal bilateral basal ganglia. Normal thalami. There is no extra-axial fluid accumulation. Normal flow voids within the major intracranial circulation suggesting patency by spin echo criteria. Normal sella turcica, pituitary gland, infundibular stalk, optic chiasm and hypothalamus. Normal tectal plate and pineal gland. Normal midbrain, rachel and medulla. Normal cerebellum. Normal basal cisterns. Normal bilateral temporal bones. Normal bilateral internal auditory canals. No demonstrated orbital abnormality, within the constraints of a routine brain study. Normal visualized paranasal sinuses. Normal calvarium and skull base. Normal visualized soft tissue structures. There are degenerative changes of the anterior atlantoaxial articulation. MRI/Brain without Contrast IMPRESSION: 1. Mild involutional changes of the brain, as described above. 2. No demonstrated acute infarct or intracranial hemorrhage Electronically Signed: Donald Hartley MD at 20:25 EDT , Service support ,
--- NOTE | 2019-08-07 14:16 | ECHOCS_ITS ---
Reason For Study: TIA/CVA Procedure This was a 2D Doppler, Color Flow transthoracic echocardiogram. The study was technically difficult. Exam performed with patient supine due to discomfort and right sided weakness (unable to stay on left side). Contrast injection was performed. Exam performed portable in patient room. Left Ventricle Normal left ventricle. Apical false tendon noted. Left ventricular systolic function is normal. The estimated ejection fraction is 55 %. Diastolic function is indeterminate. No regional wall motion abnormalities noted. Right Ventricle Normal RV size. Normal systolic function. Atria The left atrium is mildly enlarged. Normal right atrium. No doppler evidence for ASD. Mitral Valve There is no mitral annular calcification. The mitral valve chordae are thickened and/or calcified. Mild (1+) mitral valve insufficiency. Tricuspid Valve Normal tricuspid valve. Trivial tricuspid valve insufficiency. Unable to estimate RV systolic pressure/pulmonary artery pressure due to technically difficult study. Aortic Valve Trisinus/trileaflet aortic valve. Mild focal aortic valve calcification. Trivial aortic valve insufficiency. Pulmonic Valve The pulmonic valve is not well visualized. Trivial pulmonic valve insufficiency. Great Vessels Normal sized aortic root. Pericardium/Pleural No pericardial effusion. Medication Diluted definity 4.0ml given slow IV push to enhance endocardial definition. MMode/2D Measurements & Calculations LVIDd: 4.9 cm IVSd: 1.0 cm Ao root diam: 3.2 cm LVIDs: 3.3 cm LVPWd: 1.0 cm RVDd: 3.4 cm FS: 32.0 % LAV(MOD-bp): 46.0 ml LA A4 area: 19.0 cm2 LA dimension(2D): 3.3 cm LAV(MOD-bp) Indexed: 25.7 ml/m2 LAV(MOD-sp2): 39.1 ml LAV(MOD-sp4): 47.0 ml Time Measurements MV dec time: 0.25 sec Doppler Measurements & Calculations MV E max david: 52.4 cm/sec Lat Peak E' David: 7.5 cm/sec Med Peak E' David: 3.4 cm/sec MV A max david: 75.9 cm/sec E/E' lat: 7.0 E/E' med: 15.6 MV E/A: 0.69 Ao V2 max: 106.0 cm/sec LV V1 max: 86.4 cm/sec PA V2 max: 96.1 cm/sec Ao max P.5 mmHg LV V1 max P.0 mmHg Interpretation Summary The study was technically difficult. Contrast injection was performed. Left ventricular systolic function is normal. The estimated ejection fraction is 55 %. The left atrium is mildly enlarged. The mitral valve chordae are thickened and/or calcified. Mild (1+) mitral valve insufficiency. Trivial tricuspid valve insufficiency. Mild focal aortic valve calcification. Trivial aortic valve insufficiency. Trivial pulmonic valve insufficiency. Unable to estimate RV systolic pressure/pulmonary artery pressure due to technically difficult study. Diastolic function is indeterminate. Ordering Physician: Marina Gallardo Referring Physician: Jet Mccollum Performed By: Yasmin Henderson RDCS, RVT
--- NOTE | 2019-08-07 14:16 | MRI_ITS ---
STUDY: MRA NECK WITH AND WITHOUT CONTRAST REASON FOR EXAM: Male, 74 years old. Speech changes, increased weakness, blurred vision TECHNIQUE: 3-D xkcj-sd-kvsxku (TOF) imaging was performed in an 1.5 T MRI scanner. 14ml Dotarem via IV was administered for the contrast enhanced images. COMPARISON: MRI of the brain dated August 07, 2019 FINDINGS: RIGHT CAROTID ARTERIES: Normal right common carotid artery (CCA). Normal right common carotid bulb. There is mild atherosclerotic plaque formation of the origin of the right internal carotid artery with less than 25 % cross sectional diameter stenosis. Normal visualized cervical portion of the right internal carotid artery. Normal origin of the right external carotid artery (ECA). LEFT CAROTID ARTERIES: Normal left common carotid artery (CCA). Normal left common carotid bulb. Normal origin of the left internal carotid (ICA) artery without a hemodynamically significant stenosis. Normal visualized cervical portion of the left internal carotid artery. Normal origin of the left external carotid artery (ECA). VERTEBRAL ARTERIES: Normal antegrade flow within the bilateral vertebral artery without a hemodynamically significant stenosis. MRI/MRA Neck WITH and W/O Contrast IMPRESSION: 1. No hemodynamically significant stenosis or occlusion of the bilateral carotid arteries. Electronically Signed: Donald Hartley MD at 20:29 EDT , Service support ,
--- NOTE | 2019-08-07 15:02 | CASEMGMT ---
Patient has a Healthcare Power of Special Education Paraprofessional and a Healthcare Living Will on file at [facility]. Gogo WATT MSW
[2019-08-07] MEDS: 0.9% Normal Saline 1,000 ML 150 ML IV ×2 (15:22→23:43)
[2019-08-07 17:01] LABS: Bedside Glucose 263 mg/dL (70-110)
[2019-08-07 17:33] LABS: AST(SGOT) 62 U/L (15-37); Alanine Aminotransfer ALT/SGPT 127 U/L (16-61); Albumin, Serum 2.8 g/dL (3.2-5.0); Alkaline Phosphatase 125 U/L (45-117); Bilirubin, Direct 0.21 mg/dL (0.00-0.30); Globulin 2.7 g/dL (2.2-4.2); Protein, Total 5.5 g/dL (6.4-8.2)
[2019-08-07] MEDS: Insulin Lispro 100 UNIT/ML INSULN.PEN SC ×2 (17:52→22:16)
[2019-08-07] MEDS: Gabapentin 100 MG Capsule PO (17:54)
[2019-08-07] MEDS: Hydroxychloroquine 200 MG Tablet PO (18:48)
[2019-08-07 19:19] LABS: Hemoglobin A1c 9.2 % (4.2-6.3)
[2019-08-07] MEDS: Atorvastatin Calcium 10 MG Tablet PO (22:14)
[2019-08-07] MEDS: APIXABAN 5 MG TABLET PO (22:14)
[2019-08-07] MEDS: Pantoprazole Sodium 40 MG Tablet PO (22:14)
[2019-08-07 22:26] LABS: Bedside Glucose 256 mg/dL (70-110)
[2019-08-07] MEDS: Pramipexole Di-HCl 0.25 MG Tablet PO (22:31)
[2019-08-08 02:59] VITALS: PULSE 68
[2019-08-08 03:55] VITALS: BP 115/63; PULSE 73; RESP 14; TEMP 36.5; O2SAT 97
[2019-08-08 05:26] LABS: Absolute Lymphocyte Count 0.83 X10^3/uL (0.83-4.51); Absolute Neutrophil Count 4.9 X10^3/uL (2.0-7.7); Basophil# 0.01 X10^3/uL; Basophil% 0.2 % (0-1); Eosinophil# 0.01 X10^3/uL; Eosinophils% 0.2 % (0-5); Hemoglobin 10.4 g/dL (13.0-16.5); Lymphocyte # 0.83 X10^3/ul (4.0); Mean Corp Hgb Conc 32.5 g/dL (32-36); Mean Corpuscular Hgb 27.8 pg (27.0-32.0); Mean Corpuscular Volume 85.6 fL (80-94); Mean Platelet Vol. 10.7 fl (6.2-12.0); Monocyte# 0.44 X10^3/uL; Monocyte% 6.9 % (0-10); NRBC Flagged by Analyzer 0 % (0-5); Neutrophil # 4.93 X10^3/uL (2.7-7.7); Neutrophil % 77.2 % (47-70); Platelet Count 101 K/mm3 (150-450); RBC Distribution Width CV 16.6 % (11.6-14.6); RBC Distribution Width SD 51.8 fl (35.1-43.9); Red Blood Count 3.74 M/mm3 (4.6-6.2); White Blood Count 6.4 K/mm3 (4.4-11.0)
[2019-08-08 05:49] LABS: AST(SGOT) 53 U/L (15-37); Alanine Aminotransfer ALT/SGPT 112 U/L (16-61); Albumin, Serum 2.2 g/dL (3.2-5.0); Alkaline Phosphatase 115 U/L (45-117); Anion Gap 4 (5-15); BUN 22 mg/dL (7-18); BUN/Creat Ratio 24.9 RATIO (10-20); Chloride 105 mmol/L (98-107); Cholesterol 167 mg/dL (200); Creatinine, Serum 0.88 mg/dL (0.70-1.30); EST Glomerular Filtration Rate 89 mL/min (>60); Est Glom Filt Rate - Afr Amer 108 mL/min (>60); Estimated Creatinine Clearance 67.81 ml/min; Globulin 2.3 g/dL (2.2-4.2); Glucose 298 mg/dL (74-106); High Density Lipoprotein 53 mg/dL; Potassium 4.1 mmol/L (3.5-5.1); Protein, Total 4.5 g/dL (6.4-8.2); Sodium Level 139 mmol/L (136-145); Triglycerides 145 mg/dL; Very Low Density Lipoprotein 29 mg/dL (5-40)
[2019-08-08] MEDS: Insulin Lispro 100 UNIT/ML INSULN.PEN SC (06:40)
[2019-08-08 07:00] VITALS: PULSE 61; O2SAT 96
[2019-08-08 07:00] LABS: Bedside Glucose 263 mg/dL (70-110)
[2019-08-08] MEDS: predniSONE 20 MG Tablet 40 MG PO (08:01)
[2019-08-08] MEDS: Hydroxychloroquine 200 MG Tablet PO (08:01)
[2019-08-08] MEDS: Multivitamins,Therapeutic Tablet 1 TABLET PO (08:02)
[2019-08-08] MEDS: Gabapentin 100 MG Capsule PO (08:02)
[2019-08-08] MEDS: Smz/Tmp Ds Tablet 1 TABLET PO (08:02)
--- NOTE | 2019-08-08 09:19 | DCINST_ITS ---
- Discharge Diagnoses Current Active Problems: Current Active and Chronic Problems (Last Reviewed 03/27/18 @ 14:06 by Blanca Hernandez) Ataxia (Acute) Slurred speech (Acute) TIA (transient ischemic attack) (Acute) Reason(s) for Visit for Discharge Instructions: Ataxia, slurred speech You will use the following diet at home:: Calorie/Carbohydrate Controlled (specify 1200, 1400, etc) - 1800 calories, Cardiac Your food should be the consistency of: Regular Your liquids should be the consistency of: Regular/Thin Discharge Activity: Return to Normal Activity Instructions: What Is Type 2 Diabetes?, How to Check Your Blood Sugar, Using Injected Insulin Additional Instructions: Take note of changes in your medications. You have been ctarted on long acting insulin. Follow-up with your primary care doctor in 1 week. He will review a log of your blood sugars. Allergies/Adverse Reactions: Allergies No Known Allergies Allergy (Verified 08/07/19 10:30) Medications to take at Discharge atenolol 50 mg tablet 50 mg PO DAILY 07/30/17 hydroxychloroquine 200 mg tablet 200 mg PO BID tab 07/30/17 Ropinirole HCl [Ropinirole ER] 2 mg PO DAILY PRN PRN 05/04/18 Acetaminophen [Acetaminophen Extra Strength] 500 mg PO Q6H PRN PRN 10/17/18 Lipase/Protease/Amylase [Megan Evans 36,000 Units Capsule] 1 cap PO TIDCM 10/17/18 Ondansetron [Ondansetron Odt] 8 mg PO 0600,1400,2200 PRN 10/17/18 atorvastatin 10 mg tablet 10 mg PO QHS #30 tab 01/15/19 Allopurinol 300 mg PO DAILY 08/07/19 Apixaban [Eliquis] 5 mg PO BID 08/07/19 Gabapentin [Neurontin] 100 mg PO TIDCM 08/07/19 Gluc Herring/Chondro Herring A/Vit C/Mn [Glucosamine Chondroitin Tab] 1 tab PO BID 08/07/19 Magnesium 250 mg PO DAILY 08/07/19 Multivitamins,Therapeutic [Multivitamin] 1 tab PO DAILYCM 08/07/19 Pantoprazole Sodium [Protonix] 40 mg PO BID 08/07/19 Ramipril [Altace] 2.5 mg PO DAILY 08/07/19 Smz/Tmp Ds [Bactrim Ds] 1 tab PO MOWEFR 08/07/19 Insulin Glargine [Lantus SoloStar Pen] 10 units SUBCUT DAILY 30 Days #1 pen 08/08/19 predniSONE tablet 40 mg PO DAILYCM 30 Days #60 tab 08/08/19 The following prescriptions were given: Insulin Glargine [Lantus SoloStar Pen] 10 units SUBCUT DAILY 30 Days #1 pen Transmission Status: Pending to [facility] predniSONE tablet 40 mg PO DAILYCM 30 Days #60 tab Transmission Status: Pending to [facility] Primary Care Physician: Jet Mccollum MD [Primary Care Provider] - Please follow up with your Primary Care Physician in: in 1 week Test Results: Test results from this visit will be discussed in further detail at your follow- up appointment, if applicable. Proposed Discharge Date: 08/08/19
[2019-08-08 09:53] VITALS: BP 119/76; PULSE 68; RESP 16; TEMP 36.6; O2SAT 96
[2019-08-08] MEDS: Ramipril 2.5 MG Capsule PO (09:55)
[2019-08-08] MEDS: Atenolol 50 MG Tablet PO (09:55)
[2019-08-08] MEDS: Pantoprazole Sodium 40 MG Tablet PO (09:55)
[2019-08-08] MEDS: Allopurinol 300 MG Tablet PO (09:55)
[2019-08-08] MEDS: APIXABAN 5 MG TABLET PO (09:55)
--- NOTE | 2019-08-08 11:30 | CASEMGMT ---
Addendum entered by Shelby Helm 08/08/19 13:27: Per therapy, pt could benefit from OP or C PT at this time and pt/sig other are agreeable to [facility] at this time and state they would like [facility] at this time. Call to Karrie at [facility] with referral at this time for PT, voices understanding. Order placed for PT [facility] at this time. Pt's sig other updated at this time, voices understanding and she states [facility] should call her to set up time d/t pt with some intermittent confusion. Karrie at [facility] updated at this time, voices understanding. Pt/sig other voice no further questions/concerns/needs at this time. Margy MELENDREZ CM Original Note: This PARVIN LEWIS to room with Code 44 form at this time, explanation done-pt voices understanding and signs form at this time. Original to chart and copy to pt at this time. Pt/sig other voice no further questions/concerns/needs at this time. Margy MELENDREZ CM
[2019-08-08 11:41] LABS: Bedside Glucose 407 mg/dL (70-110)
--- NOTE | 2019-08-10 16:34 | DS.PCM_ITS ---
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 Perez @ [facility]. Mediastinal exploration for hemorrhage 08/01/2008. History of left heart catheterization (Chronic) 07/19/2008 @ [facility] per Dr. Santiago: 07/19/[address] 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 Perez @ [facility] Old myocardial infarction (Chronic) Hyperlipidemia (Chronic) Hypertension (Chronic) Hospital Course and Treatment Imaging Results: Clinical Impression(s) from Imaging Studies Brain CT 08/07/19 10:50 IMPRESSION: Chronic involutional changes of the brain. Electronically Signed: Radames Tanner, at 13:16 EDT , Service support , Chest X-Ray 08/07/19 12:11 IMPRESSION: Stable examination. No acute abnormality is seen. Electronically Signed: Radames Tanner, at 13:15 EDT , Service support , Brain MRI 08/07/19 14:16 IMPRESSION: 1. Mild involutional changes of the brain, as described above. 2. No demonstrated acute infarct or intracranial hemorrhage Electronically Signed: Donald Hartley MD at 20:25 EDT , Service support , Head MRA 08/07/19 14:16 IMPRESSION: 1. There is no demonstrated aneurysm of the [place]. 2. There is no major vessel occlusion or hemodynamically significant stenosis. Electronically Signed: Donald Hartley MD at 20:29 EDT , Service support , Neck MRA 08/07/19 14:16 IMPRESSION: 1. No hemodynamically significant stenosis or occlusion of the bilateral carotid arteries. 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 Patient denies any focal weakness. He admits to generalized weakness mostly in both legs. Denied any sick contacts or fever or chills. He recently was on started on prednisone 60 mg daily for 6 weeks for p araneoplastic retinopathy. He was instructed to go down to 40 mg daily for 1 month and then 20 mg daily for another month. Patient however was confused and had been taking reportedly 30 mg prednisone daily. [facility], his blood sugar was elevated at 406, the A1c was 9.2. Patient was started on Lantus insulin as well as insulin sliding scale. His initial brain CT showed chronic involutional changes. MRI of the brain showed mild neurology change but no acute abnormalities. MRA of the head and neck was unremarkable. The echo shows EF of 55%, trivial valvular insufficiency. No PFO or valvular lesions. Patient was seen by PT and OT. He was noted to have persistent intermittent slurred speech. He was seen by speech therapy and referral made to outpatient neurology. Discussed patient's care in detail with his significant other, patient will keep a log of his blood sugars and follow-up with his primary care doctor in 1 week for adjustments in his insulin. Subjective: On the day of discharge, patient was seen and examined, he denied any new complaints. He has intermittent slurred speech and word finding difficulty. This lasts less than a minute or 2. Has any focal neurological deficit. Objective: Physical exam: General: Alert, Oriented x3, Cooperative, No apparent distress HEENT: Atraumatic, PERRLA, EOMI, Normocephalic Oral: Moist Mucosa Neck: Supple Lungs: Clear to auscultation, Normal air movement Cardiovascular: Regular rate, Regular Rhythm, Normal S1, Normal S2, No murmurs Abdomen: Bowel Sounds Present, Soft, Non Tender, Non-Distended, No Hepato- splenomegaly Extremities: No edema, Capillary Refill Less than 3 Seconds Skin: No rashes, No breakdown Musculoskeletal: No Tenderness to Palpation of Joints or Extremities Lymphatic: No Cervical, Supraclavicular, or Inguinal Adenopathy Neurological: Cranial nerves II-XII grossly intact, - - ataxia on attempt at ambulation Psych/Mental Status: Normal Affect, Appropriate - Physical Exam Vitals/I&O's: Vital Signs Temp Pulse Resp BP Pulse Ox 97.9 F 68 16 119/76 96 08/08/19 09:53 08/08/19 09:53 08/08/19 09:53 08/08/19 09:53 08/08/19 09:53 Oxygen Delivery Method Room Air Weight: 68.6 kg Body Mass Index (BMI) 24.3 Finger Stick Blood Glucose 336 Intake and Output for Last 24 Hours 08/08/19 08/09/19 08/10/19 23:59 23:59 23:59 Intake Total 530 / 530 Output Total 850 / 850 Balance -320 / -320 Discharge Diet: Low fat/ Low Cholesterol, 2000 mg Sodium Diet, Carb Control Diet Discharge Activity: Return to Normal Activity Home Medications: Medications to take at Discharge atenolol 50 mg tablet 50 mg PO DAILY 07/30/17 hydroxychloroquine 200 mg tablet 200 mg PO BID tab 07/30/17 Ropinirole HCl [Ropinirole ER] 2 mg PO DAILY PRN PRN 05/04/18 Acetaminophen [Acetaminophen Extra Strength] 500 mg PO Q6H PRN PRN 10/17/18 Lipase/Protease/Amylase [Megan Evans 36,000 Units Capsule] 1 cap PO TIDCM 10/17/18 Ondansetron [Ondansetron Odt] 8 mg PO 0600,1400,2200 PRN 10/17/18 atorvastatin 10 mg tablet 10 mg PO QHS #30 tab 01/15/19 Allopurinol 300 mg PO DAILY 08/07/19 Apixaban [Eliquis] 5 mg PO BID 08/07/19 Gabapentin [Neurontin] 100 mg PO TIDCM 08/07/19 Gluc Herring/Chondro Herring A/Vit C/Mn [Glucosamine Chondroitin Tab] 1 tab PO BID 08/07/19 Magnesium 250 mg PO DAILY 08/07/19 Multivitamins,Therapeutic [Multivitamin] 1 tab PO DAILYCM 08/07/19 Pantoprazole Sodium [Protonix] 40 mg PO BID 08/07/19 Ramipril [Altace] 2.5 mg PO DAILY 08/07/19 Smz/Tmp Ds [Bactrim Ds] 1 tab PO MOWEFR 08/07/19 Insulin Glargine [Lantus SoloStar Pen] 10 units SUBCUT DAILY 30 Days #1 pen 08/08/19 predniSONE tablet 40 mg PO DAILYCM 30 Days #60 tab 08/08/19 Following Prescrptions Were Given to Patient: Insulin Glargine [Lantus SoloStar Pen] 10 units SUBCUT DAILY 30 Days #1 pen Transmission [facility]: [facility] predniSONE tablet 40 mg PO DAILYCM 30 Days #60 tab Transmission Status: Received by [facility] Primary Care Physician: Jet Mccollum MD [Primary Care Provider] - Please follow up with your Primary Care Physician in: in 1 week Please Follow Up With: Elias Emerson MD Patient Instructions: What Is Type 2 Diabetes?, How to Check Your Blood Sugar, Using Injected Insulin Disposition: Home Minutes spent on discharge:: 35 Patient Condition:: Stable Medical Necessity - Tobacco Use Smoking Status: Former smoker Tobacco Use: Non-smoker Meaningful Use Info Meaningful Use Diagnoses (Choose all that apply): None applicable OBSV E&M: 80163 Observation care discharge
== END 2019-08-08 09:16 | disposition home health service (06) ==
LOC: ED 13:31 → PCU 14:24
PROVIDERS: Admitting Provider Internal Medicine; Emergency Provider Emergency Medicine; PCP Family Medicine; Visit Provider Internal Medicine
DX: E11.65 Type 2 diabetes mellitus with hyperglycemia (principal); E43 Unspecified severe protein-calorie malnutrition; M06.9 Rheumatoid arthritis, unspecified; R47.81 Slurred speech; R27.0 Ataxia, unspecified; I10 Essential (primary) hypertension; M10.9 Gout, unspecified; G25.81 Restless legs syndrome; E78.5 Hyperlipidemia, unspecified; Z68.23 Body mass index [BMI] 23.0-23.9, adult; Z79.01 Long term (current) use of anticoagulants; Z95.1 Presence of aortocoronary bypass graft; Z87.891 Personal history of nicotine dependence; Z79.899 Other long term (current) drug therapy; Z79.84 Long term (current) use of oral hypoglycemic drugs; Z86.711 Personal history of pulmonary embolism; Z85.07 Personal history of malignant neoplasm of pancreas; I25.10 Atherosclerotic heart disease of native coronary artery without angina pectoris; C25.0 Malignant neoplasm of head of pancreas
CPT/HCPCS: 36415; 70450; 70544; 70549; 70551; 71045; 80048; 80053; 80061; 80076; 82962; 83036; 84484; 84681; 85025; 85610; 85730; 92523; 93005; 93306; 94762; 96360; 96361; 97162; 97166; 97802; 99218; 99251; 99285; A9575; J7030; Q9957; A4216; C8929; G0378; G0463

== ENCOUNTER → 2019-09-06 11:51 | Outpatient (CLI) | payer MEDICARE, SELFPAY ==
[2019-09-06 10:50] VITALS: BMI 24.3
[2019-09-06 12:59] LABS: Ammonia < 10.0 umol/L (11-32); Vitamin B12 1143 pg/mL (211-911)
[2019-09-06 13:37] LABS: Thyroid Stim Hormone (TSH) 0.85 uIU/mL (0.358-3.74)
== END ==
PROVIDERS: PCP Family Medicine; Referring Provider Psychiatry & Neurology Neurology; Visit Provider Psychiatry & Neurology Neurology
DX: R53.1 Weakness (principal); R47.81 Slurred speech
CPT/HCPCS: 36415; 82140; 82607; 82746; 84443

== ENCOUNTER 2019-10-10 20:01 | Emergency (ER) | payer MEDICARE, SELFPAY ==
[2019-09-06 13:05] VITALS: BMI 24.3
[2019-10-10 20:02] VITALS: BP 133/79; PULSE 70; RESP 16; TEMP 37.1; O2SAT 98; BMI 23.5
--- NOTE | 2019-10-10 20:38 | ED.VIS.GEN ---
History of Present Illness Chief Complaint: Laceration Onset: Today Current Severity: Mild Maximum Severity: Mild Narrative: 74-year-old male presents with small skin tear left posterior leg. He inadvertently hit the side of his door of his car. He has no bleeding currently. Tetanus immunization is unknown. He is ambulatory. He does have chronic stasis changes in his lower extremities which make his legs friable excess. Past Medical History - Allergies and Home Meds Allergies/Adverse Reactions: Allergies No Known Allergies Allergy (Verified 10/10/19 20:05) Primary Care Physician: Jet Mccollum MD [Primary Care Provider] - Prior records reviewed: Yes Surgical History: coronary bypass surgery - x 4., total hip arthroplasty - Right., - - Whipple procedure, Mediport insertion, lumbar spinal fusion Smoking Status: Former smoker Alcohol: None Drugs: None - Family History Sibling Family History: Family History (Last Reviewed 03/27/18 @ 14:06 by Blanca Hernandez) Father CAD (coronary artery disease) CVA (cerebral vascular accident) Myocardial infarction Brother CAD (coronary artery disease) Myocardial infarction, Onset Age: 66 Family History: Reports: Heart Disease - [place] Maternal Family History: Family History (Last Reviewed 03/27/18 @ 14:06 by Blanca Hernandez) Father CAD (coronary artery disease) CVA (cerebral vascular accident) Myocardial infarction Brother CAD (coronary artery disease) Myocardial infarction, Onset Age: 66 Family History: Reports: Dementia Paternal Family History: Family History (Last Reviewed 03/27/18 @ 14:06 by Blanca Hernandez) Father CAD (coronary artery disease) CVA (cerebral vascular accident) Myocardial infarction Brother CAD (coronary artery disease) Myocardial infarction, Onset Age: 66 Family History: Reports: Heart Disease, Stroke Review of Systems General: Denies: Chills, Fever Eyes: Denies: Visual changes - left, Blurred vision - left ENT: Denies: Bilateral ear pain Cardiovascular: Denies: Chest pain Respiratory: Denies: Dyspnea, Cough Genitourinary: Denies: Dysuria, Hematuria Musculoskeletal: Denies: Myalgias, Arthralgias Skin: Denies: Abrasions Neurological: Denies: Headache, Weakness Psych: Denies: Depression, Anxiety Physical Exam Vital Signs/Narrative: Vital Signs Temp Pulse Resp BP Pulse Ox 10/10/19 20:02 98.7 F 70 16 133/79 H 98 General: Well nourished, Well developed Head: Normocephalic, Atraumatic Eyes: Perrl, EOMI Cardiovascular: Regular rate, Regular rhythm Skin: - - Small skin tear in the posterior left leg. There is no active bleeding. Neurological: Alert, Oriented x3 Psychological: Normal affect Diagnostic/Tx/Re-eval - Medical Decision Making Patient has a superficial skin tear. This will be Tegaderms in place after cleaning it. Will place bacitracin on as well. He is given wound instructions. He is given return precautions although he should follow-up with his PCP to ensure resolution. ED Disposition - Plan for ED Patient: Disposition: Home or Assisted Living Diagnosis: Skin avulsion Referrals: Jet Mccollum MD [Primary Care Provider] -
[2019-10-10] MEDS: Diphth,Pertuss(Acell),Tet Vac 0.5 ML Vial IM (20:47)
[2019-10-10 21:00] VITALS: RESP 16
== END 2019-10-10 21:13 | disposition home or self-care (01) ==
PROVIDERS: Emergency Provider Student in an Organized Health Care Education/Training Program; PCP Family Medicine
DX: S81.812A Laceration without foreign body, left lower leg, initial encounter (principal); I87.8 Other specified disorders of veins; W22.8XXA Striking against or struck by other objects, initial encounter; Y93.9 Activity, unspecified; Y92.9 Unspecified place or not applicable; Z87.891 Personal history of nicotine dependence
CPT/HCPCS: 90471; 90715; 99282

== ENCOUNTER → 2019-10-19 07:52 | Outpatient (CLI) | payer MEDICARE, SELFPAY ==
[2019-10-18 14:11] VITALS: BMI 23.5
[2019-10-19 08:30] LABS: Hematocrit 35.3 % (40-54); Mean Corp Hgb Conc 31.2 g/dL (32-36); Mean Corpuscular Hgb 30.8 pg (27.0-32.0); Mean Corpuscular Volume 98.9 fL (80-94); Mean Platelet Vol. 10.1 fl (6.2-12.0); Platelet Count 251 K/mm3 (150-450); RBC Distribution Width CV 17.2 % (11.6-14.6); RBC Distribution Width SD 61.8 fl (35.1-43.9); Red Blood Count 3.57 M/mm3 (4.6-6.2); White Blood Count 8.7 K/mm3 (4.4-11.0)
[2019-10-19 08:59] LABS: AST(SGOT) 82 U/L (15-37); Alanine Aminotransfer ALT/SGPT 123 U/L (16-61); Albumin, Serum 2.8 g/dL (3.2-5.0); Alkaline Phosphatase 197 U/L (45-117); Anion Gap 8 (5-15); BUN 20 mg/dL (7-18); BUN/Creat Ratio 15.6 RATIO (10-20); CPK Total, Creatine Kinase 59 U/L (39-308); Calcium,Total 8.2 mg/dL (8.5-10.1); Chloride 111 mmol/L (98-107); Creatinine, Serum 1.28 mg/dL (0.70-1.30); EST Glomerular Filtration Rate 58 mL/min (>60); Est Glom Filt Rate - Afr Amer 70 mL/min (>60); Ferritin 72 ng/mL (26-388); Globulin 2.9 g/dL (2.2-4.2); Glucose 126 mg/dL (74-106); Iron 50 ug/dL (65-175); Potassium 3.6 mmol/L (3.5-5.1); Protein, Total 5.7 g/dL (6.4-8.2); Sodium Level 146 mmol/L (136-145)
[2019-10-20 13:49] LABS: Myoglobin, Serum 254 ng/mL (28-72)
== END ==
PROVIDERS: PCP Family Medicine; Referring Provider Psychiatry & Neurology Neurology; Visit Provider Psychiatry & Neurology Neurology
DX: R53.82 Chronic fatigue, unspecified (principal); D64.9 Anemia, unspecified
CPT/HCPCS: 36415; 80053; 82533; 82550; 82728; 83540; 83874; 85027

== ENCOUNTER 2019-10-29 19:37 | Emergency (ER) | payer MEDICARE, SELFPAY ==
[2019-10-18 14:11] VITALS: BMI 23.5
[2019-10-29 19:38] VITALS: BP 146/80; PULSE 65; RESP 18; TEMP 36.2; O2SAT 94; BMI 25.4
--- NOTE | 2019-10-29 19:46 | CT_ITS ---
STUDY: CT BRAIN WITHOUT CONTRAST REASON FOR EXAM: Male, 74 years old. FELL AND HIT HEAD ON BRICKS/POS. LOC+ ATAXIA RADIATION DOSAGE (If Supplied By Facility): CTDIvol = ( 44.99 ) mGy, DLP = ( 812.98 ) mGycm TECHNIQUE: Transaxial CT imaging of the brain was performed without administration of intravenous contrast material. Individualized dose optimization techniques were used for this CT. COMPARISON: August 07, 2019 FINDINGS: Normal soft tissue structures. Normal calvarium. There is mild cerebral atrophy with widening of the extra-axial spaces and ventricular dilatation. Normal white matter tracts of the cerebral hemispheres. Normal basal ganglia and thalami. Normal brainstem. There is mild cerebellar atrophy. There are peripheral calcifications of the visualized internal carotid arteries. There is no intracranial hemorrhage. There are no findings of an acute ischemic infarction. Normal visualized paranasal sinuses. CT/Brain/Head without Contrast IMPRESSION: Chronic involutional changes of the brain. Atherosclerosis. Electronically Signed: Michelle Monge MD at 20:32 EDT Tel , Service support ,
--- NOTE | 2019-10-29 20:00 | ED.VISSUMM ---
- ER Visit Summary Date of Service: 10/29/19 Chief Complaint: Fell and hit head on bricks and the patient is currently taking Eliquis History of Present Illness: The patient is a 74 M that the past medical history of TIA, CAD, [place], bypass, diabetes, anemia, hypertension. Patient states he has falls from time to time. He was walking outside today lost his balance and fell. He was not knocked out but he did hit his head on the bricks on the ground. He denies any headache. He denies any neck pain. His daughter is with him she witnessed the event. He denies any other complaints. Physical Examination: Older male vital signs stable afebrile. Company by his daughter. H EENT exam pupils round reactive light. Extraocular motions are intact. No facial trauma. Scalp nontender no hematoma. No lacerations. Neck nontender. Trachea midline. Lungs clear to auscultation bilaterally. Heart regular rhythm. Abdomen soft and nontender normal bowel sounds no peritoneal signs. Chest wall nontender. Pelvic girdle intact. Patient is moving all 4 extremities. They are neurovascularly intact. 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 Dorsi plantarflexion intact. He can flex and extend both knees and hips. There is an old wound to his left calf area that is not infected. He has edema in both lower extremities which is chronic but improved compared to his baseline according to the patient. Neurologically is awake and alert. He is answering questions and following commands. He is acting appropriately. Test Results: CAT scan of the brain without contrast read by the radiologist and reviewed by me shows no acute abnormality. No acute intracranial bleed. Emergency Department Course and Treatment: Patient states has been well recently. He has falls occasionally. Clinically I do not think he needs any labs. He is not been ill. He has been eating and drinking fine. He denies any nausea or vomiting or diarrhea. No fever. I will obtain a CAT scan of his brain due to him hitting his head and him moving on Eliquis. P exam patient is doing well at 9:20 PM will be discharged home. I went over his CAT scan results with him. Treatment Plan: Return if severe headache, intractable vomiting or not acting himself. Follow-up with his primary care physician as needed. Disposition: Discharge Impression: Acute fall Closed head injury Anticoagulant Eliquis History of TIA History of CAD and CABG History of insulin-dependent diabetes This note was generated with [employer] dictation software. It may contain incorrect words, spelling, and punctuation that were not noted in review of the chart prior to signing ED Disposition - Plan for ED Patient: Referrals: Jet Mccollum MD [Primary Care Provider] -
--- NOTE | 2019-10-29 21:21 | ED.DEP ---
ED Disposition - Plan for ED Patient: Disposition: Home or Assisted Living Instructions: ED Head Injury Adult Referrals: Jet Mccollum MD [Primary Care Provider] - As Needed Additional Instructions: Return if severe headache, intractable vomiting or feeling a lot worse. The CAT scan of your brain showed no acute abnormality.
[2019-10-29 21:22] VITALS: BP 115/67; PULSE 58; RESP 12; O2SAT 95
== END 2019-10-29 21:35 | disposition home or self-care (01) ==
PROVIDERS: Emergency Provider Emergency Medicine; PCP Family Medicine
DX: S09.90XA Unspecified injury of head, initial encounter (principal); W01.198A Fall on same level from slipping, tripping and stumbling with subsequent striking against other object, initial encounter; Y93.01 Activity, walking, marching and hiking; Y92.9 Unspecified place or not applicable; Y99.9 Unspecified external cause status; I25.10 Atherosclerotic heart disease of native coronary artery without angina pectoris; E11.9 Type 2 diabetes mellitus without complications; I10 Essential (primary) hypertension; K21.9 Gastro-esophageal reflux disease without esophagitis; Z79.4 Long term (current) use of insulin; Z79.01 Long term (current) use of anticoagulants; Z79.899 Other long term (current) drug therapy; I25.2 Old myocardial infarction; Z86.73 Personal history of transient ischemic attack (TIA), and cerebral infarction without residual deficits; Z95.1 Presence of aortocoronary bypass graft
CPT/HCPCS: 70450; 99284

== ENCOUNTER → 2019-11-09 17:47 | Outpatient (CLI) | payer MEDICARE, SELFPAY ==
[2019-11-05 09:45] VITALS: BMI 23.9
== END ==
PROVIDERS: PCP Family Medicine; Referring Provider Nurse Practitioner Family; Visit Provider Nurse Practitioner Family
DX: Z11.59 Encounter for screening for other viral diseases (principal)
CPT/HCPCS: 87635; 94799; U0003

== ENCOUNTER 2019-11-12 11:54 | Inpatient (IN) | payer MEDICARE, SELFPAY ==
[2019-11-05 09:45] VITALS: BMI 23.9
[2019-11-12] VITALS (11 sets, daily range): BP systolic 104–125; BP diastolic 59–70; PULSE 81–90; RESP 14–18; TEMP 36.7–37.1; O2SAT 93–97; BMI 24.7; BMI 24.8
--- NOTE | 2019-11-12 12:31 | EKG12_ITS ---
Test Reason : WEAKNESS Blood Pressure : / mmHG Vent. Rate : 082 BPM Atrial Rate : 082 BPM P-R Int : 162 ms QRS Dur : 102 ms QT Int : 542 ms P-R-T Axes : 027 -24 107 degrees QTc Int : 633 ms Sinus rhythm with Premature atrial complexes Leftward [place] Poor R-wave Progression Nonspecific ST and T wave abnormality Abnormal ECG Confirmed by LEI MATHUR, ZULEIKA ([id number]), film and video editor HILLARY JAUREGUI ([id number]) on 11/14/2019 10:54:39 AM Referred By: CHATO Confirmed By:ZULEIKA ODOM MD
--- NOTE | 2019-11-12 12:32 | CT_ITS ---
STUDY: CT CHEST WITH CONTRAST REASON FOR EXAM: Male, 74 years old. FALL, WEAKNESS, HX PANCREATIC CA RADIATION DOSAGE (If Supplied By Facility): CTDIvol = ( 16.02 ) mGy, DLP = ( 1489.33 ) mGycm TECHNIQUE: Transaxial imaging was performed following intravenous administration of IV 100mL Isovue-300. Multiplanar coronal and sagittal images were reformatted. Individualized dose optimization techniques were used for this CT. COMPARISON: Comparison is made with prior study dated 01/16/2010. FINDINGS: A right-sided portacatheter is seen with the tip in the superior vena cava. Small left pleural effusion with bibasilar atelectasis more prominent on the left side. There is no demonstrated pleural abnormality. There are calcifications of the coronary arteries. Calcified mediastinal lymph nodes. Normal hilar regions. Normal enhanced pulmonary arteries. There is atherosclerotic calcification of the aortic arch with tortuosity and elongation of the aortic arch and descending thoracic aorta. There are multi-level degenerative changes of the thoracic spine. Ascites. Findings suggestive of cirrhotic changes of the liver as well as fatty infiltration of the liver. CT/Chest WITH Contrast IMPRESSION: Normal enhanced CT Chest examination. Electronically Signed: Radames Tanner, at 14:41 EDT , Service support ,
--- NOTE | 2019-11-12 12:32 | CT_ITS ---
STUDY: CT BRAIN WITHOUT CONTRAST REASON FOR EXAM: Male, 74 years old. FALL, WEAKNESS RADIATION DOSAGE (If Supplied By Facility): CTDIvol = ( 44.99 ) mGy, DLP = ( 796.11 ) mGycm TECHNIQUE: Transaxial CT imaging of the brain was performed without administration of intravenous contrast material. Individualized dose optimization techniques were used for this CT. COMPARISON: Comparison is made with prior study dated 10/29/2019 and 08/07/2019. FINDINGS: Normal soft tissue structures. Normal calvarium. There is mild cerebral atrophy with widening of the extra-axial spaces and ventricular dilatation. Normal white matter tracts of the cerebral hemispheres. There are small punctate calcifications of the basal ganglia which are seen in the aging brain as a normal variant. Normal brainstem. Normal cerebellum. There is no intracranial hemorrhage. There are no findings of an acute ischemic infarction. Normal visualized paranasal sinuses. CT/Brain/Head without Contrast IMPRESSION: Chronic involutional changes of the brain. Electronically Signed: Radames Tanner, at 14:35 EDT , Service support ,
--- NOTE | 2019-11-12 12:34 | CT_ITS ---
STUDY: CT ABDOMEN AND PELVIS WITH CONTRAST REASON FOR EXAM: Male, 74 years old. FALL, WEAKNESS, HX PANCREATIC CA RADIATION DOSAGE (If Supplied By Facility): CTDIvol = ( 16.02 ) mGy, DLP = ( 1489.33 ) mGycm TECHNIQUE: Transaxial images were obtained from the dome of the diaphragm to the symphysis pubis without oral contrast. IV 100mL Isovue-300 was administered. Sagittal and coronal images were reconstructed. Individualized dose optimization techniques were used for this CT. COMPARISON: Comparison is made with prior examination of 01/12/2019. FINDINGS: Small left pleural effusion with bibasilar atelectasis and/or infiltrates worse on the left side. The visualized portions of the heart are within normal limits. Ascites. There is a diffuse contour abnormality of the liver consistent with cirrhotic changes. Fenestration of the liver. There are surgical clips in the gallbladder fossa consistent with a prior cholecystectomy. Air is seen within the left intrahepatic biliary ducts. Normal spleen. A stent is seen within the pancreatic duct which is dilated. There is evidence of a 4.6 cm x 4.3 cm mass in the head and uncinate process of the pancreas. There is a new 3.8 cm x 3.3 cm cyst in the inferior aspect of the uncinate process of the pancreas adjacent to the superior mesenteric vein and superior mesenteric artery. Increased markings are seen within the root of the mesentery. Normal bilateral adrenal glands. Normal right kidney. Normal left kidney. Normal visualized stomach. Normal small intestine. Normal colon. There is non-visualization of the appendix. Normal abdominal aorta. Normal inferior vena cava. Normal retroperitoneum. Normal urinary bladder. Normal abdominal wall. There are diffuse degenerative changes of the visualized lumbar spine. Prior laminectomy fusion at the L4-L5 level. Prior left total hip replacement. CT/Abdomen/Pelvis W IV Cont ONLY IMPRESSION: Ascites. Findings suggestive of cirrhotic change of the liver as well as fatty infiltration. A stent is seen within the dilated pancreatic duct. Mass in the head and uncinate process of the pancreas which has progressed as compared to prior study. New 3.3 cm x 3.8 cm cyst in the inferior aspect of the uncinate process of the pancreas. Increased markings in the root of the mesentery. Electronically Signed: Radames Tanner, at 14:39 EDT , Service support ,
--- NOTE | 2019-11-12 12:41 | ED.VIS.GEN ---
History of Present Illness Chief Complaint: Weakness Informant: Patient, Family Onset: Weeks Narrative: Patient presents secondary to generalized weakness and falls. History is provided by daughter at bedside. Patient had a diagnosis of pancreatic cancer year and a half ago. He had a Whipple procedure performed. In May of this year a CT scan showed a new pancreatic mass. Biopsy was performed but was inconclusive. His CA-19-9 did initially climb but most recent test showed it had decreased somewhat. Daughter states patient has had frequent falls over the past 3 weeks with generalized weakness. He has had poor appetite and poor p.o. intake. She has spoken with patient's oncologist regarding possible hospice placement or at the very least admission to an ECF as they are not able to provide care for him at home any longer. Patient denies any pain. He states he just feels tired and wiped out. Daughter states he sleeps pretty much all day. - Past Medical History (1) TIA (transient ischemic attack) Status: Chronic (2) Atherosclerotic heart disease of [place] coronary artery without angina pectoris Status: Chronic Comment: 07/22/2008: CABG X4: WONG to LAD, SVG to anterior diagonal branch of LAD, SVG to Ramus Marginalis, and SVG to posterolateral branch of the CX per Dr. Perez @ [facility] (3) Gout Status: Chronic (4) History of total right hip replacement Status: Chronic (5) Hyperlipidemia Status: Chronic (6) Hypertension Status: Chronic (7) Nausea Status: Chronic (8) Old myocardial infarction Status: Chronic (9) Pancreatic cancer Status: Chronic (10) Pulmonary embolism Status: Chronic (11) Restless leg syndrome Status: Chronic (12) Rheumatoid arthritis Status: Chronic (13) S/P CABG x 4 Status: Chronic Comment: 07/22/2008: CABG X4: WONG to LAD, SVG to anterior diagonal branch of LAD, SVG to Ramus Marginalis, and SVG to posterolateral branch of the CX per Dr. Perez @ [facility]. Mediastinal exploration for hemorrhage 08/01/2008. Past Medical History - Allergies and Home Meds Allergies/Adverse Reactions: Allergies No Known Allergies Allergy (Verified 11/12/19 12:02) Primary Care Physician: Jet Mccollum MD [Primary Care Provider] - Doctors: Dr. Miguel Prior records reviewed: Yes Surgical History: coronary bypass surgery - x 4., total hip arthroplasty - Right., - - Whipple procedure, Mediport insertion, lumbar spinal fusion Smoking Status: Former smoker - Family History Sibling Family History: Family History (Last Reviewed 11/05/19 @ 09:45 by Blanca Hernandez) Father CAD (coronary artery disease) CVA (cerebral vascular accident) Myocardial infarction Brother CAD (coronary artery disease) Myocardial infarction, Onset Age: 66 Family History: Reports: Heart Disease - [place] Maternal Family History: Family History (Last Reviewed 11/05/19 @ 09:45 by Blanca Hernandez) Father CAD (coronary artery disease) CVA (cerebral vascular accident) Myocardial infarction Brother CAD (coronary artery disease) Myocardial infarction, Onset Age: 66 Family History: Reports: Dementia Paternal Family History: Family History (Last Reviewed 11/05/19 @ 09:45 by Blanca Hernandez) Father CAD (coronary artery disease) CVA (cerebral vascular accident) Myocardial infarction Brother CAD (coronary artery disease) Myocardial infarction, Onset Age: 66 Family History: Reports: Heart Disease, Stroke Review of Systems General: Denies: Chills, Fever Eyes: Denies: Visual changes - bilaterally ENT: Denies: Bilateral ear pain Cardiovascular: Denies: Chest pain Respiratory: Denies: Dyspnea Gastrointestinal: Reports: Nausea. Denies: Abdominal pain Musculoskeletal: Denies: Swelling, Extremity Pain Skin: Reports: Wounds Neurological: Reports: Weakness Endocrine: Denies: Polyuria, Polydipsia Hematologic: Denies: Easy bruising Allergy: Denies: Uticaria Physical Exam Vital Signs/Narrative: Vital Signs Temp Pulse Resp BP Pulse Ox 11/12/19 11:55 98.6 F 84 17 124/70 H 93 Inital Vital Signs reviewed: Yes General: Well nourished, Well developed Head: Normocephalic ENT: Moist mucous membranes Neck: Supple Cardiovascular: Regular rate, Regular rhythm Respiratory: No distress, CTA bilaterally Abdomen: Soft, Nontender Extremities: - - Patient has 2 healing skin tears to the left forearm. 1 measures 5 x 2 cm the other measures 3 x 1 cm. Neurological: Alert, Oriented x3 Psychological: Depressed Diagnostic/Tx/Re-eval Impressions Brain CT 11/12/19 12:32 IMPRESSION: Chronic involutional changes of the brain. Electronically Signed: Radames Tanner at 14:35 EDT , Service support , Chest CT 11/12/19 12:32 IMPRESSION: Normal enhanced CT Chest examination. Electronically Signed: Radames Tanner, at 14:41 EDT , Service support , Abdomen/Pelvis CT 11/12/19 12:34 IMPRESSION: Ascites. Findings suggestive of cirrhotic change of the liver as well as fatty infiltration. A stent is seen within the dilated pancreatic duct. Mass in the head and uncinate process of the pancreas which has progressed as compared to prior study. New 3.3 cm x 3.8 cm cyst in the inferior aspect of the uncinate process of the pancreas. Increased markings in the root of the mesentery. Electronically Signed: Radames Tanner, at 14:39 EDT , Service support , 11/12/19 12:32 CT Chest [Chest WITH Contrast] [CT] Stat CT Head [Brain/Head without Contrast] [CT] Stat 11/12/19 12:34 Abdomen/Pelvis W IV Cont ONLY [CT] Stat Laboratory Results 11/12/19 11/12/19 13:07 13:07 WBC 10.0 RBC 2.37 L Hgb 7.1 L Hct 22.3 L MCV 94.1 H MCH 30.0 MCHC 31.8 L RDW Std Deviation 54.4 H RDW Coeff of Loi 15.9 H Plt Count 173 MPV 9.2 Immature Gran % (Auto) 0.700 Neut % (Auto) 92.3 H Lymph % (Auto) 2.1 L [place] % (Auto) 4.9 Eos % (Auto) 0.0 Baso % (Auto) 0.0 Absolute Neuts (auto) 9.3 H Absolute Lymphs (auto) 0.21 L Nucleated RBC % 0 Platelet Estimate ADEQUATE Hypochromasia 2+ Schistocytes RARE Sodium 135 L Potassium 3.7 Chloride 100 Carbon Dioxide 31.0 Anion Gap 4 L BUN 22 H Creatinine 1.15 Estim Creat Clear Calc 51.89 Est GFR (MDRD) Af Amer 80 Est GFR (MDRD) Non-Af 66 BUN/Creatinine Ratio 19.1 Glucose 109 H Calcium 7.8 L Total Bilirubin 0.60 Direct Bilirubin 0.25 AST 33 ALT 36 Alkaline Phosphatase 117 Total Protein 4.8 L Albumin 2.1 L Globulin 2.7 Lipase 234 - EKG Initial EKG Interpretation: Sinus Rhythm - Sinus 82. Nonspecific T wave flattening noted. - Medical Decision Making Patient was given gentle IV fluid hydration. Per family's request I did speak with hospice. Dr. Samuels believes the patient would be appropriate to bring out to the hospice facility. Covid test should be back within the next 15 minutes. Addendum: Liaison from hospice did present to the emergency room to evaluate the patient. After speaking with family and Dr. Samuels they feel it is a little premature to stop treatments including blood transfusions and scans. They would prefer the patient be admitted to the hospital for a blood transfusion. If patient is still interested in hospice following this they can be reconsulted. ED Disposition - Plan for ED Patient: Disposition: Acute Care Hospital [facility] Diagnosis: Pancreatic cancer, Declining functional status, Anemia Referrals: Jet Mccollum MD [Primary Care Provider] -
[2019-11-12 13:12] LABS: Absolute Lymphocyte Count 0.21 X10^3/uL (0.83-4.51); Absolute Neutrophil Count 9.3 X10^3/uL (2.0-7.7); Differential Indicated SCAN CRITERIA MET; Hematocrit 22.3 % (40-54); Hemoglobin 7.1 g/dL (13.0-16.5); Lymphocyte # 0.21 X10^3/ul (4.0); Lymphocyte % 2.1 % (19-41); Mean Corp Hgb Conc 31.8 g/dL (32-36); Mean Corpuscular Volume 94.1 fL (80-94); Mean Platelet Vol. 9.2 fl (6.2-12.0); Monocyte# 0.49 X10^3/uL; Monocyte% 4.9 % (0-10); NRBC Flagged by Analyzer 0 % (0-5); Neutrophil # 9.27 X10^3/uL (2.7-7.7); Neutrophil % 92.3 % (47-70); POSITIVE DIFFERENTIAL YES; Platelet Count 173 K/mm3 (150-450); RBC Distribution Width CV 15.9 % (11.6-14.6); RBC Distribution Width SD 54.4 fl (35.1-43.9); Red Blood Count 2.37 M/mm3 (4.6-6.2)
--- NOTE | 2019-11-12 13:20 | CM.ED ---
SOCIAL WORK Informant: Bench Manager-[facility] and Home Health-Dr. Boris Jenkins Reason for Consult: Discharge Planning/Hospice Met with patient and patient's daughterSuzanne in room. Introduced role and reason for referral. Discussed discharge planning. Daughter reports no longer able to care for patient in the home. Patient having multiple falls and declining. Daughter and patient open to Hospice consult. Discussed options of inpatient hospice or to ECF with hospice care. Daughter reports has already been in contact with [facility]. Will await Hospice consult. This worker to remain available for needs and support. Plan: Hospice consult Jamil Hampton MSW, SENIOR IOS DEVELOPER
[2019-11-12 13:28] LABS: AST(SGOT) 33 U/L (15-37); Alanine Aminotransfer ALT/SGPT 36 U/L (16-61); Albumin, Serum 2.1 g/dL (3.2-5.0); Alkaline Phosphatase 117 U/L (45-117); Anion Gap 4 (5-15); BUN 22 mg/dL (7-18); BUN/Creat Ratio 19.1 RATIO (10-20); Bilirubin, Direct 0.25 mg/dL (0.00-0.30); Calcium,Total 7.8 mg/dL (8.5-10.1); Chloride 100 mmol/L (98-107); Creatinine, Serum 1.15 mg/dL (0.70-1.30); EST Glomerular Filtration Rate 66 mL/min (>60); Est Glom Filt Rate - Afr Amer 80 mL/min (>60); Estimated Creatinine Clearance 51.89 ml/min; Globulin 2.7 g/dL (2.2-4.2); Glucose 109 mg/dL (74-106); Lipase 234 U/L (73-393); Potassium 3.7 mmol/L (3.5-5.1); Protein, Total 4.8 g/dL (6.4-8.2); Sodium Level 135 mmol/L (136-145)
[2019-11-12 13:38] LABS: Hypochromasia 2+; Platelet Estimate ADEQUATE (ADEQ); Schistocytes RARE
--- NOTE | 2019-11-12 14:25 | CM.ED ---
SOCIAL WORK Call to [facility], spoke with Crissy in admissions. Crissy states is aware of patient as she has spoken with daughter. Crissy reports would be able to accommodate patient under hospice care and has discussed cost with patient's daughter. Crissy reports will need COVID test prior to acceptance. Informed COVID test is pending at this time. Jamil Hampton, CHIEF II DISPATCHER, OPERATIONS DISPATCHER
--- NOTE | 2019-11-12 15:32 | CM.ED ---
SOCIAL WORK Updated by Dr. Escalante, plan is for inpatient hospice. Jamil Hampton, WASTE MANAGEMENT SPECIALIST, GROCERY STORE BAGGER
--- NOTE | 2019-11-12 15:49 | NURSING ---
HOSPICE IN ROOM
--- NOTE | 2019-11-12 16:33 | CM.ED ---
SOCIAL WORK Updated by Dr. Escalante, business liaison officer spoke with physician and recommending patient be admitted for blood transfusions. Family wanting additional day to consider all options. Hospitalist has been paged. Call to [facility] to update on possible referral tomorrow. SW to follow up tomorrow. Jamil Hampton, TITLE DEPARTMENT MANAGER, MOUNTER CLARINETS
--- NOTE | 2019-11-12 16:41 | NURSING ---
312 DEBILITY, PANCREATIC CA, SEVERE ANEMIA PAINTSIL
--- NOTE | 2019-11-12 16:42 | NURSING ---
DR THOMAS IN ER
--- NOTE | 2019-11-12 17:12 | HP.PCM_ITS ---
<Ambika Herzog - Last Filed: 11/12/19 17:44> Problem List (1) Declining functional status Status: Acute (2) Anemia Status: Acute (3) TIA (transient ischemic attack) Status: Chronic (4) Severe protein-calorie malnutrition Status: Chronic (5) Macrocytic anemia Status: Chronic (6) Rheumatoid arthritis Status: Chronic Qualifiers: Rheumatoid arthritis location: unspecified site Rheumatoid factor presence: unspecified presence Qualified Code(s): M06.9 - Rheumatoid arthritis, unspecified (7) Acute adrenal insufficiency Status: Suspected (8) Pancreatic cancer Status: Chronic Qualifiers: Pancreatic malignancy location: unspecified Qualified Code(s): C25.9 - Malignant neoplasm of pancreas, unspecified (9) Pulmonary embolism Status: Chronic (10) Gout Status: Chronic (11) Restless leg syndrome Status: Chronic (12) Pancreatic insufficiency Status: Chronic (13) Hypomagnesemia Status: Chronic (14) Nausea Status: Chronic (15) History of total right hip replacement Status: Chronic (16) S/P CABG x 4 Status: Chronic Comment: 07/22/2008: CABG X4: WONG to LAD, SVG to anterior diagonal branch of LAD, SVG to Ramus Marginalis, and SVG to posterolateral branch of the CX per Dr. Perez @ [facility]. Mediastinal exploration for hemorrhage 08/01/2008. (17) History of left heart catheterization Status: Chronic Comment: 07/19/2008 @ [facility] per Dr. Santiago: 07/19/[address] Molina @ [facility] (18) Atherosclerotic heart disease of [place] coronary artery without angina pectoris Status: Chronic Comment: 07/22/2008: CABG X4: WONG to LAD, SVG to anterior diagonal branch of LAD, SVG to Ramus Marginalis, and SVG to posterolateral branch of the CX per Dr. Perez @ [facility] (19) Old myocardial infarction Status: Chronic (20) Hyperlipidemia Status: Chronic (21) Hypertension Status: Chronic History of Present Illness Date of Admission: 11/12/19 Chief Complaint: Weakness, recurrent falls. The patient is a 74 year old M who presents to the emergency room due to weakness and recurrent falls. Daughter at bedside provides most of HPI. Daughter reports patient has had progressive weakness over the last few weeks with multiple falls. He was seen at the emergency room 10/29/2019 following a fall where he hit his head. Brain CT at that time was unremarkable. Daughter reports he follows with oncology, Dr. Miguel for pancreatic cancer. They initially discussed hospice transition in emergency room however due to low hemoglobin, daughter would like to try a blood transfusion to see if this improves his weakness prior to hospice transition. Patient reports nausea and p oor appetite. He reports he had recent stool test which was positive for occult blood. He does not want GI evaluation including EGD or colonoscopy. He is agreeable to blood transfusion however does not want any other invasive work-up. Patient reports dizziness. Denies chest pain, shortness of breath. Denies other associated symptoms. He has a past medical history of pancreatic cancer status post Whipple, rheumatoid arthritis, history of PE, CAD status post CABG, hypertension, hyperlipidemia, severe protein calorie malnutrition, chronic macrocytic anemia, type 2 diabetes mellitus. Past Medical History Past Medical History (Chronic Problems): Chronic Problems (Last Reviewed 11/05/19 @ 09:45 by Blanca Hernandez) TIA (transient ischemic attack) (Chronic) Severe protein-calorie malnutrition (Chronic) Macrocytic anemia (Chronic) Rheumatoid arthritis (Chronic) Pancreatic cancer (Chronic) Pulmonary embolism (Chronic) Gout (Chronic) Restless leg syndrome (Chronic) Pancreatic insufficiency (Chronic) Hypomagnesemia (Chronic) Nausea (Chronic) 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 Perez @ [facility]. Mediastinal exploration for hemorrhage 08/01/2008. History of left heart catheterization (Chronic) 07/19/2008 @ [facility] per Dr. Santiago: 07/19/[address] Molina @ [facility] Atherosclerotic heart disease of [place] coronary artery without angina pectoris (Chronic) 07/22/2008: CABG X4: WONG to LAD, SVG to anterior diagonal branch of LAD, SVG to Ramus Marginalis, and SVG to posterolateral branch of the CX per Dr. Perez @ [facility] Old myocardial infarction (Chronic) Hyperlipidemia (Chronic) Hypertension (Chronic) Medical History: Medical History (Last Reviewed 11/05/19 @ 09:45 by Blanca Hernandez) Atherosclerotic heart disease of [place] coronary artery without angina pectoris (Chronic) I25.10 07/22/2008: CABG X4: WONG to LAD, SVG to anterior diagonal branch of LAD, SVG to Ramus Marginalis, and SVG to posterolateral branch of the CX per Dr. Perez @ [facility] Old myocardial infarction (Chronic) I25.2 Hyperlipidemia (Chronic) E78.5 Hypertension (Chronic) I10 Arthritis M19.90 High triglycerides E78.1 History of alcohol abuse F10.11 History of blood clots Z86.718 Neuropathy G62.9 Skin cancer C44.90 Vision problems H54.7 Allergies No Known Allergies Allergy (Verified 11/12/19 12:02) Home Medications: Ambulatory Orders Medication Instructions Recorded hydroxychloroquine 200 mg tablet 200 mg PO BID tab 07/30/17 Acetaminophen [Acetaminophen Extra 500 mg PO DAILY PRN PRN 10/17/18 Strength] Lipase/Protease/Amylase [Megan Evans 1 cap PO TIDCM 10/17/18 36,000 Units Capsule] Ondansetron [Ondansetron Odt] 8 mg PO DAILY PRN PRN 10/17/18 Allopurinol 300 mg PO DAILY 08/07/19 Gabapentin [Neurontin] 100 mg PO TIDCM 08/07/19 Multivitamins,Therapeutic 1 tab PO DAILY@1200 08/07/19 [Multivitamin] Pantoprazole Sodium [Protonix] 40 mg PO DAILY 08/07/19 Duloxetine HCl 30 mg PO DAILY 10/29/19 Glucosamine Sulfate 600 mg PO DAILY 10/29/19 Pioglitazone [Actos] 30 mg PO DAILY 10/29/19 Ropinirole HCl [Requip] 0.25 mg PO BID 10/29/19 insulin glargine 100 unit/mL (3 5 - 10 unit SUBCUT BID ml 11/05/19 mL) subcutaneous pen Hydrocortisone 5 - 10 mg PO BID 11/12/19 Magnesium Oxide 400 mg PO BID 11/12/19 Prednisone 10 mg PO QODAY 11/12/19 Sulfamethoxazole/Trimethoprim 1 tab PO MOWEFR 11/12/19 [Sulfamethoxazole-Tmp Ds Tablet] Surgical History: Surgical History (Last Reviewed 11/05/19 @ 09:45 by Blanca Hernandez) History of total right hip replacement (Chronic) Z96.641 S/P CABG x 4 (Chronic) Z95.1 07/22/2008: CABG X4: WONG to LAD, SVG to anterior diagonal branch of LAD, SVG to Ramus Marginalis, and SVG to posterolateral branch of the CX per Dr. Perez @ [facility]. Mediastinal exploration for hemorrhage 08/01/2008. History of left heart catheterization (Chronic) Z98.890 07/19/2008 @ [facility] per Dr. Santiago: 07/19/[address] Molina @ [facility] Surgical History: coronary bypass surgery - x 4., total hip arthroplasty - Right., - - Whipple procedure, Mediport insertion, lumbar spinal fusion Psychiatric History: No pertinent psych hx Lives: Alone Smoking Status: Former smoker Alcohol: Sober Drugs: None - *Family History Maternal Family History: Family History (Last Reviewed 11/12/19 @ 17:26 by MEL Conde) Father CAD (coronary artery disease) CVA (cerebral vascular accident) Myocardial infarction Brother CAD (coronary artery disease) Myocardial infarction, Onset Age: 66 History Items: Dementia Paternal Family History: Family History (Last Reviewed 11/12/19 @ 17:26 by MEL Conde) Father CAD (coronary artery disease) CVA (cerebral vascular accident) Myocardial infarction Brother CAD (coronary artery disease) Myocardial infarction, Onset Age: 66 History Items: Heart Disease, Stroke Sibling Family History: Family History (Last Reviewed 11/12/19 @ 17:26 by MEL Conde) Father CAD (coronary artery disease) CVA (cerebral vascular accident) Myocardial infarction Brother CAD (coronary artery disease) Myocardial infarction, Onset Age: 66 History Items: Heart Disease - GA Review of Systems Constitutional: Reports: Malaise, Weakness, - - Decreased appetite. Denies: Chills, Fever HEENT: Denies: Head Aches, Sinus Congestion, Sinus Drainage Cardiovascular: Reports: Light Headedness. Denies: Chest Pain, Palpitations, Syncope Respiratory: Denies: Cough, Shortness of breath at rest, Sputum production Gastrointestinal: Reports: Constipation, Nausea, Melena. Denies: Abdominal Pain, Diarrhea, Vomiting Genitourinary: Denies: Dysuria Musculoskeletal: Denies: Joint Pain, Joint Tenderness Skin: Denies: Rash, Wounds Neurological: Reports: Balance problems. Denies: Change in Speech, Slurred speech, Focal weakness, Numbness Psychiatric: Denies: Anxiety, Depression, Homicidal Ideations, Suicidal Ideations Hematologic/ Lymphatic: Denies: Easy Bruising, Easy Bleeding VTE Information - Inpt Only VTE Present on Admission: No VTE Mechan Device Prophylaxis: None VTE Pharm Prophylaxis ordered?: Yes Patient Problems: Active and Suspected Problems (Last Reviewed 11/05/19 @ 09:45 by Blanca Hernandez) Declining functional status (Acute) Anemia (Acute) - Physical Exam Vitals/I&O's: Vital Signs Temp Pulse Resp BP Pulse Ox 98.2 F 82 16 125/70 H 95 11/12/19 17:00 11/12/19 17:00 11/12/19 17:00 11/12/19 17:00 11/12/19 17:00 Oxygen Delivery Method Room Air Weight: 158 lb 4.67 oz Body Mass Index (BMI) 24.7 Finger Stick Blood Glucose 336 General: Alert, Oriented x3, Cooperative HEENT: Atraumatic, PERRLA, EOMI, Normocephalic Oral: Dry Mucosa, - - Oral thrush Neck: Supple, No JVD, Negative Carotid Bruits Lungs: Clear to auscultation, Diminished Cardiovascular: Regular rate, No murmurs Abdomen: Bowel Sounds Present, Soft, Non Tender, Non-Distended Extremities: No clubbing, No cyanosis, No edema, Capillary Refill Less than 3 Seconds Skin: No rashes, No breakdown, - - Left forearm skin tears, Willy bandage intact Musculoskeletal: No Tenderness to Palpation of Joints or Extremities, Cachexia, Muscle Wasting Neurological: Cranial nerves II-XII grossly intact, Neuro grossly intact Psych/Mental Status: Normal Affect, Appropriate Laboratory Results 11/12/19 12:55: COVID-19 ([facility]) Negative 11/12/19 13:07: WBC 10.0, RBC 2.37 L, Hgb 7.1 L, Hct 22.3 L, MCV 94.1 H, MCH 30.0, MCHC 31.8 L, RDW Std Deviation 54.4 H, RDW Coeff of Loi 15.9 H, Plt Count 173, MPV 9.2, Immature Gran % (Auto) 0.700, Neut % (Auto) 92.3 H, Lymph % (Auto) 2.1 L, [place] % (Auto) 4.9, Eos % (Auto) 0.0, Baso % (Auto) 0.0, Absolute Neuts (auto) 9.3 H, Absolute Lymphs (auto) 0.21 L, Nucleated RBC % 0, Platelet Estimate ADEQUATE, Hypochromasia 2+, Schistocytes RARE 11/12/19 13:07: Sodium 135 L, Potassium 3.7, Chloride 100, Carbon Dioxide 31.0, Anion Gap 4 L, BUN 22 H, Creatinine 1.15, Estim Creat Clear Calc 51.89, Est GFR (MDRD) Af Amer 80, Est GFR (MDRD) Non-Af 66, BUN/Creatinine Ratio 19.1, Glucose 109 H, Calcium 7.8 L, Total Bilirubin 0.60, Direct Bilirubin 0.25, AST 33, ALT 36, Alkaline Phosphatase 117, Total Protein 4.8 L, Albumin 2.1 L, Globulin 2.7, Lipase 234 Current Medications Sodium Chloride () 1,000 mls @ 150 mls/hr IV .Q6H40M [facility] Assessment/Plan All Active Problems (Last Reviewed 11/05/19 @ 09:45 by Blanca Hernandez) Declining functional status (Acute) Anemia (Acute) Community acquired pneumonia of left lower lobe of lung (Resolved) Hypokalemia (Resolved) Pancytopenia (Resolved) 1. Acute on chronic macrocytic anemia, suspect GI bleed, underlying iron deficiency-recent baseline hemoglobin about 11. Hemoglobin on admission 7.1. Daughter reports recent positive stool for occult blood during office visit. Transfuse 1 unit PRBC. Trend CBC. IV PPI twice daily. Patient recently taken off of Eliquis secondary to recurrent falls. Family agreeable to hospice however would like to attempt blood transfusion to see if this improves his symptoms prior to hospice transition. 2. Pancreatic cancer status post Whipple procedure- follows with Dr. Miguel. Last chemo 1 year ago. Right chest port. 3. Rheumatoid arthritis-on hydrochloroquine, prednisone. 4. History of PE-recently taken off of anticoagulation as noted above. 5. CAD status post CABG-approximately 10 years ago. Not on aspirin, statin, beta-laurent. 6. Hypertension-no longer on regimen. 7. Hyperlipidemia-no longer on statin. 8. Severe protein calorie malnutrition-dietitian consult. 9. Type 2 diabetes [id number] with sliding scale insulin. Continue oral and insulin regimen. 10. Depression-continue home duloxetine regimen. 11. Gout-on allopurinol. 12. Oral thrush-nystatin swish and swallow. DVT prophylaxis- SCDs CODE STATUS: DNR CC This patient was seen by MEL Conde under the supervision of Dr. Gallardo. <Marina Gallardo - Last Filed: 11/12/19 18:28> History of Present Illness The patient is a 74 year old M [] Past Medical History Medical History: Medical History (Last Reviewed 11/05/19 @ 09:45 by Blanca Hernandez) Atherosclerotic heart disease of [place] coronary artery without angina pectoris (Chronic) I25.10 07/22/2008: CABG X4: WONG to LAD, SVG to anterior diagonal branch of LAD, SVG to Ramus Marginalis, and SVG to posterolateral branch of the CX per Dr. Perez @ [facility] Old myocardial infarction (Chronic) I25.2 Hyperlipidemia (Chronic) E78.5 Hypertension (Chronic) I10 Arthritis M19.90 High triglycerides E78.1 History of alcohol abuse F10.11 History of blood clots Z86.718 Neuropathy G62.9 Skin cancer C44.90 Vision problems H54.7 Allergies No Known Allergies Allergy (Verified 11/12/19 12:02) Surgical History: Surgical History (Last Reviewed 11/05/19 @ 09:45 by Blanca Hernandez) History of total right hip replacement (Chronic) Z96.641 S/P CABG x 4 (Chronic) Z95.1 07/22/2008: CABG X4: WONG to LAD, SVG to anterior diagonal branch of LAD, SVG to Ramus Marginalis, and SVG to posterolateral branch of the CX per Dr. Perez @ [facility]. Mediastinal exploration for hemorrhage 08/01/2008. History of left heart catheterization (Chronic) Z98.890 07/19/2008 @ [facility] per Dr. Santiago: 07/19/[address] Molina @ [facility] - *Family History Maternal Family History: Family History (Last Reviewed 11/12/19 @ 17:26 by MEL Conde) Father CAD (coronary artery disease) CVA (cerebral vascular accident) Myocardial infarction Brother CAD (coronary artery disease) Myocardial infarction, Onset Age: 66 Paternal Family History: Family History (Last Reviewed 11/12/19 @ 17:26 by MEL Conde) Father CAD (coronary artery disease) CVA (cerebral vascular accident) Myocardial infarction Brother CAD (coronary artery disease) Myocardial infarction, Onset Age: 66 Sibling Family History: Family History (Last Reviewed 11/12/19 @ 17:26 by MEL Conde) Father CAD (coronary artery disease) CVA (cerebral vascular accident) Myocardial infarction Brother CAD (coronary artery disease) Myocardial infarction, Onset Age: 66 - Physical Exam Vitals/I&O's: Vital Signs Temp Pulse Resp BP Pulse Ox 98.2 F 82 16 125/70 H 95 11/12/19 17:00 11/12/19 17:00 11/12/19 17:00 11/12/19 17:00 11/12/19 17:00 Oxygen Delivery Method Room Air Weight: 71.8 kg Body Mass Index (BMI) 24.7 Finger Stick Blood Glucose 336 Laboratory Results 11/12/19 12:55: COVID-19 ([facility]) Negative 11/12/19 13:07: WBC 10.0, RBC 2.37 L, Hgb 7.1 L, Hct 22.3 L, MCV 94.1 H, MCH 30.0, MCHC 31.8 L, RDW Std Deviation 54.4 H, RDW Coeff of Loi 15.9 H, Plt Count 173, MPV 9.2, Immature Gran % (Auto) 0.700, Neut % (Auto) 92.3 H, Lymph % (Auto) 2.1 L, [place] % (Auto) 4.9, Eos % (Auto) 0.0, Baso % (Auto) 0.0, Absolute Neuts (auto) 9.3 H, Absolute Lymphs (auto) 0.21 L, Nucleated RBC % 0, Platelet Estimate ADEQUATE, Hypochromasia 2+, Schistocytes RARE 11/12/19 13:07: Sodium 135 L, Potassium 3.7, Chloride 100, Carbon Dioxide 31.0, Anion Gap 4 L, BUN 22 H, Creatinine 1.15, Estim Creat Clear Calc 51.89, Est GFR (MDRD) Af Amer 80, Est GFR (MDRD) Non-Af 66, BUN/Creatinine Ratio 19.1, Glucose 109 H, Calcium 7.8 L, Total Bilirubin 0.60, Direct Bilirubin 0.25, AST 33, ALT 36, Alkaline Phosphatase 117, Total Protein 4.8 L, Albumin 2.1 L, Globulin 2.7, Lipase 234 Current Medications Acetaminophen (Tylenol) 650 mg PO Q6H PRN PRN PRN Reason: Pain Score 1-10/Temp > 100.7 F Al Hydroxide/Mg Hydroxide (Mylanta Ii) 30 ml PO Q6H PRN PRN PRN Reason: Gastric Burning Allopurinol (Zyloprim) 300 mg PO DAILY [facility] Dextrose (D50w Syringe) 0 gm IV X1 PRN; Protocol PRN Reason: Hypoglycemia Duloxetine HCl (Cymbalta) 30 mg PO DAILY [facility] Gabapentin (Neurontin) 100 mg PO TIDCM [facility] Glucagon () 1 mg IM .X1 PRN PRN Reason: Hypoglycemia Pantoprazole Sodium 40 mg/ (Sodium Chloride) 110 mls @ 330 mls/hr IV Q12 [facility] Insulin Human Lispro (Humalog Kwikpen (Bkc)) 0 unit SC ACHS [facility]; Protocol Magnesium Hydroxide (Milk Of Magnesia) 30 ml PO DAILY PRN PRN PRN Reason: Constipation Melatonin (Melatonin) 3 mg PO QHS PRN PRN PRN Reason: INSOMNIA Morphine Sulfate () 2 mg IV Q3H PRN PRN PRN Reason: Pain Score 6-10/10 Multivitamins (Multivitamin) tablet PO DAILY@1200 [facility] Non-Formulary Medication (Ropinirole Hcl [Requip]) 0.25 mg PO BID [facility] Nystatin (Nystatin) 500,000 unit PO 4X/DAY [facility] Ondansetron HCl (Zofran) 4 mg IV Q8H PRN PRN PRN Reason: NAUSEA/VOMITING Sucralfate (Carafate) 1 gm PO 1HR_ACHS [facility] Trimethoprim/Sulfamethoxazole (Bactrim Ds) 1 tablet PO MoWeFr@0800 [facility] Assessment/Plan This patient was seen in conjunction with Ambika Herzog NP. I have independently interviewed and examined the patient and reviewed pertinent historical, laboratory, and other data. Please refer to her note for patient's presentation, findings, and recommendations. 74-year-old male with past medical history of pancreatic CA status post Whipple's, ?remission, last had chemotherapy a year ago, history of para neoplastic retinopathy, recently of steroids, history of GI bleed, off Eliquis, who comes in with progressive weakness and recurrent falls ongoing for the past 2 to 3 weeks. Patient lives alone with his dog and has a girlfriend that comes every day. He has been progressively weak with nausea ongoing for 3 weeks. He has been falling in the last 1 and half weeks. He has followed up with oncology and his CA 19-9 initially was high but had come down. He was taken off apixaban. He was started on hydrocortisone for possible adrenal insufficiency. Work-up in the ED showed stable vitals. His hemoglobin was 7.1, down from 11.0 a month ago. WBC count was 10.0, platelet count 173, BUN was 22, creatinine was 1.15, which is about his baseline. LFTs were unremarkable. COVID-19 test was negative. Physical Exam: Gen: Appears ill, comfortable, not pale, not jaundiced, alert oriented x3 CVS:HS I +II, regular, no murmurs RESP: CTA GI: midline scar, epigastric fullness, BS present and normal, nontender, no palpable organs EXT:Bilateral leg edema +4 Labs reviewed: ASSESSMENT: 1. Debility 2. Severe anemia, likely iron deficiency 3. Oral thrush 4. Pancreatic CA s/p Whipple procedure, now with new mass and a progressive cyst 5. CAD s/p CABG 6. Hypertension 7. Hyperlipidemia 8. Type 2 DM 9. Severe protein-calorie malnutrition Meds reviewed - hold off prednisone, hydrocortisone, Plaquenil, Lantus Unclear reason for Bactrim - will need to clarify reason Plan: Check iron stores Transfuse 1 unit of packed RBC Lasix after blood transfusion IV PPI, Sucralfate HH Q6h Patient refused GI consult for workup Transcripter consult Nystatin swish and swallow Blood glucose checks and ISS DVT PPx - SCDs Oncology consult Possible Hospice inpatient discharge vs SNF discharge OBSV E&M: 39204 Initial observation care L3 Procedures: 31562 Advncd Care Plan 30 Min
[2019-11-12] MEDS: 0.9% Normal Saline 1,000 ML 150 ML IV (17:19)
[2019-11-12 18:48] LABS: Hematocrit 22.5 % (40-54); Hemoglobin 7.1 g/dL (13.0-16.5)
[2019-11-12] MEDS: NYSTATIN 500,000 UNIT/5 ML UDC 500000 UNIT PO ×2 (19:21→21:41)
[2019-11-12] MEDS: Furosemide 40 MG/4 ML Vial IV (19:21)
[2019-11-12 19:41] LABS: Bedside Glucose 102 mg/dL (70-110)
[2019-11-12] MEDS: Sucralfate 1 GM Tablet PO (21:41)
[2019-11-12] MEDS: Pramipexole Di-HCl 0.125 MG Tablet PO (21:41)
[2019-11-12] MEDS: Insulin Lispro 100 UNIT/ML INSULN.PEN SC (21:43)
[2019-11-12 23:06] LABS: Bedside Glucose 203 mg/dL (70-110)
[2019-11-13] VITALS (9 sets, daily range): BP systolic 112–145; BP diastolic 60–76; PULSE 81–109; RESP 16–18; TEMP 36.7–37.2; O2SAT 93–96
[2019-11-13] MEDS: 0.9% Saline Lock 10 ML Syringe IV ×2 (00:14→16:45)
--- NOTE | 2019-11-13 00:57 | NURSING ---
Pt requested to have the ordered soap suds enema given in the morning.
[2019-11-13 01:13] LABS: Hemoglobin 8.4 g/dL (13.0-16.5)
[2019-11-13 05:43] LABS: Absolute Lymphocyte Count 0.93 X10^3/uL (0.83-4.51); Absolute Neutrophil Count 7.4 X10^3/uL (2.0-7.7); Basophil# 0.02 X10^3/uL; Basophil% 0.2 % (0-1); Eosinophil# 0.17 X10^3/uL; Eosinophils% 1.8 % (0-5); Hematocrit 24.9 % (40-54); Hemoglobin 8.1 g/dL (13.0-16.5); Lymphocyte # 0.93 X10^3/ul (4.0); Lymphocyte % 9.8 % (19-41); Mean Corp Hgb Conc 32.5 g/dL (32-36); Mean Corpuscular Volume 92.2 fL (80-94); Mean Platelet Vol. 9.5 fl (6.2-12.0); Monocyte# 0.99 X10^3/uL; Monocyte% 10.4 % (0-10); NRBC Flagged by Analyzer 0 % (0-5); Neutrophil # 7.36 X10^3/uL (2.7-7.7); Neutrophil % 77.5 % (47-70); POSITIVE MORPHOLOGY YES; Platelet Count 195 K/mm3 (150-450); RBC Distribution Width SD 53.5 fl (35.1-43.9); White Blood Count 9.5 K/mm3 (4.4-11.0)
[2019-11-13 06:04] LABS: ALB/GLOB Ratio 0.8 RATIO (0.9-2.4); AST(SGOT) 32 U/L (15-37); Alanine Aminotransfer ALT/SGPT 33 U/L (16-61); Albumin, Serum 2.1 g/dL (3.2-5.0); Alkaline Phosphatase 112 U/L (45-117); Anion Gap 5 (5-15); BUN 18 mg/dL (7-18); BUN/Creat Ratio 18.9 RATIO (10-20); Calcium,Total 7.6 mg/dL (8.5-10.1); Chloride 102 mmol/L (98-107); Creatinine, Serum 0.95 mg/dL (0.70-1.30); EST Glomerular Filtration Rate 82 mL/min (>60); Est Glom Filt Rate - Afr Amer 99 mL/min (>60); Estimated Creatinine Clearance 60.63 ml/min; Globulin 2.6 g/dL (2.2-4.2); Glucose 89 mg/dL (74-106); Protein, Total 4.7 g/dL (6.4-8.2); Sodium Level 137 mmol/L (136-145)
[2019-11-13 06:07] LABS: Differential Indicated SCAN CRITERIA MET
[2019-11-13 06:39] LABS: Differential Comment SCANNED
[2019-11-13] MEDS: Sucralfate 1 GM Tablet PO ×4 (06:50→21:38)
[2019-11-13 07:01] LABS: Bedside Glucose 104 mg/dL (70-110)
[2019-11-13] MEDS: DULoxetine Hcl 30 MG Capsule PO (08:35)
[2019-11-13] MEDS: Pramipexole Di-HCl 0.125 MG Tablet PO ×2 (08:35→21:38)
[2019-11-13] MEDS: Allopurinol 300 MG Tablet PO (08:35)
[2019-11-13] MEDS: NYSTATIN 500,000 UNIT/5 ML UDC 500000 UNIT PO ×4 (08:35→21:38)
[2019-11-13] MEDS: Gabapentin 100 MG Capsule PO ×3 (08:35→16:47)
[2019-11-13 08:57] LABS: International Normalized Ratio 1.2; Prothrombin Time (Protime)PT. 14.6 SECONDS (11.7-14.9)
[2019-11-13] MEDS: Multivitamins,Therapeutic Tablet 1 TABLET PO (11:01)
--- NOTE | 2019-11-13 11:50 | PN_ITS ---
<Ambika Herzog - Last Filed: 11/13/19 11:59> Patient Problems: Active and Suspected Problems (Last Reviewed 11/05/19 @ 09:45 by Blanca Hernandez) Declining functional status (Acute) Anemia (Acute) Subjective: Patient seen and examined. Dizziness/lightheadedness improved. States he did not sleep well overnight. Denies other specific complaints. - Physical Exam Vitals/I&O's: Vital Signs Temp Pulse Resp BP Pulse Ox 98.1 F 85 18 133/69 H 96 11/13/19 08:35 11/13/19 08:35 11/13/19 08:35 11/13/19 08:35 11/13/19 08:35 Oxygen Delivery Method Room Air Weight: 157 lb 13.616 oz Body Mass Index (BMI) 24.8 Finger Stick Blood Glucose 336 Intake and Output for Last 24 Hours 11/11/19 11/12/19 11/13/19 23:59 23:59 23:59 Intake Total 127.5 / 127.5 220 / 220 Output Total 625 / 625 300 / 300 Balance -497.5 / -497.5 -80 / -80 General: Alert, Oriented x3, Cooperative HEENT: Atraumatic, PERRLA, EOMI, Normocephalic Oral: Dry Mucosa, - - Oral thrush Neck: Supple, No JVD, Negative Carotid Bruits Lungs: Clear to auscultation, Diminished Cardiovascular: Regular rate, No murmurs Abdomen: Bowel Sounds Present, Soft, Non Tender, Non-Distended, Hernia Extremities: No clubbing, No cyanosis, Capillary Refill Less than 3 Seconds, Edema - +2 bilateral lower extremities Skin: No rashes, No breakdown, - - Left forearm skin tears, Willy bandage intact Musculoskeletal: No Tenderness to Palpation of Joints or Extremities, Cachexia, Muscle Wasting Neurological: Cranial nerves II-XII grossly intact, Neuro grossly intact Psych/Mental Status: Normal Affect, Appropriate Laboratory Results 11/12/19 12:55: COVID-19 ([facility]) Negative 11/12/19 13:07: WBC 10.0, RBC 2.37 L, Hgb 7.1 L, Hct 22.3 L, MCV 94.1 H, MCH 30.0, MCHC 31.8 L, RDW Std Deviation 54.4 H, RDW Coeff of Loi 15.9 H, Plt Count 173, MPV 9.2, Immature Gran % (Auto) 0.700, Neut % (Auto) 92.3 H, Lymph % (Auto) 2.1 L, Crosby % (Auto) 4.9, Eos % (Auto) 0.0, Baso % (Auto) 0.0, Absolute Neuts (auto) 9.3 H, Absolute Lymphs (auto) 0.21 L, Nucleated RBC % 0, Platelet Estimate ADEQUATE, Hypochromasia 2+, Schistocytes RARE 11/12/19 13:07: Sodium 135 L, Potassium 3.7, Chloride 100, Carbon Dioxide 31.0, Anion Gap 4 L, BUN 22 H, Creatinine 1.15, Estim Creat Clear Calc 51.89, Est GFR (MDRD) Af Amer 80, Est GFR (MDRD) Non-Af 66, BUN/Creatinine Ratio 19.1, Glucose 109 H, Calcium 7.8 L, Total Bilirubin 0.60, Direct Bilirubin 0.25, AST 33, ALT 36, Alkaline Phosphatase 117, Total Protein 4.8 L, Albumin 2.1 L, Globulin 2.7, Lipase 234 11/12/19 18:25: Blood Type O POSITIVE, Antibody Screen NEGATIVE, Crossmatch See Detail 11/12/19 18:25: Hgb 7.1 L, Hct 22.5 L 11/12/19 18:25: Crossmatch See Detail 11/12/19 18:32: POC Glucose 102 11/12/19 21:39: POC Glucose 203 H 11/13/19 01:07: Hgb 8.4 L, Hct 26.0 L 11/13/19 05:20: WBC 9.5, RBC 2.70 L, Hgb 8.1 L, Hct 24.9 L, MCV 92.2, MCH 30.0, MCHC 32.5, RDW Std Deviation 53.5 H, RDW Coeff of Loi 16.0 H, Plt Count 195, MPV 9.5, Immature Gran % (Auto) 0.300, Neut % (Auto) 77.5 H, Lymph % (Auto) 9.8 L, Crosby % (Auto) 10.4 H, Eos % (Auto) 1.8, Baso % (Auto) 0.2, Absolute Neuts (auto) 7.4, Absolute Lymphs (auto) 0.93, Nucleated RBC % 0, Differential Comment SCANNED 11/13/19 05:20: Sodium 137, Potassium 3.0 L, Chloride 102, Carbon Dioxide 30.0, Anion Gap 5, BUN 18, Creatinine 0.95, Estim Creat Clear Calc 60.63, Est GFR (MDRD) Af Amer 99, Est GFR (MDRD) Non-Af 82, BUN/Creatinine Ratio 18.9, Glucose 89, Calcium 7.6 L, Total Bilirubin 1.00, AST 32, ALT 33, Alkaline Phosphatase 112, Total Protein 4.7 L, Albumin 2.1 L, Globulin 2.6, Albumin/Globulin Ratio 0.8 L 11/13/19 06:41: POC Glucose 104 11/13/19 08:40: PT 14.6, INR 1.2 Current Medications Acetaminophen (Tylenol) 650 mg PO Q6H PRN PRN PRN Reason: Pain Score 1-10/Temp > 100.7 F Al Hydroxide/Mg Hydroxide (Mylanta Ii) 30 ml PO Q6H PRN PRN PRN Reason: Gastric Burning Allopurinol (Zyloprim) 300 mg PO DAILY [facility] Last Admin: 11/13/19 08:35 Dose: 300 mg Documented by: Dextrose (D50w Syringe) 0 gm IV X1 PRN; Protocol PRN Reason: Hypoglycemia Duloxetine HCl (Cymbalta) 30 mg PO DAILY [facility] Last Admin: 11/13/19 08:35 Dose: 30 mg Documented by: Gabapentin (Neurontin) 100 mg PO TIDCM [facility] Last Admin: 11/13/19 11:01 Dose: 100 mg Documented by: Glucagon () 1 mg IM .X1 PRN PRN Reason: Hypoglycemia Heparin Sodium (Beef Lung) () 50 units IV UD PRN PRN Reason: Port-a-Cath (VAD)Heparin Flush Pantoprazole Sodium 40 mg/ (Sodium Chloride) 110 mls @ 330 mls/hr IV Q12 [facility] Last Infusion: 11/13/19 09:17 Dose: Infused Documented by: Sodium Chloride () 500 mls @ 15 mls/hr IV PRN PRN PRN Reason: Blood Transfusion Sodium Chloride () 250 mls @ 15 mls/hr IV .[id number] PRN PRN Reason: Saline Flush Sodium Chloride () 250 mls @ 15 mls/hr IV .[id number] PRN PRN Reason: Additional IVPB Infusion Insulin Human Lispro (Humalog Kwikpen (Bkc)) 0 unit SC [facility]; Protocol Last Admin: 11/13/19 06:50 Dose: Not Given Documented by: Magnesium Hydroxide (Milk Of Magnesia) 30 ml PO DAILY PRN PRN PRN Reason: Constipation Melatonin (Melatonin) 3 mg PO QHS PRN PRN PRN Reason: INSOMNIA Morphine Sulfate () 2 mg IV Q3H PRN PRN PRN Reason: Pain Score 6-10/10 Multivitamins (Multivitamin) 1 tablet PO DAILY@1200 [facility] Last Admin: 11/13/19 11:01 Dose: 1 tablet Documented by: Nystatin (Nystatin) 500,000 unit PO 4X/DAY [facility] Last Admin: 11/13/19 08:35 Dose: 500,000 unit Documented by: Ondansetron HCl (Zofran) 4 mg IV Q8H PRN PRN PRN Reason: NAUSEA/VOMITING Pramipexole Dihydrochloride (Mirapex) 0.125 mg PO BID [facility] Last Admin: 11/13/19 08:35 Dose: 0.125 mg Documented by: Sodium Chloride () 10 - 40 ml IV UD PRN PRN Reason: Port-a-Cath (VAD) Flush Last Admin: 11/13/19 00:14 Dose: 10 ml Documented by: Sodium Chloride (0.9% Nacl (Sterile) Posiflush) 10 - 40 ml IV UD PRN PRN Reason: Port access or dressing change Sucralfate (Carafate) 1 gm PO 1HR_ACHS [facility] Last Admin: 11/13/19 11:01 Dose: 1 gm Documented by: Trimethoprim/Sulfamethoxazole (Bactrim Ds) 1 tablet PO MoWeFr@0800 [facility] Medical Necessity - Tobacco Use Smoking Status: Former smoker Assessment/Plan All Active Problems (Last Reviewed 11/05/19 @ 09:45 by Blanca Hernandez) Declining functional status (Acute) Anemia (Acute) 1. Acute on chronic macrocytic anemia, suspect GI bleed, underlying iron deficiency-recent baseline hemoglobin about 11. Hemoglobin on admission 7.1. Daughter reports recent positive stool for occult blood during office visit. Trend CBC. IV PPI twice daily. Patient recently taken off of Eliquis secondary to recurrent falls. Family agreeable to hospice however would like to attempt blood transfusion to see if this improves his symptoms prior to hospice transition. Patient received 1 unit PRBC on admission. Hemoglobin 8.1. Will transfuse additional unit PRBC. Patient does not want EGD/colonoscopy. PT/OT. 2. Pancreatic cancer status post Whipple procedure- follows with Dr. Miguel. Last chemo 1 year ago. Right chest port. Dr. Miguel consulted. 3. Rheumatoid arthritis-on hydrochloroquine, prednisone. 4. History of PE-recently taken off of anticoagulation as noted above. 5. CAD status post CABG-approximately 10 years ago. Not on aspirin, statin, beta-laurent. 6. Hypertension-no longer on regimen. 7. Hyperlipidemia-no longer on statin. 8. Severe protein calorie malnutrition-dietitian consult. 9. Type 2 diabetes [id number] with sliding scale insulin. Continue oral and insulin regimen. 10. Depression-continue home duloxetine regimen. 11. Gout-on allopurinol. 12. Oral thrush-nystatin swish and swallow. DVT prophylaxis- SCDs CODE STATUS: DNR CC Discharge planning: Follow PT/OT. Possible SNF with hospice. Case management following. This patient was seen by MEL Conde under the supervision of Dr. Bermudez. <Carmen Bermudez - Last Filed: 11/13/19 12:19> - Physical Exam Vitals/I&O's: Vital Signs Temp Pulse Resp BP Pulse Ox 98.1 F 85 18 133/69 H 96 11/13/19 08:35 11/13/19 08:35 11/13/19 08:35 11/13/19 08:35 11/13/19 08:35 Oxygen Delivery Method Room Air Weight: 157 lb 13.616 oz Body Mass Index (BMI) 24.8 Finger Stick Blood Glucose 336 Intake and Output for Last 24 Hours 11/11/19 11/12/19 11/13/19 23:59 23:59 23:59 Intake Total 127.5 / 127.5 220 / 220 Output Total 625 / 625 300 / 300 Balance -497.5 / -497.5 -80 / -80 Laboratory Results 11/12/19 12:55: COVID-19 ([facility]) Negative 11/12/19 13:07: WBC 10.0, RBC 2.37 L, Hgb 7.1 L, Hct 22.3 L, MCV 94.1 H, MCH 30.0, MCHC 31.8 L, RDW Std Deviation 54.4 H, RDW Coeff of Loi 15.9 H, Plt Count 173, MPV 9.2, Immature Gran % (Auto) 0.700, Neut % (Auto) 92.3 H, Lymph % (Auto) 2.1 L, Crosby % (Auto) 4.9, Eos % (Auto) 0.0, Baso % (Auto) 0.0, Absolute Neuts (auto) 9.3 H, Absolute Lymphs (auto) 0.21 L, Nucleated RBC % 0, Platelet Estimate ADEQUATE, Hypochromasia 2+, Schistocytes RARE 11/12/19 13:07: Sodium 135 L, Potassium 3.7, Chloride 100, Carbon Dioxide 31.0, Anion Gap 4 L, BUN 22 H, Creatinine 1.15, Estim Creat Clear Calc 51.89, Est GFR (MDRD) Af Amer 80, Est GFR (MDRD) Non-Af 66, BUN/Creatinine Ratio 19.1, Glucose 109 H, Calcium 7.8 L, Total Bilirubin 0.60, Direct Bilirubin 0.25, AST 33, ALT 36, Alkaline Phosphatase 117, Total Protein 4.8 L, Albumin 2.1 L, Globulin 2.7, Lipase 234 11/12/19 18:25: Blood Type O POSITIVE, Antibody Screen NEGATIVE, Crossmatch See Detail 11/12/19 18:25: Hgb 7.1 L, Hct 22.5 L 11/12/19 18:25: Crossmatch See Detail 11/12/19 18:32: POC Glucose 102 11/12/19 21:39: POC Glucose 203 H 11/13/19 01:07: Hgb 8.4 L, Hct 26.0 L 11/13/19 05:20: WBC 9.5, RBC 2.70 L, Hgb 8.1 L, Hct 24.9 L, MCV 92.2, MCH 30.0, MCHC 32.5, RDW Std Deviation 53.5 H, RDW Coeff of Loi 16.0 H, Plt Count 195, MPV 9.5, Immature Gran % (Auto) 0.300, Neut % (Auto) 77.5 H, Lymph % (Auto) 9.8 L, Crosby % (Auto) 10.4 H, Eos % (Auto) 1.8, Baso % (Auto) 0.2, Absolute Neuts (auto) 7.4, Absolute Lymphs (auto) 0.93, Nucleated RBC % 0, Differential Comment SCANNED 11/13/19 05:20: Sodium 137, Potassium 3.0 L, Chloride 102, Carbon Dioxide 30.0, Anion Gap 5, BUN 18, Creatinine 0.95, Estim Creat Clear Calc 60.63, Est GFR (MDRD) Af Amer 99, Est GFR (MDRD) Non-Af 82, BUN/Creatinine Ratio 18.9, Glucose 89, Calcium 7.6 L, Total Bilirubin 1.00, AST 32, ALT 33, Alkaline Phosphatase 112, Total Protein 4.7 L, Albumin 2.1 L, Globulin 2.6, Albumin/Globulin Ratio 0.8 L 11/13/19 06:41: POC Glucose 104 11/13/19 08:40: PT 14.6, INR 1.2 11/13/19 11:45: POC Glucose 117 H Current Medications Acetaminophen (Tylenol) 650 mg PO Q6H PRN PRN PRN Reason: Pain Score 1-10/Temp > 100.7 F Al Hydroxide/Mg Hydroxide (Mylanta Ii) 30 ml PO Q6H PRN PRN PRN Reason: Gastric Burning Allopurinol (Zyloprim) 300 mg PO DAILY [facility] Last Admin: 11/13/19 08:35 Dose: 300 mg Documented by: Dextrose (D50w Syringe) 0 gm IV X1 PRN; Protocol PRN Reason: Hypoglycemia Duloxetine HCl (Cymbalta) 30 mg PO DAILY [facility] Last Admin: 11/13/19 08:35 Dose: 30 mg Documented by: Gabapentin (Neurontin) 100 mg PO TIDCM [facility] Last Admin: 11/13/19 11:01 Dose: 100 mg Documented by: Glucagon () 1 mg IM .X1 PRN PRN Reason: Hypoglycemia Heparin Sodium (Beef Lung) () 50 units IV UD PRN PRN Reason: Port-a-Cath (VAD)Heparin Flush Pantoprazole Sodium 40 mg/ (Sodium Chloride) 110 mls @ 330 mls/hr IV Q12 [facility] Last Infusion: 11/13/19 09:17 Dose: Infused Documented by: Sodium Chloride () 500 mls @ 15 mls/hr IV PRN PRN PRN Reason: Blood Transfusion Sodium Chloride () 250 mls @ 15 mls/hr IV .[id number] PRN PRN Reason: Saline Flush Sodium Chloride () 250 mls @ 15 mls/hr IV .[id number] PRN PRN Reason: Additional IVPB Infusion Insulin Human Lispro (Humalog Kwikpen (Bkc)) 0 unit SC ACHS [facility]; Protocol Last Admin: 11/13/19 06:50 Dose: Not Given Documented by: Magnesium Hydroxide (Milk Of Magnesia) 30 ml PO DAILY PRN PRN PRN Reason: Constipation Melatonin (Melatonin) 3 mg PO QHS PRN PRN PRN Reason: INSOMNIA Morphine Sulfate () 2 mg IV Q3H PRN PRN PRN Reason: Pain Score 6-10/10 Multivitamins (Multivitamin) 1 tablet PO DAILY@1200 [facility] Last Admin: 11/13/19 11:01 Dose: 1 tablet Documented by: Nystatin (Nystatin) 500,000 unit PO 4X/DAY [facility] Last Admin: 11/13/19 08:35 Dose: 500,000 unit Documented by: Ondansetron HCl (Zofran) 4 mg IV Q8H PRN PRN PRN Reason: NAUSEA/VOMITING Pramipexole Dihydrochloride (Mirapex) 0.125 mg PO BID [facility] Last Admin: 11/13/19 08:35 Dose: 0.125 mg Documented by: Sodium Chloride () 10 - 40 ml IV UD PRN PRN Reason: Port-a-Cath (VAD) Flush Last Admin: 11/13/19 00:14 Dose: 10 ml Documented by: Sodium Chloride (0.9% Nacl (Sterile) Posiflush) 10 - 40 ml IV UD PRN PRN Reason: Port access or dressing change Sucralfate (Carafate) 1 gm PO 1HR_ACHS [facility] Last Admin: 11/13/19 11:01 Dose: 1 gm Documented by: Trimethoprim/Sulfamethoxazole (Bactrim Ds) 1 tablet PO MoWeFr@0800 [facility] Assessment/Plan Hospitalist note: I am seeing this patient in conjunction with Ambika Herzog. Patient seen and examined today. Progress note above, imaging studies and laboratories reviewed and I concur with above treatment plan. Today, he is feeling better. Denied any abdominal pain. Dizziness and lightheadedness started improved, still complaining of weakness. No other major complaints. His vital signs are stable. - Physical Exam General: Alert, Oriented x3, Cooperative, No apparent distress. HEENT: Atraumatic, PERRLA, EOMI. Neck: Supple, No JVD, Negative Carotid Bruits, Trachea Midline, Thyroid Normal. Lungs: Clear to auscultation, Normal air movement, No rhonchi, No wheeze, No rales. Cardiovascular: Regular rate, Regular Rhythm, Normal S1, Normal S2, PMI Normal. Abdomen: Bowel Sounds Present, Soft, Non Tender, Non-Distended, No Hepato- splenomegaly. Extremities: No clubbing, No cyanosis, No edema Skin: No rashes. Neurological: Cranial nerves are intact, neuro grossly intact Vital Signs are stable. Assessment and plan: #1 acute on chronic symptomatic microcytic anemia: With suspected GI bleed in addition to history of iron deficiency anemia. Patient received 1 unit of packed RBCs, hemoglobin went up to 8.1 g/dL today. Daughter reports that patient had positive stool for occult blood recently. He is on IV Protonix. Patient declined work-up for this anemia including EGD or colonoscopy. They agreed to Protonix fusion. We will transfuse underwent of packed RBCs today, repeat CBC tomorrow morning. #2 pancreatic cancer: Status post Whipple's procedure. He follows up with Dr. Miguel, last chemotherapy received was 1 year ago. Oncology consulted. #3 physical debility/functional decline: Plan for PT OT evaluation and treatment, plan for discharge to SNF with hospice. #4 other chronic medical problems: Stable, continue current medications as above. This note was generated with [employer] dictation software. It may contain incorrect words, spelling, and punctuation that were not noted in checking the note before signing. Inpatient E&M: 48150 Subs Hosp L2
[2019-11-13 11:51] LABS: Bedside Glucose 117 mg/dL (70-110)
--- NOTE | 2019-11-13 12:35 | ONC.CON.INP2 ---
- Problem List (1) Anemia Status: Acute (2) Pancreatic cancer Status: Chronic Qualifiers: Pancreatic malignancy location: unspecified Qualified Code(s): C25.9 - Malignant neoplasm of pancreas, unspecified Subjective Chief Complaint: WEAKNESS History of Present Illness: Diagnoses:? 1) Stage I pancreatic cancer 2) Pulmonary embolism. 3) Paraneoplastic retinopathy. ? 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 ? Whipple's 04/13/2018. ? Pathology: 1. Pancreatic duct margin, excision (A) - Low-grade intraductal papillary neoplasm. - Negative for high-grade dysplasia or carcinoma. 2. Whipple specimen (B) - Well-differentiated ductal adenocarcinoma arising in a background of Intraductal papillary mucinous neoplasm. - See synoptic report. SYNOPTIC REPORT OF SHARMA PATHOLOGIC FINDINGS WHIPPLE SPECIMEN: ?PANCREAS EXOCRINE WORKSHEET Specimen: ?Head of pancreas ?Body of pancreas ?Duodenum ?Common bile duct ?Gallbladder Procedure: ?Pancreaticoduodenectomy (Whipple resection), partial pancreatectomy Tumor Site: ?Pancreatic head Histologic Type: ?Intraductal papillary-mucinous neoplasia with an associated invasive carcinoma Histologic Grade: ?G1: ?Well differentiated Tumor Size: ?Greatest dimension: 2 cm Microscopic Tumor Extension: ?Tumor invades peripancreatic soft tissues Margins: ?All margins are uninvolved by invasive carcinoma and high-grade intraepithelial neoplasia ?Margin(s) examined: listed below Tissue Specimen Type: ?Pancreaticoduodenal Resection Specimen Margins for Pancreaticoduodenal Resection Specimen: ?Pancreatic neck/parenchymal margin uninvolved by pancreatic high-grade intraepithelial neoplasia or invasive carcinoma ?Uncinate (retroperitoneal/superior mesentric artery) margin uninvolved by invasive carcinoma ?Bile duct margin uninvolved by high-grade intraepithelial neoplasia or invasive carcinoma ?Proximal margin (Gastric or Duodenal) uninvolved by high-grade dysplasia or invasive carcinoma ?Distal margin (Duodenal or Jejunal) uninvolved by high-grade dysplasia or invasive carcinoma Treatment Effect: ?No known presurgical therapy Lymphovascular Invasion: ?Not identified Perineural Invasion: ?Present Pathologic Stage Classification (pTNM, AJCC 8th ed) TNM Descriptors: ?Not applicable Primary Tumor (pT): ?pT1c: Tumor 12 cm in greatest dimension Regional lymph nodes (pN): ?pN0: ?No regional lymph node metastasis ?Number of lymph nodes involved: 0 ?Number of lymph nodes examined: 21 Distant Metastasis (pM): ?Not applicable/Not confirmed pathologically in this case Additional Pathologic Findings: ?Chronic pancreatitis ?Other: lymphoplasmacytic chronic cholecystitis ? Adjuvant chemotherapy treatment:?Modified?FOLFIRINOX?x 6 cycles?(06/13/18 - 09/10/18) FOLFOX?x 3 ( 09/13/18 - 10/16/2018 ) ? Was admitted to [facility] on 01/12 for recurrent sharp abdominal pain rated 10 out of 10 that woke him from sleep. ? EGD revealed a large cratered ulcer at the anastomotic site of the gastrojejunostomy. There was some bleeding to one side of the ulcer but this was thought to been caused when the scope was passed. No intervention performed. ? PET 02/13/2019: 1. ?NECK: No FDG avid neoplastic process. No mass, adenopathy, or fluid collection. 2. ?CHEST: No FDG avid neoplastic process. ?No mass, adenopathy, or fluid collection. 3. ?ABDOMEN/PELVIS: No hypermetabolism within the partly cystic soft tissue density in the postsurgical bed in the upper abdomen near the confluence of SMV and portal vein. Postsurgical changes of the Whipple's procedure. 4. ?EXTREMITIES/SKELETON: No FDG avid osseous process. No destructive/traumatic bony abnormality. ? Underwent EGD/EUS in March 2019 and on endoscopy is found to have a normal esophagus. The entire stomach was normal. There was evidence of a widely patent blot no enterostomy in the duodenal bowl. The mucosa appeared healthy. The examined jejunum was normal. On endoscopy the head of the pancreas was noted to be absent. There was a vague area of hypodensity at the level the pancreaticoduodenal jejunal anastomosis and portal splenic confluence. FNA was performed. 4 passes were made with 25-gauge ultrasound biopsy needle using transgastric approach. No lymphadenopathy was observed. The portal area was not well visualized due to previous surgery. Visualized liver showed no masses. ? Pathology: FINAL DIAGNOSIS A. ABDOMEN, FINE NEEDLE ASPIRATE(THINPREP, SMEARS AND CELL BLOCK) Atypical cells present. ? He's undergone extensive evaluation at [facility] and testing is concerning for possible cancer associated retinopathy. ? He was started on high dose prednisone with GI prophylaxis in June. No improvement in vision though. He tapered off prednisone. ? In the last couple weeks he has become a lot weaker and having trouble walking due to lower extremity weakness. He's had several falls. Additionally his appetite has declined. He had occasional nausea but denied abdominal pain, bloating and distention. He'd not had change in bowel habits. No unusual bleeding or unexplained bruising. Had been on apixaban 5 mg twice a day for history of pulmonary embolism. Not short of breath at rest. Was found to have GIANNA and plan was to stop apixaban and receive parenteral iron. Brought to ED yesterday by family due to further weakness/falling and living alone. More anemic. Received 1 unit RBCs last pm. Endorses he feels better this morning. denies nausea, abdominal pain, bloating and distention. Has been more constipated and underwent enema with disimpaction. Had CT A/P in ED yesterday. ? 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 Perez @ [facility]. Mediastinal exploration for hemorrhage 08/01/2008. History of left heart catheterization (Chronic) 07/19/2008 @ [facility] per Dr. Santiago: 07/19/[address] Molina @ [facility] Atherosclerotic heart disease of [place] coronary artery without angina pectoris (Chronic) 07/22/2008: CABG X4: WONG to LAD, SVG to anterior diagonal branch of LAD, SVG to Ramus Marginalis, and SVG to posterolateral branch of the CX per Dr. Perez @ [facility] Old myocardial infarction (Chronic) Hyperlipidemia (Chronic) Hypertension (Chronic) Past Medical/Surgical History: Past Medical History - Most Recent Inpatient Visit Past Medical History Start: 11/12/19 18:18 Text: Status: Complete Freq: ONCE Protocol: Document 11/12/19 18:44 AEC (Rec: 11/12/19 18:54 AEC [id number]) BMI Required to complete PMH What is Patient's BMI 24.8 Past Medical History Unable History Recalled Yes Query Text:Pt Unable/Family Not Present Neurologic Medical History Hx Stroke/TIA No: r/o- PT AND DAUGHTER DENY STROKE Hx Dementia/Alzheimer's Yes: POSSIBLE DEMENTIA Hx Parkinson's Disease No Hx Seizures No Hx Multiple Sclerosis No Hx Migraines No Comments F/U WITH NEUROLOGIST SAID NO STROKE Cardiac Medical History VTE Present on Admission No Hx of Deep Vein Thrombosis/VTE/PE Yes Hx Hypertension Yes Hx Chest Pain/Angina No Hx Heart Attack Yes Hx Cardiac Surgery/Stents/Etc. Yes: CABG X4 Hx Heart Failure No Hx Pacemaker/AICD No Hx Irregular Heartbeat and/or Afib No Hx Anticoagulant Therapy Yes: aspirin Query Text:(Coumadin, Aspirin, Plavix, Xarelto, etc.) Hx Pain in Legs when Walking/Leg Cramps Yes: arthritis Respiratory Medical History Hx COPD No Hx Emphysema No Hx Smoking Yes: QUIT 50 YRS AGO Smoking Status Former smoker Hx Smoking Cessation Date 08/06/69 Hx Tobacco Use in last 12 months No Hx Sleep Apnea No Do you snore loudly (louder than talking No or can be heard through closed doors)? Do you often feel tired/ fatigued/ No sleepy during daytime? Has anyone observed you stop breathing No during sleep? STOP Results Negative GI Medical History Hx Ulcer Yes: Nov Hx Hepatitis No Hx Cirrhosis No: unknown- hx drinking Hx GI Bleed Yes: NOV-2018 Hx Unplanned Weight Loss No Comments PRESENTLY HAVING GI BLEED? HAVING BLACK STOOLS PER DAUGHTER REPORT Genitourinary Medical History Indwelling Catheter in Place on Arrival/ No Admission Hx Renal Disease No: DENIES PROBLEMS VOIDING POST OP Hx Dialysis No Musculoskeletal History Hx Arthritis No Hx Rheumatoid Arthritis Yes: DR ANDRADE Endocrine Medical History Hx Diabetes Yes Hx Thyroid Disease No Hematologic Medical History Hx of Blood Transfusion No Hx of Transfusion in last 3 Months No Ever experience any problems with No transfusion(s)? Hx of Preganancy in last 3 Months N/A Nurse Filling Out Transfusion & ACOEY Questions: Date: 11/12/19 Time: 18:51 Psycho/Social Medical History Hx Depression Yes: WITH DX Hx Anxiety No Hx Behavior Disorder No Hx Alcohol Use No: PAST ETOH Hx Substance Use No Other Medical History Hx Blood Disorders No Hx Anemia Yes Hx Cancer Yes: PANCREATIC/ SKIN CA Hx Drug Resistant Organism No Wound/Pressure Injury Present on Arrival No /Admission Query Text:If yes, chart assessment in Shift/Clinical Findings Central Line/PICC/VAD Present on Arrival Yes /Admission Antibiotics within last 7 days? Yes Name of Antibiotic (Include dose/# days BACTRIM taken if known) Last day ATB taken 11/09/19 Methicillin Resistant Staphylococcus aureus Screening Active MRSA No Risk for Readmission Number of Risk Factors 8 At Risk for Readmission Patient is At Risk For Readmission Patient is eligible for Call Back Y Past Medical History (Last Reviewed 11/05/19 @ 09:45 by Blanca Hernandez) Atherosclerotic heart disease of [place] coronary artery without angina pectoris (Chronic) Old myocardial infarction (Chronic) Hyperlipidemia (Chronic) Hypertension (Chronic) Arthritis (Acute) High triglycerides (Acute) History of alcohol abuse (Acute) History of blood clots (Acute) Neuropathy (Acute) Skin cancer (Acute) Vision problems (Acute) Past Surgical History (Last Reviewed 11/05/19 @ 09:45 by Blanca Hernandez) History of total right hip replacement (Chronic) S/P CABG x 4 (Chronic) History of left heart catheterization (Chronic) Maternal Family History: Family History (Last Reviewed 11/12/19 @ 17:26 by Ambika Mino, CERTIFIED ALCOHOL DRUG COUNSELOR-C) Father CAD (coronary artery disease) CVA (cerebral vascular accident) Myocardial infarction Brother CAD (coronary artery disease) Myocardial infarction, Onset Age: 66 Family History: Dementia Paternal Family History: Family History (Last Reviewed 11/12/19 @ 17:26 by MEL Conde) Father CAD (coronary artery disease) CVA (cerebral vascular accident) Myocardial infarction Brother CAD (coronary artery disease) Myocardial infarction, Onset Age: 66 Family History: Heart Disease, Stroke Sibling Family History: Family History (Last Reviewed 11/12/19 @ 17:26 by MEL Conde) Father CAD (coronary artery disease) CVA (cerebral vascular accident) Myocardial infarction Brother CAD (coronary artery disease) Myocardial infarction, Onset Age: 66 Family History: Heart Disease - OR - Social History Lives: Alone Smoking Status: Former smoker Alcohol: Sober Drugs: None Allergies/Adverse Reactions: Allergy/AdvReac Type Severity Reaction Status Date / Time No Known Allergies Allergy Verified 11/12/19 12:02 Review of Systems Constitutional:: Reports: Weakness, Fatigue Respiratory: Reports: Shortness of Breath Vital Signs Temperature 98.1 F 11/13/19 08:35 Temperature Source Oral 11/13/19 08:35 Pulse Rate 85 11/13/19 08:35 Pulse Strength Weak (1+) 11/13/19 08:35 Respiratory Rate 18 11/13/19 08:35 Respiratory Effort 11/12/19 20:25 Respiratory Depth Normal 11/12/19 20:25 Respiratory Pattern Normal 11/12/19 20:25 Blood Pressure 133/69 H 11/13/19 08:35 Blood Pressure Mean 90 11/13/19 08:35 Blood Pressure Source Monitor 11/13/19 08:35 Blood Pressure Position Semi-Fowlers 11/13/19 08:35 Blood Pressure Location Left Arm 11/13/19 08:35 Pulse Ox 96 11/13/19 08:35 Oxygen Delivery Method Room Air 11/13/19 08:35 - Physical Exam General: Alert, Oriented x3 Cardiac:: Regular rhythm Lungs: Normal air movement Abdomen:: Non-tender, Non-distended Laboratory Data: Laboratory Tests 11/13/19 11/13/19 11/13/19 Range/Units 11:45 08:40 06:41 WBC (4.4-11.0) K/mm3 RBC (4.6-6.2) M/mm3 Hgb (13.0-16.5) g/dL Hct (40-54) % MCV (80-94) fL MCH (27.0-32.0) pg MCHC (32-36) g/dL RDW Std Deviation (35.1-43.9) fl RDW Coeff of Loi (11.6-14.6) % Plt Count (150-450) K/mm3 MPV (6.2-12.0) fl Immature Gran % (Auto) (0.0-0.9) % Neut % (Auto) (47-70) % Lymph % (Auto) (19-41) % [place] % (Auto) (0-10) % Eos % (Auto) (0-5) % Baso % (Auto) (0-1) % Absolute Neuts (auto) (2.0-7.7) X10^3/uL Absolute Lymphs (auto) (0.83-4.51) X10^3/uL Nucleated RBC % (0-5) % Differential Comment Platelet Estimate (ADEQ) Hypochromasia Schistocytes PT 14.6 (11.7-14.9) SECONDS INR 1.2 Sodium (136-145) mmol/L Potassium (3.5-5.1) mmol/L Chloride (98-107) mmol/L Carbon Dioxide (21.0-32.0) mmol/L Anion Gap (5-15) BUN (7-18) mg/dL Creatinine (0.70-1.30) mg/dL Estim Creat Clear Calc ml/min Est GFR (MDRD) Af Amer (>60) mL/min Est GFR (MDRD) Non-Af (>60) mL/min BUN/Creatinine Ratio (10-20) RATIO Glucose (74-106) mg/dL Calcium (8.5-10.1) mg/dL Total Bilirubin (0.20-1.00) mg/dL Direct Bilirubin (0.00-0.30) mg/dL AST (15-37) U/L ALT (16-61) U/L Alkaline Phosphatase (45-117) U/L Total Protein (6.4-8.2) g/dL Albumin (3.2-5.0) g/dL Globulin (2.2-4.2) g/dL Albumin/Globulin Ratio (0.9-2.4) RATIO Lipase (73-393) U/L COVID-19 (MURIEL) (Not Detect) POC Glucose 117 H 104 (70-110) mg/dL Blood Type Antibody Screen Crossmatch 11/13/19 11/13/19 11/13/19 Range/Units 05:20 05:20 01:07 WBC 9.5 (4.4-11.0) K/mm3 RBC 2.70 L (4.6-6.2) M/mm3 Hgb 8.1 L 8.4 L (13.0-16.5) g/dL Hct 24.9 L 26.0 L (40-54) % MCV 92.2 (80-94) fL MCH 30.0 (27.0-32.0) pg MCHC 32.5 (32-36) g/dL RDW Std Deviation 53.5 H (35.1-43.9) fl RDW Coeff of Loi 16.0 H (11.6-14.6) % Plt Count 195 (150-450) K/mm3 MPV 9.5 (6.2-12.0) fl Immature Gran % (Auto) 0.300 (0.0-0.9) % Neut % (Auto) 77.5 H (47-70) % Lymph % (Auto) 9.8 L (19-41) % [place] % (Auto) 10.4 H (0-10) % Eos % (Auto) 1.8 (0-5) % Baso % (Auto) 0.2 (0-1) % Absolute Neuts (auto) 7.4 (2.0-7.7) X10^3/uL Absolute Lymphs (auto) 0.93 (0.83-4.51) X10^3/uL Nucleated RBC % 0 (0-5) % Differential Comment SCANNED Platelet Estimate (ADEQ) Hypochromasia Schistocytes PT (11.7-14.9) SECONDS INR Sodium 137 (136-145) mmol/L Potassium 3.0 L (3.5-5.1) mmol/L Chloride 102 (98-107) mmol/L Carbon Dioxide 30.0 (21.0-32.0) mmol/L Anion Gap 5 (5-15) BUN 18 (7-18) mg/dL Creatinine 0.95 (0.70-1.30) mg/dL Estim Creat Clear Calc 60.63 ml/min Est GFR (MDRD) Af Amer 99 (>60) mL/min Est GFR (MDRD) Non-Af 82 (>60) mL/min BUN/Creatinine Ratio 18.9 (10-20) RATIO Glucose 89 (74-106) mg/dL Calcium 7.6 L (8.5-10.1) mg/dL Total Bilirubin 1.00 (0.20-1.00) mg/dL Direct Bilirubin (0.00-0.30) mg/dL AST 32 (15-37) U/L ALT 33 (16-61) U/L Alkaline Phosphatase 112 (45-117) U/L Total Protein 4.7 L (6.4-8.2) g/dL Albumin 2.1 L (3.2-5.0) g/dL Globulin 2.6 (2.2-4.2) g/dL Albumin/Globulin Ratio 0.8 L (0.9-2.4) RATIO Lipase (73-393) U/L COVID-19 (MURIEL) (Not Detect) POC Glucose (70-110) mg/dL Blood Type Antibody Screen Crossmatch 11/12/19 11/12/19 11/12/19 Range/Units 21:39 18:32 18:25 WBC (4.4-11.0) K/mm3 RBC (4.6-6.2) M/mm3 Hgb (13.0-16.5) g/dL Hct (40-54) % MCV (80-94) fL MCH (27.0-32.0) pg MCHC (32-36) g/dL RDW Std Deviation (35.1-43.9) fl RDW Coeff of Loi (11.6-14.6) % Plt Count (150-450) K/mm3 MPV (6.2-12.0) fl Immature Gran % (Auto) (0.0-0.9) % Neut % (Auto) (47-70) % Lymph % (Auto) (19-41) % [place] % (Auto) (0-10) % Eos % (Auto) (0-5) % Baso % (Auto) (0-1) % Absolute Neuts (auto) (2.0-7.7) X10^3/uL Absolute Lymphs (auto) (0.83-4.51) X10^3/uL Nucleated RBC % (0-5) % Differential Comment Platelet Estimate (ADEQ) Hypochromasia Schistocytes PT (11.7-14.9) SECONDS INR Sodium (136-145) mmol/L Potassium (3.5-5.1) mmol/L Chloride (98-107) mmol/L Carbon Dioxide (21.0-32.0) mmol/L Anion Gap (5-15) BUN (7-18) mg/dL Creatinine (0.70-1.30) mg/dL Estim Creat Clear Calc ml/min Est GFR (MDRD) Af Amer (>60) mL/min Est GFR (MDRD) Non-Af (>60) mL/min BUN/Creatinine Ratio (10-20) RATIO Glucose (74-106) mg/dL Calcium (8.5-10.1) mg/dL Total Bilirubin (0.20-1.00) mg/dL Direct Bilirubin (0.00-0.30) mg/dL AST (15-37) U/L ALT (16-61) U/L Alkaline Phosphatase (45-117) U/L Total Protein (6.4-8.2) g/dL Albumin (3.2-5.0) g/dL Globulin (2.2-4.2) g/dL Albumin/Globulin Ratio (0.9-2.4) RATIO Lipase (73-393) U/L COVID-19 (MURIEL) (Not Detect) POC Glucose 203 H 102 (70-110) mg/dL Blood Type Antibody Screen Crossmatch See Detail 11/12/19 11/12/19 11/12/19 Range/Units 18:25 18:25 13:07 WBC (4.4-11.0) K/mm3 RBC (4.6-6.2) M/mm3 Hgb 7.1 L (13.0-16.5) g/dL Hct 22.5 L (40-54) % MCV (80-94) fL MCH (27.0-32.0) pg MCHC (32-36) g/dL RDW Std Deviation (35.1-43.9) fl RDW Coeff of Loi (11.6-14.6) % Plt Count (150-450) K/mm3 MPV (6.2-12.0) fl Immature Gran % (Auto) (0.0-0.9) % Neut % (Auto) (47-70) % Lymph % (Auto) (19-41) % [place] % (Auto) (0-10) % Eos % (Auto) (0-5) % Baso % (Auto) (0-1) % Absolute Neuts (auto) (2.0-7.7) X10^3/uL Absolute Lymphs (auto) (0.83-4.51) X10^3/uL Nucleated RBC % (0-5) % Differential Comment Platelet Estimate (ADEQ) Hypochromasia Schistocytes PT (11.7-14.9) SECONDS INR Sodium 135 L (136-145) mmol/L Potassium 3.7 (3.5-5.1) mmol/L Chloride 100 (98-107) mmol/L Carbon Dioxide 31.0 (21.0-32.0) mmol/L Anion Gap 4 L (5-15) BUN 22 H (7-18) mg/dL Creatinine 1.15 (0.70-1.30) mg/dL Estim Creat Clear Calc 51.89 ml/min Est GFR (MDRD) Af Amer 80 (>60) mL/min Est GFR (MDRD) Non-Af 66 (>60) mL/min BUN/Creatinine Ratio 19.1 (10-20) RATIO Glucose 109 H (74-106) mg/dL Calcium 7.8 L (8.5-10.1) mg/dL Total Bilirubin 0.60 (0.20-1.00) mg/dL Direct Bilirubin 0.25 (0.00-0.30) mg/dL AST 33 (15-37) U/L ALT 36 (16-61) U/L Alkaline Phosphatase 117 (45-117) U/L Total Protein 4.8 L (6.4-8.2) g/dL Albumin 2.1 L (3.2-5.0) g/dL Globulin 2.7 (2.2-4.2) g/dL Albumin/Globulin Ratio (0.9-2.4) RATIO Lipase 234 (73-393) U/L COVID-19 (MURIEL) (Not Detect) POC Glucose (70-110) mg/dL Blood Type O POSITIVE Antibody Screen NEGATIVE Crossmatch See Detail 11/12/19 11/12/19 Range/Units 13:07 12:55 WBC 10.0 (4.4-11.0) K/mm3 RBC 2.37 L (4.6-6.2) M/mm3 Hgb 7.1 L (13.0-16.5) g/dL Hct 22.3 L (40-54) % MCV 94.1 H (80-94) fL MCH 30.0 (27.0-32.0) pg MCHC 31.8 L (32-36) g/dL RDW Std Deviation 54.4 H (35.1-43.9) fl RDW Coeff of Loi 15.9 H (11.6-14.6) % Plt Count 173 (150-450) K/mm3 MPV 9.2 (6.2-12.0) fl Immature Gran % (Auto) 0.700 (0.0-0.9) % Neut % (Auto) 92.3 H (47-70) % Lymph % (Auto) 2.1 L (19-41) % [place] % (Auto) 4.9 (0-10) % Eos % (Auto) 0.0 (0-5) % Baso % (Auto) 0.0 (0-1) % Absolute Neuts (auto) 9.3 H (2.0-7.7) X10^3/uL Absolute Lymphs (auto) 0.21 L (0.83-4.51) X10^3/uL Nucleated RBC % 0 (0-5) % Differential Comment Platelet Estimate ADEQUATE (ADEQ) Hypochromasia 2+ Schistocytes RARE PT (11.7-14.9) SECONDS INR Sodium (136-145) mmol/L Potassium (3.5-5.1) mmol/L Chloride (98-107) mmol/L Carbon Dioxide (21.0-32.0) mmol/L Anion Gap (5-15) BUN (7-18) mg/dL Creatinine (0.70-1.30) mg/dL Estim Creat Clear Calc ml/min Est GFR (MDRD) Af Amer (>60) mL/min Est GFR (MDRD) Non-Af (>60) mL/min BUN/Creatinine Ratio (10-20) RATIO Glucose (74-106) mg/dL Calcium (8.5-10.1) mg/dL Total Bilirubin (0.20-1.00) mg/dL Direct Bilirubin (0.00-0.30) mg/dL AST (15-37) U/L ALT (16-61) U/L Alkaline Phosphatase (45-117) U/L Total Protein (6.4-8.2) g/dL Albumin (3.2-5.0) g/dL Globulin (2.2-4.2) g/dL Albumin/Globulin Ratio (0.9-2.4) RATIO Lipase (73-393) U/L COVID-19 (MURIEL) Negative (Not Detect) POC Glucose (70-110) mg/dL Blood Type Antibody Screen Crossmatch Diagnostic Data: Diagnostic Data Brain CT 11/12/19 12:32 IMPRESSION: Chronic involutional changes of the brain. Electronically Signed: Radames Tanner, at 14:35 EDT , Service support , Chest CT 11/12/19 12:32 IMPRESSION: Normal enhanced CT Chest examination. Electronically Signed: Radames Tanner, at 14:41 EDT , Service support , Abdomen/Pelvis CT 11/12/19 12:34 IMPRESSION: Ascites. Findings suggestive of cirrhotic change of the liver as well as fatty infiltration. A stent is seen within the dilated pancreatic duct. Mass in the head and uncinate process of the pancreas which has progressed as compared to prior study. New 3.3 cm x 3.8 cm cyst in the inferior aspect of the uncinate process of the pancreas. Increased markings in the root of the mesentery. Electronically Signed: Radames Tanner, at 14:39 EDT , Service support , Assessment and Plan 1) GIANNA. Assessment: -Patient has h/o anastomotic ulcer. -Recent precipitous drop in Hgb. -He has visual impairment and cannot tell if stools black/bloody. -Had been on apixaban. -One stool test card 11/08 positive for blood. -Recent high dose prednisone with PPI prophylaxis. -Decline in PS related to degree of anemia. Plan: -Discussed further work up with patient. He does not want to undergo endoscopy at this point. That decision is reasonable as treatment may not be impacted by results, ie requires PPI and avoidance of anticoagulation. -Would administer parenteral iron daily while inpatient. -Continue PPI--can rotate to PO. -Hold anticoagulation and antiplatelet agents. 2) Pancreas cancer. Assessment: -Personally reviewed CT A/P images from yesterday and compared to most recent CT A/P 09/2019--clearly more ascites. Cystic lesion stable. More solid component appears stable as well. -Cannot confirm metastatic recurrence of disease without biopsy. There've been 2 attempts at biopsy with aspiration of the cystic fluid via EUS and that has demonstrated only atypical cells. -Could consider ultrasound-guided paracentesis with cytology but negative result would not necessarily rule out cancer recurrence. Plan: -Continue to monitor if paracentesis not able to be done currently. 3) Pulmonary embolism. Assessment: -He is at high risk of recurrent venous thromboembolism but anticoagulation contraindicated in light of problem #1. Plan: -Continue to clinically monitor. If develops acute DVT, then IVC filter will have to be considered depending on his status and wishes at that time. Agree with plan for discharge to SNF. Medications: Prescriptions This Visit Medication Instructions Recorded Hydrocortisone 5 - 10 mg PO BID 11/12/19 Magnesium Oxide 400 mg PO BID 11/12/19 Prednisone 10 mg PO QODAY 11/12/19 Sulfamethoxazole/Trimethoprim 1 tab PO MOWEFR 11/12/19 [Sulfamethoxazole-Tmp Ds Tablet] Medications Added to Medication List This Visit Category Date Time Status 0.9% Normal Saline 250 ml Med 11/13/19 10:01 Active IV 15 mls/hr 0.9% Normal Saline 250 ml Med 11/13/19 10:01 Active IV 15 mls/hr 0.9% Normal Saline 500 ml Med 11/13/19 10:01 Active IV PRN Allopurinol [Zyloprim] Med 11/13/19 10:00 Active 300 mg PO DAILY Duloxetine Hcl [Cymbalta] Med 11/13/19 10:00 Active 30 mg PO DAILY Gabapentin [Neurontin] Med 11/13/19 08:00 Active 100 mg PO TIDCM Multivitamins,Therapeutic [Multivitamin] Med 11/13/19 12:00 Active 1 tablet PO DAILY@1200 Smz/Tmp Ds [Bactrim Ds] Med 11/14/19 08:00 Active 1 tablet PO MoWeFr@0800 Primary Care Provider: Dr. Jet Mccollum MD Referring Provider:
--- NOTE | 2019-11-13 13:06 | CASEMGMT ---
Social Work Note Pt's daughter Suzanne is at [facility] and requesting to speak to OCTAVIA. SW in to speak with pt and Suzanne. OCTAVIA reviewed chart before entering pt's room and it seemed like the plan initially was [facility] with Hospice vs inpatient hospice. OCTAVIA spoke with Suzanne regarding discharge plans. Suzanne states at this time she would like to hold off on Hospice as she would like to speak with Dr. Miguel again and see how pt continues to do. OCTAVIA explained that pt could go to [facility] skilled and then could make Hospice referral at anytime while pt is at [facility]. OCTAVIA explained referral process for [facility] and that pt would need pre-cert to go skilled. OCTAVIA explained that pt's insurance could deny part time receptionist though. Suzanne states she is aware that pt could get denied but mentioned that pt does have mcc policy for ECF and that she provided the policy number to [facility] already. Suzanne asked about eventually getting pt home if pt improves and asked about services for in the home. OCTAVIA explained HHC, [facility], Private duty aides, etc. OCTAVIA explained that [facility] could assist with getting pt set up with home services once pt is at [facility]. OCTAVIA provided [facility] with information regarding [facility] and private duty aides. OCTAVIA placed a call to Crissy at [facility] and provided referral, updated Crissy that the plan is for pt to come to [facility] initially skilled and then see how pt does. OCTAVIA faxed referral. Plan: [facility] pending acceptance and pre-cert Shelby Marin BUILDING DRAFTER, BROADBAND TECHNICIAN
--- NOTE | 2019-11-13 15:31 | CASEMGMT ---
Social Work Note OCTAVIA updated that pt's daughter Suzanne is requesting to speak to SW. OCTAVIA in to speak with pt and Suzanne. Suzanne states that pt's significant other had called [facility] and they are reviewing referrals by case by case basis and Suzanne would like referral sent to [facility] as well as to [facility]. OCTAVIA explained that this worker can make two referrals but pt can't have two pre-certs going at the same time. OCTAVIA explained that this worker is not sure if [facility] has started pre-cert yet or not so this worker would need to call [facility] and have them put pre-cert on hold. OCTAVIA explained that it could push back the pre-cert process and pt could be at [facility] longer than medically necessary waiting on pre-cert. OCTAVIA informed Suzanne that it would be ideal to have the pre-cert process started today with a SNF. OCTAVIA informed [facility] that this worker will call [facility], ask to put referral/pre-cert on hold and then make referral to [facility]. Suzanne states understanding, thanked this worker for doing so. OCTAVIA placed a to call to [facility] and left message for Crissy in admissions and asked that she put referral/pre-cert on hold at this time. OCTAVIA placed a call to Karrie at [facility] and spoke with Karrie regarding referral. Karrie states she will review referral. Suzanne at nurses desk and asked to speak to this worker. Suzanne states they will just stick with the original plan on [facility] skilled. OCTAVIA placed a call to Karrie with [facility] and left message to disregard referral. OCTAVIA placed a call to Crissy at [facility] and asked Crissy to resume referral/pre-cert. Crissy states that they are having difficulties with their phones and computers right now so will get pre-cert loaded with [employer] as soon as soon as she is able to do so. Plan: [facility] pending pre-cert Shelby Marin ADJUNCT PHILOSOPHY FACULTY, ASSET AVAILABILITY LEADER
--- NOTE | 2019-11-13 15:48 | CHAPLAIN ---
Type of Pastoral Visit _x__ Initial Visit ___ Follow-up Visit ___ On-call Visit ___ General Patient Visit ___ Spiritual Assessment ___ Family Conference ___ Bereavement ___ Rapid Response ___ Code Blue ___ Other (describe below) Pastoral Care Referral From ___ Patient _x__ Family ___ Nurse ___ Physician ___ Credentialing Specialist ___ Needle Loom Tender ___ Other (describe below) Sacrament/Intervention _x__ Active listening ___ Anointing ___ Christian ___ Bereavement ___ Communion ___ Tonja exploration ___ ___ Life review ___ Prayer ___ Reconciliation ___ Sacrament of Sick _x__ Supportive presence ___ Wedding ___ Other (describe below) Pastoral Comments patient is sleeping throughout visit but daughter is welcoming at this time; daughter is tearful and speaks of 'finding the next step' for her father; daughter says that pt seems to be at peace with his condition and has been sleeping most of the time; offer of support and presence
[2019-11-13 16:56] LABS: Bedside Glucose 129 mg/dL (70-110)
[2019-11-13 22:20] LABS: Bedside Glucose 106 mg/dL (70-110)
[2019-11-14 03:08] VITALS: BP 123/69; PULSE 96; RESP 18; TEMP 36.9; O2SAT 94
[2019-11-14 05:39] LABS: Hemoglobin 9.8 g/dL (13.0-16.5); Mean Corp Hgb Conc 31.6 g/dL (32-36); Mean Corpuscular Hgb 29.2 pg (27.0-32.0); Mean Corpuscular Volume 92.3 fL (80-94); Mean Platelet Vol. 9.2 fl (6.2-12.0); Platelet Count 199 K/mm3 (150-450); RBC Distribution Width CV 15.6 % (11.6-14.6); RBC Distribution Width SD 52.1 fl (35.1-43.9); Red Blood Count 3.36 M/mm3 (4.6-6.2)
[2019-11-14 05:55] LABS: Anion Gap 6 (5-15); BUN 17 mg/dL (7-18); BUN/Creat Ratio 20.1 RATIO (10-20); Calcium,Total 7.9 mg/dL (8.5-10.1); Chloride 102 mmol/L (98-107); Creatinine, Serum 0.84 mg/dL (0.70-1.30); EST Glomerular Filtration Rate 94 mL/min (>60); Est Glom Filt Rate - Afr Amer 114 mL/min (>60); Estimated Creatinine Clearance 68.57 ml/min; Glucose 124 mg/dL (74-106); Potassium 3.4 mmol/L (3.5-5.1); Sodium Level 135 mmol/L (136-145)
[2019-11-14] MEDS: Sucralfate 1 GM Tablet PO ×4 (06:30→22:40)
[2019-11-14 06:36] LABS: Bedside Glucose 134 mg/dL (70-110)
[2019-11-14] MEDS: NYSTATIN 500,000 UNIT/5 ML UDC 500000 UNIT PO ×4 (09:08→22:41)
[2019-11-14] MEDS: Gabapentin 100 MG Capsule PO ×3 (09:08→16:45)
[2019-11-14] MEDS: Pramipexole Di-HCl 0.125 MG Tablet PO ×2 (09:08→22:40)
[2019-11-14] MEDS: DULoxetine Hcl 30 MG Capsule PO (09:08)
[2019-11-14] MEDS: Multivitamins,Therapeutic Tablet 1 TABLET PO (09:08)
[2019-11-14] MEDS: Smz/Tmp Ds Tablet 1 TABLET PO (09:09)
[2019-11-14] MEDS: Allopurinol 300 MG Tablet PO (09:09)
[2019-11-14 09:10] VITALS: BP 124/72; PULSE 94; RESP 18; TEMP 36.7; O2SAT 93
--- NOTE | 2019-11-14 10:24 | PN_ITS ---
<Ambika Herzog - Last Filed: 11/14/19 10:33> Patient Problems: Active and Suspected Problems (Last Reviewed 11/05/19 @ 09:45 by Blanca Hernandez) Declining functional status (Acute) Anemia (Acute) Subjective: Patient seen and examined. Reports he feels improvement in weakness following blood administration. Denies other current complaints or symptoms. Awaiting SNF approval. - Physical Exam Vitals/I&O's: Vital Signs Temp Pulse Resp BP Pulse Ox 98.0 F 94 18 124/72 H 93 11/14/19 09:10 11/14/19 09:10 11/14/19 09:10 11/14/19 09:10 11/14/19 09:10 Oxygen Delivery Method Room Air Weight: 157 lb 6.561 oz Body Mass Index (BMI) 24.8 Finger Stick Blood Glucose 336 Intake and Output for Last 24 Hours 11/12/19 11/13/19 11/14/19 23:59 23:59 23:59 Intake Total 127.5 / 127.5 1645.5 / 1845.5 310 / 310 Output Total 625 / 625 300 / 500 200 / 200 Balance -497.5 / -497.5 1345.5 / 1345.5 110 / 110 General: Alert, Oriented x3, Cooperative HEENT: Atraumatic, PERRLA, EOMI, Normocephalic Oral: - - Oral thrush improved Neck: Supple, No JVD, Negative Carotid Bruits Lungs: Clear to auscultation, Diminished Cardiovascular: Regular rate, No murmurs Abdomen: Bowel Sounds Present, Soft, Non Tender, Non-Distended, Hernia Extremities: No clubbing, No cyanosis, Capillary Refill Less than 3 Seconds, Edema - +1 bilateral lower extremities Skin: No rashes, No breakdown, - - Left forearm skin tears, Willy bandage intact Musculoskeletal: No Tenderness to Palpation of Joints or Extremities, Cachexia, Muscle Wasting Neurological: Cranial nerves II-XII grossly intact, Neuro grossly intact Psych/Mental Status: Normal Affect, Appropriate Microbiology Past 72 Hours 11/13/19 13:30 Stool Stool Occult Blood (TAMI) - Final Occult Blood Positive Laboratory Results 11/12/19 18:25: Crossmatch See Detail 11/13/19 11:45: POC Glucose 117 H 11/13/19 16:46: POC Glucose 129 H 11/13/19 21:36: POC Glucose 106 11/14/19 05:30: WBC 9.0, RBC 3.36 L, Hgb 9.8 L, Hct 31.0 L, MCV 92.3, MCH 29.2, MCHC 31.6 L, RDW Std Deviation 52.1 H, RDW Coeff of Loi 15.6 H, Plt Count 199, MPV 9.2 11/14/19 05:30: Sodium 135 L, Potassium 3.4 L, Chloride 102, Carbon Dioxide 27.0, Anion Gap 6, BUN 17, Creatinine 0.84, Estim Creat Clear Calc 68.57, Est GFR (MDRD) Af Amer 114, Est GFR (MDRD) Non-Af 94, BUN/Creatinine Ratio 20.1 H, Glucose 124 H, Calcium 7.9 L 11/14/19 06:31: POC Glucose 134 H Current Medications Acetaminophen (Tylenol) 650 mg PO Q6H PRN PRN PRN Reason: Pain Score 1-10/Temp > 100.7 F Al Hydroxide/Mg Hydroxide (Mylanta Ii) 30 ml PO Q6H PRN PRN PRN Reason: Gastric Burning Allopurinol (Zyloprim) 300 mg PO DAILY [facility] Last Admin: 11/14/19 09:09 Dose: 300 mg Documented by: Dextrose (D50w Syringe) 0 gm IV X1 PRN; Protocol PRN Reason: Hypoglycemia Duloxetine HCl (Cymbalta) 30 mg PO DAILY [facility] Last Admin: 11/14/19 09:08 Dose: 30 mg Documented by: Gabapentin (Neurontin) 100 mg PO TIDCM [facility] Last Admin: 11/14/19 09:08 Dose: 100 mg Documented by: Glucagon () 1 mg IM .X1 PRN PRN Reason: Hypoglycemia Heparin Sodium (Beef Lung) () 50 units IV UD PRN PRN Reason: Port-a-Cath (VAD)Heparin Flush Pantoprazole Sodium 40 mg/ (Sodium Chloride) 110 mls @ 330 mls/hr IV Q12 KRYSTLE Last Infusion: 11/14/19 09:29 Dose: Infused Documented by: Sodium Chloride () 500 mls @ 15 mls/hr IV PRN PRN PRN Reason: Blood Transfusion Last Infusion: 11/13/19 16:52 Dose: Infused Documented by: Sodium Chloride () 250 mls @ 15 mls/hr IV .[id number] PRN PRN Reason: Saline Flush Sodium Chloride () 250 mls @ 15 mls/hr IV .[id number] PRN PRN Reason: Additional IVPB Infusion Insulin Human Lispro (Humalog Kwikpen (Bkc)) 0 unit SC ACHS [facility]; Protocol Last Admin: 11/14/19 06:31 Dose: Not Given Documented by: Magnesium Hydroxide (Milk Of Magnesia) 30 ml PO DAILY PRN PRN PRN Reason: Constipation Melatonin (Melatonin) 3 mg PO QHS PRN PRN PRN Reason: INSOMNIA Morphine Sulfate () 2 mg IV Q3H PRN PRN PRN Reason: Pain Score 6-10/10 Multivitamins (Multivitamin) 1 tablet PO DAILY@1200 [facility] Last Admin: 11/14/19 09:08 Dose: 1 tablet Documented by: Nystatin (Nystatin) 500,000 unit PO 4X/DAY [facility] Last Admin: 11/14/19 09:08 Dose: 500,000 unit Documented by: Ondansetron HCl (Zofran) 4 mg IV Q8H PRN PRN PRN Reason: NAUSEA/VOMITING Pramipexole Dihydrochloride (Mirapex) 0.125 mg PO BID [facility] Last Admin: 11/14/19 09:08 Dose: 0.125 mg Documented by: Sodium Chloride () 10 - 40 ml IV UD PRN PRN Reason: Port-a-Cath (VAD) Flush Last Admin: 11/13/19 16:45 Dose: 10 ml Documented by: Sodium Chloride (0.9% Nacl (Sterile) Posiflush) 10 - 40 ml IV UD PRN PRN Reason: Port access or dressing change Sucralfate (Carafate) 1 gm PO 1HR_ACHS [facility] Last Admin: 11/14/19 06:30 Dose: 1 gm Documented by: Trimethoprim/Sulfamethoxazole (Bactrim Ds) 1 tablet PO MoWeFr@0800 [facility] Last Admin: 11/14/19 09:09 Dose: 1 tablet Documented by: Medical Necessity - Tobacco Use Smoking Status: Former smoker Assessment/Plan All Active Problems (Last Reviewed 11/05/19 @ 09:45 by Blanca Hernandez) Declining functional status (Acute) Anemia (Acute) 1. Acute on chronic macrocytic anemia, suspect GI bleed, underlying iron deficiency-recent baseline hemoglobin about 11. Hemoglobin on admission 7.1. Outpatient stool for occult blood + 11/09/2019. Patient has history of anastomotic ulcer. Trend CBC. PPI twice daily. Patient recently taken off of Eliquis secondary to recurrent falls. Patient does not want EGD/colonoscopy. Hemoglobin 9.8 following 2 units PRBC. PT/OT. IV Venofer x1 then continue oral iron supplementation. PPI transition to oral. SNF pending approval. 2. Pancreatic cancer status post Whipple procedure- follows with Dr. Miguel. Last chemo 1 year ago. Right chest port. Dr. Miguel consulted. 3. Rheumatoid arthritis-on hydrochloroquine, prednisone. 4. History of PE-recently taken off of anticoagulation as noted above. Close monitoring for VTE recurrence. 5. CAD status post CABG-approximately 10 years ago. Not on aspirin, statin, beta-laurent. 6. Hypertension-no longer on regimen. 7. Hyperlipidemia-no longer on statin. 8. Oral thrush-nystatin swish and swallow. 9. Type 2 diabetes [id number] with sliding scale insulin. Continue oral and insulin regimen. 10. Depression-continue home duloxetine regimen. 11. Gout-on allopurinol. DVT prophylaxis- SCDs CODE STATUS: DNR CC Discharge planning: SNF pending approval. Family no longer interested in hos pice however will reconsider pending patient's progression at SNF. This patient was seen by MEL Conde under the supervision of Dr. Bermudez. <Carmen Bermudez E - Last Filed: 11/14/19 11:29> - Physical Exam Vitals/I&O's: Vital Signs Temp Pulse Resp BP Pulse Ox 98.0 F 94 18 124/72 H 93 11/14/19 09:10 11/14/19 09:10 11/14/19 09:10 11/14/19 09:10 11/14/19 09:10 Oxygen Delivery Method Room Air Weight: 157 lb 6.561 oz Body Mass Index (BMI) 24.8 Finger Stick Blood Glucose 336 Intake and Output for Last 24 Hours 11/12/19 11/13/19 11/14/19 23:59 23:59 23:59 Intake Total 127.5 / 127.5 1645.5 / 1845.5 310 / 310 Output Total 625 / 625 300 / 500 200 / 200 Balance -497.5 / -497.5 1345.5 / 1345.5 110 / 110 Microbiology Past 72 Hours 11/13/19 13:30 Stool Stool Occult Blood (TAMI) - Final Occult Blood Positive Laboratory Results 11/12/19 18:25: Crossmatch See Detail 11/13/19 11:45: POC Glucose 117 H 11/13/19 16:46: POC Glucose 129 H 11/13/19 21:36: POC Glucose 106 11/14/19 05:30: WBC 9.0, RBC 3.36 L, Hgb 9.8 L, Hct 31.0 L, MCV 92.3, MCH 29.2, MCHC 31.6 L, RDW Std Deviation 52.1 H, RDW Coeff of Loi 15.6 H, Plt Count 199, MPV 9.2 11/14/19 05:30: Sodium 135 L, Potassium 3.4 L, Chloride 102, Carbon Dioxide 27.0, Anion Gap 6, BUN 17, Creatinine 0.84, Estim Creat Clear Calc 68.57, Est GFR (MDRD) Af Amer 114, Est GFR (MDRD) Non-Af 94, BUN/Creatinine Ratio 20.1 H, Glucose 124 H, Calcium 7.9 L 11/14/19 06:31: POC Glucose 134 H Current Medications Acetaminophen (Tylenol) 650 mg PO Q6H PRN PRN PRN Reason: Pain Score 1-10/Temp > 100.7 F Al Hydroxide/Mg Hydroxide (Mylanta Ii) 30 ml PO Q6H PRN PRN PRN Reason: Gastric Burning Allopurinol (Zyloprim) 300 mg PO DAILY [facility] Last Admin: 11/14/19 09:09 Dose: 300 mg Documented by: Dextrose (D50w Syringe) 0 gm IV X1 PRN; Protocol PRN Reason: Hypoglycemia Duloxetine HCl (Cymbalta) 30 mg PO DAILY [facility] Last Admin: 11/14/19 09:08 Dose: 30 mg Documented by: Ferrous Sulfate (Ferrous Sulfate) 325 mg PO 1200,1700 [facility] Gabapentin (Neurontin) 100 mg PO TIDCM [facility] Last Admin: 11/14/19 11:26 Dose: 100 mg Documented by: Glucagon () 1 mg IM .X1 PRN PRN Reason: Hypoglycemia Heparin Sodium (Beef Lung) () 50 units IV UD PRN PRN Reason: Port-a-Cath (VAD)Heparin Flush Sodium Chloride () 500 mls @ 15 mls/hr IV PRN PRN PRN Reason: Blood Transfusion Last Infusion: 11/13/19 16:52 Dose: Infused Documented by: Sodium Chloride () 250 mls @ 15 mls/hr IV .[id number] PRN PRN Reason: Saline Flush Sodium Chloride () 250 mls @ 15 mls/hr IV .[id number] PRN PRN Reason: Additional IVPB Infusion Iron Sucrose 200 mg/ Sodium (Chloride) 110 mls @ 220 mls/hr IV X1 ONE Stop: 11/14/19 11:59 Insulin Human Lispro (Humalog Kwikpen (Bkc)) 0 unit SC [facility]; Protocol Last Admin: 11/14/19 11:24 Dose: Not Given Documented by: Magnesium Hydroxide (Milk Of Magnesia) 30 ml PO DAILY PRN PRN PRN Reason: Constipation Melatonin (Melatonin) 3 mg PO QHS PRN PRN PRN Reason: INSOMNIA Morphine Sulfate () 2 mg IV Q3H PRN PRN PRN Reason: Pain Score 6-10/10 Multivitamins (Multivitamin) 1 tablet PO DAILY@1200 [facility] Last Admin: 11/14/19 09:08 Dose: 1 tablet Documented by: Nystatin (Nystatin) 500,000 unit PO 4X/DAY [facility] Last Admin: 11/14/19 09:08 Dose: 500,000 unit Documented by: Ondansetron HCl (Zofran) 4 mg IV Q8H PRN PRN PRN Reason: NAUSEA/VOMITING Pantoprazole Sodium (Protonix) 40 mg PO BID [facility] Pramipexole Dihydrochloride (Mirapex) 0.125 mg PO BID [facility] Last Admin: 11/14/19 09:08 Dose: 0.125 mg Documented by: Sodium Chloride () 10 - 40 ml IV UD PRN PRN Reason: Port-a-Cath (VAD) Flush Last Admin: 11/13/19 16:45 Dose: 10 ml Documented by: Sodium Chloride (0.9% Nacl (Sterile) Posiflush) 10 - 40 ml IV UD PRN PRN Reason: Port access or dressing change Sucralfate (Carafate) 1 gm PO 1HR_ACHS [facility] Last Admin: 11/14/19 11:26 Dose: 1 gm Documented by: Trimethoprim/Sulfamethoxazole (Bactrim Ds) 1 tablet PO MoWeFr@0800 [facility] Last Admin: 11/14/19 09:09 Dose: 1 tablet Documented by: Assessment/Plan Hospitalist note: I am seeing this patient in conjunction with Ambika Herzog. Patient seen and examined today. Progress note above and laboratories reviewed and I concur with above treatment plan. Patient reported some improvement in weakness after blood transfusion. Denied any other complaints. His vital signs are stable. - Physical Exam General: Alert, Oriented x3, Cooperative, No apparent distress. HEENT: Atraumatic, PERRLA, EOMI. Neck: Supple, No JVD, Negative Carotid Bruits, Trachea Midline, Thyroid Normal. Lungs: Clear to auscultation, Normal air movement, No rhonchi, No wheeze, No rales. Cardiovascular: Regular rate, Regular Rhythm, Normal S1, Normal S2, PMI Normal. Abdomen: Bowel Sounds Present, Soft, Non Tender, Non-Distended, No Hepato- splenomegaly. Extremities: No clubbing, No cyanosis, No edema Skin: No rashes. Neurological: Cranial nerves are intact, neuro grossly intact Vital Signs are stable. Assessment and plan: #1 acute on chronic symptomatic microcytic anemia: With suspected GI bleed in addition to history of iron deficiency anemia. Patient received total of 2 unit of packed RBCs, hemoglobin went up to 9.8 g/dL today. Daughter reports that patient had positive stool for occult blood recently. He is on p.o. Protonix twice daily. Patient declined work-up for this anemia including EGD or colonoscopy. Hemoglobin and hematocrit stabilized. We are awaiting insurance approval for placement to snf facility. #2 pancreatic cancer: Status post Whipple's procedure. He follows up with Dr. Miguel, last chemotherapy received was 1 year ago. Oncology consulted, recommendations reviewed.. #3 physical debility/functional decline: PT OT evaluation and treatment, awaiting insurance approval for placement to SNF. Family declined hospice at this time. #4 other chronic medical problems: Stable, continue current medications as above. This note was generated with Masala dictation software. It may contain incorrect words, spelling, and punctuation that were not noted in checking the note before signing. Inpatient E&M: 92968 Subs Hosp L2
[2019-11-14 11:30] LABS: Bedside Glucose 141 mg/dL (70-110)
--- NOTE | 2019-11-14 14:47 | CASEMGMT ---
Addendum entered by Shelby Marin 11/14/19 14:58: SW received message from Delmis with [facility] stating she spoke with pt and pt's daughter Suzanne on the phone. Pt would like to hold of on deciding whether or not to become a hospice patient at this time. Original Note: Social Work Note SW updated that pt's daughter Suzanne is requesting to speak to SW. SW in to speak with pt and Suzanne. Suzanne asked if Hospice could speak to pt themselves as pt is more alert and orientated and she feels it would be beneficial for Hospice to speak to pt about their services instead of having the conversation just through Suzanne. OCTAVIA informed Suzanne and pt that this worker can call [facility] and ask for staff to speak to pt directly. OCTAVIA informed Suzanne that Hospice will likely just call pt. Suzanne states pt has his cell phone and will be available to talk whenever Hospice calls. OCTAVIA placed a call to [facility] and spoke with Mikaela in admissions, updated her on above information. Mikaela states [facility] has been working with pt and pt's family so she will see if [facility] will be able to call pt. [facility]. Shelby Marin SUPERVISOR ASSEMBLY DEPARTMENT, HEAD GREENSKEEPER
[2019-11-14 15:10] VITALS: BP 146/86; PULSE 91; RESP 18; TEMP 36.6; O2SAT 92
[2019-11-14 16:51] LABS: Bedside Glucose 124 mg/dL (70-110)
[2019-11-14 20:18] VITALS: BP 130/90; PULSE 97; RESP 18; TEMP 37.1; O2SAT 95
[2019-11-14] MEDS: Pantoprazole Sodium 40 MG Tablet PO (22:40)
[2019-11-14 22:46] LABS: Bedside Glucose 129 mg/dL (70-110)
[2019-11-15 04:12] VITALS: BP 146/87; PULSE 97; RESP 18; TEMP 36.6; O2SAT 95
[2019-11-15] MEDS: Sucralfate 1 GM Tablet PO ×2 (06:38→12:49)
[2019-11-15 06:40] LABS: Bedside Glucose 113 mg/dL (70-110)
[2019-11-15 06:43] LABS: Hematocrit 30.8 % (40-54); Hemoglobin 10.2 g/dL (13.0-16.5); Mean Corp Hgb Conc 33.1 g/dL (32-36); Mean Corpuscular Hgb 30.3 pg (27.0-32.0); Mean Corpuscular Volume 91.4 fL (80-94); Mean Platelet Vol. 9.7 fl (6.2-12.0); Platelet Count 189 K/mm3 (150-450); RBC Distribution Width CV 15.1 % (11.6-14.6); RBC Distribution Width SD 50.6 fl (35.1-43.9); Red Blood Count 3.37 M/mm3 (4.6-6.2); White Blood Count 8.6 K/mm3 (4.4-11.0)
[2019-11-15 07:08] LABS: Anion Gap 5 (5-15); BUN 14 mg/dL (7-18); BUN/Creat Ratio 17.9 RATIO (10-20); Calcium,Total 7.8 mg/dL (8.5-10.1); Chloride 106 mmol/L (98-107); Creatinine, Serum 0.78 mg/dL (0.70-1.30); EST Glomerular Filtration Rate 102 mL/min (>60); Est Glom Filt Rate - Afr Amer 124 mL/min (>60); Glucose 112 mg/dL (74-106); Potassium 3.5 mmol/L (3.5-5.1); Sodium Level 137 mmol/L (136-145)
--- NOTE | 2019-11-15 08:55 | CASEMGMT ---
Addendum entered by Shelby Marin 11/15/19 13:08: OCTAVIA received call from [facility] asking if pt can return home with C. OCTAVIA explained that this worker will need to speak with pt and pt's daughter to determine what the plan is. PA states pt is ready for discharge. OCTAVIA placed a call to pt's daughter Suzanne and updated Suzanne that pt's insurance has denied pt SNF so the options are [facility] private pay, home with HHC/outpatient therapy, home with hospice. OCTAVIA educated Suzanne on each option. Suzanne states that she will need to think about the options and states that she will be at [facility] later today and will update this worker what the decision is. Addendum entered by Shelby Marin 11/15/19 11:05: OCTAVIA received message from Crissy at [facility] stating Jing is requesting peer to peer. Peer to peer number is and reference number is [id number]. OCTAVIA updated RN DEBBIE who asked PA if PA will do peer to peer. OCTAVIA waiting for update from [facility]. Original Note: Social Work Note SW faxed updated clinicals to [facility]. OCTAVIA placed a call to [facility] and left message for Crissy in admissions asking about pre-cert. Plan: [facility] pending pre-cert Shelby Marin TIN POT OPERATOR, MANAGER PLANNING
[2019-11-15] MEDS: Gabapentin 100 MG Capsule PO ×2 (09:30→12:53)
[2019-11-15] MEDS: DULoxetine Hcl 30 MG Capsule PO (09:30)
[2019-11-15] MEDS: Pantoprazole Sodium 40 MG Tablet PO (09:31)
[2019-11-15] MEDS: NYSTATIN 500,000 UNIT/5 ML UDC 500000 UNIT PO (09:31)
[2019-11-15] MEDS: Pramipexole Di-HCl 0.125 MG Tablet PO (09:31)
[2019-11-15] MEDS: Allopurinol 300 MG Tablet PO (09:31)
[2019-11-15 09:42] VITALS: PULSE 104
[2019-11-15 09:47] VITALS: BP 117/77; PULSE 104; RESP 18; TEMP 36.8; O2SAT 95
--- NOTE | 2019-11-15 11:45 | PCM.EXTCARCO ---
- Diet 11/14/19 13:09 Diet: Regular Diet Is pt able to select menu?: Yes - Routine Orders/Code Status Suppository Type: Dulcolax 10mg Suppository Frequency: Daily PRN Routine Lab Work: CBC - 5 days, BMP - 5 days Code Status: DNRCC - Wound(s) LEFT POSTERIOR CALF Wound Type: Abrasion LEFT FOREARM Wound Type: Skin Tear - Therapies Physical Therapy: Eval and Treat Occupational Therapy: Eval and Treat - Problem/Diagnosis (1) Anemia Status: Acute Current Visit: Yes (2) Declining functional status Status: Chronic Current Visit: Yes (3) Pancreatic cancer Status: Chronic Current Visit: Yes (4) Hyperlipidemia Status: Chronic Current Visit: No (5) Hypertension Status: Chronic Current Visit: No (6) Pulmonary embolism Status: Chronic Current Visit: No (7) Restless leg syndrome Status: Chronic Current Visit: No (8) Rheumatoid arthritis Status: Chronic Current Visit: No (9) S/P CABG x 4 Status: Chronic Comment: 07/22/2008: CABG X4: WONG to LAD, SVG to anterior diagonal branch of LAD, SVG to Ramus Marginalis, and SVG to posterolateral branch of the CX per Dr. Perez @ [facility]. Mediastinal exploration for hemorrhage 08/01/2008. Current Visit: No (10) Severe protein-calorie malnutrition Status: Chronic Current Visit: No (11) TIA (transient ischemic attack) Status: Chronic Current Visit: No (12) Acute adrenal insufficiency Status: Suspected Current Visit: No - Allergies/Procedures Done in Hospital Allergies/Adverse Reactions: Allergies No Known Allergies Allergy (Verified 11/12/19 12:02) Procedures: Blood transfusion - Type of Care/Length of Stay Estimated LOS: Convalescent Care Less Than 30 days Type of Care Needed: Skilled Rehab Potential: Fair Prognosis: Fair - Additional Orders/Day of Discharge Day of Discharge: 11/15/19 - Dietary and Speech Recommendations Dietitian Recommendations/Changes: Recommend regular diet as tolerated. - Follow Up Care Primary Care Physician: Jet Mccollum MD [Primary Care Provider] - Please follow up with your Primary Care Physician in: 2 weeks Please Follow Up With: Naren Miguel DO When: 1 week
[2019-11-15] MEDS: Ferrous Sulfate 325 MG Tablet PO (12:53)
[2019-11-15] MEDS: Multivitamins,Therapeutic Tablet 1 TABLET PO ×2 (12:53)
[2019-11-15 13:00] LABS: Bedside Glucose 115 mg/dL (70-110)
--- NOTE | 2019-11-15 14:19 | CASEMGMT ---
Addendum entered by Shelby Marin 11/15/19 14:43: It should be noted that peer to peer is not being completed as pt doesn't meet fci level per [employer]. Pt is walking 125ft stand by today with PT/OT Original Note: Social Work Note Pt's daughter Suzanne at [facility]. OCTAVIA in to speak with pt and Suzanne. Suzanne states pt prefers to return home but would still like to talk to RN regarding pt's medical needs at home. Suzanne states that pt will likely return home with HHC. OCTAVIA provided [facility] with list of [facility] that accept pt's insurance. [facility] agreeable to [facility], [facility], [facility]. OCTAVIA also spoke with [facility] regarding [facility] and [facility] referral. [facility] agreeable to both referrals being made. OCTAVIA also spoke with [facility] regarding private duty aides, [facility] has information regarding local home aide companies. OCTAVIA updated RN CM on request for HHC. OCTAVIA placed a call to Crissy at [facility] and updated her that PA is not doing peer to peer and pt and pt's family are deciding whether to pay privately for SNF or return home. Referral sent to [facility] and [facility]. Shelby Marin OPERATIONS EXAMINER, TANK TRUCK ENGINE MECHANIC
--- NOTE | 2019-11-15 14:38 | DCINST_ITS ---
- Discharge Diagnoses Current Active Problems: Current Active and Chronic Problems (Last Reviewed 11/05/19 @ 09:45 by Blanca Hernandez) Declining functional status (Chronic) Anemia (Acute) Pancreatic cancer (Chronic) You will use the following diet at home:: No restrictions Your food should be the consistency of: Regular Your liquids should be the consistency of: Regular/Thin Discharge Activity: Return to Normal Activity Allergies/Adverse Reactions: Allergies No Known Allergies Allergy (Verified 11/12/19 12:02) Medications to take at Discharge Lipase/Protease/Amylase [Megan Evans 36,000 Units Capsule] 1 cap PO TIDCM 10/17/18 Ondansetron [Ondansetron Odt] 8 mg PO DAILY PRN PRN 10/17/18 Allopurinol 300 mg PO DAILY 08/07/19 Gabapentin [Neurontin] 100 mg PO TIDCM 08/07/19 Multivitamins,Therapeutic [Multivitamin] 1 tab PO DAILY@1200 08/07/19 Duloxetine HCl 30 mg PO DAILY 10/29/19 Glucosamine Sulfate 600 mg PO DAILY 10/29/19 Ropinirole HCl [Requip] 0.25 mg PO BID 10/29/19 Magnesium Oxide 400 mg PO BID 11/12/19 Sulfamethoxazole/Trimethoprim [Sulfamethoxazole-Tmp Ds Tablet] 1 tab PO MOWEFR 11/12/19 Ferrous Sulfate 325 mg PO 1200,1700 #60 tab 11/15/19 Insulin Lispro [Humalog KwikPen] See Protocol SUBCUT ACHS insuln.pen 11/15/19 Mag Hydrox/Al Hydrox/Simeth [Mylanta II] 30 ml PO Q6H PRN PRN udc 11/15/19 Magnesium Hydroxide [Milk Of Magnesia] 30 ml PO DAILY PRN PRN udc 11/15/19 Melatonin 3 mg PO QHS PRN PRN tab 11/15/19 Nystatin 500,000 unit PO 4X/DAY udc 11/15/19 Pantoprazole Sodium [Protonix] 40 mg PO BID #60 tab 11/15/19 Sucralfate [Carafate] 1 gm PO 1HR_ACHS #120 tab 11/15/19 The following prescriptions were given: Sucralfate [Carafate] 1 gm PO 1HR_ACHS #120 tab Transmission Status: Pending to [facility] Ferrous Sulfate 325 mg PO 1200,1700 #60 tab Transmission Status: Pending to [facility] Pantoprazole Sodium [Protonix] 40 mg PO BID #60 tab Transmission Status: Pending to [facility] Primary Care Physician: Jet Mccollum MD [Primary Care Provider] - Please follow up with your Primary Care Physician in: 2 weeks Test Results: Test results from this visit will be discussed in further detail at your follow- up appointment, if applicable. Please Follow Up With: Naren Miguel DO When: 1 week Proposed Discharge Date: 11/15/19
--- NOTE | 2019-11-15 14:40 | PCM.DC.SUM ---
<Allan Tena - Last Filed: 11/15/19 14:40> Discharge Date and Diagnosis Date of Admission: 11/12/19 Date of Discharge: 11/15/19 - Primary Discharge Diagnosis Acute Problems: Active Problems (Last Reviewed 11/05/19 @ 09:45 by Blanca Hernandez) Acute on chronic macrocytic anemia suspected secondary to GI bleed, with iron deficiency Pancreatic cancer status post Whipple procedure History of PE, recently taken off Eliquis - Secondary Discharge Diagnosis Chronic Problems: Chronic Problems (Last Reviewed 11/05/19 @ 09:45 by Blanca Hernandez) Declining functional status (Chronic) TIA (transient ischemic attack) (Chronic) Severe protein-calorie malnutrition (Chronic) Macrocytic anemia (Chronic) Rheumatoid arthritis (Chronic) Pancreatic cancer (Chronic) Pulmonary embolism (Chronic) Gout (Chronic) Restless leg syndrome (Chronic) Pancreatic insufficiency (Chronic) Hypomagnesemia (Chronic) Nausea (Chronic) 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 Perez @ [facility]. Mediastinal exploration for hemorrhage 08/01/2008. History of left heart catheterization (Chronic) 07/19/2008 @ [facility] per Dr. Santiago: 07/19/[address] Molina @ [facility] Atherosclerotic heart disease of [place] coronary artery without angina pectoris (Chronic) 07/22/2008: CABG X4: WONG to LAD, SVG to anterior diagonal branch of LAD, SVG to Ramus Marginalis, and SVG to posterolateral branch of the CX per Dr. Perez @ [facility] Old myocardial infarction (Chronic) Hyperlipidemia (Chronic) Hypertension (Chronic) Hospital Course and Treatment Imaging Results: CT/Brain/Head without Contrast IMPRESSION: Chronic involutional changes of the brain. CT/Chest WITH Contrast IMPRESSION: Normal enhanced CT Chest examination. CT/Abdomen/Pelvis W IV Cont ONLY IMPRESSION: Ascites. Findings suggestive of cirrhotic change of the liver as well as fatty infiltration. A stent is seen within the dilated pancreatic duct. Mass in the head and uncinate process of the pancreas which has progressed as compared to prior study. New 3.3 cm x 3.8 cm cyst in the inferior aspect of the uncinate process of the pancreas. Increased markings in the root of the mesentery. Consults: [facility]ont - oncology Operations: None Procedures: None Summary of Care Provided: Hospital course: The patient is a 74 year old M with past medical history notable for pancreatic cancer with prior Whipple procedure, patient of , also history of PE, recently on Eliquis however recently discontinued, who presented to the emergency room with weakness and falls. He was found to be anemic in the emergency room with a hemoglobin of 7.1. He had a positive Hemoccult stool. He was admitted to the medical surgical floor with acute on chronic anemia secondary to suspected GI blood loss. He was transfused with 2 units of packed red blood cells with good response. Oncology was consulted and recommended that he continue to remain off Eliquis and if he ends up developing DVT he could require an IVC filter in the future. The patient declined endoscopy for further work-up. As the patient was weak and having falls at home the initial plan was for him to receive PT and OT and go to a assisted for further rehab however after he was transfused he had good improvement in his strength and was ambulatory with little help. He was not approved to go to fpc. Instead he went home with home health care. He will also need to continue a PPI twice daily as well as Carafate ACHS,, remain off Eliquis, and not use any blood thinners at home. He was placed on iron twice daily. He was discharged home with home health care in stable condition. Follow-up with Dr. Miguel in 1 week, follow-up with PCP in 1 to 2 weeks. This patient was seen by Allan Tena PA-C under the supervision of Doctor Bermudez. [] - Physical Exam Vitals/I&O's: Vital Signs Temp Pulse Resp BP Pulse Ox 98.3 F 104 H 18 117/77 95 11/15/19 09:47 11/15/19 09:47 11/15/19 09:47 11/15/19 09:47 11/15/19 09:47 Oxygen Delivery Method Room Air Weight: 158 lb 11.725 oz Body Mass Index (BMI) 24.8 Finger Stick Blood Glucose 336 Intake and Output for Last 24 Hours 11/13/19 11/14/19 11/15/19 23:59 23:59 23:59 Intake Total 1645.5 / 1845.5 1360 / 1360 Output Total 300 / 500 200 / 200 150 / 150 Balance 1345.5 / 1345.5 1160 / 1160 -150 / -150 General: Alert, Oriented x3, Cooperative HEENT: Atraumatic, PERRLA, EOMI, Normocephalic Neck: Supple, No JVD, Negative Carotid Bruits Lungs: Clear to auscultation, Normal air movement Cardiovascular: Regular rate, No murmurs Abdomen: Bowel Sounds Present, Soft, Non Tender Extremities: No edema, Capillary Refill Less than 3 Seconds Skin: No rashes, No breakdown Musculoskeletal: No Tenderness to Palpation of Joints or Extremities Neurological: Cranial nerves II-XII grossly intact Psych/Mental Status: Normal Affect, Appropriate, Alert and oriented to time, place, person, mood and affect Microbiology Past 72 Hours 11/13/19 13:30 Stool Stool Occult Blood (TAMI) - Final Occult Blood Positive Laboratory Results 11/14/19 16:43: POC Glucose 124 H 11/14/19 22:38: POC Glucose 129 H 11/15/19 06:30: WBC 8.6, RBC 3.37 L, Hgb 10.2 L, Hct 30.8 L, MCV 91.4, MCH 30.3, MCHC 33.1, RDW Std Deviation 50.6 H, RDW Coeff of Loi 15.1 H, Plt Count 189, MPV 9.7 11/15/19 06:30: Sodium 137, Potassium 3.5, Chloride 106, Carbon Dioxide 26.0, Anion Gap 5, BUN 14, Creatinine 0.78, Estim Creat Clear Calc 57.60, Est GFR (MDRD) Af Amer 124, Est GFR (MDRD) Non-Af 102, BUN/Creatinine Ratio 17.9, Glucose 112 H, Calcium 7.8 L 11/15/19 06:35: POC Glucose 113 H 11/15/19 12:47: POC Glucose 115 H Current Medications Acetaminophen (Tylenol) 650 mg PO Q6H PRN PRN PRN Reason: Pain Score 1-10/Temp > 100.7 F Al Hydroxide/Mg Hydroxide (Mylanta Ii) 30 ml PO Q6H PRN PRN PRN Reason: Gastric Burning Allopurinol (Zyloprim) 300 mg PO DAILY [facility] Last Admin: 11/15/19 09:31 Dose: 300 mg Documented by: Dextrose (D50w Syringe) 0 gm IV X1 PRN; Protocol PRN Reason: Hypoglycemia Duloxetine HCl (Cymbalta) 30 mg PO DAILY [facility] Last Admin: 11/15/19 09:30 Dose: 30 mg Documented by: Ferrous Sulfate (Ferrous Sulfate) 325 mg PO 1200,1700 [facility] Last Admin: 11/15/19 12:53 Dose: 325 mg Documented by: Gabapentin (Neurontin) 100 mg PO TIDCM [facility] Last Admin: 11/15/19 12:53 Dose: 100 mg Documented by: Glucagon () 1 mg IM .X1 PRN PRN Reason: Hypoglycemia Heparin Sodium (Beef Lung) () 50 units IV UD PRN PRN Reason: Port-a-Cath (VAD)Heparin Flush Sodium Chloride () 500 mls @ 15 mls/hr IV PRN PRN PRN Reason: Blood Transfusion Last Infusion: 11/13/19 16:52 Dose: Infused Documented by: Sodium Chloride () 250 mls @ 15 mls/hr IV .[id number] PRN PRN Reason: Saline Flush Last Admin: 11/15/19 06:37 Dose: 15 mls/hr Documented by: Sodium Chloride () 250 mls @ 15 mls/hr IV .[id number] PRN PRN Reason: Additional IVPB Infusion Insulin Human Lispro (Humalog Kwikpen (Bkc)) 0 unit SC ACHS [facility]; Protocol Last Admin: 11/15/19 12:49 Dose: Not Given Documented by: Magnesium Hydroxide (Milk Of Magnesia) 30 ml PO DAILY PRN PRN PRN Reason: Constipation Melatonin (Melatonin) 3 mg PO QHS PRN PRN PRN Reason: INSOMNIA Morphine Sulfate () 2 mg IV Q3H PRN PRN PRN Reason: Pain Score 6-10/10 Multivitamins (Multivitamin) 1 tablet PO DAILY@1200 [facility] Last Admin: 11/15/19 12:53 Dose: 1 tablet Documented by: Nystatin (Nystatin) 500,000 unit PO 4X/DAY [facility] Last Admin: 11/15/19 09:31 Dose: 500,000 unit Documented by: Ondansetron HCl (Zofran) 4 mg IV Q8H PRN PRN PRN Reason: NAUSEA/VOMITING Pantoprazole Sodium (Protonix) 40 mg PO BID [facility] Last Admin: 11/15/19 09:31 Dose: 40 mg Documented by: Pramipexole Dihydrochloride (Mirapex) 0.125 mg PO BID [facility] Last Admin: 11/15/19 09:31 Dose: 0.125 mg Documented by: Sodium Chloride () 10 - 40 ml IV UD PRN PRN Reason: Port-a-Cath (VAD) Flush Last Admin: 11/13/19 16:45 Dose: 10 ml Documented by: Sodium Chloride (0.9% Nacl (Sterile) Posiflush) 10 - 40 ml IV UD PRN PRN Reason: Port access or dressing change Sucralfate (Carafate) 1 gm PO 1HR_ACHS [facility] Last Admin: 11/15/19 12:49 Dose: 1 gm Documented by: Trimethoprim/Sulfamethoxazole (Bactrim Ds) 1 tablet PO MoWeFr@0800 [facility] Last Admin: 11/14/19 09:09 Dose: 1 tablet Documented by: Discharge Diet: 2000 mg Sodium Diet Discharge Activity: Return to Normal Activity Home Medications: Medications to take at Discharge Lipase/Protease/Amylase [Megan Evans 36,000 Units Capsule] 1 cap PO TIDCM 10/17/18 Ondansetron [Ondansetron Odt] 8 mg PO DAILY PRN PRN 10/17/18 Allopurinol 300 mg PO DAILY 08/07/19 Gabapentin [Neurontin] 100 mg PO TIDCM 08/07/19 Multivitamins,Therapeutic [Multivitamin] 1 tab PO DAILY@1200 08/07/19 Duloxetine HCl 30 mg PO DAILY 10/29/19 Glucosamine Sulfate 600 mg PO DAILY 10/29/19 Ropinirole HCl [Requip] 0.25 mg PO BID 10/29/19 Magnesium Oxide 400 mg PO BID 11/12/19 Sulfamethoxazole/Trimethoprim [Sulfamethoxazole-Tmp Ds Tablet] 1 tab PO MOWEFR 11/12/19 Ferrous Sulfate 325 mg PO 1200,1700 #60 tab 11/15/19 Insulin Lispro [Humalog KwikPen] See Protocol SUBCUT ACHS insuln.pen 11/15/19 Mag Hydrox/Al Hydrox/Simeth [Mylanta II] 30 ml PO Q6H PRN PRN udc 11/15/19 Magnesium Hydroxide [Milk Of Magnesia] 30 ml PO DAILY PRN PRN udc 11/15/19 Melatonin 3 mg PO QHS PRN PRN tab 11/15/19 Nystatin 500,000 unit PO 4X/DAY udc 11/15/19 Pantoprazole Sodium [Protonix] 40 mg PO BID #60 tab 11/15/19 Sucralfate [Carafate] 1 gm PO 1HR_ACHS #120 tab 11/15/19 Following Prescriptions Were Given to Patient: Sucralfate [Carafate] 1 gm PO 1HR_ACHS #120 tab Transmission Status: Received by [facility] Ferrous Sulfate 325 mg PO 1200,1700 #60 tab Transmission Status: Received by MAGDALENE BONILLA [facility] Pantoprazole Sodium [Protonix] 40 mg PO BID #60 tab Transmission Status: Received by [facility] [place] [address] Primary Care Physician: Jet Mccollum MD [Primary Care Provider] - Please follow up with your Primary Care Physician in: 2 weeks Please Follow Up With: Naren Miguel DO When: 1 week Disposition: Home with Home Health Minutes spent on discharge:: 35 Patient Condition:: Stable Medical Necessity - Tobacco Use Smoking Status: Former smoker Meaningful Use Info Meaningful Use Diagnoses (Choose all that apply): None applicable <Carmen Bermudez E - Last Filed: 11/16/19 10:29> Discharge Date and Diagnosis - Secondary Discharge Diagnosis Chronic Problems: Chronic Problems (Last Reviewed 11/05/19 @ 09:45 by Blanca Hernandez) Declining functional status (Chronic) TIA (transient ischemic attack) (Chronic) Severe protein-calorie malnutrition (Chronic) Macrocytic anemia (Chronic) Rheumatoid arthritis (Chronic) Pancreatic cancer (Chronic) Pulmonary embolism (Chronic) Gout (Chronic) Restless leg syndrome (Chronic) Pancreatic insufficiency (Chronic) Hypomagnesemia (Chronic) Nausea (Chronic) 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 Perez @ [place]. Mediastinal exploration for hemorrhage 08/01/2008. History of left heart catheterization (Chronic) 07/19/2008 @ [facility] per Dr. Santiago: 07/19/[address] Molina @ [facility] Atherosclerotic heart disease of [place] coronary artery without angina pectoris (Chronic) 07/22/2008: CABG X4: WONG to LAD, SVG to anterior diagonal branch of LAD, SVG to Ramus Marginalis, and SVG to posterolateral branch of the CX per Dr. Perez @ [facility] Old myocardial infarction (Chronic) Hyperlipidemia (Chronic) Hypertension (Chronic) Hospital Course and Treatment Procedures: Blood transfusion Summary of Care Provided: Hospitalist Note: Discharge summary above reviewed and I concur with the above discharge and treatment plan. Patient was admitted because of generalized weakness and recurrent falls. He was found to have acute on chronic symptomatic microcytic anemia. This anemia is attributed to suspected GI bleed in addition to history of iron deficiency anemia. Reportedly, patient had positive stool for occult blood as outpatient recently. He had a history of pancreatic cancer status post Whipple's procedure. He had a history of PE and he was taken off Eliquis recently because of GI bleed. On admission, hemoglobin was 7.1 g/dL. Patient received a total of units of packed RBCs and his hemoglobin went up to 10.2 g/dL upon discharge. Symptoms of weakness and fatigue improved. Patient was offered to go for anemia work-up including upper endoscopy and colonoscopy but he refused. He had CT scan brain that showed no acute findings. CT scan chest with contrast also performed that showed no acute pathology. CT scan abdomen and pelvis with IV contrast revealed progressed mass in the head of pancreas compared to previous studies, cirrhotic changes of the liver and new 3.3 cm x 3.8 cm cyst in the inferior aspect of the uncinate process. Oncology consulted and Dr. Miguel mentioned that metastatic disease cannot be diagnosed with tissue biopsy. After blood transfusion, patient symptoms improved. Patient declined any further work-up for this anemia. Patient discharged home with home health in a stable medical condition, discharged on iron supplement, discharged on Protonix and Carafate, continued on his previous medications without any changes, plan to follow-up with oncology in 1 week, recommended from with PCP in 2 weeks. - Physical Exam General: Alert, Oriented x3, Cooperative, No apparent distress. HEENT: Atraumatic, PERRLA, EOMI. Neck: Supple, No JVD, Negative Carotid Bruits, Trachea Midline, Thyroid Normal. Lungs: Clear to auscultation, Normal air movement, No rhonchi, No wheeze, No rales. Cardiovascular: Regular rate, Regular Rhythm, Normal S1, Normal S2, PMI Normal. Abdomen: Bowel Sounds Present, Soft, Non Tender, Non-Distended, No Hepato-splenomegaly. Extremities: No clubbing, No cyanosis, No edema Skin: No rashes. Neurological: Cranial nerves are intact, neuro grossly intact Vital Signs are stable. This note was generated with [employer] dictation software. It may contain incorrect words, spelling, and punctuation that were not noted in checking the note before signing. - Physical Exam Vitals/I&O's: Vital Signs Temp Pulse Resp BP Pulse Ox 98.3 F 104 H 18 117/77 95 11/15/19 09:47 11/15/19 09:47 11/15/19 09:47 11/15/19 09:47 11/15/19 09:47 Oxygen Delivery Method Room Air Weight: 158 lb 11.725 oz Body Mass Index (BMI) 24.8 Finger Stick Blood Glucose 336 Intake and Output for Last 24 Hours 11/13/19 11/14/19 11/15/19 23:59 23:59 23:59 Intake Total 1645.5 / 1845.5 1360 / 1360 Output Total 300 / 500 200 / 200 150 / 150 Balance 1345.5 / 1345.5 1160 / 1160 -150 / -150 Microbiology Past 72 Hours 11/13/19 13:30 Stool Stool Occult Blood (TAMI) - Final Occult Blood Positive Laboratory Results 11/14/19 16:43: POC Glucose 124 H 11/14/19 22:38: POC Glucose 129 H 11/15/19 06:30: WBC 8.6, RBC 3.37 L, Hgb 10.2 L, Hct 30.8 L, MCV 91.4, MCH 30.3, MCHC 33.1, RDW Std Deviation 50.6 H, RDW Coeff of Loi 15.1 H, Plt Count 189, MPV 9.7 11/15/19 06:30: Sodium 137, Potassium 3.5, Chloride 106, Carbon Dioxide 26.0, Anion Gap 5, BUN 14, Creatinine 0.78, Estim Creat Clear Calc 57.60, Est GFR (MDRD) Af Amer 124, Est GFR (MDRD) Non-Af 102, BUN/Creatinine Ratio 17.9, Glucose 112 H, Calcium 7.8 L 11/15/19 06:35: POC Glucose 113 H 11/15/19 12:47: POC Glucose 115 H Disposition: Home with Home Health Minutes spent on discharge:: 32 Patient Condition:: Stable Meaningful Use Info Meaningful Use Diagnoses (Choose all that apply): None applicable Inpatient E&M: 47676 Disch Hosp
[2019-11-15] MEDS: 0.9% Saline Lock 10 ML Syringe IV (15:14)
--- NOTE | 2019-11-15 15:31 | CASEMGMT ---
Social Work Note [facility] is able to accept pt. RN CM faxed referral and set up HHC for RN, PT/OT, SW, aides. SW back in to speak with pt and pt's daughter Suzanne. OCTAVIA updated Suzanne that HHC has been arranged, [facility] referral has been made and [facility] referral has been made. Suzanne states that Hospice is not completely off the table. OCTAVIA informed Suzanne that Hospice can be called at anytime. OCTAVIA placed a call to Crissy at [facility] and updated her that pt will be going home. Plan: Home with C Shelby Marin STONE DRESSER, GRAB SETTER
--- NOTE | 2019-11-15 15:58 | CASEMGMT ---
Social Work Note Pt's daughter at nurses desk asked to speak to SW. SW in to speak with pt and Suzanne. Suzanne asked is it too late to get pt to [facility] private pay? SW asked what changed. Suzanne states pt's significant other has concerns that pt is going to fall at home. OCTAVIA explained that pt was stand by assist today. SW asked pt if he wanted to pay privately for [facility] and pt states No I am going home and she's just going to have to deal with it. Pt is alert and orientated x3. SW offered support to Suzanne. OCTAVIA encouraged Suzanne to reach out to [facility], Gregory with CCN, PCP, Hospice with any questions or concerns once pt is home. OCTAVIA explained that pt could admit to [facility] from home as well if pt goes home and does poorly. Suzanne and pt state understanding. Pt again states he will be going home at discharge. Plan: Home with [facility] Shelby Marin EDGE GRINDER MACHINE, METAL MILLING MACHINE OPERATOR
--- NOTE | 2019-11-16 14:42 | CASEMGMT ---
PARVIN CM DC CALL DC DATE: 11/15/2019 DC DIAGNOSIS: Anemia, GIB DC DISPOSITION: Home with [facility] APPOINTMENT MADE ON DC: no Attempted call to home. No answer and no machine with voice identification. Hazel PATELN RN ACM
--- NOTE | 2019-11-21 09:18 | CASEMGMT ---
Social Work Discharge follow up Phone call: Discharge Date: 11/15/19 Call Date: 11/21/19 Callt Time: 914 Reason for Follow up: Inpt SW worked extensively with pt on d/c plan of SNF vs. home vs. hospice. Followup call to check on resources as pt chose to return home with [facility]. Summary of Call: SW spoke with pt on phone. Pt stating he is getting along at home and has many different home health workers in and out of his home over the past week. Pt denies any further needs and states he is well taken care of. Interventions: Pt indicates he is well taken care on and no further SW intervention is needed. No further needs requested or indicated. FERNANDA Dugan
== END 2019-11-15 16:01 | disposition home or self-care (01) | DRG 812 ==
LOC: ED 16:30 → MS3 16:51
PROVIDERS: Nurse Practitioner Family; Admitting Provider Internal Medicine; Emergency Provider Emergency Medicine; PCP Family Medicine; Visit Provider Hospitalist
DX: D62 Acute posthemorrhagic anemia (principal); K92.1 Melena; C25.9 Malignant neoplasm of pancreas, unspecified; B37.0 Candidal stomatitis; E27.40 Unspecified adrenocortical insufficiency; R53.81 Other malaise; K86.89 Other specified diseases of pancreas; I25.10 Atherosclerotic heart disease of native coronary artery without angina pectoris; M10.9 Gout, unspecified; E78.5 Hyperlipidemia, unspecified; I10 Essential (primary) hypertension; H35.00 Unspecified background retinopathy; F32.9 Major depressive disorder, single episode, unspecified; E11.319 Type 2 diabetes mellitus with unspecified diabetic retinopathy without macular edema; E11.42 Type 2 diabetes mellitus with diabetic polyneuropathy; E83.42 Hypomagnesemia; G25.81 Restless legs syndrome; M06.9 Rheumatoid arthritis, unspecified; M19.90 Unspecified osteoarthritis, unspecified site; Z66 Do not resuscitate; I25.2 Old myocardial infarction; Z86.711 Personal history of pulmonary embolism; Z79.01 Long term (current) use of anticoagulants; Z98.1 Arthrodesis status; Z87.891 Personal history of nicotine dependence; Z95.1 Presence of aortocoronary bypass graft; Z79.899 Other long term (current) drug therapy; Z90.411 Acquired partial absence of pancreas; Z11.59 Encounter for screening for other viral diseases; Z68.24 Body mass index [BMI] 24.0-24.9, adult
CPT/HCPCS: 36415; 36591; 70450; 71260; 74177; 80048; 80053; 80076; 82274; 82962; 83690; 85014; 85018; 85025; 85027; 85610; 86850; 86900; 86901; 86920; 86922; 87635; 93005; 94799; 97110; 97116; 97162; 97166; 97530; 97802; 99251; 99285; J1756; J7030; J7040; J7050; P9016; Q9967; A4216; G0463; J1940; U0003

== ENCOUNTER 2019-12-05 11:54 | Emergency (ER) | payer MEDICARE, SELFPAY ==
[2019-11-12 18:18] VITALS: BMI 24.8
[2019-12-05 11:54] VITALS: TEMP 36; BMI 28.9
--- NOTE | 2019-12-05 12:11 | NURSING ---
CODE BLUE AT 1145
--- NOTE | 2019-12-05 12:35 | CM.ED ---
Social Work Responding to code blue. Patient daughter, Suzanne arrived. Support provided. Updated Dr. Noriega. Dr. Noriega updated Suzanne on patient current status and that patient did pass. Suzanne tearful and support provided from myself and Vinicio Storm. Patient was active with [facility] and had all arrangements set up. Nursing staff had already spoken with [facility]. Support provided throughout patient time in ED. Janell MORALES, SHUKRI
--- NOTE | 2019-12-05 12:55 | ED.VISSUMM ---
- ER Visit Summary Date of Service: 12/05/19 Chief Complaint: Unresponsive History of Present Illness: The patient is a 74 M presenting per EMS with CPR in progress. Patient collapsed in his bathroom. His home health nurse started CPR and called EMS. On their arrival he was not breathing. He had PEA on monitor. He was given epi x2 and had brief return of pulse. They then lost pulse again and he was given 2 more rounds of epi prehospital. On arrival to the ED CPR was in progress. Physical Examination: Vitals are stable. Patient is afebrile. Alert no acute distress. HEENT exam pupils are fixed and dilated Neck is supple. Lungs are no spontaneous respirations Heart is no cardiac activity Abdomen is soft distended. Extremities are unremarkable. Skin is cool Unresponsive Remainder of exam is unremarkable. Emergency Department Course and Treatment: On arrival to the ED chest compressions are in progress. Patient has a signed DNR form that EMS provided. CPR is stopped. Bedside ultrasound shows no cardiac activity. He was pronounced at 11:57 AM. Disposition: Impression: Cardiopulmonary arrest This note was generated with [employer] dictation software. It may contain incorrect words, spelling, and punctuation that were not noted in review of the chart prior to signing ED Disposition - Plan for ED Patient: Referrals: Jet Mccollum MD [Primary Care Provider] -
--- NOTE | 2019-12-05 13:25 | CHAPLAIN ---
Type of Pastoral Visit ___ Initial Visit ___ Follow-up Visit ___ On-call Visit ___ General Patient Visit ___ Spiritual Assessment ___ Family Conference ___ Bereavement ___ Rapid Response _x__ Code Blue ___ Other (describe below) Pastoral Care Referral From ___ Patient ___ Family ___ Nurse ___ Physician ___ Pipe Liner ___ Vehicle Return Associate _x__ Other (describe below) Sacrament/Intervention _x__ Active listening ___ Anointing ___ Hoahaoism _x__ Bereavement ___ Communion ___ Tonja exploration ___ ___ Life review _x__ Prayer ___ Reconciliation ___ Sacrament of Sick _x__ Supportive presence ___ Wedding ___ Other (describe below) Pastoral Comments met with daughter and her , support provided, prayer given, presence available as family had time with the
== END 2019-12-05 13:21 ==
PROVIDERS: Emergency Provider Emergency Medicine; PCP Family Medicine
DX: I46.9 Cardiac arrest, cause unspecified (principal); Z85.07 Personal history of malignant neoplasm of pancreas
CPT/HCPCS: 92950; 99282